=== PATIENT | female | born 1955 | race Caucasian/White ===

== ENCOUNTER 2019-11-23 12:09 | Inpatient (IN) | payer MEDICARE, OTHER, MEDICAID, SELFPAY ==
[2019-11-23] VITALS (11 sets, daily range): BP systolic 140–144; BP diastolic 78–95; PULSE 101–115; RESP 16–20; TEMP 36.3–36.8; O2SAT 94–95; BMI 19.9
--- NOTE | ~2019-11-23 | XR_ITS ---
EXAMINATION: XR fl guide central line place EXAM DATE: 12/04/2019 17:02 INDICATION: Fluoroscopic guidance. Central line placement. Dialysis catheter. TECHNIQUE: Fluoroscopy used during XR fl guide central line place performed by Dr. Gianluca wood. The DAP for this procedure was 0.2 mGym2. FINDINGS: There are 2 images demonstrating right-sided jugular catheter, and a newly placed left-torres ed double lumen dialysis catheter, both IJ approach. Tips project over right atrium. Correlate with procedure note. IMPRESSION: Fluoroscopy used during XR fl guide central line place. Reviewed, dictated and finalized at location A. ERY TEAM MEMBER
--- NOTE | ~2019-11-23 | US_ITS ---
EXAMINATION: US venous doppler [facility] DATE: 11/25/2019 15:48 INDICATION: Tachycardia and positive d-dimer on admission TECHNIQUE: Jolly scale images without and with compression and Doppler images of the bilateral lower e xtremity veins were obtained. COMPARISON: None. FINDINGS: The right common femoral vein, profunda femoral vein, femoral vein, popliteal vein, peroneal trunk, p osterior tibial veins, and greater saphenous vein are patent. The left common femoral vein, profunda femoral vein, femoral vein, popliteal vein, peroneal trunk, po sterior tibial veins, and greater saphenous vein are patent. IMPRESSION: 1. Patent bilateral lower extremity veins. No evidence of deep venous thrombosis. Reviewed, dictated and finalized at location A. ERN WEAVER IMPRESSION: 1. Patent bilateral lower extremity veins. No evidence of deep venous thrombosi s.
--- NOTE | ~2019-11-23 | XR_ITS ---
EXAMINATION: XR chest 1V portable DATE: 12/03/2019 05:42 INDICATION: Pneumonia TECHNIQUE: frontal view of the chest was obtained. COMPARISON: Chest radiograph dated 11/30/2019 and 07/19/2018 FINDINGS: Large-bore right internal jugular central venous catheter with distal tip at the high right atrium. C hronic biapical pleural-parenchymal scarring, left greater than right. Gradient of hazy airspace opac ity in the right mid to lower lung and left lower lung zones with blunting at the costophrenic angle consistent with small posterior layering pleural effusions, right greater than left. Superimposed dif fuse bilateral interstitial and mild airspace opacities relatively sparing the left upper lung zone. Linear discoid atelectasis in the right midlung zone. No pneumothorax. Heart size is normal. Cholecys tectomy clips in the right upper quadrant. IMPRESSION: 1. Unchanged diffuse interstitial and mild airspace opacities throughout both lungs relatively sparin g the left upper lung zone which could represent mild to moderate pulmonary edema and/or pneumonia. 2. Small bilateral pleural effusions, right greater than left. Reviewed, dictated and finalized at location A. PIPE INSPECTOR IMPRESSION: 1. Unchanged diffuse interstitial and mild airspace opacities throughout both l ungs relatively sparing the left upper lung zone which could represent mild to moderate pulmonary edema and/or pneumonia. 2. Small bilateral pleural effusions, right greater than left.
--- NOTE | ~2019-11-23 | XR_ITS ---
EXAMINATION: XR chest port-a-cath/central EXAM DATE: 12/04/2019 16:55 INDICATION: Dialysis catheter placement. TECHNIQUE: Portable AP frontal chest x-ray was obtained. Comparison is made to prior examination from 12/03/2019. FINDINGS: Previously seen right IJ line has been removed. There is a new left-sided dialysis catheter , slight kinking at the superior most aspect. Tip projects over right atrium. There is rather extensi ve right-sided, moderate left-sided airspace disease, either stable or with slight interval improveme nt compared to prior study. Consider edema and/or pneumonia. Small bilateral pleural effusions. Cardi omediastinal silhouette is normal. No pneumothorax. Left apical scarring and capping. Left-sided PIC C line, tip overlying the left axilla. IMPRESSION: 1. No evidence postprocedure pneumothorax. 2. Right-sided dialysis catheter, slight kinking at the cephalad most aspect. 3. Left PICC line tip overlying axilla. 4. Bilateral edema and/or pneumonia stable or with slight interval improvement. 5. Small pleural effusions. Reviewed, dictated and finalized at location A. GRADER IMPRESSION: 1. No evidence postprocedure pneumothorax. 2. Right-sided dialysis catheter, slight kinking at the cephalad most aspect. 3. Left PICC line tip overlying axilla. 4. Bilateral edema and/or pneumonia stable or with slight interval improvement . 5. Small pleural effusions.
--- NOTE | ~2019-11-23 | XR_ITS ---
EXAMINATION: XR chest 2V DATE: 11/26/2019 15:32 INDICATION: Shortness of breath. TECHNIQUE: Frontal and lateral views of the chest were obtained. COMPARISON: Chest 2 views 11/23/2019, chest CT 12/12/2017 FINDINGS: The lungs are hyperexpanded with architectural distortion and chronic interstitial opacitie s, consistent with emphysema. There is chronic scarring at the lung apices, left worse than right. Th ere are airspace opacities in the lower lung zones, right worse than left. There are small pleural ef fusions. No pneumothorax. The heart size is normal. Surgical clips in the right upper quadrant are arnol colemany from cholecystectomy. IMPRESSION: 1. Worsened airspace opacities in the lower lung zones, consistent with atelectasis versus pneumonia. 2. Small pleural effusions. 3. Emphysema with multifocal scarring. Reviewed, dictated and finalized at location A. OR TRUCK GARAGE MECHANIC IMPRESSION: 1. Worsened airspace opacities in the lower lung zones, consistent with atelect asis versus pneumonia. 2. Small pleural effusions. 3. Emphysema with multifocal scarring.
--- NOTE | ~2019-11-23 | XR_ITS ---
EXAMINATION: XR chest 1V portable DATE: 11/28/2019 08:33 INDICATION: Altered mental status. Generalized weakness. TECHNIQUE: A single frontal view of the chest was obtained. COMPARISON: Chest 2 views 11/26/2019, CT abdomen and pelvis 01/24/2019 FINDINGS: There is scarring at the lung apices, left worse than right. There is a diffuse interstitia l pattern, consistent with mild pulmonary edema. There are airspace opacities in right mid and lower lung zones. There is a small right pleural effusion. No pneumothorax. The heart size is normal. IMPRESSION: 1. Mild pulmonary edema. 2. Worsened airspace opacities in right mid and lower lung zones, consistent with atelectasis versus pneumonia. 3. Small right pleural effusion. Reviewed, dictated and finalized at location A. ENT ART CURATOR IMPRESSION: 1. Mild pulmonary edema. 2. Worsened airspace opacities in right mid and lower lung zones, consistent wi th atelectasis versus pneumonia. 3. Small right pleural effusion.
--- NOTE | ~2019-11-23 | XR_ITS ---
EXAMINATION: XR barium swallow modified EXAM DATE: 12/09/2019 14:54 INDICATION: Dysphagia. Cough. TECHNIQUE: Modified barium esophagram was performed by myself to administered fluoroscopy, in conjun ction with speech pathologist who administered barium in varying consistencies as per speech patholog ist documentation. This was recorded on tape. The DAP for this procedure was 0.7 Gycm2. FINDINGS: Oral stage: Adequate function. Pharyngeal phase: Adequate function. Laryngeal penetration: None. Aspiration: None. Laryngeal sensitivity: Present. IMPRESSION: Patient tolerated oral feedings in the upright position. Please refer to speech patholo gist findings and specific feeding recommendations. Reviewed, dictated and finalized at location A. IMPRESSION: Patient tolerated oral feedings in the upright position. Please r efer to speech pathologist findings and specific feeding recommendations.
--- NOTE | ~2019-11-23 | US_ITS ---
EXAMINATION: US biopsy renal DATE: 12/04/2019 13:31 INDICATION: Acute renal insufficiency. Borderline urine with M spike. TECHNIQUE: The procedure including the risks, benefits, and alternatives was discussed with the patie nt. Risks discussed included bleeding and infection. The patient understood the risks and agreed to p roceed. A timeout was performed to verify the patient's name, date of , and procedure to be p erformed. The skin overlying the right kidney was prepped and draped in usual sterile fashion. Anes thetic was administered with 1% lidocaine subcutaneously. An 18 gauge core biopsy needle was then us ed to obtain 3 core biopsy specimens under continuous sonographic guidance. The entry site was cleane d and dressed. Following the biopsy there was development of a small perinephric hematoma with active hemorrhage evident on color Doppler at the site of biopsy. Direct pressure was held over the lower p ole of the right kidney for 10 minutes after which no active hemorrhage was discernible by color Dopp ler. FINDINGS: Ultrasound images demonstrate the needle in the kidney. IMPRESSION: 1. Ultrasound-guided random right kidney core needle biopsy. 2. Small right perinephric hematoma with initial active hemorrhage visible on color Doppler which res olved following 10 minutes of direct pressure. Reviewed, dictated and finalized at location A. TER SMALL PRINT SHOP IMPRESSION: 1. Ultrasound-guided random right kidney core needle biopsy. 2. Small right perinephric hematoma with initial active hemorrhage visible on c olor Doppler which resolved following 10 minutes of direct pressure.
--- NOTE | ~2019-11-23 | XR_ITS ---
EXAMINATION: XR chest 1V portable EXAM DATE: 12/08/2019 16:20 INDICATION: Cough. Dialysis. Airspace disease. Follow-up. TECHNIQUE: Portable AP frontal chest x-ray was obtained. Comparison is made to prior examination from 12/03/2019. FINDINGS: Again there is extensive right-sided airspace disease, smaller amount of left sided airspac e disease, likely acute process, probably pneumonia, or less likely edema. Accounting for differences in technique, there is no significant interval change. There is a left-sided venous line with tip pr ojecting over the left axilla. There is a double-lumen dialysis catheter. There is no pneumothorax marino spected. Small right pleural effusion. Cardiomediastinal silhouette is normal. There are no osseous a bnormalities identified. IMPRESSION: 1. Extensive right-sided, small to moderate left-sided acute airspace disease unchanged. 2. Probable small right pleural effusion. Reviewed, dictated and finalized at location A. UDER
--- NOTE | ~2019-11-23 | US_ITS ---
EXAMINATION: US renal BI DATE: 12/07/2019 14:32 INDICATION: Perinephric hematoma TECHNIQUE: Multiple ultrasound grayscale images of the kidneys were obtained. COMPARISON: 12/04/2019 and 12/06/2019 FINDINGS: The right kidney measures 11.4 x 4.6 x 4.3 cm. The left kidney measures 8.2 x 3.4 x 4.0 cm. There is increased renal cortical echogenicity at the kidneys consistent with medical renal disease. Cortical thinning at the left kidney with a couple anechoic left renal cysts, the larger measuring 1.7 cm in m aximal diameter. There is no hydronephrosis in either kidney. No stones identified. Continued decrea se in size of a now 5.5 x 2.0 x 1.0 cm hypoechoic perinephric hematoma anterior to the lower pole of the right kidney. On the most recent study this measured 5.8 x 4.2 x 1.3 cm. 7 x 8 mm echogenic nodul e along the nondependent wall of the bladder on one of the images of the bladder. A couple additional images there appears to be a fold along the bladder wall and the nodular appearance on the initial i mage may be artifactual. Tiny amount of anechoic ascites in the deep pelvis. IMPRESSION: 1. Interval decrease in size of a small iatrogenic right perinephric hematoma post recent right renal biopsy. 2. Bilateral increased renal cortical echogenicity consistent with medical renal disease with moderat e left renal atrophy. 3. 7 x 8 mm echogenic nodule along the nondependent bladder wall. A couple additional images suggests this could be artifact of a fold along the bladder wall although differential would include malignan cy or clot. Would consider repeat ultrasound with the bladder fully distended. Reviewed, dictated and finalized at location A. DESK SUPPORT IMPRESSION: 1. Interval decrease in size of a small iatrogenic right perinephric hematoma p ost recent right renal biopsy. 2. Bilateral increased renal cortical echogenicity consistent with medical dragan l disease with moderate left renal atrophy. 3. 7 x 8 mm echogenic nodule along the nondependent bladder wall. A couple lucrecia tional images suggests this could be artifact of a fold along the bladder wall although differential would include malignancy or clot. Would consider repeat u ltrasound with the bladder fully distended.
--- NOTE | ~2019-11-23 | NM_ITS ---
EXAMINATION: NM lung vent and perfusion DATE: 11/26/2019 16:05 INDICATION: Shortness of breath. TECHNIQUE: The patient breathed 25.3 mCi xenon-133 for ventilation images. 5.3 mCi Tc-99m MAA was adm inistered intravenously for perfusion images. Scintigraphic images of the chest were obtained. COMPARISON: Chest 2 views 11/26/2019 FINDINGS: The single breath ventilation image demonstrates large defects in the upper lobes and lower lobes. Ve ntilation washout images show diffuse retention bilaterally. Perfusion images show matched large def ects in the upper lobes and lower lobes. ] IMPRESSION: 1. Intermediate probability for pulmonary embolism. Reviewed, dictated and finalized at location A. URFACE AUGMENTEE ELINT OPERATOR
--- NOTE | ~2019-11-23 | US_ITS ---
US renal BI 11/24/2019 07:58 Procedure: Realtime transabdominal ultrasound of the kidneys and bladder. Indication: Acute renal injury. Comparison: Ultrasound dated 11/07/2018 Findings: There is increased renal cortical echotexture bilaterally, consistent with chronic medical renal disease. There is left renal atrophy. There is a left renal cyst measuring 1.1 cm maximum dimen milly, inferior laterally. The right kidney measures 11.1 cm and left kidney measures 7.7 cm. Bladder within normal limits. Impression: 1: Left renal atrophy. Increased renal cortical echotexture consistent with chronic medical renal dis ease. 2: Left renal cyst measuring 11 mm. Reviewed, dictated and finalized at location A. LE AND OUTSOLE SPLITTER Impression: 1: Left renal atrophy. Increased renal cortical echotexture consistent with chr onic medical renal disease. 2: Left renal cyst measuring 11 mm.
--- NOTE | ~2019-11-23 | CT_ITS ---
EXAMINATION: CT brain wo con DATE: 11/28/2019 08:45 INDICATION: Altered mental status. TECHNIQUE: Computed tomography (CT) of the head was performed without intravenous contrast. The mA wa s adjusted according to patient size. Iterative reconstruction technique was employed. The dose-lengt h product was 1210.67 mGy-cm. COMPARISON: Head CT 07/19/2018 FINDINGS: Motion artifact is noted. There are scattered areas of low attenuation in the cerebral whit e matter. There is no intracranial hemorrhage, acute infarction, or abnormal intracranial mass lesion . The ventricles are normal in size. There is mild mucosal thickening in the paranasal sinuses. The m astoid air cells are normal. IMPRESSION: 1. Stable moderate nonspecific cerebral white matter disease, which likely represents chronic small v essel ischemic disease. Reviewed, dictated and finalized at location A. WASHER TENDER IMPRESSION: 1. Stable moderate nonspecific cerebral white matter disease, which likely repr esents chronic small vessel ischemic disease.
--- NOTE | ~2019-11-23 | US_ITS ---
EXAMINATION: US venous doppler [facility] DATE: 12/04/2019 13:34 INDICATION: Lower limb edema. TECHNIQUE: Grayscale ultrasound images without and with compression and Doppler ultrasound images of the bilateral lower extremity veins were obtained. COMPARISON: Ultrasound 11/25/2019 FINDINGS: The visualized portions of right common femoral vein, profunda (deep) femoral vein, popliteal vein, p eroneal veins, posterior tibial veins, and greater saphenous vein outflow are patent. There is thromb us in right femoral vein. The visualized portions of left common femoral vein, profunda femoral vein, femoral vein, popliteal v ein, peroneal veins, posterior tibial veins, and greater saphenous vein outflow are patent. IMPRESSION: 1. Acute deep vein thrombosis involving right femoral vein. Reviewed, dictated and finalized at location A. NO ATTENDANT
--- NOTE | ~2019-11-23 | XR_ITS ---
EXAMINATION: XR chest 2V DATE: 11/23/2019 13:22 INDICATION: Shortness of breath. Weakness. TECHNIQUE: Frontal and lateral views of the chest were obtained. COMPARISON: Chest 2 views 07/19/2018, CT abdomen and pelvis 01/24/2019 FINDINGS: There are lucencies in the lungs, consistent with emphysema. There is scarring at left lung apex with interval improvement. There are mild airspace opacities in the mid and lower lung zones. N o pleural effusion or pneumothorax. The heart size is normal. There is an old healed fracture of left humeral diaphysis. IMPRESSION: 1. Mild airspace opacities in the mid and lower lung zones, consistent with atelectasis/scarring vers us pneumonia. 2. Emphysema. Reviewed, dictated and finalized at location A. 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 Mild airspace opacities in the mid and lower lung zones, consistent with ate lectasis/scarring versus pneumonia. 2. Emphysema.
--- NOTE | ~2019-11-23 | XR_ITS ---
EXAMINATION: XR chest port-a-cath/central EXAM DATE: 11/29/2019 11:21 INDICATION: Portacatheter insertion. TECHNIQUE: Portable AP frontal chest x-ray was obtained. Comparison is made to prior examination from 11/28/2019. FINDINGS: There is a new right-sided Huber catheter in position. Cardiomediastinal silhouette is no rmal. There is indistinct reticulation with a bibasal predominance which may indicate pulmonary edema . There are small pleural effusions. No pneumothorax. Similar appearance on prior study. There are no osseous abnormalities identified. IMPRESSION: No evidence postprocedure pneumothorax. Probable pulmonary edema. Small pleural effusions . Pneumonia not excludable. Reviewed, dictated and finalized at location B. 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 Probable pulmonary edema. S mall pleural effusions. Pneumonia not excludable.
--- NOTE | ~2019-11-23 | US_ITS ---
EXAMINATION: US renal BI DATE: 12/06/2019 10:46 INDICATION: Iatrogenic right perinephric hematoma. TECHNIQUE: Multiple ultrasound grayscale images of the kidneys were obtained. COMPARISON: Ultrasound 11/24/2019 FINDINGS: The right kidney measures 11.0 x 4.0 x 6.9 cm. The left kidney measures 8.5 x 4.1 x 4.7 cm. The kidne ys demonstrate normal parenchymal echogenicity. There is a small volume of right perinephric hematoma . There is a 1.4 cm cyst in left kidney. There is no hydronephrosis. The bladder is normal. IMPRESSION: 1. Small right perinephric hematoma. 2. Mild atrophy of left kidney. No hydronephrosis. Reviewed, dictated and finalized at location A. 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
--- NOTE | ~2019-11-23 | XR_ITS ---
EXAMINATION: XR chest 1V portable INDICATION: Pneumonia and pulmonary edema TECHNIQUE: Portable AP chest at 1547 hours COMPARISON: 11/29/2017 FINDINGS: A right internal jugular dialysis catheter ends with its tip in the proximal right atrium. The lungs are hyperinflated. Opacities persist without significant change. There is a small, stable r ight pleural effusion. A left pleural effusion has decreased in size. The cardiomediastinal silhouett e is stable. There is no pneumothorax. IMPRESSION: 1. Diffuse lung disease without significant change, likely combination of pulmonary edema and pneumon ia. 2. Small right pleural effusion. Reviewed, dictated and finalized at location A. CAL STAFF ASSISTANT IMPRESSION: 1. Diffuse lung disease without significant change, likely combination of pulmo nary edema and pneumonia. 2. Small right pleural effusion.
--- NOTE | 2019-11-23 12:06 | ED.WEAKNESS ---
HPI - Weakness General Chief complaint: Weakness Stated complaint: weakness Time Seen by Provider: 11/23/19 12:06 Source: patient, EMS and RN notes reviewed Mode of arrival: EMS Limitations: no limitations History of Present Illness HPI Narrative: Pt is a 64 y/o female presenting to the ED c/o generalized weakness. Pt reports she started experiencing generalized weakness about 3 days ago to where she was unable to walk. Pt states she was diagnosed with Influenza at [facility] on 10/18 and notes she was prescribed Tamaflu. Pt states she is normally able to ambulate at her home. Pt also reports subjective fever, cough, midstenral CP, back pain, ABD pain, N/V, and SOB. Pt states she has not vomited today, EMS report the pt has not had anything to eat in 3 days. Per EMS, the pt has a Hx of COPD but is not on home oxygen. Onset (ago): day(s) (3) Location: generalized Associated symptoms: chest pain (Midsternal), fever/chills (Subjective fever), loss of appetite (not eaten in 3 days), nausea/vomiting, shortness of breath and other (Cough; back pain; ABD pain) Related Data Home Medications Medication Instructions Recorded Confirmed trazodone 50 mg tablet 50 mg PO .QHS tablet 08/13/19 09/10/19 Allergies Allergy/AdvReac Type Severity Reaction Status Date / Time No Known Allergies Allergy Verified 09/10/19 15:25 Review of Systems Review of Systems: Narrative: Constitutional: Positive for subjective fever, generalized weakness, and loss of appetite. Respiratory: Positive for dyspnea and cough. Cardiovascular: Positive for midsternal chest pain. Gastrointestinal: Positive for abdominal pain, nausea, or vomiting. Musculoskeletal: Positive for back pain. All systems reviewed & are unremarkable except as noted in HPI and below PMFSH Past Medical History Medical History COPD (chronic obstructive pulmonary disease) Influenza Surgical History Surgical History History of right hip replacement Family History Family History Mother Family history of lung cancer Sibling Family history of lung cancer Father Acute myocardial infarction Social History Social History Smoking status: Unknown if ever smoked Alcohol intake: current Gender identity (if verbalized by the patient): Female Exam Narrative: Exam Narrative: Constitutional: Ill appearing. No distress. Nose: Nose normal. Eyes: Conjunctiva are normal. Neck: Normal range of motion. Neck supple. Cardiovascular: Normal rate and regular rhythm. Pulmonary/Chest: Decreased breath sounds. Abdominal: Soft. There is no tenderness. Musculoskeletal: Normal range of motion. No edema. Neurological: Alert and oriented to person and place. Skin: Skin is warm. No pallor. Psychiatric: Normal mood and affect. Course Consultations Consultation #1: Discussed case with Hospitalist SONIA Solano. Accepted the pt for admission. Date: 11/23/19 Time: 14:40 Consultation #2: Discussed case with Social Insurance Analyst Dr. Abel. Will consult. Date: 11/23/19 Time: 14:42 Vital Signs Vital signs: Vital Signs Temperature 36.8 C 11/23/19 12:00 Pulse Rate 101 H 11/23/19 12:00 Respiratory Rate 16 11/23/19 12:00 Blood Pressure 142/95 H 11/23/19 12:00 Pulse Oximetry 94 11/23/19 12:00 Temperature 36.8 C 11/23/19 12:00 Pulse Rate 101 H 11/23/19 12:36 Respiratory Rate 16 11/23/19 12:00 Blood Pressure 142/95 H 11/23/19 12:00 Pulse Oximetry 94 11/23/19 12:37 MDM - Weakness Lab Data Result diagrams: 11/23/19 13:03 11/23/19 13:28 Labs: Lab Results 11/23/19 11/23/19 11/23/19 Range/Units 13:03 13:03 13:28 WBC 6.8 (4.5-10.0) K/mm3 RBC 4.49 (4.2-5.4) M/mm3 Hgb 13.1 (12.0-15.0) g/dL Hct 40.1 (37.0-47.0) % MCV 89
[2019-11-23] MEDS: SODIUM CHLORIDE 0.9% IV 1,000 ML 999 ML IV CONT ×2 (12:34→14:56)
--- NOTE | 2019-11-23 13:08 | PC.NURSE ---
Pt. ripped IV out on accident, IV placed. EDP aware.
--- NOTE | 2019-11-23 13:08 | ECG_ITS ---
Measurements Intervals [place] Rate: 101 P: 85 NC: 100 QRS: 84 QRSD: 76 T: 71 QT: 318 QTc: 413 Interpretive Statements SINUS TACHYCARDIA WITH SHORT NC INTERVAL ATRIAL PREMATURE COMPLEXES POSSIBLE LEFT ATRIAL ENLARGEMENT INCOMPLETE RIGHT BUNDLE BRANCH BLOCK BORDERLINE ST-T WAVE ABNORMALITY- INFERIOR LEADS BASELINE ARTIFACT- I, III, AVL, AVF, V4 ABNORMAL ECG Electronically Signed On 11-23-2019 13:47:24 POSTAL INSPECTOR by Reed Chapin D.O.
[2019-11-23 13:11] LABS: Basophils Absolute Auto 0.1 K/mm3 (0.0-0.1); Basophils Percent Auto 0.7 % (0.2-1.2); Hematocrit 40.1 % (37.0-47.0); Hemoglobin 13.1 g/dL (12.0-15.0); Immature Granulocyte Absolute 0.01 K/mm3 (0.00-0.031); Immature Granulocyte Percent A 0.1 % (0-0.5); Immature Platelet Fraction Pct 2.9 % (0.9-11.2); Lymphocytes Absolute Auto 0.42 K/mm3 (0.9-3.2); Lymphocytes Percent Auto 6.2 % (18.3-44.2); Mean Corpuscular HGB Conc 32.7 g/dl (32-36); Mean Corpuscular Hemoglobin 29.2 pg (26-34); Mean Corpuscular Volume 89.3 fl (80-100); Mean Platelet Volume 11.1 fl (7.4-10.4); Monocytes Absolute Auto 0.3 K/mm3 (0.1-0.6); Monocytes Percent Auto 4.6 % (2.6-8.5); Neutrophils Percent Auto 88.4 % (45.5-73.1); Platelet Count Result 117 k/mm3 (150-375); Red Blood Count 4.49 M/mm3 (4.2-5.4); Red Cell Distribution Width 14.7 % (11.5-14.5); White Blood Count 6.8 K/mm3 (4.5-10.0)
[2019-11-23 13:29] LABS: D Dimer 3.98 ug/mL (<0.48)
[2019-11-23 13:45] LABS: Alanine Aminotransferase 19 U/L (4-35); Albumin Level 3.3 g/dL (3.5-5.1); Alkaline Phosphatase 110 U/L (38-126); Aspartate Amino Transferase 34 U/L (14-36); Bilirubin,Total 0.5 mg/dL (0.2-1.3); Blood Urea Nitrogen 61 mg/dL (7-17); Calcium 8.4 mg/dL (8.4-10.2); Carbon Dioxide 18 mmol/L (22-30); Chloride 104 mmol/L (98-107); Estimated Glomerular Filt Rate 6; Glucose 89 mg/dL (65-105); Potassium 3.6 mmol/L (3.4-5.0); Sodium 138 mmol/L (137-145)
[2019-11-23 13:54] LABS: NT Pro B Type Natriuretic Pept 1950 PG/ML (5-100)
[2019-11-23 14:56] LABS: Creatine Kinase 274 U/L (30-135)
[2019-11-23] MEDS: GUAIFENESIN/DEXTROMETHORPHAN 10 ML UDC PO (15:41)
--- NOTE | 2019-11-23 16:00 | PM.IMHP ---
H&P: HPI History of Present Illness Chief complaint: Generalized weakness. Narrative: Jacquelyn Willis is a 64 year old female smoker with COPD, chronic kidney disease, and hypertension who presented to the emergency department earlier this afternoon via EMS from home for evaluation of generalized weakness. She was diagnosed with influenza at an outside facility on November 18, 2019 and was prescribed Tamiflu of which she has completed. Unfortunately, she continues to feel poorly, and in fact feels worse than what she felt at the outset. She continues to have headache, cough occasionally productive of clear to yellow phlegm, wheezing which is improved with inhalers, subjective fever, aches, and progressive weakness to the point where she really could not even get herself out of bed today. Her appetite has been extremely poor and she has had little oral intake for at least a week's time. Her urine output has declined significantly and she has been feeling lightheaded/dizzy upon standing. She also notes mild confusion and mild sinus congestion with rhinorrhea. She does not recall when she last had a fever. No exertional chest pain, but her chest wall is a bit sore from coughing. She does have shortness of breath with exertion. No orthopnea, PND, or lower extremity edema. She has not had diarrhea or dysuria. She has been taking Tylenol for aches and fever and denies NSAID use. Review of Systems Review of Systems: All systems reviewed & are unremarkable except as noted in HPI and below PMFSH Past Medical History Medical History (Updated 11/23/19 @ 18:03 by Senia Solano PA-C) Chronic kidney disease, stage 3 Baseline creatinine is between 1.00 and 1.20. Colon polyps COPD (chronic obstructive pulmonary disease) Gastroesophageal reflux disease Hyperlipidemia Hypertension Osteoarthritis Osteoporosis Tobacco dependence Surgical History Surgical History (Updated 11/23/19 @ 17:59 by Senia Solano PA-C) History of right hip replacement Status post bunionectomy Status post hysterectomy Status post nasal septoplasty Family History Family History Mother Family history of lung cancer Sibling Family history of lung cancer Father Acute myocardial infarction Social History Social History (Updated 11/23/19 @ 18:00 by Senia Solano PA-C) Social History: The patient lives in [place]. Her apparently lives next door. She is retired. She designates her daughter, Emily Hooper, as her surrogate decision maker and she wishes to be a full code. She smoked up to a pack of cigarettes per day for many years, and now smokes about 8 a day. She denies alcohol abuse. No drug use. Years smoked: 45 Smoking end date: 11/20/19 Spiritual care concerns: No Agree to blood products: Yes Meds Home Medications and Allergies Home Medications Medication Instructions Recorded Confirmed Type trazodone 50 mg tablet 50 mg PO .QHS tablet 08/13/19 11/23/19 History estradiol 0.5 mg tablet 0.5 mg PO DAILY #90 tablet 10/16/19 11/23/19 Rx linaclotide 290 mcg capsule 290 mcg PO DAILY #30 cap 10/16/19 11/23/19 Rx metoprolol succinate 25 mg 25 mg PO DAILY #90 tablet 10/16/19 11/23/19 Rx tablet,extended release 24 hr rosuvastatin 40 mg tablet 40 mg PO DAILY #90 tablet 10/16/19 11/23/19 Rx cholecalciferol (vitamin D3) 1,250 50,000 unit PO WEEKLY #8 cap 10/17/19 11/23/19 Rx mcg (50,000 unit) capsule omega-3 fatty acids 1,000 mg 1,000 mg PO DAILY #90 cap 10/17/19 11/23/19 Rx capsule docusate sodium 100 mg PO DAILY 11/23/19 11/23/19 History hydrocodone-acetaminophen 1 tablet PO Q6H PRN 11/23/19 11/23/19 History ondansetron 4 mg PO Q8H PRN 11/23/19 11/23/19 History oseltamivir 75 mg PO BID 11/23/19 11/23/19 History tramadol 50 mg PO Q8H PRN 11/23/19 11/23/19 History Allergies Allergy/AdvReac Type Severity Reaction Status Date / Time No Known Allergie
[2019-11-23 18:32] LABS: Lactic Acid Reflex 0.8 mmol/L (0.7-2.1)
[2019-11-23 18:32] LABS: Blood Urea Nitrogen 58 mg/dL (7-17); Calcium 7.7 mg/dL (8.4-10.2); Carbon Dioxide 15 mmol/L (22-30); Chloride 107 mmol/L (98-107); Creatine Kinase 354 U/L (30-135); Estimated Glomerular Filt Rate 7; Glucose 77 mg/dL (65-105); Magnesium 2.2 mg/dL (1.6-2.3); Phosphorus 6.2 mg/dL (2.5-4.5); Potassium 3.5 mmol/L (3.4-5.0); Sodium 137 mmol/L (137-145)
[2019-11-23] MEDS: TRAMADOL HCL 50 MG TABLET PO (18:39)
[2019-11-23] MEDS: TRAZODONE HCL 50 MG TABLET PO (20:18)
[2019-11-23] MEDS: ALBUTEROL SULFATE NEB 2.5 MG/0.5 ML INH INHALATION (20:26)
[2019-11-23] MEDS: IPRATROPIUM BR 0.02% INH SOLN 0.5 MG/2.5 ML VIAL INHALATION (20:27)
[2019-11-23 21:59] LABS: Add Urine Microscopic? YES; Amorphous Sediment Urine Few; Appearance Urine Cloudy (Clear); Bacteria Urine 4+ /hpf; Bilirubin Urine Negative (Negative); Blood Urine 2+ (Negative); Color Urine Yellow (Yellow); Glucose Urine UA Negative (Negative); Ketones Urine Negative (Negative); Leukocyte Esterase Ur 2+ LEU/UL (Negative); Mucus Urine Rare /lpf; Nitrate Urine Negative (Negative); Protein Urine 2+ mg/dL (Negative); RBC Urine 0-2 /hpf (0-2); Specific Grav Ur 1.009 (1.001-1.035); Squamous Epithelial Cell Urine Occasional /hpf (Few); Urobilinogen Urine Negative mg/dL (<2.0); WBC Clumps Urine Present /HPF; WBC Urine 31-50 /hpf
[2019-11-23] MEDS: SODIUM BICARBONATE 8.4% 150 MEQ in DEXTROSE 5% 1,000 ML 950 ML 50 MEQ IV CONT (22:55)
[2019-11-24] VITALS (20 sets, daily range): BP systolic 116–149; BP diastolic 65–85; PULSE 83–119; RESP 14–22; TEMP 36.1–37.1; O2SAT 95–98
[2019-11-24] MEDS: ALBUTEROL SULFATE NEB 2.5 MG/0.5 ML INH INHALATION ×4 (02:21→22:24)
[2019-11-24 05:57] LABS: Hematocrit 31.3 % (37.0-47.0); Hemoglobin 10.5 g/dL (12.0-15.0); Immature Granulocyte Absolute 0.02 K/mm3 (0.00-0.031); Immature Granulocyte Percent A 0.4 % (0-0.5); Lymphocytes Absolute Auto 0.33 K/mm3 (0.9-3.2); Lymphocytes Percent Auto 6.2 % (18.3-44.2); Mean Corpuscular HGB Conc 33.5 g/dl (32-36); Mean Corpuscular Hemoglobin 28.9 pg (26-34); Mean Corpuscular Volume 86.2 fl (80-100); Mean Platelet Volume 10.2 fl (7.4-10.4); Monocytes Absolute Auto 0.3 K/mm3 (0.1-0.6); Monocytes Percent Auto 5.8 % (2.6-8.5); Neutrophils Absolute Auto 4.7 K/mm3 (1.3-6.7); Neutrophils Percent Auto 87.6 % (45.5-73.1); Platelet Count Result 87 k/mm3 (150-375); Red Blood Count 3.63 M/mm3 (4.2-5.4); Red Cell Distribution Width 14.6 % (11.5-14.5); White Blood Count 5.3 K/mm3 (4.5-10.0)
[2019-11-24 06:13] LABS: Albumin Level 2.6 g/dL (3.5-5.1); Blood Urea Nitrogen 59 mg/dL (7-17); Calcium 7.8 mg/dL (8.4-10.2); Carbon Dioxide 15 mmol/L (22-30); Chloride 103 mmol/L (98-107); Creatine Kinase 397 U/L (30-135); Estimated Glomerular Filt Rate 6; Glucose 88 mg/dL (65-105); Phosphorus 6.1 mg/dL (2.5-4.5); Potassium 3.3 mmol/L (3.4-5.0); Sodium 136 mmol/L (137-145)
[2019-11-24 08:33] LABS: Creatinine Urine 35.6 mg/dL; Total Protein Urine Random 87 mg/dL
[2019-11-24 08:34] LABS: Sodium Urine Random 44 meq/L
[2019-11-24] MEDS: METOPROLOL SUCCINATE EXT REL 25 MG TABCR PO (08:39)
[2019-11-24] MEDS: DOCUSATE SODIUM 100 MG CAPSULE PO (08:40)
[2019-11-24] MEDS: TRAMADOL HCL 50 MG TABLET PO ×2 (08:46→20:28)
[2019-11-24] MEDS: SODIUM CHLORIDE 0.9% IV 1,000 ML 75 ML IV CONT (11:35)
--- NOTE | 2019-11-24 12:44 | PM.IMPN ---
Progress Note: A&P Assessment and Plan (1) Influenza A: Code(s): J10.1 - Influenza due to other identified influenza virus with other respiratory manifestations Status: Acute Assessment and Plan: Screen showing patient influenza A positive in the emergency room. She has already completed a course of Tamiflu. (2) Abnormal chest x-ray: Code(s): R93.89 - Abnormal findings on diagnostic imaging of other specified body structures Status: Acute Assessment and Plan: CXR showing mild bilateral mid and lower lung zone airspace disease. Possibly PNA but does not appear too symptomatic from this. Rocephin and Azithromycin ordered. Will add Doxycycline since this is post influenza. (3) Acute kidney injury: Code(s): N17.9 - Acute kidney failure, unspecified Status: Acute Assessment and Plan: Creatinine was 1.0-1.4 both last year. Patient now profound renal failure. Also the metabolic acidosis most likely related to the failure. Renal ultrasound showing left renal atrophy. UA noted. Currently on IV bicarb. Creatinine improved initially but now is worsened again. Will add normal saline. Presumably YOKASTA due to profound dehydration from poor oral intake over the past week but consider TTP or rapidly progressive GN. Avoid nephrotoxic agents. Appreciate nephrology input. Check LDH, etc. (4) Hypertension: Code(s): I10 - Essential (primary) hypertension Status: Acute Assessment and Plan: BP reviewed on 11/24/19. BP mildly elevated on admission but better now. Continue metoprolol. Monitor closely. (5) COPD (chronic obstructive pulmonary disease): Code(s): J44.9 - Chronic obstructive pulmonary disease, unspecified Status: Acute Assessment and Plan: Wheezing appreciated on exam. Patient on room air. Will contiue scheduled nebulizers for now. Contineu Symbicort. Continue to follow (6) Tobacco dependence: Code(s): F17.200 - Nicotine dependence, unspecified, uncomplicated Status: Acute Assessment and Plan: Smoking cessation has been discussed with the patient. It appears she declined nicotine patch. (7) UTI (urinary tract infection): Code(s): N39.0 - Urinary tract infection, site not specified Status: Acute Assessment and Plan: UA showing 2+ blood, 2+ leukocyte Estrace, 31-50 white cells with clumping and 4+ bacteria. Growing gram-negative bacilli. Follow up on the culture results. She is currently on Rocephin which will continue. (8) Thrombocytopenia: Code(s): D69.6 - Thrombocytopenia, unspecified Status: Acute Assessment and Plan: Platelet count low at 117K on admission. It has dropped to 87,000 today. Sepsis related? TTP? (9) Positive D dimer: Code(s): R79.89 - Other specified abnormal findings of blood chemistry Status: Acute Assessment and Plan: This was drawn on admission. Patient was tachycardic on admission but is not hypoxic. Will check lower extremity venous Dopplers. Consider V/Q scan. (10) Chronic kidney disease, stage 3: Code(s): N18.3 - Chronic kidney disease, stage 3 (moderate) Status: Acute Assessment and Plan: Patient with baseline creatinine of 1-1.4. As above. Subjective Date/time seen: 11/24/19 12:44 Interval history: 64yo female with COPD here for generalized weakness after having influenza. She was up to the chair earlier today. She is alert but mildly confused. She states she having chest pain for the past few days. She does have difficulty telling me if this is intermittent or chronic. She states her chest pain symptoms get better she does not talk. She still has a headache. She denies any dysuria or hematuria. History overall is suspect. Review of Systems Review of Systems: ROS unobtainable: unobtainable due to mental status Exam Narrative: Exam Narrative: Gen -moni,
--- NOTE | 2019-11-24 13:34 | PM.CNNEP ---
Assessment and Plan Assessment and plan (1) Acute kidney injury: Code(s): N17.9 - Acute kidney failure, unspecified Status: Acute (2) Chronic kidney disease, stage 3: Code(s): N18.3 - Chronic kidney disease, stage 3 (moderate) Status: Chronic (3) Influenza A: Code(s): J10.1 - Influenza due to other identified influenza virus with other respiratory manifestations Status: Acute (4) Hypertension: Code(s): I10 - Essential (primary) hypertension Status: Acute Assessment and Plan: . Additional Plan Jacquelyn has suffered an acute insult on her baseline renal insufficiency. The exact etiology of this insult is not entirely clear but there are several concerns/possibilities. This could just be simple dehydration/volume depletion that was so severe that it resulted in acute tubular necrosis. On the other hand, it could be ATN from her influenza and associated symptoms in of itself as well. Another concern I have is a possibility of some type of glomerulonephritis/vasculitis/autoimmune disorder as she does have blood and protein on her urinalysis/urine sediment. Also of note, she has a low platelet count in association with renal dysfunction which brings up the concern for possible TTP. For now, I would follow up on her renal ultrasound as the patient states that she is aware that one of her kidneys is smaller than the other but could not give specifics to me. Head I will also check an extensive serological workup to rule out any type of intrinsic, infiltrative, or inflammatory disorder that may be affecting her kidney function. LDH, peripheral smear, and ADAMTS 13 antibody will be checked as well. I would continue supportive care as is and follow the trend of her repeat labs and urine output to ensure that she does not run into any problems with regard to hyperkalemia, worsening acidosis, uremia, or overt volume overload. I will continue the follow the patient with you while she remains hospitalized and make further recommendations depending on her hospital course. Thank you for allowing me to participate in the care of this patient. History of Present Illness Reason for Consult Consult date: 11/24/19 Reason for consult: acute renal failure Chief Complaint Chief complaint: Generalized weakness. History of Present Illness Narrative: The patient is a 64 year old female with a past medical history as outlined below who presented to [facility] emergency room yesterday via EMS from home for evaluation of generalized weakness. She was recently diagnosed with influenza at an outside facility about a week ago and prescribed Tamiflu - she has since completed this course of medication. However, she still feels quite poor and feels worse than she did a week ago. She complains of multiple symptoms including headache, productive cough clear to yellow sputum, wheezing (improves with inhaler use), fevers, body aches, and progressive weakness. Her weakness has progressed and is unable to do simple ADLs. Furthermore, her appetite and oral intake has declined significantly and she has had episodes of dizziness/lightheadedness as well. No overt chest pain but has chest is sore from frequent coughing. Work-up and evaluation in the ER demonstrated hemodynamically stable but tachycardic. Routine blood test demonstrated a significantly elevated BUN and creatinine in comparison to her previous labs in association with a chest x-ray that was somewhat suggestive of possible pneumonia. Given the marked decline in her renal function coupled with the above symptoms and possible pneumonia, she was admitted the hospital for further evaluation and therapy. She was started on IV fluids and antibiotics on the assumption of pneumonia after appropriate cultures were collected. Renal consultation was requested due to her acute kidney injury/acute renal failure. From review of her labs in the [facility]
[2019-11-24 18:40] LABS: INR 1.1; Prothrombin Time 13.7 Seconds (11.1-14.7)
[2019-11-24 18:41] LABS: Alanine Aminotransferase 24 U/L (4-35); Albumin Level 3.1 g/dL (3.5-5.1); Alkaline Phosphatase 116 U/L (38-126); Aspartate Amino Transferase 51 U/L (14-36); Bilirubin,Total 0.6 mg/dL (0.2-1.3); Blood Urea Nitrogen 67 mg/dL (7-17); Calcium 8.2 mg/dL (8.4-10.2); Carbon Dioxide 22 mmol/L (22-30); Chloride 97 mmol/L (98-107); Estimated Glomerular Filt Rate 6; Glucose 73 mg/dL (65-105); Lactate Dehydrogenase 914 U/L (313-618); Potassium 3.4 mmol/L (3.4-5.0); Sodium 137 mmol/L (137-145)
[2019-11-24] MEDS: DOXYCYCLINE HYCLATE 100 MG TABLET PO (20:28)
[2019-11-24] MEDS: TRAZODONE HCL 50 MG TABLET PO (20:28)
[2019-11-24] MEDS: IPRATROPIUM BR 0.02% INH SOLN 0.5 MG/2.5 ML VIAL INHALATION (22:24)
[2019-11-24] MEDS: SODIUM BICARBONATE 8.4% 150 MEQ in DEXTROSE 5% 1,000 ML 950 ML 50 MEQ IV CONT (22:46)
[2019-11-25] VITALS (21 sets, daily range): BP systolic 138–159; BP diastolic 78–90; PULSE 86–115; RESP 14–20; TEMP 35.7–36.9; O2SAT 90–96
[2019-11-25] MEDS: ALBUTEROL SULFATE NEB 2.5 MG/0.5 ML INH INHALATION ×4 (03:42→20:22)
[2019-11-25] MEDS: IPRATROPIUM BR 0.02% INH SOLN 0.5 MG/2.5 ML VIAL INHALATION ×3 (03:43→14:30)
[2019-11-25 05:38] LABS: Hematocrit 31.1 % (37.0-47.0); Hemoglobin 10.5 g/dL (12.0-15.0); Immature Platelet Fraction Pct 3.5 % (0.9-11.2); Mean Corpuscular HGB Conc 33.8 g/dl (32-36); Mean Corpuscular Hemoglobin 28.3 pg (26-34); Mean Corpuscular Volume 83.8 fl (80-100); Mean Platelet Volume 10.8 fl (7.4-10.4); Platelet Count Result 93 k/mm3 (150-375); Red Blood Count 3.71 M/mm3 (4.2-5.4); Red Cell Distribution Width 14.4 % (11.5-14.5); White Blood Count 5.3 K/mm3 (4.5-10.0)
[2019-11-25 06:05] LABS: Albumin Level 2.6 g/dL (3.5-5.1); Blood Urea Nitrogen 63 mg/dL (7-17); Calcium 7.6 mg/dL (8.4-10.2); Carbon Dioxide 23 mmol/L (22-30); Chloride 98 mmol/L (98-107); Estimated Glomerular Filt Rate 6; Glucose 103 mg/dL (65-105); Potassium 2.8 mmol/L (3.4-5.0); Sodium 137 mmol/L (137-145)
[2019-11-25] MEDS: SODIUM CHLORIDE 0.9% IV 1,000 ML 75 ML IV CONT ×2 (06:21→23:01)
[2019-11-25] MEDS: TRAMADOL HCL 50 MG TABLET PO ×2 (07:34→20:41)
--- NOTE | 2019-11-25 07:43 | PC.NURSE ---
Patient refused potassium packets after already scanned and opened and stated she would prefer pills. Order changed and disposed of open potassium packets.
[2019-11-25] MEDS: POTASSIUM CHLORIDE 20 MEQ TABLET 40 MEQ PO (08:03)
[2019-11-25] MEDS: DOXYCYCLINE HYCLATE 100 MG TABLET PO ×2 (09:32→20:43)
[2019-11-25] MEDS: DOCUSATE SODIUM 100 MG CAPSULE PO (09:32)
[2019-11-25] MEDS: METOPROLOL SUCCINATE EXT REL 25 MG TABCR PO (09:32)
[2019-11-25 12:38] LABS: Potassium 3.7 mmol/L (3.4-5.0)
--- NOTE | 2019-11-25 15:02 | PM.IMPN ---
Progress Note: A&P Assessment and Plan (1) Acute kidney injury: Code(s): N17.9 - Acute kidney failure, unspecified Status: Acute Assessment and Plan: Creatinine was 1.0-1.4 both last year. Patient now with profound renal failure with creatinine 7.2 on admission and metabolic acidosis most likely related to the failure. Renal ultrasound showing left renal atrophy. UA noted. Currently on IV bicarb. AG worsened 18 but better today at 16. Creatinine improved initially but then back up to 7.2 and essentially unchanged today at 7.1. Continue Bicarb and normal saline. Presumably YOKASTA due to profound dehydration from poor oral intake over the past week but consider TTP or rapidly progressive GN since not improving as expected. LDH 914. Avoid nephrotoxic agents. Appreciate nephrology input. (2) Pneumonia: Code(s): J18.9 - Pneumonia, unspecified organism Status: Acute Assessment and Plan: CXR showing mild bilateral mid and lower lung zone airspace disease. Possibly PNA but does not appear too symptomatic from this. Continue Rocephin, Azithromycin and Doxycycline. Continue neb treatments (3) Influenza A: Code(s): J10.1 - Influenza due to other identified influenza virus with other respiratory manifestations Status: Acute Assessment and Plan: Patient diagnosed with Influenza at an outside facility on 11/18/19 and treated with Tamiflu. Screen showing patient influenza A positive in the emergency room this admission. She has already completed a course of Tamiflu so this was not repeated. (4) Hypertension: Code(s): I10 - Essential (primary) hypertension Status: Acute Assessment and Plan: BP reviewed on 11/25/19. BP mildly elevated at times. Continue metoprolol. Monitor closely. Okay to stop telemetry. (5) COPD (chronic obstructive pulmonary disease): Code(s): J44.9 - Chronic obstructive pulmonary disease, unspecified Status: Acute Assessment and Plan: Stable. Not felt patient is having acute exacerbation. Patient remains on room air. Will continue scheduled nebulizers for now. Continue Symbicort. Continue to follow. (6) Tobacco dependence: Code(s): F17.200 - Nicotine dependence, unspecified, uncomplicated Status: Acute Assessment and Plan: Smoking cessation has been discussed with the patient. It appears she declined nicotine patch. (7) UTI (urinary tract infection): Code(s): N39.0 - Urinary tract infection, site not specified Status: Acute Assessment and Plan: UA showing 2+ blood, 2+ LE, 31-50 white cells with clumping and 4+ bacteria. Growing Klebsiella 50K-100K colonies sensitive to Rocephin. Continue Rocephin. (8) Thrombocytopenia: Code(s): D69.6 - Thrombocytopenia, unspecified Status: Acute Assessment and Plan: Platelet count low at 117K on admission. It dropped to 87K but better today at 93K today. Sepsis related? TTP? Continue to follow. Discussed with Nephrology yesterday. (9) Positive D dimer: Code(s): R79.89 - Other specified abnormal findings of blood chemistry Status: Acute Assessment and Plan: DDimer of 4. This was drawn on admission. Patient was tachycardic on admission but is not hypoxic. Suspect related to underlying inflammatory response possibly related to her renal failure. Lower extremity venous Dopplers ordered. Consider V/Q scan. (10) Chronic kidney disease, stage 3: Code(s): N18.3 - Chronic kidney disease, stage 3 (moderate) Status: Chronic Assessment and Plan: Patient with baseline creatinine of 1-1.4. As above. Subjective Date/time seen: 11/25/19 15:02 Interval history: 64yo female with COPD here for generalized weakness after having influenza and found to have YOKASTA. Patient stil with CP with coughing. Cough productive of yellow sputum. Not eating much. Voi
--- NOTE | 2019-11-25 16:05 | PM.PNNEP ---
Progress Note: A&P Assessment and Plan (1) Acute kidney injury: Code(s): N17.9 - Acute kidney failure, unspecified Status: Acute Assessment and Plan: etiology not entirely clear suspect at least partly from volume depletion when first diagnosed with influenza possibly leading to ATN with blood and protein in UA, concern for GN/vasculititis/automimmune disorder - however, given #5, interpretation makes this difficult serological testing is pending oliguric follow repeat labs and UOP (2) Chronic kidney disease, stage 3: Code(s): N18.3 - Chronic kidney disease, stage 3 (moderate) Status: Chronic Assessment and Plan: baseline creatiine ~ 1.0 - 1.4mg/dl renal ultrasound with changes c/w medical renal disease (3) Pneumonia: Code(s): J18.9 - Pneumonia, unspecified organism Status: Acute Assessment and Plan: as suggested by admission CXR on antibiotic therapy follow cultures (4) Influenza A: Code(s): J10.1 - Influenza due to other identified influenza virus with other respiratory manifestations Status: Acute Assessment and Plan: completed course of Tamiflu repeat screening still positive (5) UTI (urinary tract infection): Code(s): N39.0 - Urinary tract infection, site not specified Status: Acute Assessment and Plan: urine culture with Klebsiella this may be responsible for presence of blood and protein on UA on antibiotic therapy Will continue to follow. Subjective Date/time seen: 11/25/19 16:05 Major complaint is that of pain with productive cough; poor appetite and oral intake; states she is urinating okay but seems diminished by I/Os; no acute distress voiced at this time. Exam Narrative: Exam Narrative: General: thin female in NAD Heart: normal S1 and S2; no rub Lungs: few crackles at bases, R>L Abdomen: soft, nontender, nondistended, positive bowel sounds Extremities: no cyanosis or clubbing; no edema Skin: warm and dry Objective Data Vital Signs Vital Signs: Vital Signs Temp Pulse Resp BP Pulse Ox 11/25/19 14:41 101 H 20 11/25/19 14:30 115 H 20 11/25/19 12:00 111 H 11/25/19 10:00 36.3 C L 103 H 14 138/84 92 11/25/19 09:32 100 02/23/20 09:05 102 H 20 11/25/19 08:57 108 H 20 11/25/19 08:00 99 11/25/19 05:32 36.8 C 98 16 143/82 H 94 11/25/19 04:00 97 11/25/19 03:49 87 20 11/25/19 03:43 88 20 11/25/19 02:00 36.9 C 99 16 143/78 H 96 11/25/19 00:00 86 11/24/19 22:39 88 20 11/24/19 22:24 86 20 11/24/19 22:00 37.1 C 105 H 16 149/83 H 95 11/24/19 20:00 88 11/24/19 18:00 37.0 C 87 20 123/72 97 Intake/Output Intake/Output: Intake & Output 11/22/19 11/23/19 11/24/19 11/25/19 23:59 23:59 23:59 23:59 Intake Total 1400 2350 1480 Output Total 500 300 Balance 1400 1850 1180 Meds/Results Medications: Active Medications Generic Name Dose Route Start Last Admin Trade Name Freq PRN Reason Stop Dose Admin Albuterol 2.5 mg 11/23/19 20:00 11/25/19 14:30 Albuterol Sulf Neb 2.5mg/0.5ml INHALATION 2.5 mg Q6HRT SHU Administration Budesonide/Formoterol Fumarate 2 puff 11/23/19 20:00 11/25/19 08:57 Symbicort 160-4.5 Mcg (*Sp) Inhaler INHALATION 2 puff Q12HRT SHU Administration Docusate Sodium 100 mg 11/24/19 09:00 11/25/19 09:32 Colace Capsule PO 100 mg DAILY SHU Administration Doxycycline Hyclate 100 mg 11/24/19 21:00 11/25/19 09:32 Vibramycin Tab PO 100 mg Q12HR SHU Administration Guaifenesin 600 mg 11/23/19 21:00 11/25/19 09:32 Mucinex 12 Hr Tab PO 600 mg Q12HR SHU Administration Ceftriaxone Sodium/Dextrose 1 gm in 50 mls @ 100 mls/hr 11/23/19 18:10 11/24/19 18:30 Rocephin 1 Gm/D5w 50 Ml IVPB Infused QPM SHU Infusion Azithromycin 500 mg in 250 mls @ 250 mls/hr 11/23/19 21:00 02
--- NOTE | 2019-11-25 16:30 | PC.NURSE ---
O2 sat 90% on room air. Applied oxygen at 2 liters per nasal cannula - O2 sat 93%. Notified Dr. Quintero.
[2019-11-25] MEDS: TRAZODONE HCL 50 MG TABLET PO (20:43)
[2019-11-25] MEDS: ONDANSETRON INJ 4 MG/2 ML VIAL IV PUSH (21:52)
[2019-11-26] VITALS (24 sets, daily range): BP systolic 127–148; BP diastolic 66–91; PULSE 78–108; RESP 14–20; TEMP 36.1–37.5; O2SAT 91–98; BMI 22.4
[2019-11-26] MEDS: ALBUTEROL SULFATE NEB 2.5 MG/0.5 ML INH INHALATION ×4 (02:46→22:46)
[2019-11-26] MEDS: SODIUM BICARBONATE 8.4% 150 MEQ in DEXTROSE 5% 1,000 ML 950 ML 50 MEQ IV CONT (03:39)
[2019-11-26 05:54] LABS: Hematocrit 30.1 % (37.0-47.0); Immature Platelet Fraction Pct 2.6 % (0.9-11.2); Mean Corpuscular HGB Conc 33.2 g/dl (32-36); Mean Corpuscular Hemoglobin 28.4 pg (26-34); Mean Corpuscular Volume 85.5 fl (80-100); Mean Platelet Volume 10.8 fl (7.4-10.4); Platelet Count Result 120 k/mm3 (150-375); Red Blood Count 3.52 M/mm3 (4.2-5.4); Red Cell Distribution Width 14.9 % (11.5-14.5); White Blood Count 4.4 K/mm3 (4.5-10.0)
[2019-11-26 06:04] LABS: Albumin Level 2.4 g/dL (3.5-5.1); Blood Urea Nitrogen 55 mg/dL (7-17); Calcium 7.4 mg/dL (8.4-10.2); Carbon Dioxide 25 mmol/L (22-30); Chloride 100 mmol/L (98-107); Estimated Glomerular Filt Rate 6; Glucose 80 mg/dL (65-105); Magnesium 1.8 mg/dL (1.6-2.3); Phosphorus 4.3 mg/dL (2.5-4.5); Potassium 3.7 mmol/L (3.4-5.0); Sodium 138 mmol/L (137-145)
[2019-11-26 06:10] LABS: Complement C3 70 mg/dL (88-165)
[2019-11-26 06:35] LABS: Hepatitis B Surface Antigen Negative (Negative)
[2019-11-26 06:41] LABS: HAV RESULT Negative (Negative); Hepatitis B Core IgM Result Negative (Negative)
[2019-11-26 06:53] LABS: Hepatitis B Surface Anti Res Negative; Hepatitis C Virus Antibody Negative (Negative)
[2019-11-26] MEDS: DOXYCYCLINE HYCLATE 100 MG TABLET PO ×2 (07:58→20:27)
[2019-11-26] MEDS: DOCUSATE SODIUM 100 MG CAPSULE PO (07:58)
[2019-11-26] MEDS: METOPROLOL SUCCINATE EXT REL 25 MG TABCR PO (07:59)
--- NOTE | 2019-11-26 13:08 | PM.PNNEP ---
Progress Note: A&P Assessment and Plan (1) Acute kidney injury: Code(s): N17.9 - Acute kidney failure, unspecified Status: Acute Assessment and Plan: etiology not entirely clear suspect at least partly from volume depletion when first diagnosed with influenza possibly leading to ATN with blood and protein in UA, concern for GN/vasculititis/automimmune disorder - however, given #5, interpretation makes this difficult serological testing is pending but complements noted to be low oliguric follow repeat labs and UOP (2) Chronic kidney disease, stage 3: Code(s): N18.3 - Chronic kidney disease, stage 3 (moderate) Status: Chronic Assessment and Plan: baseline creatiine ~ 1.0 - 1.4mg/dl renal ultrasound with changes c/w medical renal disease (3) Pneumonia: Code(s): J18.9 - Pneumonia, unspecified organism Status: Acute Assessment and Plan: as suggested by admission CXR on antibiotic therapy follow cultures (4) Influenza A: Code(s): J10.1 - Influenza due to other identified influenza virus with other respiratory manifestations Status: Acute Assessment and Plan: completed course of Tamiflu repeat screening still positive (5) UTI (urinary tract infection): Code(s): N39.0 - Urinary tract infection, site not specified Status: Acute Assessment and Plan: urine culture with Klebsiella this may be responsible for presence of blood and protein on UA on antibiotic therapy Long and extensive discussion (> 20 minutes) with patient regarding her kidney function and lack of significant improvement; I discussed the possible need for a renal biopsy for a definitive diagnosis and hopefully determine if any other therapy is needed to get kidney function back to baseline -- she will think about this. Will continue to follow. Subjective Date/time seen: 11/26/19 13:08 Complaining of pain in several areas including chest, legs, and lower back; tolerating oral intake without nausea or vomiting; cough seems to be better as well now clear. Exam Narrative: Exam Narrative: General: thin female in NAD Heart: normal S1 and S2; no rub Lungs: few crackles at bases, R>L Abdomen: soft, nontender, nondistended, positive bowel sounds Extremities: no cyanosis or clubbing; no edema Skin: warm and dry Objective Data Vital Signs Vital Signs: Vital Signs Temp Pulse Resp BP Pulse Ox 11/26/19 12:00 78 11/26/19 10:00 36.1 C L 90 14 128/83 97 11/26/19 08:44 99 18 11/26/19 08:40 97 11/26/19 08:38 102 H 18 11/26/19 08:26 98 11/26/19 08:00 99 11/26/19 07:59 80 11/26/19 06:00 36.1 C L 93 18 135/83 94 11/26/19 04:00 93 11/26/19 02:55 97 20 11/26/19 02:46 103 H 20 11/26/19 02:00 36.1 C L 103 H 18 127/79 91 11/26/19 00:00 88 11/25/19 22:00 36.1 C L 113 H 20 159/82 H 92 11/25/19 20:37 112 H 20 11/25/19 20:26 97 20 11/25/19 20:00 106 H 11/25/19 18:00 36.1 C L 103 H 14 149/90 H 95 11/25/19 16:00 108 H 11/25/19 14:41 101 H 20 11/25/19 14:30 115 H 20 11/25/19 14:00 35.7 C L 115 H 14 147/84 H 90 Intake/Output Intake/Output: Intake & Output 11/23/19 11/24/19 11/25/19 11/26/19 23:59 23:59 23:59 23:59 Intake Total 1400 2350 3640 920 Output Total 500 700 300 Balance 1400 1850 2940 620 Meds/Results Medications: Active Medications Generic Name Dose Route Start Last Admin Trade Name Freq PRN Reason Stop Dose Admin Albuterol 2.5 mg 11/23/19 20:00 11/26/19 08:37 Albuterol Sulf Neb 2.5mg/0.5ml INHALATION 2.5 mg Q6HRT SHU Administration Budesonide/Formoterol Fumarate 2 puff 11/23/19 20:00 11/26/19 09:19 Symbicort 160-4.5 Mcg (*Sp) Inhaler INHALATION 2 puff Q12HRT SHU Administration Docusate Sodium 100 mg 11/24/19 09:00 11/26/19 07:58 Colace Capsule PO
[2019-11-26] MEDS: SODIUM CHLORIDE 0.9% IV 1,000 ML 75 ML IV CONT (13:18)
--- NOTE | 2019-11-26 15:02 | PM.IMPN ---
Progress Note: A&P Assessment and Plan (1) Acute kidney injury: Code(s): N17.9 - Acute kidney failure, unspecified Status: Acute Assessment and Plan: Creatinine was 1.2 in October. Patient now with profound renal failure with creatinine 7.2 on admission and metabolic acidosis most likely related to the failure. Renal ultrasound showing left renal atrophy. UA noted. Currently on IV bicarb and NS. AG worsened 18 but better today at 13. Creatinine improving and at 6.9 today. Will stop the Bicarb and continue normal saline. Presumably YOKASTA due to profound dehydration from poor oral intake over the past week. TTP seems less likely. 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 Avoid nephrotoxic agents. Appreciate nephrology input. Will repeat the CK given her muscle aches. Start PT/OT. (2) Pneumonia: Code(s): J18.9 - Pneumonia, unspecified organism Status: Acute Assessment and Plan: CXR showing mild bilateral mid and lower lung zone airspace disease. Most likely post viral pneumonia. Continue Rocephin, Azithromycin and Doxycycline. Continue neb treatments. (3) Influenza A: Code(s): J10.1 - Influenza due to other identified influenza virus with other respiratory manifestations Status: Acute Assessment and Plan: Patient diagnosed with Influenza at an outside facility on 11/18/19 and treated with Tamiflu. Screen showing patient influenza A positive in the emergency room this admission. She has already completed a course of Tamiflu so this was not repeated. Continue supportive care. (4) Hypertension: Code(s): I10 - Essential (primary) hypertension Status: Acute Assessment and Plan: BP reviewed on 11/26/19. BP mildly elevated at times but overall controlled. Continue metoprolol. Monitor closely. (5) COPD (chronic obstructive pulmonary disease): Code(s): J44.9 - Chronic obstructive pulmonary disease, unspecified Status: Acute Assessment and Plan: Stable. Now has O2 requirement today. Continue scheduled nebulizers. Continue Symbicort. Continue to follow. (6) UTI (urinary tract infection): Code(s): N39.0 - Urinary tract infection, site not specified Status: Acute Assessment and Plan: UA showing 2+ blood, 2+ LE, 31-50 white cells with clumping and 4+ bacteria. Growing Klebsiella 50K-100K colonies sensitive to Rocephin. Continue Rocephin. (7) Thrombocytopenia: Code(s): D69.6 - Thrombocytopenia, unspecified Status: Acute Assessment and Plan: Platelet count low at 117K on admission but dropped to 87K. Plt count climbing now to 120K. Probably sepsis related. TTP less likely. Continue to follow. (8) Positive D dimer: Code(s): R79.89 - Other specified abnormal findings of blood chemistry Status: Acute Assessment and Plan: DDimer of 4. This was drawn on admission. Patient was tachycardic on admission but is not hypoxic. Suspect related to underlying inflammatory response possibly related to her renal failure. Lower extremity venous Dopplers negative. Given the more dyspnea today, will check V/Q scan. Now on 1L. (9) Chronic kidney disease, stage 3: Code(s): N18.3 - Chronic kidney disease, stage 3 (moderate) Status: Chronic Assessment and Plan: Patient with baseline creatinine of 1-1.4. As above. (10) Tobacco dependence: Code(s): F17.200 - Nicotine dependence, unspecified, uncomplicated Status: Acute Assessment and Plan: Smoking cessation has been discussed with the patient. It appears she declined nicotine patch. Subjective Date/time seen: 11/26/19 15:02 Interval history: 64yo female with COPD here for generalized weakness after having influenza and found to have YOKASTA. Patient complains of chest, low back and thigh pain. CP is wit
[2019-11-26 17:01] LABS: Creatine Kinase 344 U/L (30-135)
--- NOTE | 2019-11-26 17:17 | PC.NURSE ---
CHEST XRAY AND NUC MED SCAN CALLED TO DR ORTIZ
[2019-11-26] MEDS: TRAMADOL HCL 50 MG TABLET PO (20:27)
[2019-11-26] MEDS: TRAZODONE HCL 50 MG TABLET PO (20:30)
[2019-11-27] VITALS (22 sets, daily range): BP systolic 144–166; BP diastolic 73–97; PULSE 77–112; RESP 13–20; TEMP 35.7–36.9; O2SAT 93–99
[2019-11-27] MEDS: ALBUTEROL SULFATE NEB 2.5 MG/0.5 ML INH INHALATION ×4 (04:18→19:25)
[2019-11-27] MEDS: IPRATROPIUM BR 0.02% INH SOLN 0.5 MG/2.5 ML VIAL INHALATION (04:18)
[2019-11-27 06:07] LABS: Basophils Percent Auto 0.2 % (0.2-1.2); Eosinophils Percent Auto 0.7 % (0-4.4); Hematocrit 29.2 % (37.0-47.0); Hemoglobin 9.6 g/dL (12.0-15.0); Immature Granulocyte Absolute 0.02 K/mm3 (0.00-0.031); Immature Granulocyte Percent A 0.5 % (0-0.5); Lymphocytes Absolute Auto 0.65 K/mm3 (0.9-3.2); Mean Corpuscular HGB Conc 32.9 g/dl (32-36); Mean Corpuscular Hemoglobin 28.7 pg (26-34); Mean Corpuscular Volume 87.2 fl (80-100); Mean Platelet Volume 10.6 fl (7.4-10.4); Monocytes Absolute Auto 0.4 K/mm3 (0.1-0.6); Monocytes Percent Auto 9.7 % (2.6-8.5); Neutrophils Absolute Auto 3.2 K/mm3 (1.3-6.7); Neutrophils Percent Auto 73.9 % (45.5-73.1); Platelet Count Result 145 k/mm3 (150-375); Red Blood Count 3.35 M/mm3 (4.2-5.4); Red Cell Distribution Width 15.1 % (11.5-14.5); White Blood Count 4.3 K/mm3 (4.5-10.0)
[2019-11-27 06:21] LABS: Albumin Level 2.3 g/dL (3.5-5.1); Blood Urea Nitrogen 55 mg/dL (7-17); Calcium 7.4 mg/dL (8.4-10.2); Carbon Dioxide 25 mmol/L (22-30); Chloride 101 mmol/L (98-107); Estimated Glomerular Filt Rate 6; Glucose 73 mg/dL (65-105); Magnesium 1.7 mg/dL (1.6-2.3); Phosphorus 5.1 mg/dL (2.5-4.5); Potassium 3.4 mmol/L (3.4-5.0); Sodium 139 mmol/L (137-145)
[2019-11-27] MEDS: METOPROLOL SUCCINATE EXT REL 25 MG TABCR PO (08:50)
[2019-11-27] MEDS: SODIUM CHLORIDE 0.9% IV 1,000 ML 50 ML IV CONT (08:50)
[2019-11-27] MEDS: DOXYCYCLINE HYCLATE 100 MG TABLET PO (08:50)
[2019-11-27] MEDS: DOCUSATE SODIUM 100 MG CAPSULE PO (08:50)
[2019-11-27 09:20] LABS: Legionella pneumophila Ag Ur Not Detected (Not Detected)
--- NOTE | 2019-11-27 11:15 | PM.PNNEP ---
Progress Note: A&P Assessment and Plan (1) Acute kidney injury: Code(s): N17.9 - Acute kidney failure, unspecified Status: Acute Assessment and Plan: etiology not entirely clear suspect at least partly from volume depletion when first diagnosed with influenza possibly leading to ATN with blood and protein in UA, concern for GN/vasculititis/automimmune disorder - however, given #5, interpretation makes this difficult serological testing is pending but complements noted to be low oliguric follow repeat labs and UOP (2) Chronic kidney disease, stage 3: Code(s): N18.3 - Chronic kidney disease, stage 3 (moderate) Status: Chronic Assessment and Plan: baseline creatiine ~ 1.0 - 1.4mg/dl renal ultrasound with changes c/w medical renal disease (3) Pneumonia: Code(s): J18.9 - Pneumonia, unspecified organism Status: Acute Assessment and Plan: as suggested by admission CXR on antibiotic therapy follow cultures (4) Influenza A: Code(s): J10.1 - Influenza due to other identified influenza virus with other respiratory manifestations Status: Acute Assessment and Plan: completed course of Tamiflu repeat screening still positive (5) UTI (urinary tract infection): Code(s): N39.0 - Urinary tract infection, site not specified Status: Acute Assessment and Plan: urine culture with Klebsiella this may be responsible for presence of blood and protein on UA on antibiotic therapy Long and extensive discussion (> 20 minutes) with patient regarding her kidney function and lack of significant improvement since admission; given her lack of improvement, I think she needs a renal biopsy for a definitive diagnosis and hopefully determine if any other therapy is needed to get kidney function back to baseline -- she is agreeable to proceed. Will continue to follow. Subjective Date/time seen: 11/27/19 11:15 Somewhat fatigued (and at times lethargic) but in no acute distress; still making some urine but kdiney function is not really improving; no other acute complaints voiced at this time. Exam Narrative: Exam Narrative: General: thin female in NAD Heart: normal S1 and S2; no rub Lungs: few crackles at bases, R>L Abdomen: soft, nontender, nondistended, positive bowel sounds Extremities: no cyanosis or clubbing; no edema Skin: warm and intact Objective Data Vital Signs Vital Signs: Vital Signs Temp Pulse Resp BP Pulse Ox 11/27/19 10:00 36.6 C 82 16 162/89 H 96 11/27/19 09:26 78 20 11/27/19 09:20 77 20 99 11/27/19 08:50 96 11/27/19 08:00 108 H 11/27/19 06:27 36.7 C 77 16 144/81 H 98 11/27/19 04:25 81 18 11/27/19 04:19 79 18 11/27/19 04:00 87 11/27/19 02:05 36.8 C 80 16 147/73 H 97 11/27/19 00:00 81 11/26/19 22:55 90 18 11/26/19 22:49 87 18 93 11/26/19 21:44 36.2 C L 87 18 135/91 H 95 11/26/19 20:00 98 11/26/19 18:00 37.5 C 105 H 16 136/66 95 11/26/19 16:05 108 H 11/26/19 14:00 37.1 C 95 14 148/89 H 93 11/26/19 13:30 96 18 11/26/19 13:23 95 11/26/19 13:20 97 18 11/26/19 12:00 78 Intake/Output Intake/Output: Intake & Output 11/24/19 11/25/19 11/26/19 11/27/19 23:59 23:59 23:59 23:59 Intake Total 2350 3690 3190 1100 Output Total 500 700 700 300 Balance 1850 2990 2490 800 Meds/Results Medications: Active Medications Generic Name Dose Route Start Last Admin Trade Name Mariano PRN Reason Stop Dose Admin Albuterol 2.5 mg 11/23/19 20:00 11/27/19 09:16 Albuterol Sulf Neb 2.5mg/0.5ml INHALATION 2.5 mg Q6HRT SHU Administration Budesonide/Formoterol Fumarate 2 puff 11/23/19 20:00 11/27/19 09:19 Symbicort 160-4.5 Mcg (*Sp) Inhaler INHALATION 2 puff Q12HRT SHU Administration Docusate Sodium 100 mg 11/24/19 09:00 11/27/19 08:50 Colace Capsule
--- NOTE | 2019-11-27 13:17 | PC.NURSE ---
Patient noncompliant with oxygen. She has been found multiple times with oxygen out of her nose. Checked oxygen saturations on RA and she is sating 86%. Reapplied 1L NC and sats only increased to 88%. Increased oxygen to 2L NC and improved to 93%. Patient encouraged to leave oxygen in her nose.
[2019-11-27 13:32] LABS: ADAMTS-13 Activity 98 % Activity (68-163)
[2019-11-27] MEDS: hydrALAZINE HCL 25 MG TABLET PO (13:38)
--- NOTE | 2019-11-27 15:47 | PM.IMPN ---
Progress Note: A&P Assessment and Plan (1) Acute kidney injury: Code(s): N17.9 - Acute kidney failure, unspecified Status: Acute Assessment and Plan: Appreciate help from Nephrology. Acute on chronic with known CKD stage 3. Autoimmune workup in process with low complement noted. Creatinine continues to remain elevated at 7.30 today. Plan for kidney biopsy per Nephrology. Continue to avoid nephrotoxic agents. Renal ultrasound with left renal atrophy and left renal cyst measuring 11 mm. Remains on IV fluids at KVO rate. Will continue to monitor. Continue PT/OT. Plans to return home at discharge. (2) Chronic kidney disease, stage 3: Code(s): N18.3 - Chronic kidney disease, stage 3 (moderate) Status: Chronic Assessment and Plan: Baseline creatinine 1.00-1.40. Now with acute injury as noted above. Plan as noted above. (3) Pneumonia: Qualifiers: Laterality: bilateral Lung location: lower lobe of lung Pneumonia type: due to Pneumococcus Qualified Code(s): J13 - Pneumonia due to Streptococcus pneumoniae Code(s): J18.9 - Pneumonia, unspecified organism Status: Acute Assessment and Plan: Initial chest x-ray with mild airspace opacities in the mid and lower lung zones. Still present on repeat chest x-ray on 11/26/2019. Urine antigen for pneumococcus is now positive. Will continue IV ceftriaxone and azithromycin in place along with oral doxycycline. Continue nebulizer treatments. Remains on 1-2 liters of oxygen by nasal cannula. Will monitor. (4) Influenza A: Code(s): J10.1 - Influenza due to other identified influenza virus with other respiratory manifestations Status: Acute Assessment and Plan: Patient diagnosed with Influenza at an outside facility on 11/18/19 and treated with Tamiflu. Screen showing patient influenza A positive in the emergency room this admission. Tamiflu not repeated as already treated. Continue supportive care. (5) UTI (urinary tract infection): Qualifiers: Hematuria presence: without hematuria Urinary tract infection type: acute cystitis Qualified Code(s): N30.00 - Acute cystitis without hematuria Code(s): N39.0 - Urinary tract infection, site not specified Status: Acute Assessment and Plan: Urine culture growing Klebsiella pneumoniae. Will continue IV ceftriaxone as sensitive. (6) Hypertension: Qualifiers: Hypertension type: essential hypertension Qualified Code(s): I10 - Essential (primary) hypertension Code(s): I10 - Essential (primary) hypertension Status: Acute Assessment and Plan: Blood pressure reviewed on 11/27/2019. Still with mild elevation. Will continue metoprolol. Will hold off on adding any other medication given renal status. Will continue to monitor. Telemetry reviewed on 11/27/2019 with sinus rhythm. Will discontinue telemetry. (7) COPD (chronic obstructive pulmonary disease): Qualifiers: COPD type: unspecified COPD Qualified Code(s): J44.9 - Chronic obstructive pulmonary disease, unspecified Code(s): J44.9 - Chronic obstructive pulmonary disease, unspecified Status: Acute Assessment and Plan: Stable. Continue scheduled nebulizers. Continue Symbicort. Slight oxygen requirement as noted above. Continue to follow. (8) Thrombocytopenia: Code(s): D69.6 - Thrombocytopenia, unspecified Status: Acute Assessment and Plan: Platelet count now up to 145,000 today. Most likely result of infection. Will continue to follow. (9) Positive D dimer: Code(s): R79.89 - Other specified abnormal findings of blood chemistry Status: Acute Assessment and Plan: DDimer of 4. This was drawn on admission. Patient was tachycardic on admission but not hypoxic. Suspect related to underlying inflammatory response possibly related to her renal failure. Lower extremity ve
[2019-11-27 16:48] LABS: Pneumococcal Antigen Urine Detected (Not Detected)
--- NOTE | 2019-11-27 18:54 | PC.NURSE ---
Patient's daughter is at bedside. While discussing with daughter, she is voicing concerns in regards to patients nutrition and failure to thrive status. She is asking that I contact Dr. Tirado and request for some type of nutritional feedings be started. Called to Dr. Tirado and notified her of daughters concerns. She stated she would talk with family tomorrow. No new orders received at this time.
[2019-11-27 20:57] LABS: Anti Streptolysin O Screen <50 IU/mL (<200)
[2019-11-28] VITALS (14 sets, daily range): BP systolic 121–175; BP diastolic 72–98; PULSE 83–121; RESP 18–28; TEMP 35.6–37.3; O2SAT 95–99
[2019-11-28] MEDS: ALBUTEROL SULFATE NEB 2.5 MG/0.5 ML INH INHALATION ×4 (01:22→21:07)
[2019-11-28] MEDS: hydrALAZINE HCL 20 MG/ML VIAL 10 MG IV PUSH ×2 (01:28→10:42)
[2019-11-28 05:15] LABS: Hematocrit 34.5 % (37.0-47.0); Hemoglobin 11.1 g/dL (12.0-15.0); Mean Corpuscular HGB Conc 32.2 g/dl (32-36); Mean Corpuscular Hemoglobin 28.1 pg (26-34); Mean Corpuscular Volume 87.3 fl (80-100); Mean Platelet Volume 10.1 fl (7.4-10.4); Platelet Count Result 201 k/mm3 (150-375); Red Blood Count 3.95 M/mm3 (4.2-5.4); Red Cell Distribution Width 15.2 % (11.5-14.5); White Blood Count 6.4 K/mm3 (4.5-10.0)
[2019-11-28 05:20] LABS: INR 1.1; Prothrombin Time 13.7 Seconds (11.1-14.7)
[2019-11-28 05:21] LABS: Partial Thromboplastin Time 30.9 SECONDS (22.3-36.8)
[2019-11-28 05:34] LABS: Albumin Level 2.6 g/dL (3.5-5.1); Blood Urea Nitrogen 58 mg/dL (7-17); Calcium 8.4 mg/dL (8.4-10.2); Carbon Dioxide 19 mmol/L (22-30); Chloride 105 mmol/L (98-107); Estimated Glomerular Filt Rate 5; Glucose 83 mg/dL (65-105); Phosphorus 6.9 mg/dL (2.5-4.5); Potassium 3.6 mmol/L (3.4-5.0); Sodium 139 mmol/L (137-145)
--- NOTE | 2019-11-28 07:55 | PC.NURSE ---
On arrival in room, patient drowsy and with decreased responsiveness. Opens eyes to name but falls right back to sleep. O2 on at 2 liters per nasal cannula. BP 148/80, RR 32, HR 88. Patient with shallow, rapid respirations. Elevated BUN/creatinine noted. Dr. Tirado called and orders received for STAT ABGs. Call out to Dr. Abel to notify him of patient status.
--- NOTE | 2019-11-28 08:05 | PC.NURSE ---
Spoke with Dr. Abel regarding patient's level of consciousness, etc. Notified him of BUN/creatinine. Dr. Tirado at bedside assessing patient. Patient able to respond to Dr. Tirado's questions, although mental status remains altered. Patient disoriented to time. Lethargic and wants to be left alone to sleep. ABGs results shown to Dr. Tirado. Orders for stat CT of brain and CXR.
[2019-11-28 08:11] LABS: Alveolar/Arterial O2 Gradient 77.6 mmHg; Fractional Inspired Oxygen 28 %; HCO3 ABG 20.1 mEq/l (22.0-26.0); Oxygen Content ABG 15.9 %vol (16.0-22.0); Oxygen Saturation ABG 96.2 % (95.0-100.0); Oxyhemoglobin 94.3 % THb (90.0-100.0); PCO2 ABG 33.5 mmHg (35.0-45.0); PO2 ABG 82.5 mmHg (80.0-100.0); PO2 FiO2 Ratio Arterial Blood 2.95 %; Total Hemoglobin 11.9 g/dL (12.0-18.0); pH ABG 7.396 (7.350-7.450)
[2019-11-28 08:12] LABS: Device NASAL CANNULA; Site Drawn RIGHT BRACHIAL
--- NOTE | 2019-11-28 08:25 | PM.IMPN ---
Progress Note: A&P Assessment and Plan (1) Altered mental status: Qualifiers: Altered mental status type: unspecified Qualified Code(s): R41.82 - Altered mental status, unspecified Code(s): R41.82 - Altered mental status, unspecified Status: Acute Assessment and Plan: Nurse today did have patient 3 days ago reports mental status is significantly different. Nephrology aware with increasing creatinine level as may be related. Will also check STAT CT scan brain. STAT chest x-ray ordered with results as noted below. ABG drawn with pH 7.396, pCO2 33.5, and PO2 82.5 on 2 L. Will continue to monitor closely. Total time spent in critical care is [address] brain with no acute changes. Spoke with daughter, Emily Hooper, and updated on condition. Daughter states she will be here around noon today. Per daughter, prefers daughter make decisions regarding care. (2) Acute kidney injury: Code(s): N17.9 - Acute kidney failure, unspecified Status: Acute Assessment and Plan: Appreciate help from Nephrology. Acute on chronic with known CKD stage 3. Autoimmune workup in process with low complement noted. Creatinine continues to rise and up to 8.50 today. Nephrology is aware. Renal ultrasound left renal atrophy left renal cyst measuring 11 mm. Has IV fluids at KVO rate. Desmopressin IV ordered by Nephrology this morning. Nephrology has been discussing possible kidney biopsy with family. May also need hemodialysis at this point. Continue to monitor closely. (3) Chronic kidney disease, stage 3: Code(s): N18.3 - Chronic kidney disease, stage 3 (moderate) Status: Chronic Assessment and Plan: Baseline creatinine 1.00-1.40. Now with acute injury as noted above. Plan as noted above. (4) Pneumonia: Qualifiers: Laterality: bilateral Lung location: lower lobe of lung Pneumonia type: due to Pneumococcus Qualified Code(s): J13 - Pneumonia due to Streptococcus pneumoniae Code(s): J18.9 - Pneumonia, unspecified organism Status: Acute Assessment and Plan: Initial chest x-ray with mild airspace opacities in the mid and lower lung zones. Still present on repeat chest x-ray on 11/26/2019. New chest x-ray this morning with worsening infiltrates in the mid and lower lung zones. Urine antigen for pneumococcus is also now positive. Discussed with Dr. Abel. Will add IV vancomycin to IV ceftriaxone and azithromycin. Will stop oral doxycycline. Continue nebulizer treatments. Remains on 2 L oxygen by nasal cannula. Probably also contributing to mental status change. (5) Influenza A: Code(s): J10.1 - Influenza due to other identified influenza virus with other respiratory manifestations Status: Acute Assessment and Plan: Patient diagnosed with Influenza at an outside facility on 11/18/19 and treated with Tamiflu. Screen showing patient influenza A positive in the emergency room this admission. Tamiflu not repeated as already treated. Continue supportive care. (6) UTI (urinary tract infection): Qualifiers: Hematuria presence: without hematuria Urinary tract infection type: acute cystitis Qualified Code(s): N30.00 - Acute cystitis without hematuria Code(s): N39.0 - Urinary tract infection, site not specified Status: Acute Assessment and Plan: Urine culture growing Klebsiella pneumoniae. Will continue IV ceftriaxone as sensitive. (7) Hypertension: Qualifiers: Hypertension type: essential hypertension Qualified Code(s): I10 - Essential (primary) hypertension Code(s): I10 - Essential (primary) hypertension Status: Acute Assessment and Plan: Blood pressure reviewed on 11/28/2019. Still with mild elevation. Will continue metoprolol. Will hold off on adding any other medication given renal status. Will continue to monitor. Adjust treatment as needed. (8)
--- NOTE | 2019-11-28 08:39 | PC.NURSE ---
Patient to CT for stat CT of brain via bed with transporters. Spoke with patient's daughter Emily and informed her of tests being done. Will call Dr. Abel with results of CT available and will provide daughter's phone number so he can call her.
[2019-11-28] MEDS: IPRATROPIUM BR 0.02% INH SOLN 0.5 MG/2.5 ML VIAL INHALATION ×2 (09:07→14:20)
--- NOTE | 2019-11-28 10:07 | PCOTNOTE ---
Attempted to see pt for skilled OT treatment. Pt was in bed when therapist arrived. Pt did not respond to any questions, when pt was asked to roll over in bed, pt did not respond. Nursing notified. Nursing stated that this is new today.
--- NOTE | 2019-11-28 10:55 | PC.NURSE ---
Patient continues to have decreased responsiveness. B/P 173/93. Patient unable to take po meds, including Metoprolol. HR in the 110s at rest, 120s when moved in the bed. Repositioned patient and noted dry heaves and twitching. Called Dr. Tirado and gave her a patient status update. Notified her that patient is not alert enough to take po meds. Called Dr. Abel and notified him of twitching and overall status. Renal biopsy on hold for now due to patient's altered mental status. Notified Dr. Abel and he is in agreement with holding biopsy for now. Dr. Abel states he will call the daughter later this morning. Dr. Abel is in agreement with patient receiving a fluid bolus - to be ordered by Dr. Tirado. Continue to monitor.
--- NOTE | 2019-11-28 11:07 | PCPTNOTE ---
Attempted to see patient for PT 11/28/2019, however patient is unable to be seen due to medical status per nursing.
[2019-11-28 11:08] LABS: ANCA Screen Negative (Negative)
[2019-11-28] MEDS: SODIUM CHLORIDE 0.9% IV 250 ML IV CONT (12:11)
[2019-11-28] MEDS: DESMOPRESSIN ACETATE INJ 20 MCG in SODIUM CHLORIDE 0.9% IV 50 ML 100 MCG IVPB (13:17)
[2019-11-28] MEDS: SODIUM CHLORIDE 0.9% IV 1,000 ML 30 ML IV CONT (13:18)
--- NOTE | 2019-11-28 13:31 | PM.PNNEP ---
Progress Note: A&P Assessment and Plan (1) Acute kidney injury: Code(s): N17.9 - Acute kidney failure, unspecified Status: Acute Assessment and Plan: etiology not entirely clear suspect at least partly from volume depletion when first diagnosed with influenza possibly leading to ATN with blood and protein in UA, concern for GN/vasculititis/automimmune disorder - however, given #5, interpretation makes this difficult serological testing is pending but complements noted to be low oliguric now with altered mental status which is concerning...see discussion below (2) Chronic kidney disease, stage 3: Code(s): N18.3 - Chronic kidney disease, stage 3 (moderate) Status: Chronic Assessment and Plan: baseline creatiine ~ 1.0 - 1.4mg/dl renal ultrasound with changes c/w medical renal disease (3) Altered mental status: Qualifiers: Altered mental status type: unspecified Qualified Code(s): R41.82 - Altered mental status, unspecified Code(s): R41.82 - Altered mental status, unspecified Status: Acute Assessment and Plan: progressive worsening in the last few days now associated with some random jerking movement and twitching in upper extremities I am concerned that this may be secondary to uremia (4) Pneumonia: Qualifiers: Laterality: bilateral Lung location: lower lobe of lung Pneumonia type: due to Pneumococcus Qualified Code(s): J13 - Pneumonia due to Streptococcus pneumoniae Code(s): J18.9 - Pneumonia, unspecified organism Status: Acute Assessment and Plan: as suggested by admission CXR on antibiotic therapy follow cultures (5) Influenza A: Code(s): J10.1 - Influenza due to other identified influenza virus with other respiratory manifestations Status: Acute Assessment and Plan: completed course of Tamiflu repeat screening still positive (6) UTI (urinary tract infection): Qualifiers: Hematuria presence: without hematuria Urinary tract infection type: acute cystitis Qualified Code(s): N30.00 - Acute cystitis without hematuria Code(s): N39.0 - Urinary tract infection, site not specified Status: Acute Assessment and Plan: urine culture with Klebsiella this may be responsible for presence of blood and protein on UA on antibiotic therapy Discussed case Dr. Tirado and patient's nurse; extensive discussion with patient's daughter and son (> 20 minutes) at bedside regarding deteriorating renal function as well as decline in mental status; I relayed my concerns that uremia maybe the reason for her change in mental status and it is unfortunately unclear why her kidney function continues to deteriorate. Given the concern for uremia, I think the next step is to proceed with dialysis. Her daughter was in aggreement with proceeding with this therapy. I will consult Surgery for temporary HD catheter placement and prceed with dialysis afterwards. I suspect she will still need a renal biopsy when she is more stable and I am leaning toward given empiric steroids but am hesitant to do so with her active infection (pneumonia and UTI). Will continue to follow. Subjective Date/time seen: 11/28/19 13:31 Quite lethargic this AM and apparently yesterday afternoon; renal biopsy cancelled as not following commands appropriately; noted significant change in renal function by labs this AM -- ABG and CT of head results noted; patient remains almost encephalopathic at this time. Exam Narrative: Exam Narrative: General: thin female; non-communicative Heart: normal S1 and S2; no rub Lungs: few crackles at bases, R>L Abdomen: soft, nontender, nondistended, positive bowel sounds Extremities: no cyanosis or clubbing; no edema Skin: warm and intact Objective Data Vital Signs Vital Signs: Vital Signs Temp Pulse Resp BP Pulse Ox 11/28/19 12:16 104 H 28
--- NOTE | 2019-11-28 15:00 | PC.NURSE ---
Dr. Abel here and meeting with daughter. Plan is to proceed with dialysis after temporary dialysis catheter can be placed. Consult placed for Dr. Mukherjee. Spoke with Dr. Mukherjee and he states he will be here in 1-11/[address] dialysis catheter at bedside. Supplies ordered and consent obtained from patient's daughter. Patient remains lethargic and with decreased responsiveness.
--- NOTE | 2019-11-28 17:00 | PC.NURSE ---
Dr. Muhkerjee here to place temporary dialysis catheter under ultrasound at bedside. Assisted Dr. Mukherjee along with Gabbie Wright RN and Wendy Spring RN. Patient very restless and yelling out at intervals during procedure. Dr. Mukherjee made several unsuccessful attempts to place catheter. Procedure terminated and Dr. Mukherjee stated he would place the catheter in surgery tomorrow. Dr. Mukherjee spoke with daughter and informed her of plan.
--- NOTE | 2019-11-28 18:06 | PM.CNGS ---
Assessment and Plan Assessment and plan (1) Acute kidney injury: Code(s): N17.9 - Acute kidney failure, unspecified Status: Acute Assessment and Plan: Patient has worsening renal function. This is likely contributing to her altered mental status. Nephrology has recommended hemodialysis and asked me to place a temporary dialysis catheter. Will plan to place a dialysis catheter at the bedside so that dialysis may be started as soon as possible. I discussed the procedure, risks, benefits, and alternatives with the patient's daughter. Written consent was obtained and placed in chart prior to procedure. (2) Altered mental status: Qualifiers: Altered mental status type: unspecified Qualified Code(s): R41.82 - Altered mental status, unspecified Code(s): R41.82 - Altered mental status, unspecified Status: Acute (3) Influenza A: Code(s): J10.1 - Influenza due to other identified influenza virus with other respiratory manifestations Status: Acute History of Present Illness Consult details Consult date: 11/28/19 Narrative: This is a 64-year-old woman who presented to the hospital with flu and acute renal failure. She has had progressively declining renal function and is now in need of hemodialysis. She has also had altered mental status. She has chronic kidney disease but has never been on dialysis. Review of Systems Review of Systems: ROS unobtainable: unobtainable due to mental status PMFSH Past Medical History Medical History Chronic kidney disease, stage 3 Baseline creatinine is between 1.00 and 1.20. Colon polyps COPD (chronic obstructive pulmonary disease) Gastroesophageal reflux disease Hyperlipidemia Hypertension Osteoarthritis Osteoporosis Tobacco dependence Surgical History Surgical History History of right hip replacement Status post bunionectomy Status post hysterectomy Status post nasal septoplasty Family History Family History Mother Family history of lung cancer Sibling Family history of lung cancer Father Acute myocardial infarction Social History Social History Social History: The patient lives in [place]. Her apparently lives next door. She is retired. She designates her daughter, Emily Hooper, as her surrogate decision maker and she wishes to be a full code. She smoked up to a pack of cigarettes per day for many years, and now smokes about 8 a day. She denies alcohol abuse. No drug use. Years smoked: 45 Smoking end date: 11/20/19 Spiritual care concerns: No Agree to blood products: Yes Meds Home Medications and Allergies Home Medications Medication Instructions Recorded Confirmed Type trazodone 50 mg tablet 50 mg PO .QHS tablet 08/13/19 11/23/19 History estradiol 0.5 mg tablet 0.5 mg PO DAILY #90 tablet 10/16/19 11/23/19 Rx linaclotide 290 mcg capsule 290 mcg PO DAILY #30 cap 10/16/19 11/23/19 Rx metoprolol succinate 25 mg 25 mg PO DAILY #90 tablet 10/16/19 11/23/19 Rx tablet,extended release 24 hr rosuvastatin 40 mg tablet 40 mg PO DAILY #90 tablet 10/16/19 11/23/19 Rx cholecalciferol (vitamin D3) 1,250 50,000 unit PO WEEKLY #8 cap 10/17/19 11/23/19 Rx mcg (50,000 unit) capsule omega-3 fatty acids 1,000 mg 1,000 mg PO DAILY #90 cap 10/17/19 11/23/19 Rx capsule docusate sodium 100 mg PO DAILY 11/23/19 11/23/19 History hydrocodone-acetaminophen 1 tablet PO Q6H PRN 11/23/19 11/23/19 History ondansetron 4 mg PO Q8H PRN 11/23/19 11/23/19 History oseltamivir 75 mg PO BID 11/23/19 11/23/19 History tramadol 50 mg PO Q8H PRN 11/23/19 11/23/19 History Allergies Allergy/AdvReac Type Severity Reaction Status Date / Time No Known Allergies Allergy Verified 09/10/19 15:25
--- NOTE | 2019-11-28 18:13 | PM.PROC ---
Procedure Note - Detailed Date of procedure: 11/28/19 Pre-op diagnosis: Acute renal failure Post-op diagnosis: same Procedure performed: Attempted right internal jugular Edwin dialysis catheter placement with ultrasound guidance Description of procedure: Patient was placed supine in her hospital bed. Time-out was done to confirm patient and procedure. Her right neck and chest area was prepped and draped in sterile fashion using chlorhexidine prep. SonoSite ultrasound was used to identify the right internal jugular vein. This was visualized as a compressible vessel just lateral to the carotid artery. 1% lidocaine was infiltrated directly over the vessel. An 18 gauge introducer needle was then advanced under ultrasound guidance directly into the lumen of the right internal jugular vein. Dark nonpulsatile blood was aspirated. A 0.035 in guidewire was then advanced over the needle in a Seldinger technique. Due to patient movement, was unable to advance the guidewire into the vessel. Multiple attempts were made to revision a lysed with ultrasound and ensure that the needle was within the lumen of the right internal jugular vein. The patient continued to move and was combative which made procedure difficult. Then also tried to advance an Angiocath under ultrasound guidance and once the angiocath was advanced over the needle, there appeared to be pulsatile blood return. The needle and Angiocath were removed and pressure was applied for several minutes. The procedure was eventually aborted due to patient's combativeness. Anesthesia: local Surgeon: Gianluca Mukherjee DO Estimated blood loss (mL): 10 Complications: Other complications (Unsuccessful access) Condition: stable Disposition: floor Findings: This is a 64-year-old woman who presented with influenza a to the hospital. She has had worsening decline since being admitted. She is now in acute renal failure and has had worsening renal function over the past several days. She has also altered mental status and is very confused. Discussions were made with the patient's daughter about proceeding with the dialysis catheter placement so that she can start hemodialysis as soon as possible. Right internal jugular Edwin dialysis catheter placement was attempted. Unfortunately this had to be aborted due to patient's combativeness and unsuccessful access into the right internal jugular vein. The vein was accessed initially with an 18 gauge introducer needle under ultrasound guidance. Every time the guidewire was attempted to be advanced through the needle, the patient moved and access was lost. Procedure was aborted, and will attempt dialysis catheter placement under IV sedation in the OR tomorrow.
--- NOTE | 2019-11-28 19:30 | PC.NURSE ---
Dressing to right neck remains D/I. No bleeding or hematoma noted.
[2019-11-28] MEDS: TRAZODONE HCL 50 MG TABLET PO (20:41)
[2019-11-29] VITALS (22 sets, daily range): BP systolic 113–156; BP diastolic 64–87; PULSE 90–118; RESP 18–25; TEMP 35.9–37.2; O2SAT 95–100
[2019-11-29 00:18] LABS: Albumin 1.6 g/dL (3.8-4.8); Alpha 1 Globulin 0.5 g/dL (0.2-0.3); Alpha 2 Globulin 0.8 g/dL (0.5-0.9); Beta 1 Globulin 0.3 g/dL (0.4-0.6); Gamma Globulin 0.9 g/dL (0.8-1.7); Protein, Total 4.4 g/dL (6.1-8.1)
[2019-11-29 01:17] LABS: Creatinine, Random Urine 21 mg/dL (20-275); Total Protein/Creatinine Ratio 5952 mg/g creat (21-161)
[2019-11-29] MEDS: ALBUTEROL SULFATE NEB 2.5 MG/0.5 ML INH INHALATION ×3 (03:28→20:37)
[2019-11-29 04:27] LABS: Aldolase 15.4 U/L (<=8.1)
[2019-11-29 05:55] LABS: Basophils Percent Auto 0.3 % (0.2-1.2); Eosinophils Absolute Auto 0.1 K/mm3 (0-0.3); Eosinophils Percent Auto 0.7 % (0-4.4); Hematocrit 28.9 % (37.0-47.0); Hemoglobin 9.1 g/dL (12.0-15.0); Immature Granulocyte Absolute 0.02 K/mm3 (0.00-0.031); Immature Granulocyte Percent A 0.3 % (0-0.5); Lymphocytes Absolute Auto 0.59 K/mm3 (0.9-3.2); Lymphocytes Percent Auto 8.7 % (18.3-44.2); Mean Corpuscular HGB Conc 31.5 g/dl (32-36); Mean Corpuscular Hemoglobin 28.3 pg (26-34); Mean Platelet Volume 10.2 fl (7.4-10.4); Monocytes Absolute Auto 0.4 K/mm3 (0.1-0.6); Monocytes Percent Auto 6.5 % (2.6-8.5); Neutrophils Absolute Auto 5.7 K/mm3 (1.3-6.7); Neutrophils Percent Auto 83.5 % (45.5-73.1); Platelet Count Result 187 k/mm3 (150-375); Red Blood Count 3.21 M/mm3 (4.2-5.4); Red Cell Distribution Width 15.6 % (11.5-14.5); White Blood Count 6.8 K/mm3 (4.5-10.0)
[2019-11-29 06:12] LABS: Albumin Level 2.4 g/dL (3.5-5.1); Blood Urea Nitrogen 61 mg/dL (7-17); Calcium 8.2 mg/dL (8.4-10.2); Carbon Dioxide 18 mmol/L (22-30); Chloride 104 mmol/L (98-107); Estimated Glomerular Filt Rate 4; Glucose 82 mg/dL (65-105); Phosphorus 7.9 mg/dL (2.5-4.5); Potassium 3.8 mmol/L (3.4-5.0); Sodium 140 mmol/L (137-145)
--- NOTE | 2019-11-29 08:46 | WPDANESEPPF ---
Anes - Initial Pre Proc Eval Procedure: Operation Date: 11/29/19 10:30 Proposed Procedures p INSERTION TEMPORARY DIALYSIS CATHETER - Gianluca Mukherjee DO Date/Time: 11/29/19 08:46 Surgeon: Lobo Quintero MD Pre Op Diagnosis: Acute renal failure Patient Data Age: 64 Gender: F Height: 1.45 m Weight: 45.5 kg Last Vital Signs Temp 35.9 C L 11/29/19 06:02 Pulse 104 H 11/29/19 07:59 Resp 20 11/29/19 07:59 BP 134/80 11/29/19 06:02 Pulse Ox 97 11/29/19 07:52 Allergies Allergy/AdvReac Type Severity Reaction Status Date / Time No Known Allergies Allergy Verified 09/10/19 15:25 Home Medications Medication Instructions Recorded Confirmed Type trazodone 50 mg tablet 50 mg PO .QHS tablet 08/13/19 11/23/19 History estradiol 0.5 mg tablet 0.5 mg PO DAILY #90 tablet 10/16/19 11/23/19 Rx linaclotide 290 mcg capsule 290 mcg PO DAILY #30 cap 10/16/19 11/23/19 Rx metoprolol succinate 25 mg 25 mg PO DAILY #90 tablet 10/16/19 11/23/19 Rx tablet,extended release 24 hr rosuvastatin 40 mg tablet 40 mg PO DAILY #90 tablet 10/16/19 11/23/19 Rx cholecalciferol (vitamin D3) 1,250 50,000 unit PO WEEKLY #8 cap 10/17/19 11/23/19 Rx mcg (50,000 unit) capsule omega-3 fatty acids 1,000 mg 1,000 mg PO DAILY #90 cap 10/17/19 11/23/19 Rx capsule docusate sodium 100 mg PO DAILY 11/23/19 11/23/19 History hydrocodone-acetaminophen 1 tablet PO Q6H PRN 11/23/19 11/23/19 History ondansetron 4 mg PO Q8H PRN 11/23/19 11/23/19 History oseltamivir 75 mg PO BID 11/23/19 11/23/19 History tramadol 50 mg PO Q8H PRN 11/23/19 11/23/19 History Laboratory Tests 11/25/19 11/26/19 11/26/19 17:15 05:23 05:23 WBC RBC Hgb Hct MCV MCH MCHC RDW Plt Count MPV Immature Gran % (Auto) Neut % (Auto) Lymph % (Auto) [place] % (Auto) Eos % (Auto) Baso % (Auto) Lymph # (Auto) [place] # (Auto) Eos # (Auto) Baso # (Auto) Abs Immat Gran (auto) Absolute Neuts (auto) Absolute Nucleated RBC Nucleated RBC % Sodium Potassium Chloride Carbon Dioxide BUN Creatinine Estim Creat Clear Calc Estimated GFR Glucose Calcium Phosphorus Total Protein 4.4 g/dL L g/dL (6.1-8.1) Albumin 1.6 g/dL L g/dL (3.8-4.8) Xcltr-2-Cyiysjrap 0.5 g/dL H g/dL (0.2-0.3) Sboxu-6-Qjzymzgxh 0.8 g/dL g/dL (0.5-0.9) Qqlm-1-Gplouekg 0.3 g/dL L g/dL (0.4-0.6) Gark-7-Jmloqbwy 0.3 g/dL g/dL (0.2-0.5) Gamma Globulins 0.9 g/dL g/dL (0.8-1.7) Abnorm Protein Band 1 see below Abnorm Protein Band 3 Not Reportable PEP Interpretation see below A Aldolase Ur Random Creatinine 21 mg/dL mg/dL (20-275) U Random Total Protein 125 mg/dL H mg/dL (5-24) Protein/Creatinin Ratio 5952 mg/g creat H mg/g creat (21-161) Urine Albumin 35 % % U Vhvck-0-Shpgezpl 12 % % U Pxnmg-5-Mealjcbx 18 % % U Beta Globulin 15 % % U Gamma Globulin 21 % % U Abnormal Prot Band 1 see below A U Abnormal Prot Band 2 Not Reportable U Abnormal Prot Band 3 Not Reportable Urine PEP Interpret see below A ANCA Screen Negative (Negative) 11/26/19 11/29/19 11/29/19 16:27 05:10 05:10 WBC 6.8 K/mm3 K/mm3 (4.5-10.0) RBC 3.21 M/mm3 L M/mm3 (4.2-5.4) Hgb 9.1 g/dL L g/dL (12.0-15.0) Hct 28.9 % L % (37.0-47.0) MCV 90.0 fl fl (80-100) MCH 28.3 pg pg (26-34
--- NOTE | 2019-11-29 10:06 | PCOTNOTE ---
Attempted to see patient this a.m. Upon entering the room, patient was side lying and moaning in bed. Patient's family present in room and report she has been in this state since she was admitted and won't communicate back due to pain. Per RN, the patient is going to OR this a.m. for shunt placement. RN also states patient is combative and does not recommend OT session at this time.
--- NOTE | 2019-11-29 10:22 | PC.NURSE ---
To OR per bed, IV saline locked. Consent signed and on chart. Family at bedside.
[2019-11-29] MEDS: LACTATED RINGERS 1,000 ML 30 ML IV CONT (10:30)
[2019-11-29] MEDS: LIDO 1%/EPINEPHRINE 1:100,000 20 ML VIAL 5 ML INFILTRATE (10:42)
[2019-11-29] MEDS: HEPARIN SODIUM, PORCINE 10,000 UNITS/10 ML VIAL 10 UNITS IV PUSH (10:53)
[2019-11-29 10:57] LABS: RNP Antibodies <1.0; SS-A <1.0; SS-B <1.0
--- NOTE | 2019-11-29 11:11 | P.OP_ITS ---
Procedure Note - Detailed Date of procedure: 11/29/19 Pre-op diagnosis: Acute renal failure Post-op diagnosis: same Procedure performed: Right internal jugular Edwin dialysis catheter placement using ultrasound guidance Description of procedure: Patient was placed supine in hospital bed and placed in slight Trendelenburg position. Time-out was done to confirm patient and procedure. IV sedation was then administered by the Anesthesia Department. Her right neck and chest area was prepped and draped in sterile fashion. SonoSite ultrasound was used to identify the right internal jugular vein. 1% lidocaine with epinephrine was infiltrated directly over this. An 18 gauge introducer needle was then advanced under ultrasound guidance directly into the right internal jugular vein. Dark nonpulsatile blood was aspirated. A 0.035 in guidewire was then advanced over the needle using a modified Seldinger technique. A guidewire advanced smoothly. The needle was then withdrawn leaving the guidewire in place. Small kaylin incision was made at the skin using a 11 blade scalpel. The blue dilators were then advanced over the guidewire to dilate the vessel. The 16 cm 12 [place] triple-lumen dialysis catheter was advanced over the guidewire until it was in place at 16 cm. All 3 lumens of the catheter were then aspirated and flushed with heparinized saline. All 3 lumens function with ease. A stat seal was placed at the insertion site, and the catheter was sutured in place using 3 0 nylon simple interrupted sutures. A Tegaderm dressing was then placed over the catheter. The patient was sat up in bed and awakened from anesthesia. Chest x- ray was ordered to confirm placement. Implants: 16 [place] triple-lumen dialysis catheter Anesthesia: MAC and local Surgeon: Gianluca Mukherjee DO Estimated blood loss (mL): 5 Complications: No immediate complications Condition: stable Disposition: floor Findings: This is a 64-year-old woman who presented with a recent episode of influenza a, and subsequent acute renal failure. She has had worsening renal function over the past several days, and nephrology has been following patient. They are now recommending hemodialysis as patient is still fluid overloaded and not diuresing. She is also having increasing altered mental status. Attempt was made at bedside placement of dialysis catheter last night, but due to patient's confusion, she was unable to hold still long enough to perform the procedure under local. The decision was made to bring her down to the PACU for IV tristan tion for procedure. Edwin dialysis catheter was placed using ultrasound guidance. SonoSite ultrasound was used to identify the right internal jugular vein. This was visualized as a compressible vessel just lateral to the carotid artery. An 18 gauge introducer needle was advanced under ultrasound guidance until within the lumen of the vessel. Dark nonpulsatile blood was aspirated. The guidewire was then able to be advanced and the catheter was then advanced in place. Chest x- ray was then ordered to confirm proper placement.
[2019-11-29] MEDS: HEPARIN SODIUM 5,000 UNITS/ML VIAL 5000 UNITS IRRIGATION (11:19)
--- NOTE | 2019-11-29 11:30 | SUR.PHASEI ---
1108- rt neck dialysis cath in place. dressing dry and intact. pt rt wrist has a skin tear. sheet mill supervisor cleaned and dressed rt wrist skin tear. dressing dry and intact.
--- NOTE | 2019-11-29 11:34 | SUR.PHASEI ---
1115- chest x ray taken. dr. ahuja looked at x ray. stated cath ok to use.
--- NOTE | 2019-11-29 12:04 | PC.NURSE ---
Returned from OR per bed. at bedside.
--- NOTE | 2019-11-29 12:45 | PC.NURSE ---
To dialysis per bed.
--- NOTE | 2019-11-29 14:42 | P.PNNP_ITS ---
Progress Note: A&P Assessment and Plan (1) Acute kidney injury: Code(s): N17.9 - Acute kidney failure, unspecified Status: Acute Assessment and Plan: * etiology not entirely clear * suspect at least partly from volume depletion when first diagnosed with influenza possibly leading to ATN * with blood and protein in UA, concern for GN/vasculititis/automimmune disorder - however, given #5, interpretation makes this difficult * serologies with low complements negative JONATAN, ANCA, SPE; UPEP with possible M- spike; rest of testing pending * oliguric * now with altered mental status which is concerning... * HD today and likely again tomorrow (2) Chronic kidney disease, stage 3: Code(s): N18.3 - Chronic kidney disease, stage 3 (moderate) Status: Chronic Assessment and Plan: * baseline creatiine ~ 1.0 - 1.4mg/dl * renal ultrasound with changes c/w medical renal disease (3) Altered mental status: Qualifiers: Altered mental status type: unspecified Qualified Code(s): R41.82 - Altered mental status, unspecified Code(s): R41.82 - Altered mental status, unspecified Status: Acute Assessment and Plan: * progressive worsening in the last few days and today * now associated with some random jerking movement and twitching in upper extremities * I am concerned that this may be secondary to uremia * CT of head negativae (4) Pneumonia: Qualifiers: Laterality: bilateral Lung location: lower lobe of lung Pneumonia type: due to Pneumococcus Qualified Code(s): J13 - Pneumonia due to Streptococcus pneumoniae Code(s): J18.9 - Pneumonia, unspecified organism Status: Acute Assessment and Plan: * as suggested by admission CXR * on antibiotic therapy * follow cultures (5) Influenza A: Code(s): J10.1 - Influenza due to other identified influenza virus with other respiratory manifestations Status: Acute Assessment and Plan: * completed course of Tamiflu * repeat screening still positive (6) UTI (urinary tract infection): Qualifiers: Hematuria presence: without hematuria Urinary tract infection type: acute cystitis Qualified Code(s): N30.00 - Acute cystitis without hematuria Code(s): N39.0 - Urinary tract infection, site not specified Status: Acute Assessment and Plan: * urine culture with Klebsiella * this may be responsible for presence of blood and protein on UA * on antibiotic therapy Will continue to follow. Subjective Date/time seen: 11/29/19 14:42 Patient on dialysis at the time of my visit (seen on HD at 2:25PM) -- she is not tolerating dialysis very well; per HD nurses, she is constantly moaning and hollering with frequent moving around; furthemore, her temporary HD catheter does not appear to be working very well either (barely able to acheive 250cc/blood flows) although her inability to stay still may be related to that; suspect will have to end HD treatment prematurely... Exam Narrative: Exam Narrative: General: thin female who is quite confused Heart: normal S1 and S2; no rub Lungs: few crackles at bases, R>L Abdomen: soft, nontender, nondistended, positive bowel sounds Extremities: no cyanosis or clubbing; no edema Skin: no rash or nodules Objective Data Vital Signs Vital Signs: Vital Signs Temp Pulse Resp BP Pulse Ox 11/29/19 14:15 103 H 140/87 11/29/19 14:00 10
--- NOTE | 2019-11-29 14:42 | PM.PNNEP ---
Progress Note: A&P Assessment and Plan (1) Acute kidney injury: Code(s): N17.9 - Acute kidney failure, unspecified Status: Acute Assessment and Plan: etiology not entirely clear suspect at least partly from volume depletion when first diagnosed with influenza possibly leading to ATN with blood and protein in UA, concern for GN/vasculititis/automimmune disorder - however, given #5, interpretation makes this difficult serologies with low complements negative JONATAN, ANCA, SPE; UPEP with possible M-spike; rest of testing pending oliguric now with altered mental status which is concerning... HD today and likely again tomorrow (2) Chronic kidney disease, stage 3: Code(s): N18.3 - Chronic kidney disease, stage 3 (moderate) Status: Chronic Assessment and Plan: baseline creatiine ~ 1.0 - 1.4mg/dl renal ultrasound with changes c/w medical renal disease (3) Altered mental status: Qualifiers: Altered mental status type: unspecified Qualified Code(s): R41.82 - Altered mental status, unspecified Code(s): R41.82 - Altered mental status, unspecified Status: Acute Assessment and Plan: progressive worsening in the last few days and today now associated with some random jerking movement and twitching in upper extremities I am concerned that this may be secondary to uremia CT of head negativae (4) Pneumonia: Qualifiers: Laterality: bilateral Lung location: lower lobe of lung Pneumonia type: due to Pneumococcus Qualified Code(s): J13 - Pneumonia due to Streptococcus pneumoniae Code(s): J18.9 - Pneumonia, unspecified organism Status: Acute Assessment and Plan: as suggested by admission CXR on antibiotic therapy follow cultures (5) Influenza A: Code(s): J10.1 - Influenza due to other identified influenza virus with other respiratory manifestations Status: Acute Assessment and Plan: completed course of Tamiflu repeat screening still positive (6) UTI (urinary tract infection): Qualifiers: Hematuria presence: without hematuria Urinary tract infection type: acute cystitis Qualified Code(s): N30.00 - Acute cystitis without hematuria Code(s): N39.0 - Urinary tract infection, site not specified Status: Acute Assessment and Plan: urine culture with Klebsiella this may be responsible for presence of blood and protein on UA on antibiotic therapy Will continue to follow. Subjective Date/time seen: 11/29/19 14:42 Patient on dialysis at the time of my visit (seen on HD at 2:25PM) -- she is not tolerating dialysis very well; per HD nurses, she is constantly moaning and hollering with frequent moving around; furthemore, her temporary HD catheter does not appear to be working very well either (barely able to acheive 250cc/blood flows) although her inability to stay still may be related to that; suspect will have to end HD treatment prematurely... Exam Narrative: Exam Narrative: General: thin female who is quite confused Heart: normal S1 and S2; no rub Lungs: few crackles at bases, R>L Abdomen: soft, nontender, nondistended, positive bowel sounds Extremities: no cyanosis or clubbing; no edema Skin: no rash or nodules Objective Data Vital Signs Vital Signs: Vital Signs Temp Pulse Resp BP Pulse Ox 11/29/19 14:15 103 H 140/87 11/29/19 14:00 107 H 122/84 11/29/19 13:45 104 H 156/85 H 11/29/19 13:30 105 H 149/83 H 11/29/19 13:15 111 H 141/79 H 11/29/19 12:49 36.7 C 118 H 24 H 150/82 H 11/29/19 11:38 92 22 H 148/85 H 98 11/29/19 11:23 91 21 H 156/81 H 98 11/29/19 11:08 36.4 C 90 25 H 113/64 100 11/29/19 07:59 104 H 20 11/29/19 07:52 104 H 20 97 11/29/19 06:02 35.9 C L 114 H 20 134/80 99 11/29/19 03:30 103 H 18 11/28/19 22:33 36.1 C L 107 H 20 150/84 H 98 11/28/19 2
--- NOTE | 2019-11-29 15:34 | PC.NURSE ---
Patient received from dialysis per bed.
--- NOTE | 2019-11-29 15:40 | PCPTNOTE ---
The PT treatment was unable to be completed today. Will continue per Plan of Care frequency and duration.
--- NOTE | 2019-11-29 16:00 | PC.NURSE ---
Patient daughter, Emily, at bedside and requesting something to help relax patient. Spoke with Dr. Tirado and received orders to give her 2.5mg IM Zyprexa. Went into patients room with medication, and daughter requesting that I hold off at this time. Patient seems to be resting more comfortably. Notified Dr. Tirado and received orders that it is okay to leave medication on MAR in case she wants/needs to receive it later. Will continue to monitor patient status.
--- NOTE | 2019-11-29 16:20 | PM.IMPN ---
Progress Note: A&P Assessment and Plan (1) Acute encephalopathy: Code(s): G93.40 - Encephalopathy, unspecified Status: Acute Assessment and Plan: Appears to be acute encephalopathy from acute on chronic renal failure +/-infection. Hemodialysis attempted today but very limited and essentially unsuccessful. CT brain negative yesterday. Will continue to monitor closely. Will hopefully improve with continued treatment of infections and once hemodialysis successful. Anticipate will need rehab at discharge. Once able, will need PT/OT. (2) Acute kidney injury: Code(s): N17.9 - Acute kidney failure, unspecified Status: Acute Assessment and Plan: Appreciate help from Nephrology. Acute on chronic with known CKD stage 3. Autoimmune workup in process with low complement noted. BUN up to 61 today with creatinine up to 9.00. General surgery was consulted yesterday with hemodialysis catheter placed. Attempted hemodialysis today as noted above. Renal ultrasound left renal atrophy left renal cyst measuring 11 mm. Continue to monitor closely. (3) Chronic kidney disease, stage 3: Code(s): N18.3 - Chronic kidney disease, stage 3 (moderate) Status: Chronic Assessment and Plan: Baseline creatinine 1.00-1.40. Now with acute injury as noted above. Plan as noted above. (4) Pneumonia: Qualifiers: Pneumonia type: due to Pneumococcus Laterality: bilateral Lung location: lower lobe of lung Qualified Code(s): J13 - Pneumonia due to Streptococcus pneumoniae Code(s): J18.9 - Pneumonia, unspecified organism Status: Acute Assessment and Plan: Initial chest x-ray with mild airspace opacities in the mid and lower lung zones. Still present on repeat chest x-ray on 11/26/2019. New chest x-ray on 11/27/2019 with worsening infiltrates in the mid and lower lung zones. Urine antigen for pneumococcus also positive. Now on IV ceftriaxone, azithromycin and vancomycin renally dosed. Continue nebulizer treatments. Probably contributing to mental status change. Still requiring 2 L of oxygen. Will monitor. (5) Influenza A: Code(s): J10.1 - Influenza due to other identified influenza virus with other respiratory manifestations Status: Acute Assessment and Plan: Patient diagnosed with Influenza at an outside facility on 11/18/19 and treated with Tamiflu. Screen showing patient influenza A positive in the emergency room this admission. Tamiflu not repeated as already treated. Continue supportive care. (6) UTI (urinary tract infection): Qualifiers: Urinary tract infection type: acute cystitis Hematuria presence: without hematuria Qualified Code(s): N30.00 - Acute cystitis without hematuria Code(s): N39.0 - Urinary tract infection, site not specified Status: Acute Assessment and Plan: Urine culture growing Klebsiella pneumoniae. Will continue IV ceftriaxone as sensitive. (7) Hypertension: Qualifiers: Hypertension type: essential hypertension Qualified Code(s): I10 - Essential (primary) hypertension Code(s): I10 - Essential (primary) hypertension Status: Acute Assessment and Plan: Blood pressure reviewed on 11/29/2019. Remains mildly elevated. Continue metoprolol. Will continue to monitor. Will wait to add any medication as anticipate hemodialysis. (8) COPD (chronic obstructive pulmonary disease): Qualifiers: COPD type: unspecified COPD Qualified Code(s): J44.9 - Chronic obstructive pulmonary disease, unspecified Code(s): J44.9 - Chronic obstructive pulmonary disease, unspecified Status: Acute Assessment and Plan: Stable. Continue scheduled nebulizers. Continue Symbicort. Oxygen requirement as noted above. Continue to follow. (9) Thrombocytopenia: Code(s): D69.6 - Thrombocytopenia, unspecified Status: Acute Assessment and Plan: Pl
[2019-11-29] MEDS: OLANZapine 10 MG INJ VIAL 2.5 MG IM (17:48)
[2019-11-29] MEDS: WATER, STERILE FOR INJECTION 10 ML VIAL XX (17:53)
[2019-11-29 18:27] LABS: Vancomycin Random 10.5 ug/mL (10-20)
[2019-11-29] MEDS: IPRATROPIUM BR 0.02% INH SOLN 0.5 MG/2.5 ML VIAL INHALATION (20:37)
[2019-11-30] VITALS (30 sets, daily range): BP systolic 112–185; BP diastolic 64–108; PULSE 90–111; RESP 16–34; TEMP 36.2–37; O2SAT 90–99; BMI 10.0
[2019-11-30] MEDS: ALBUTEROL SULFATE NEB 2.5 MG/0.5 ML INH INHALATION ×3 (02:58→13:57)
[2019-11-30] MEDS: TRAMADOL HCL 50 MG TABLET PO ×4 (03:14→23:06)
[2019-11-30 05:52] LABS: Albumin Level 2.3 g/dL (3.5-5.1); Blood Urea Nitrogen 42 mg/dL (7-17); Carbon Dioxide 23 mmol/L (22-30); Chloride 101 mmol/L (98-107); Estimated Glomerular Filt Rate 7; Glucose 60 mg/dL (65-105); Phosphorus 5.3 mg/dL (2.5-4.5); Potassium 3.4 mmol/L (3.4-5.0); Sodium 138 mmol/L (137-145)
[2019-11-30 07:35] LABS: Glucose Point of Care 106 (65-105)
[2019-11-30 07:45] LABS: Scleroderma 70 Antibody <1.0
--- NOTE | 2019-11-30 09:37 | WPDANESPN ---
Anes - Prog Note Post-Op Date/Time: 11/30/19 09:37 Cardiovascular status: normal Respiratory status: normal Airway patency: baseline Mental status: other (pt drowsy though verbal and appropriate. uncertain if this is baseline or due to current illness. ) Vital Signs: Last Vital Signs Temp 97.9 F 11/30/19 05:19 Pulse 101 H 11/30/19 08:24 Resp 20 11/30/19 08:24 BP 145/77 H 11/30/19 05:19 Pulse Ox 93 11/30/19 08:24 I/O: Intake & Output 11/29/19 11/30/19 11/30/19 23:59 07:59 15:59 Intake Total 362 250 Output Total 400 300 Balance -38 -50 Laboratory Tests 11/29/19 05:10 11/30/19 04:49 11/26/19 11/26/19 11/26/19 05:23 05:23 05:23 Sodium Potassium Chloride Carbon Dioxide BUN Creatinine Estim Creat Clear Calc Estimated GFR Glucose POC Capillary Glucose Calcium Phosphorus Albumin Random Vancomycin JONATAN Screen Negative SS-A Antibody <1.0 SS-B Antibody <1.0 Sm (Banegas) Antibody <1.0 [employer] Antibody <1.0 Scl-70 Scleroderma Ab <1.0 Anti-DNA Antibody <1 11/29/19 11/30/19 11/30/19 17:45 04:49 06:38 Sodium 138 Potassium 3.4 Chloride 101 Carbon Dioxide 23 BUN 42 H D Creatinine 6.10 H Estim Creat Clear Calc Not Reportable Estimated GFR 7 L Glucose 60 L POC Capillary Glucose 106 Calcium 8.0 L Phosphorus 5.3 H Albumin 2.3 L Random Vancomycin 10.5 JONATAN Screen SS-A Antibody SS-B Antibody Sm (Banegas) Antibody [employer] Antibody Scl-70 Scleroderma Ab Anti-DNA Antibody Post-procedural complaints: none and other (groin pain) Patient Feedback: Patient satisfied with anesthetic care.
[2019-11-30 10:24] LABS: Anti Glomerular Basement Memb <1.0 AI (<1.0)
[2019-11-30] MEDS: METOPROLOL SUCCINATE EXT REL 25 MG TABCR PO (10:47)
[2019-11-30] MEDS: DOCUSATE SODIUM 100 MG CAPSULE PO (10:47)
--- NOTE | 2019-11-30 11:22 | PCNFU ---
Nutrition Follow-Up Complete: Inadequate oral intake R/T reduced appetite as evidence by suboptimal intake and mild wt loss PO intake of meals and supplements at 75% or greater Goal:progressing towards goal. Pt current nutrition is Renal Dialysis Diet. Nutrition recommendation:Agree Last recorded weight is 48 kg. Bowel Motility:+BM 11/29 Labs Reviewed: Cr 6.10,BUN 42,PO4 5.3 Meds Noted:Ultram Additional Notes: Patient is more alert today, hungry, wanting roast beef and mashed potatoes. I spoke with nursing today, patient took all pills with no problems. Dialysis again today. Diet orders have advanced to a Renal Dialysis diet with [employer]. Monitoring: po intake, wt every five days
--- NOTE | 2019-11-30 11:28 | PM.IMPN ---
Progress Note: A&P Assessment and Plan (1) Acute encephalopathy: Code(s): G93.40 - Encephalopathy, unspecified Status: Acute Assessment and Plan: Appears to be acute encephalopathy from acute on chronic renal failure +/-infection. Hemodialysis attempted yesterday but only very limited session. Creatinine is much better today at 6.10. Much more awake and responsive. CT brain was negative on 11/28/2019. Continue to monitor closely. Continue PT/OT. Anticipate need for rehab at discharge. Will allow renal diet with supplements as mental status improved. (2) Acute kidney injury: Code(s): N17.9 - Acute kidney failure, unspecified Status: Acute Assessment and Plan: Appreciate help from Nephrology. Acute on chronic with known CKD stage 3. Autoimmune workup in process with low complement noted. Renal ultrasound left renal atrophy left renal cyst measuring 11 mm. Had hemodialysis session yesterday due to worsening mental status as well as worsening BUN/creatinine. Clinically much improved today. Creatinine decreased to 6.10 as noted above. Plan for hemodialysis again today. Will continue to monitor. (3) Chronic kidney disease, stage 3: Code(s): N18.3 - Chronic kidney disease, stage 3 (moderate) Status: Chronic Assessment and Plan: Baseline creatinine 1.00-1.40. Now with acute injury as noted above. Plan as noted above. (4) Pneumonia: Qualifiers: Laterality: bilateral Lung location: lower lobe of lung Pneumonia type: due to Pneumococcus Qualified Code(s): J13 - Pneumonia due to Streptococcus pneumoniae Code(s): J18.9 - Pneumonia, unspecified organism Status: Acute Assessment and Plan: Initial chest x-ray with mild airspace opacities in the mid and lower lung zones. Still present on repeat chest x-ray on 11/26/2019. New chest x-ray on 11/27/2019 with worsening infiltrates in the mid and lower lung zones. Urine antigen for pneumococcus also positive. Will continue IV ceftriaxone, azithromycin and vancomycin renally dosed. Continue nebulizer treatments. Remains on oxygen currently at 2.5 L. Will continue to monitor. (5) Influenza A: Code(s): J10.1 - Influenza due to other identified influenza virus with other respiratory manifestations Status: Acute Assessment and Plan: Patient diagnosed with Influenza at an outside facility on 11/18/19 and treated with Tamiflu. Screen showing patient influenza A positive in the emergency room this admission. Tamiflu not repeated as already treated. Continue supportive care. (6) UTI (urinary tract infection): Qualifiers: Hematuria presence: without hematuria Urinary tract infection type: acute cystitis Qualified Code(s): N30.00 - Acute cystitis without hematuria Code(s): N39.0 - Urinary tract infection, site not specified Status: Acute Assessment and Plan: Urine culture growing Klebsiella pneumoniae. Will continue IV ceftriaxone as sensitive. (7) Hypertension: Qualifiers: Hypertension type: essential hypertension Qualified Code(s): I10 - Essential (primary) hypertension Code(s): I10 - Essential (primary) hypertension Status: Acute Assessment and Plan: Blood pressure reviewed on 11/30/2019 and stable. Continue metoprolol. Will continue to monitor. (8) COPD (chronic obstructive pulmonary disease): Qualifiers: COPD type: unspecified COPD Qualified Code(s): J44.9 - Chronic obstructive pulmonary disease, unspecified Code(s): J44.9 - Chronic obstructive pulmonary disease, unspecified Status: Acute Assessment and Plan: Stable. Continue scheduled nebulizers. Continue Symbicort. Still has oxygen requirement as noted above. Continue to follow. (9) Thrombocytopenia: Code(s): D69.6 - Thrombocytopenia, unspecified Status: Acute Assessment and Plan: Platelets remain
--- NOTE | 2019-11-30 14:18 | P.CDI_ITS ---
CDI Query Clarification Request Acute encephalopathy has been documented. Please further specify type of encephalopathy: * Metabolic * Toxic * Hepatic * Hypertensive * Other * Unable to determine
--- NOTE | 2019-11-30 14:18 | WPDCDIQUERY2 ---
CDI Query Clarification Request Acute encephalopathy has been documented. Please further specify type of encephalopathy: Metabolic Toxic Hepatic Hypertensive Other Unable to determine
--- NOTE | 2019-11-30 15:20 | P.PNNP_ITS ---
Progress Note: A&P Assessment and Plan (1) Acute kidney injury: Code(s): N17.9 - Acute kidney failure, unspecified Status: Acute Assessment and Plan: * etiology not entirely clear * suspect at least partly from volume depletion when first diagnosed with influenza possibly leading to ATN * with blood and protein in UA, concern for GN/vasculititis/automimmune disorder - however, given #5, interpretation makes this difficult * all serologies to date negative (JONATAN/ANCA/antiGBM/dsDNA/SPE/Banegas/BREAD STACKER); low complements noted and UPEP with possible M-spike; rest of testing pending * oliguric * HD today and likely again tomorrow to facilitate maximum clearance of uremic toxins (2) Chronic kidney disease, stage 3: Code(s): N18.3 - Chronic kidney disease, stage 3 (moderate) Status: Chronic Assessment and Plan: * baseline creatiine ~ 1.0 - 1.4mg/dl * renal ultrasound with changes c/w medical renal disease (3) Altered mental status: Qualifiers: Altered mental status type: unspecified Qualified Code(s): R41.82 - Altered mental status, unspecified Code(s): R41.82 - Altered mental status, unspecified Status: Acute Assessment and Plan: * doing significantly better today (but not back to baseline) * presumably secondary to uremia (given improvement with just a partial HD treatment) * CT of head negative * follow mentation (4) Pneumonia: Qualifiers: Laterality: bilateral Lung location: lower lobe of lung Pneumonia type: due to Pneumococcus Qualified Code(s): J13 - Pneumonia due to Streptococcus pneumoniae Code(s): J18.9 - Pneumonia, unspecified organism Status: Acute Assessment and Plan: * as suggested by admission CXR * on antibiotic therapy * follow cultures (5) Influenza A: Code(s): J10.1 - Influenza due to other identified influenza virus with other respiratory manifestations Status: Acute Assessment and Plan: * completed course of Tamiflu * repeat screening still positive (6) UTI (urinary tract infection): Qualifiers: Hematuria presence: without hematuria Urinary tract infection type: acute cystitis Qualified Code(s): N30.00 - Acute cystitis without hematuria Code(s): N39.0 - Urinary tract infection, site not specified Status: Acute Assessment and Plan: * urine culture with Klebsiella * this may be responsible for presence of blood and protein on UA * on antibiotic therapy Discussed case with Dr. Tirado Will continue to follow. Subjective Date/time seen: 11/30/19 15:20 Dialysis yesterday but did not tolerate the treatment very well and only got about 1 hour of dialysis -- despite this, her mentation has significantly improved; she is awake and communicative although still not fully oriented. Exam Narrative: Exam Narrative: General: thin female in NAD Heart: normal S1 and S2; no rub Lungs: few crackles at bases, R>L Abdomen: soft, nontender, nondistended, positive bowel sounds Extremities: no cyanosis or clubbing; no edema Skin: warm and dry Objective Data Vital Signs Vital Signs: Vital Signs Temp Pulse Resp BP Pulse Ox 11/30/19 14:07 100 21 H 11/30/19 14:00 36.7 C 91 17 112/79 99 11/30/19 13:57 96 22 H 11/30/19 10:47 92 11/30/19 10:00 36.5 C 103 H 34 H 147/81 H 97 11/30/19 08:34
--- NOTE | 2019-11-30 15:20 | PM.PNNEP ---
Progress Note: A&P Assessment and Plan (1) Acute kidney injury: Code(s): N17.9 - Acute kidney failure, unspecified Status: Acute Assessment and Plan: etiology not entirely clear suspect at least partly from volume depletion when first diagnosed with influenza possibly leading to ATN with blood and protein in UA, concern for GN/vasculititis/automimmune disorder - however, given #5, interpretation makes this difficult all serologies to date negative (JONATAN/ANCA/antiGBM/dsDNA/SPE/Banegas/LOCK OPERATOR); low complements noted and UPEP with possible M-spike; rest of testing pending oliguric HD today and likely again tomorrow to facilitate maximum clearance of uremic toxins (2) Chronic kidney disease, stage 3: Code(s): N18.3 - Chronic kidney disease, stage 3 (moderate) Status: Chronic Assessment and Plan: baseline creatiine ~ 1.0 - 1.4mg/dl renal ultrasound with changes c/w medical renal disease (3) Altered mental status: Qualifiers: Altered mental status type: unspecified Qualified Code(s): R41.82 - Altered mental status, unspecified Code(s): R41.82 - Altered mental status, unspecified Status: Acute Assessment and Plan: doing significantly better today (but not back to baseline) presumably secondary to uremia (given improvement with just a partial HD treatment) CT of head negative follow mentation (4) Pneumonia: Qualifiers: Laterality: bilateral Lung location: lower lobe of lung Pneumonia type: due to Pneumococcus Qualified Code(s): J13 - Pneumonia due to Streptococcus pneumoniae Code(s): J18.9 - Pneumonia, unspecified organism Status: Acute Assessment and Plan: as suggested by admission CXR on antibiotic therapy follow cultures (5) Influenza A: Code(s): J10.1 - Influenza due to other identified influenza virus with other respiratory manifestations Status: Acute Assessment and Plan: completed course of Tamiflu repeat screening still positive (6) UTI (urinary tract infection): Qualifiers: Hematuria presence: without hematuria Urinary tract infection type: acute cystitis Qualified Code(s): N30.00 - Acute cystitis without hematuria Code(s): N39.0 - Urinary tract infection, site not specified Status: Acute Assessment and Plan: urine culture with Klebsiella this may be responsible for presence of blood and protein on UA on antibiotic therapy Discussed case with Dr. Tirado Will continue to follow. Subjective Date/time seen: 11/30/19 15:20 Dialysis yesterday but did not tolerate the treatment very well and only got about 1 hour of dialysis -- despite this, her mentation has significantly improved; she is awake and communicative although still not fully oriented. Exam Narrative: Exam Narrative: General: thin female in NAD Heart: normal S1 and S2; no rub Lungs: few crackles at bases, R>L Abdomen: soft, nontender, nondistended, positive bowel sounds Extremities: no cyanosis or clubbing; no edema Skin: warm and dry Objective Data Vital Signs Vital Signs: Vital Signs Temp Pulse Resp BP Pulse Ox 11/30/19 14:07 100 21 H 11/30/19 14:00 36.7 C 91 17 112/79 99 11/30/19 13:57 96 22 H 11/30/19 10:47 92 11/30/19 10:00 36.5 C 103 H 34 H 147/81 H 97 11/30/19 08:34 103 H 22 H 11/30/19 08:24 101 H 20 93 11/30/19 05:19 36.6 C 109 H 22 H 145/77 H 90 11/30/19 03:06 93 20 11/30/19 02:58 96 20 11/30/19 02:00 36.2 C L 94 22 H 131/68 97 11/29/19 22:00 36.3 C L 91 22 H 145/72 H 99 11/29/19 20:44 97 20 11/29/19 20:42 95 11/29/19 20:38 99 20 11/29/19 20:00 97 20 95 11/29/19 18:00 37.1 C 111 H 24 H 150/82 H 95 Intake/Output Intake/Output: Intake & Output 11/27/19 11/28/19 11/29/19 11/30/19 23:59 23:59 23:59 23:59 Intake Total 1707 6515 36
[2019-11-30] MEDS: LIDOCAINE 5% PATCH 1 PATCH TRANSDERM ×2 (16:50→18:41)
--- NOTE | 2019-11-30 19:40 | PCRCNOTE ---
pt off floor
--- NOTE | 2019-11-30 20:29 | PC.NURSE ---
pt off the floor at this time for dialysis
[2019-11-30] MEDS: EPOETIN ALFA 10,000 UNITS/ML VIAL 10000 UNITS IV PUSH (21:30)
[2019-11-30] MEDS: HEPARIN SODIUM 1,000 UNITS/ML VIAL 4000 UNITS (23:05)
[2019-11-30] MEDS: TRAZODONE HCL 50 MG TABLET PO (23:07)
[2019-12-01] VITALS (27 sets, daily range): BP systolic 119–174; BP diastolic 73–104; PULSE 96–110; RESP 16–28; TEMP 36–37.6; O2SAT 90–97
[2019-12-01] MEDS: ALBUTEROL SULFATE NEB 2.5 MG/0.5 ML INH INHALATION ×3 (02:40→19:35)
[2019-12-01 05:28] LABS: Albumin Level 2.2 g/dL (3.5-5.1); Blood Urea Nitrogen 18 mg/dL (7-17); Calcium 7.6 mg/dL (8.4-10.2); Carbon Dioxide 27 mmol/L (22-30); Chloride 97 mmol/L (98-107); Estimated Glomerular Filt Rate 16; Glucose 63 mg/dL (65-105); Phosphorus 3.5 mg/dL (2.5-4.5); Potassium 3.6 mmol/L (3.4-5.0); Sodium 134 mmol/L (137-145)
[2019-12-01] MEDS: TRAMADOL HCL 50 MG TABLET PO ×2 (08:21→15:34)
[2019-12-01] MEDS: METOPROLOL SUCCINATE EXT REL 25 MG TABCR PO (08:23)
[2019-12-01] MEDS: LIDOCAINE 5% PATCH 1 PATCH TRANSDERM ×2 (08:24→08:25)
[2019-12-01] MEDS: BUMETANIDE INJ 1 MG/4 ML VIAL IV PUSH (08:25)
[2019-12-01] MEDS: DOCUSATE SODIUM 100 MG CAPSULE PO (08:26)
[2019-12-01 10:57] LABS: SM Antibody <1.0; SM/RNP Antibody <1.0
[2019-12-01] MEDS: hydrALAZINE HCL 25 MG TABLET PO (13:44)
--- NOTE | 2019-12-01 15:16 | PM.IMPN ---
Progress Note: A&P Assessment and Plan (1) Acute encephalopathy: Code(s): G93.40 - Encephalopathy, unspecified Status: Acute Assessment and Plan: Appears to be acute encephalopathy from acute on chronic renal failure +/-infection. Hemodialysis attempted on 11/29 but only very limited session. Creatinine is much better today at 3.0 Much more awake and responsive. CT brain was negative on 11/28/2019. Continue to monitor closely. Continue PT/OT. Anticipate need for rehab at discharge. Will allow renal diet with supplements as mental status improved. (2) Acute kidney injury: Code(s): N17.9 - Acute kidney failure, unspecified Status: Acute Assessment and Plan: Appreciate help from Nephrology. Acute on chronic with known CKD stage 3. Autoimmune workup in process with low complement noted. Renal ultrasound left renal atrophy left renal cyst measuring 11 mm. Had hemodialysis session yesterday due to worsening mental status as well as worsening BUN/creatinine. Clinically much improved today. Creatinine decreased to 6.10 as noted above. Plan for hemodialysis again today. Will continue to monitor. (3) Chronic kidney disease, stage 3: Code(s): N18.3 - Chronic kidney disease, stage 3 (moderate) Status: Chronic Assessment and Plan: Baseline creatinine 1.00-1.40. Now with acute injury as noted above. Plan as noted above. (4) Pneumonia: Qualifiers: Pneumonia type: due to Pneumococcus Laterality: bilateral Lung location: lower lobe of lung Qualified Code(s): J13 - Pneumonia due to Streptococcus pneumoniae Code(s): J18.9 - Pneumonia, unspecified organism Status: Acute Assessment and Plan: Initial chest x-ray with mild airspace opacities in the mid and lower lung zones. Still present on repeat chest x-ray on 11/26/2019. New chest x-ray on 11/27/2019 with worsening infiltrates in the mid and lower lung zones. Urine antigen for pneumococcus also positive. Will continue IV ceftriaxone, azithromycin and vancomycin renally dosed. Continue nebulizer treatments. Remains on oxygen currently at 2.5 L. Will continue to monitor. (5) Influenza A: Code(s): J10.1 - Influenza due to other identified influenza virus with other respiratory manifestations Status: Acute Assessment and Plan: Patient diagnosed with Influenza at an outside facility on 11/18/19 and treated with Tamiflu. Screen showing patient influenza A positive in the emergency room this admission. Tamiflu not repeated as already treated. Continue supportive care. (6) UTI (urinary tract infection): Qualifiers: Urinary tract infection type: acute cystitis Hematuria presence: without hematuria Qualified Code(s): N30.00 - Acute cystitis without hematuria Code(s): N39.0 - Urinary tract infection, site not specified Status: Acute Assessment and Plan: Urine culture growing Klebsiella pneumoniae. Will continue IV ceftriaxone as sensitive. (7) Hypertension: Qualifiers: Hypertension type: essential hypertension Qualified Code(s): I10 - Essential (primary) hypertension Code(s): I10 - Essential (primary) hypertension Status: Acute Assessment and Plan: Blood pressure reviewed on 12/01/2019 and stable. Continue metoprolol. Will continue to monitor. (8) COPD (chronic obstructive pulmonary disease): Qualifiers: COPD type: unspecified COPD Qualified Code(s): J44.9 - Chronic obstructive pulmonary disease, unspecified Code(s): J44.9 - Chronic obstructive pulmonary disease, unspecified Status: Acute Assessment and Plan: Stable. Continue scheduled nebulizers. Continue Symbicort. Still has oxygen requirement as noted above. Continue to follow. (9) Thrombocytopenia: Code(s): D69.6 - Thrombocytopenia, unspecified Status: Acute Assessment and Plan: Platelets remain
--- NOTE | 2019-12-01 16:01 | PC.NURSE ---
Patient to dialysis lab at 1650.
--- NOTE | 2019-12-01 16:44 | P.PNNP_ITS ---
Progress Note: A&P Assessment and Plan (1) Acute kidney injury: Code(s): N17.9 - Acute kidney failure, unspecified Status: Acute Assessment and Plan: * etiology not entirely clear * suspect at least partly from volume depletion when first diagnosed with influenza possibly leading to ATN * with blood and protein in UA, concern for GN/vasculititis/automimmune disorder - however, given #5, interpretation makes this difficult * all serologies to date negative (JONATAN/ANCA/antiGBM/dsDNA/SPE/Banegas/GERIATRIC PHYSICAL THERAPIST); low complements noted and UPEP with possible M-spike; rest of testing pending * oliguric * HD today to facilitate maximum clearance of uremic toxins (2) Chronic kidney disease, stage 3: Code(s): N18.3 - Chronic kidney disease, stage 3 (moderate) Status: Chronic Assessment and Plan: * baseline creatiine ~ 1.0 - 1.4mg/dl * renal ultrasound with changes c/w medical renal disease (3) Altered mental status: Qualifiers: Altered mental status type: unspecified Qualified Code(s): R41.82 - Altered mental status, unspecified Code(s): R41.82 - Altered mental status, unspecified Status: Acute Assessment and Plan: * continues to improve * presumably secondary to uremia (given improvement with HD treatments) * CT of head negative * follow mentation (4) Pneumonia: Qualifiers: Laterality: bilateral Lung location: lower lobe of lung Pneumonia type: due to Pneumococcus Qualified Code(s): J13 - Pneumonia due to Streptococcus pneumoniae Code(s): J18.9 - Pneumonia, unspecified organism Status: Acute Assessment and Plan: * as suggested by admission CXR * on antibiotic therapy * follow cultures (5) Influenza A: Code(s): J10.1 - Influenza due to other identified influenza virus with other respiratory manifestations Status: Acute Assessment and Plan: * completed course of Tamiflu * repeat screening still positive (6) UTI (urinary tract infection): Qualifiers: Hematuria presence: without hematuria Urinary tract infection type: acute cystitis Qualified Code(s): N30.00 - Acute cystitis without hematuria Code(s): N39.0 - Urinary tract infection, site not specified Status: Acute Assessment and Plan: * urine culture with Klebsiella * this may be responsible for presence of blood and protein on UA * on antibiotic therapy Will continue to follow. Subjective Date/time seen: 12/01/19 16:44 Tolerating dialysis reasonably well at the time of my visit (seen on HD at ~ 4:30PM); dialysis catheter with extremely poor blood flows; mentaion seems to be improving; main complaint is that of pain with mcguire catheter in place. Exam Narrative: Exam Narrative: General: thin female in NAD Heart: normal S1 and S2; no rub Lungs: few crackles at bases, R>L Abdomen: soft, nontender, nondistended, positive bowel sounds Extremities: no cyanosis or clubbing; no edema Skin: warm and dry Objective Data Vital Signs Vital Signs: Vital Signs Temp Pulse Resp BP Pulse Ox 12/01/19 14:00 36.3 C L 103 H 16 154/87 H 96 12/01/19 10:00 36.4 C L 97 16 149/84 H 95 12/01/19 09:18 96 20 12/01/19 09:12 103 H 22 H 90 12/01/19 08:23 110 H 12/01/19 06:00 36.9 C 103 H 24 H 119/80 92 12/01/19 02:48 98 20 12/01/19 02:40 98 20
--- NOTE | 2019-12-01 16:44 | PM.PNNEP ---
Progress Note: A&P Assessment and Plan (1) Acute kidney injury: Code(s): N17.9 - Acute kidney failure, unspecified Status: Acute Assessment and Plan: etiology not entirely clear suspect at least partly from volume depletion when first diagnosed with influenza possibly leading to ATN with blood and protein in UA, concern for GN/vasculititis/automimmune disorder - however, given #5, interpretation makes this difficult all serologies to date negative (JONATAN/ANCA/antiGBM/dsDNA/SPE/Banegas/PROCESS SAFETY MANAGER); low complements noted and UPEP with possible M-spike; rest of testing pending oliguric HD today to facilitate maximum clearance of uremic toxins (2) Chronic kidney disease, stage 3: Code(s): N18.3 - Chronic kidney disease, stage 3 (moderate) Status: Chronic Assessment and Plan: baseline creatiine ~ 1.0 - 1.4mg/dl renal ultrasound with changes c/w medical renal disease (3) Altered mental status: Qualifiers: Altered mental status type: unspecified Qualified Code(s): R41.82 - Altered mental status, unspecified Code(s): R41.82 - Altered mental status, unspecified Status: Acute Assessment and Plan: continues to improve presumably secondary to uremia (given improvement with HD treatments) CT of head negative follow mentation (4) Pneumonia: Qualifiers: Laterality: bilateral Lung location: lower lobe of lung Pneumonia type: due to Pneumococcus Qualified Code(s): J13 - Pneumonia due to Streptococcus pneumoniae Code(s): J18.9 - Pneumonia, unspecified organism Status: Acute Assessment and Plan: as suggested by admission CXR on antibiotic therapy follow cultures (5) Influenza A: Code(s): J10.1 - Influenza due to other identified influenza virus with other respiratory manifestations Status: Acute Assessment and Plan: completed course of Tamiflu repeat screening still positive (6) UTI (urinary tract infection): Qualifiers: Hematuria presence: without hematuria Urinary tract infection type: acute cystitis Qualified Code(s): N30.00 - Acute cystitis without hematuria Code(s): N39.0 - Urinary tract infection, site not specified Status: Acute Assessment and Plan: urine culture with Klebsiella this may be responsible for presence of blood and protein on UA on antibiotic therapy Will continue to follow. Subjective Date/time seen: 12/01/19 16:44 Tolerating dialysis reasonably well at the time of my visit (seen on HD at ~ 4:30PM); dialysis catheter with extremely poor blood flows; mentaion seems to be improving; main complaint is that of pain with mcguire catheter in place. Exam Narrative: Exam Narrative: General: thin female in NAD Heart: normal S1 and S2; no rub Lungs: few crackles at bases, R>L Abdomen: soft, nontender, nondistended, positive bowel sounds Extremities: no cyanosis or clubbing; no edema Skin: warm and dry Objective Data Vital Signs Vital Signs: Vital Signs Temp Pulse Resp BP Pulse Ox 12/01/19 14:00 36.3 C L 103 H 16 154/87 H 96 12/01/19 10:00 36.4 C L 97 16 149/84 H 95 12/01/19 09:18 96 20 12/01/19 09:12 103 H 22 H 90 12/01/19 08:23 110 H 12/01/19 06:00 36.9 C 103 H 24 H 119/80 92 12/01/19 02:48 98 20 12/01/19 02:40 98 20 12/01/19 02:00 37.1 C 102 H 28 H 144/73 H 97 11/30/19 23:00 98 20 94 11/30/19 22:40 36.6 C 106 H 16 156/103 H 11/30/19 22:30 111 H 178/99 H 11/30/19 22:15 105 H 157/92 H 11/30/19 22:00 36.9 C 90 28 H 151/88 H 95 11/30/19 21:45 100 167/99 H 11/30/19 21:30 101 H 165/95 H 11/30/19 21:15 111 H 162/64 H 11/30/19 21:00 104 H 171/106 H 11/30/19 20:45 102 H 174/105 H 11/30/19 20:30 107 H 175/108 H 11/30/19 20:15 97 177/101 H 11/30/19 20:00 102 H 167/100 H 11/30/19 19:45 104 H
[2019-12-01] MEDS: EPOETIN ALFA 10,000 UNITS/ML VIAL 10000 UNITS IV PUSH (17:26)
--- NOTE | 2019-12-01 19:07 | PC.NURSE ---
Patient returned from dialysis lab at 1900.
[2019-12-01] MEDS: TRAZODONE HCL 50 MG TABLET PO (21:21)
[2019-12-01] MEDS: ONDANSETRON INJ 4 MG/2 ML VIAL IV PUSH (21:27)
[2019-12-01 23:31] LABS: Vancomycin Random 11.7 ug/mL (10-20)
[2019-12-02] VITALS (14 sets, daily range): BP systolic 118–154; BP diastolic 65–95; PULSE 90–107; RESP 16–20; TEMP 36.7–37.5; O2SAT 93–98
--- NOTE | 2019-12-02 02:37 | PCRCNOTE ---
pt refused tx
[2019-12-02 04:48] LABS: Cryoglobulin, QL Negative (Negative)
[2019-12-02 06:33] LABS: Albumin Level 2.1 g/dL (3.5-5.1); Blood Urea Nitrogen 11 mg/dL (7-17); Calcium 7.9 mg/dL (8.4-10.2); Carbon Dioxide 29 mmol/L (22-30); Chloride 99 mmol/L (98-107); Estimated Glomerular Filt Rate 20; Glucose 75 mg/dL (65-105); Phosphorus 3.1 mg/dL (2.5-4.5); Potassium 3.6 mmol/L (3.4-5.0); Sodium 131 mmol/L (137-145)
[2019-12-02] MEDS: DOCUSATE SODIUM 100 MG CAPSULE PO (08:36)
[2019-12-02] MEDS: LIDOCAINE 5% PATCH 1 PATCH TRANSDERM ×2 (08:37→08:38)
[2019-12-02] MEDS: METOPROLOL SUCCINATE EXT REL 25 MG TABCR PO (08:38)
--- NOTE | 2019-12-02 08:45 | PC.NURSE ---
Called pharmacy and requested 0900 dose of mucinex be sent to floor for administration.
[2019-12-02] MEDS: TRAMADOL HCL 50 MG TABLET PO (08:50)
[2019-12-02] MEDS: ALBUTEROL SULFATE NEB 2.5 MG/0.5 ML INH INHALATION ×3 (09:14→20:37)
--- NOTE | 2019-12-02 14:13 | PM.IMPN ---
Progress Note: A&P Assessment and Plan (1) Acute metabolic encephalopathy: Code(s): G93.41 - Metabolic encephalopathy Status: Acute Assessment and Plan: Appears to be acute metabolic encephalopathy from acute on chronic renal failure +/-infection. Much more awake now after hemodialysis sessions. Creatinine improved to 2.40. CT brain was negative on 11/28/2019. Continue renal diet. Continue PT/OT. [place] catheter removed today. Will continue to monitor. (2) Acute kidney injury: Code(s): N17.9 - Acute kidney failure, unspecified Status: Acute Assessment and Plan: Appreciate help from Nephrology. Acute on chronic with known CKD stage 3. Autoimmune workup in process with low complement noted. Renal ultrasound left renal atrophy left renal cyst measuring 11 mm. With worsening mental status, hemodialysis started. Mental status much improved. Creatinine also much improved to 2.40 today. Will continue to follow. (3) Chronic kidney disease, stage 3: Code(s): N18.3 - Chronic kidney disease, stage 3 (moderate) Status: Chronic Assessment and Plan: Baseline creatinine 1.00-1.40. Now with acute injury as noted above. Plan as noted above. (4) Pneumonia: Qualifiers: Laterality: bilateral Lung location: lower lobe of lung Pneumonia type: due to Pneumococcus Qualified Code(s): J13 - Pneumonia due to Streptococcus pneumoniae Code(s): J18.9 - Pneumonia, unspecified organism Status: Acute Assessment and Plan: Initial chest x-ray with mild airspace opacities in the mid and lower lung zones. Still present on repeat chest x-ray on 11/26/2019. New chest x-ray on 11/27/2019 with worsening infiltrates in the mid and lower lung zones. Urine antigen for pneumococcus also positive. Clinically has now improved. Will continue IV ceftriaxone, azithromycin and vancomycin renally dosed but hopefully can deescalate soon. Continue nebulizer treatments. Remains on oxygen at 2 L. Advised patient may need to remain on oxygen for a while or potentially permanently with known COPD. Will wean oxygen if able. Will repeat chest x-ray in a.m. for follow-up. Continue to monitor. (5) Influenza A: Code(s): J10.1 - Influenza due to other identified influenza virus with other respiratory manifestations Status: Acute Assessment and Plan: Patient diagnosed with Influenza at an outside facility on 11/18/19 and treated with Tamiflu. Screen showing patient influenza A positive in the emergency room this admission. Tamiflu not repeated as already treated. Continue supportive care. (6) UTI (urinary tract infection): Qualifiers: Hematuria presence: without hematuria Urinary tract infection type: acute cystitis Qualified Code(s): N30.00 - Acute cystitis without hematuria Code(s): N39.0 - Urinary tract infection, site not specified Status: Acute Assessment and Plan: Urine culture growing Klebsiella pneumoniae. Has completed 10 days treatment with IV ceftriaxone. Antibiotic still in place due to respiratory issues but hopefully deescalate/discontinue soon. (7) Hypertension: Qualifiers: Hypertension type: essential hypertension Qualified Code(s): I10 - Essential (primary) hypertension Code(s): I10 - Essential (primary) hypertension Status: Acute Assessment and Plan: Blood pressure reviewed on 12/02/2019 with some variation but acceptable. Will continue to monitor on metoprolol. (8) COPD (chronic obstructive pulmonary disease): Qualifiers: COPD type: unspecified COPD Qualified Code(s): J44.9 - Chronic obstructive pulmonary disease, unspecified Code(s): J44.9 - Chronic obstructive pulmonary disease, unspecified Status: Acute Assessment and Plan: Stable. Continue scheduled nebulizers. Continue Symbicort. Still has oxygen requirement as noted above. Continue to
--- NOTE | 2019-12-02 14:17 | P.PNNP_ITS ---
Progress Note: A&P Assessment and Plan (1) Acute kidney injury: Code(s): N17.9 - Acute kidney failure, unspecified Status: Acute Assessment and Plan: * etiology not entirely clear * suspect at least partly from volume depletion when first diagnosed with influenza possibly leading to ATN * with blood and protein in UA, concern for GN/vasculititis/automimmune disorder - however, given #5, interpretation makes this difficult * all serologies to date negative (JONATAN/ANCA/antiGBM/dsDNA/SPE/Banegas/PROGRAM HOST/Cryoglobulins); low complements noted and UPEP with possible M-spike; immunofixation pending * reasonable urine output * hold dialysis and follow trend of labs and UOP * if renal function deteriorates without dialysis, consider re-ordering renal biopsy (2) Chronic kidney disease, stage 3: Code(s): N18.3 - Chronic kidney disease, stage 3 (moderate) Status: Chronic Assessment and Plan: * baseline creatiine ~ 1.0 - 1.4mg/dl * renal ultrasound with changes c/w medical renal disease (3) Altered mental status: Qualifiers: Altered mental status type: unspecified Qualified Code(s): R41.82 - Altered mental status, unspecified Code(s): R41.82 - Altered mental status, unspecified Status: Acute Assessment and Plan: * continues to improve * presumably secondary to uremia (given significant improvement with HD treatments) * CT of head negative * follow mentation (4) Pneumonia: Qualifiers: Laterality: bilateral Lung location: lower lobe of lung Pneumonia type: due to Pneumococcus Qualified Code(s): J13 - Pneumonia due to Streptococcus pneumoniae Code(s): J18.9 - Pneumonia, unspecified organism Status: Acute Assessment and Plan: * as suggested by admission CXR * on antibiotic therapy * follow cultures (5) Influenza A: Code(s): J10.1 - Influenza due to other identified influenza virus with other respiratory manifestations Status: Acute Assessment and Plan: * completed course of Tamiflu * repeat screening still positive (6) UTI (urinary tract infection): Qualifiers: Hematuria presence: without hematuria Urinary tract infection type: acute cystitis Qualified Code(s): N30.00 - Acute cystitis without hematuria Code(s): N39.0 - Urinary tract infection, site not specified Status: Resolved Assessment and Plan: * urine culture with Klebsiella * this may be responsible for presence of blood and protein on UA * on antibiotic therapy Will continue to follow. Subjective Date/time seen: 12/02/19 14:17 Short dialysis treatment yesterday (due to the fact that HD catheter was malfunctioning/having poor flows despite trouble shooting); mentation continue to improve; stable urine output noted. Exam Narrative: Exam Narrative: General: thin female in NAD Heart: normal S1 and S2; no rub Lungs: clear anteriorly; decreased at bases Abdomen: soft, nontender, nondistended, positive bowel sounds Extremities: no cyanosis or clubbing; no edema Skin: warm and dry Objective Data Vital Signs Vital Signs: Vital Signs Temp Pulse Resp BP Pulse Ox 12/02/19 10:00 36.9 C 105 H 16 118/70 95 12/02/19 09:25 98 20 12/02/19 09:16 93 20 93 12/02/19 08:38 90 12/02/19 06:00 37.2 C 92 16 125/65 98 12/01/19 22:00 37.6 C 107 H 16 151/79
--- NOTE | 2019-12-02 14:17 | PM.PNNEP ---
Progress Note: A&P Assessment and Plan (1) Acute kidney injury: Code(s): N17.9 - Acute kidney failure, unspecified Status: Acute Assessment and Plan: etiology not entirely clear suspect at least partly from volume depletion when first diagnosed with influenza possibly leading to ATN with blood and protein in UA, concern for GN/vasculititis/automimmune disorder - however, given #5, interpretation makes this difficult all serologies to date negative (JONATAN/ANCA/antiGBM/dsDNA/SPE/Banegas/MILKING MACHINE OPERATOR/Cryoglobulins); low complements noted and UPEP with possible M-spike; immunofixation pending reasonable urine output hold dialysis and follow trend of labs and UOP if renal function deteriorates without dialysis, consider re-ordering renal biopsy (2) Chronic kidney disease, stage 3: Code(s): N18.3 - Chronic kidney disease, stage 3 (moderate) Status: Chronic Assessment and Plan: baseline creatiine ~ 1.0 - 1.4mg/dl renal ultrasound with changes c/w medical renal disease (3) Altered mental status: Qualifiers: Altered mental status type: unspecified Qualified Code(s): R41.82 - Altered mental status, unspecified Code(s): R41.82 - Altered mental status, unspecified Status: Acute Assessment and Plan: continues to improve presumably secondary to uremia (given significant improvement with HD treatments) CT of head negative follow mentation (4) Pneumonia: Qualifiers: Laterality: bilateral Lung location: lower lobe of lung Pneumonia type: due to Pneumococcus Qualified Code(s): J13 - Pneumonia due to Streptococcus pneumoniae Code(s): J18.9 - Pneumonia, unspecified organism Status: Acute Assessment and Plan: as suggested by admission CXR on antibiotic therapy follow cultures (5) Influenza A: Code(s): J10.1 - Influenza due to other identified influenza virus with other respiratory manifestations Status: Acute Assessment and Plan: completed course of Tamiflu repeat screening still positive (6) UTI (urinary tract infection): Qualifiers: Hematuria presence: without hematuria Urinary tract infection type: acute cystitis Qualified Code(s): N30.00 - Acute cystitis without hematuria Code(s): N39.0 - Urinary tract infection, site not specified Status: Resolved Assessment and Plan: urine culture with Klebsiella this may be responsible for presence of blood and protein on UA on antibiotic therapy Will continue to follow. Subjective Date/time seen: 12/02/19 14:17 Short dialysis treatment yesterday (due to the fact that HD catheter was malfunctioning/having poor flows despite trouble shooting); mentation continue to improve; stable urine output noted. Exam Narrative: Exam Narrative: General: thin female in NAD Heart: normal S1 and S2; no rub Lungs: clear anteriorly; decreased at bases Abdomen: soft, nontender, nondistended, positive bowel sounds Extremities: no cyanosis or clubbing; no edema Skin: warm and dry Objective Data Vital Signs Vital Signs: Vital Signs Temp Pulse Resp BP Pulse Ox 12/02/19 10:00 36.9 C 105 H 16 118/70 95 12/02/19 09:25 98 20 12/02/19 09:16 93 20 93 12/02/19 08:38 90 12/02/19 06:00 37.2 C 92 16 125/65 98 12/01/19 22:00 37.6 C 107 H 16 151/79 H 93 12/01/19 19:48 100 92 12/01/19 19:45 100 20 12/01/19 19:35 100 20 12/01/19 18:40 36.3 C L 100 16 164/93 H 12/01/19 18:34 100 156/94 H 12/01/19 18:30 99 164/97 H 12/01/19 18:15 97 161/97 H 12/01/19 18:00 104 H 174/104 H 12/01/19 17:45 105 H 156/99 H 12/01/19 17:30 96 170/88 H 12/01/19 17:15 100 161/100 H 12/01/19 17:00 101 H 166/101 H 12/01/19 16:45 98 156/88 H 12/01/19 16:30 107 H 134/81 12/01/19 16:15 100 150/98 H 12/01/19 16:00 100 162/93 H
[2019-12-02] MEDS: hydrALAZINE HCL 25 MG TABLET PO (19:15)
[2019-12-02] MEDS: TRAZODONE HCL 50 MG TABLET PO (19:47)
[2019-12-02] MEDS: IPRATROPIUM BR 0.02% INH SOLN 0.5 MG/2.5 ML VIAL INHALATION (20:37)
[2019-12-03] VITALS (11 sets, daily range): BP systolic 122–161; BP diastolic 71–103; PULSE 92–110; RESP 16–20; TEMP 36.1–37.8; O2SAT 91–97
[2019-12-03 07:51] LABS: Albumin Level 2.2 g/dL (3.5-5.1); Blood Urea Nitrogen 20 mg/dL (7-17); Calcium 7.9 mg/dL (8.4-10.2); Carbon Dioxide 28 mmol/L (22-30); Chloride 95 mmol/L (98-107); Estimated Glomerular Filt Rate 12; Glucose 68 mg/dL (65-105); Phosphorus 3.9 mg/dL (2.5-4.5); Potassium 3.8 mmol/L (3.4-5.0); Sodium 131 mmol/L (137-145)
[2019-12-03 08:08] LABS: Hematocrit 27.7 % (37.0-47.0); Hemoglobin 8.7 g/dL (12.0-15.0); Mean Corpuscular HGB Conc 31.4 g/dl (32-36); Mean Corpuscular Hemoglobin 28.4 pg (26-34); Mean Corpuscular Volume 90.5 fl (80-100); Mean Platelet Volume 11.1 fl (7.4-10.4); Platelet Count Result 148 k/mm3 (150-375); Red Blood Count 3.06 M/mm3 (4.2-5.4); Red Cell Distribution Width 15.3 % (11.5-14.5); White Blood Count 10.8 K/mm3 (4.5-10.0)
[2019-12-03 08:26] LABS: Complement C3 65 mg/dL (88-165)
[2019-12-03] MEDS: LIDOCAINE 5% PATCH 1 PATCH TRANSDERM ×2 (09:55)
[2019-12-03] MEDS: DOCUSATE SODIUM 100 MG CAPSULE PO (09:55)
[2019-12-03] MEDS: METOPROLOL SUCCINATE EXT REL 25 MG TABCR PO (09:55)
--- NOTE | 2019-12-03 15:03 | PM.IMPN ---
Progress Note: A&P Assessment and Plan (1) Acute metabolic encephalopathy: Code(s): G93.41 - Metabolic encephalopathy Status: Acute Assessment and Plan: Appears to have been acute metabolic encephalopathy from acute on chronic renal failure +/-infection. Mental status began improving after 1st initial shortened hemodialysis session. Mental status is now much improved with patient oriented x3. CT brain negative on 11/28/2019. Will continue PT/OT. Continue to monitor. Looking at SNF for placement when ready for discharge. (2) Acute kidney injury: Code(s): N17.9 - Acute kidney failure, unspecified Status: Acute Assessment and Plan: Appreciate help from Nephrology. Acute on chronic with known CKD stage 3. Autoimmune workup in process with low complement noted. Renal ultrasound left renal atrophy left renal cyst measuring 11 mm. With worsening mental status, hemodialysis started with last session on 12/01/2019. Mental status is now much improved as noted above. Creatinine is increased again today to 3.90. Discussed with Dr. Menjivar. Plan for renal biopsy tomorrow. Anticipate probable next hemodialysis session on 12/05/2019 if needed. Will continue to monitor closely. (3) Chronic kidney disease, stage 3: Code(s): N18.3 - Chronic kidney disease, stage 3 (moderate) Status: Chronic Assessment and Plan: Baseline creatinine 1.00-1.40. Now with acute injury as noted above. Plan as noted above. (4) Pneumonia: Qualifiers: Laterality: bilateral Lung location: lower lobe of lung Pneumonia type: due to Pneumococcus Qualified Code(s): J13 - Pneumonia due to Streptococcus pneumoniae Code(s): J18.9 - Pneumonia, unspecified organism Status: Acute Assessment and Plan: Initial chest x-ray with mild airspace opacities in the mid and lower lung zones. Follow-up chest x-ray today with persistent diffuse interstitial and mild airspace opacities throughout both lungs. Clinically, has improved. No fever. Has already completed 10 days IV ceftriaxone and 5 days IV azithromycin. IV vancomycin was added when patient had worsening mental status. IV is ceftriaxone already discontinued and will discontinue IV azithromycin and vancomycin today. Continue nebulizer treatments. Now on room air. Will continue to monitor. (5) Influenza A: Code(s): J10.1 - Influenza due to other identified influenza virus with other respiratory manifestations Status: Acute Assessment and Plan: Patient diagnosed with Influenza at an outside facility on 11/18/19 and treated with Tamiflu. Screen showing patient influenza A positive in the emergency room this admission. Tamiflu not repeated as already treated. (6) UTI (urinary tract infection): Qualifiers: Hematuria presence: without hematuria Urinary tract infection type: acute cystitis Qualified Code(s): N30.00 - Acute cystitis without hematuria Code(s): N39.0 - Urinary tract infection, site not specified Status: Resolved Assessment and Plan: Urine culture growing Klebsiella pneumoniae. Completed 10 days treatment with IV ceftriaxone. (7) Hypertension: Qualifiers: Hypertension type: essential hypertension Qualified Code(s): I10 - Essential (primary) hypertension Code(s): I10 - Essential (primary) hypertension Status: Acute Assessment and Plan: Blood pressure reviewed on 12/03/2019. Blood pressure readings generally acceptable although occasionally high. Continue metoprolol. Other medication has not been added with renal issues. Will continue to monitor. (8) COPD (chronic obstructive pulmonary disease): Qualifiers: COPD type: unspecified COPD Qualified Code(s): J44.9 - Chronic obstructive pulmonary disease, unspecified Code(s): J44.9 - Chronic obstructive pulmonary disease, unspecified Status: Acute Assessmen
[2019-12-03] MEDS: ALBUTEROL SULFATE NEB 2.5 MG/0.5 ML INH INHALATION (15:53)
[2019-12-03] MEDS: TRAMADOL HCL 50 MG TABLET PO (16:06)
--- NOTE | 2019-12-03 16:49 | PM.PNNEP ---
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 Other serology is pending UPEP has a possible M spike Urine output showed 150. I am not sure she is collecting all the urine. Creatinine is worse. And so I do not think her kidneys are have recovered yet. I talked with the patient and also with the daughter, Emily about doing a kidney biopsy. Because of the abnormal complements and possible M spike in her urine think it is reasonable to find out what is going on with her kidneys. Her ultrasound showed that her left kidney is normal and her baseline kidney function is normal as well.. There may be something we can treat to get the kidneys better again. We discussed the risk benefits alternatives and the process of the biopsy. The patient and her daughter agree to proceed (2) Chronic kidney disease, stage 3: Code(s): N18.3 - Chronic kidney disease, stage 3 (moderate) Status: Chronic Assessment and Plan: baseline creatiine ~ 1.0 - 1.4mg/dl renal ultrasound with changes c/w medical renal disease (3) Altered mental status: Qualifiers: Altered mental status type: unspecified Qualified Code(s): R41.82 - Altered mental status, unspecified Code(s): R41.82 - Altered mental status, unspecified Status: Acute Assessment and Plan: continues to improve presumably secondary to uremia (given significant improvement with HD treatments) CT of head negative follow mentation (4) Pneumonia: Qualifiers: Laterality: bilateral Lung location: lower lobe of lung Pneumonia type: due to Pneumococcus Qualified Code(s): J13 - Pneumonia due to Streptococcus pneumoniae Code(s): J18.9 - Pneumonia, unspecified organism Status: Acute Assessment and Plan: as suggested by admission CXR Getting antibiotics and supportive care. (5) Influenza A: Code(s): J10.1 - Influenza due to other identified influenza virus with other respiratory manifestations Status: Acute Assessment and Plan: completed course of Tamiflu repeat screening still positive (6) UTI (urinary tract infection): Qualifiers: Hematuria presence: without hematuria Urinary tract infection type: acute cystitis Qualified Code(s): N30.00 - Acute cystitis without hematuria Code(s): N39.0 - Urinary tract infection, site not specified Status: Acute Assessment and Plan: urine culture with Klebsiella this may be responsible for presence of blood and protein on UA on antibiotic therapy Additional Plan Subjective Date/time seen: 12/03/19 16:49 Interval history: Patient is alert. I saw this morning AND again this afternoon because her labs were not back this morning. She feels okay. No chest pain or shortness of breath. Hungry. Her daughter, Emily, is bring food in. Review of Systems Cardiovascular: Cardiovascular: Reports no additional cardiovascular complaints Respiratory: Respiratory: Reports no additional respiratory complaints Gastrointestinal: Gastrointestinal: Reports no additional gastrointestinal complaints Genitourinary: Genitourinary: Reports no additional female genitourinary complaints Exam Narrative: Exam Narrative: General: thin female in NAD Heart: normal S1 and S2; no rub or Lungs: clear anteriorly; decreased at bases Abdomen: soft, nontender, nondistended, positive bowel sounds Extremities: no cyanosis or clubbing; no edema Skin: warm and dry without rash Objective Data Vital Signs Vital Signs: Vital Signs - 24 hr
[2019-12-03] MEDS: TRAZODONE HCL 50 MG TABLET PO (20:14)
[2019-12-04] VITALS (18 sets, daily range): BP systolic 111–157; BP diastolic 70–98; PULSE 86–104; RESP 16–20; TEMP 36–37.7; O2SAT 90–100
[2019-12-04 05:43] LABS: Blood Urea Nitrogen 27 mg/dL (7-17); Calcium 8.1 mg/dL (8.4-10.2); Carbon Dioxide 27 mmol/L (22-30); Chloride 100 mmol/L (98-107); Estimated Glomerular Filt Rate 9; Glucose 75 mg/dL (65-105); Potassium 3.2 mmol/L (3.4-5.0); Sodium 134 mmol/L (137-145)
[2019-12-04 06:01] LABS: Vancomycin Random 19.4 ug/mL (10-20)
[2019-12-04] MEDS: ALBUTEROL SULFATE NEB 2.5 MG/0.5 ML INH INHALATION (08:19)
[2019-12-04] MEDS: LIDOCAINE 5% PATCH 1 PATCH TRANSDERM ×2 (08:43)
[2019-12-04] MEDS: DOCUSATE SODIUM 100 MG CAPSULE PO (08:43)
[2019-12-04] MEDS: METOPROLOL SUCCINATE EXT REL 25 MG TABCR PO (08:43)
[2019-12-04] MEDS: TRAMADOL HCL 50 MG TABLET PO ×2 (08:58→20:15)
--- NOTE | 2019-12-04 10:40 | PM.IMPN ---
Progress Note: A&P Assessment and Plan (1) Acute metabolic encephalopathy: Code(s): G93.41 - Metabolic encephalopathy Status: Acute Assessment and Plan: Appears to have been acute metabolic encephalopathy from acute on chronic renal failure +/-infection (UTI). Mental status began improving after 1st initial shortened hemodialysis session. CT brain negative on 11/28/2019. Mental status continues to improve. Will continue PT/OT. Continue to monitor. Looking at SNF for placement when ready for discharge. (2) Acute kidney injury: Code(s): N17.9 - Acute kidney failure, unspecified Status: Acute Assessment and Plan: Appreciate help from Nephrology. Acute on chronic with known CKD stage 3. Autoimmune workup in process with low complement noted but negative JONATAN, ASO, ANCA, and Cryo. Renal ultrasound left renal atrophy left renal cyst measuring 11 mm. With worsening mental status, hemodialysis started. Mental status is now much improved as noted above. Discussed with Dr. Menjivar. Plan for renal biopsy today and possibly a tunneled catheter placement. The current catheter is poorly functioning. Will continue to monitor closely. Edema noted and related to needng HD. Asymmetric edema so will check dopplers. (3) Chronic kidney disease, stage 3: Code(s): N18.3 - Chronic kidney disease, stage 3 (moderate) Status: Chronic Assessment and Plan: Baseline creatinine 1.0-1.4. Now with acute injury as noted above. Plan as noted above. (4) Pneumonia: Qualifiers: Laterality: bilateral Lung location: lower lobe of lung Pneumonia type: due to Pneumococcus Qualified Code(s): J13 - Pneumonia due to Streptococcus pneumoniae Code(s): J18.9 - Pneumonia, unspecified organism Status: Acute Assessment and Plan: Initial chest x-ray with mild airspace opacities in the mid and lower lung zones. Follow-up chest x-ray 12/03/19 with persistent diffuse interstitial and mild airspace opacities throughout both lungs possibly edema. Clinically, has improved. No fever. Has already completed 10 days IV ceftriaxone and 5 days IV azithromycin. IV vancomycin was added when patient had worsening mental status. Off all abx currently. Continue nebulizer treatments. Continue to monitor. (5) Influenza A: Code(s): J10.1 - Influenza due to other identified influenza virus with other respiratory manifestations Status: Acute Assessment and Plan: Patient diagnosed with Influenza at an outside facility on 11/18/19 and treated with Tamiflu. Screen showing patient influenza A positive in the emergency room this admission. Tamiflu not repeated as already treated. (6) UTI (urinary tract infection): Qualifiers: Hematuria presence: without hematuria Urinary tract infection type: acute cystitis Qualified Code(s): N30.00 - Acute cystitis without hematuria Code(s): N39.0 - Urinary tract infection, site not specified Status: Resolved Assessment and Plan: Urine culture growing Klebsiella pneumoniae. Completed 10 days treatment with IV ceftriaxone. (7) Hypertension: Qualifiers: Hypertension type: essential hypertension Qualified Code(s): I10 - Essential (primary) hypertension Code(s): I10 - Essential (primary) hypertension Status: Acute Assessment and Plan: Blood pressure reviewed on 12/04/2019. Blood pressure mostly well controlled. Continue metoprolol. Continue to monitor. (8) COPD (chronic obstructive pulmonary disease): Qualifiers: COPD type: unspecified COPD Qualified Code(s): J44.9 - Chronic obstructive pulmonary disease, unspecified Code(s): J44.9 - Chronic obstructive pulmonary disease, unspecified Status: Acute Assessment and Plan: Stable. Continue scheduled nebulizers. Continue Symbicort. Still has mild oxygen requirement at 2L. C
--- NOTE | 2019-12-04 12:16 | PC.NURSE ---
1216-Patient to US per stretcher.
--- NOTE | 2019-12-04 13:19 | PCOTNOTE ---
Patient unavailable at this time to be seen for OT, patient in ultrasound. Will re-attempt if time permits today, 12/03 or continue plan of care tomorrow 12/04.
--- NOTE | 2019-12-04 13:23 | PCDIET ---
Nutrition Follow-Up Complete: Inadequate oral intake R/T reduced appetite as evidence by suboptimal intake and mild wt loss PO intake of meals and supplements at 75% or greater Goal:Goal not met. Continue with current goal. Pt current nutrition is NPO. Nutrition recommendation: Agree Last recorded weight is 46.5 kg (holding steady from assessment wt of 46.9kg) Bowel Motility:11/30 last BM- Colace provided today Labs Reviewed:Hgb 8.7, Hct 27.7, Albumin 2.0, K 3.2, Na 134, GFR 9 (trending up from 6) Meds Noted: colace Additional Notes: Pt with 41% intake over last four meals. Appetite lower and NPO today. Pt was on appropriate diet, renal dialysis with Thrive BID. Thrive provides 9 grams of protein, 24 vitamins and minerals, 6grams of fiber, and 270 kcal per serving. Protein and thrive intake encouraged once diet advances due to low albumin and increased need from dialysis. Weight has been steady. We will continue to monitor every five days.
--- NOTE | 2019-12-04 14:25 | PCPTNOTE ---
Attempted Therapy session, Pt declined treatment due to not feeling well and waiting to go for a procedure.
--- NOTE | 2019-12-04 15:13 | PCRCNOTE ---
PT. REFUSED BREATHING TX; DR. ORTIZ NOTIFIED.
--- NOTE | 2019-12-04 15:23 | WPDANESEPPF ---
Anes - Initial Pre Proc Eval Procedure: Operation Date: 11/29/19 10:30 Proposed Procedures p INSERTION TEMPORARY DIALYSIS CATHETER - Gianluca Mukherjee DO Operation Date: 12/04/19 16:30 Proposed Procedures p Insertion Tunneled Dialysis Catheter - Gianluca Mukherjee DO Date/Time: 12/04/19 15:23 Surgeon: Lobo Quintero MD Pre Op Diagnosis: Acute renal failure Patient Data Age: 64 Gender: F Height: 1.45 m Weight: 46.5 kg Last Vital Signs Temp 36.0 C L 12/04/19 14:00 Pulse 94 12/04/19 14:00 Resp 20 12/04/19 14:00 BP 149/90 H 12/04/19 14:00 Pulse Ox 98 12/04/19 14:00 Allergies Allergy/AdvReac Type Severity Reaction Status Date / Time No Known Allergies Allergy Verified 09/10/19 15:25 Home Medications Medication Instructions Recorded Confirmed Type trazodone 50 mg tablet 50 mg PO .QHS tablet 08/13/19 11/23/19 History estradiol 0.5 mg tablet 0.5 mg PO DAILY #90 tablet 10/16/19 11/23/19 Rx linaclotide 290 mcg capsule 290 mcg PO DAILY #30 cap 10/16/19 11/23/19 Rx metoprolol succinate 25 mg 25 mg PO DAILY #90 tablet 10/16/19 11/23/19 Rx tablet,extended release 24 hr rosuvastatin 40 mg tablet 40 mg PO DAILY #90 tablet 10/16/19 11/23/19 Rx cholecalciferol (vitamin D3) 1,250 50,000 unit PO WEEKLY #8 cap 10/17/19 11/23/19 Rx mcg (50,000 unit) capsule omega-3 fatty acids 1,000 mg 1,000 mg PO DAILY #90 cap 10/17/19 11/23/19 Rx capsule docusate sodium 100 mg PO DAILY 11/23/19 11/23/19 History hydrocodone-acetaminophen 1 tablet PO Q6H PRN 11/23/19 11/23/19 History ondansetron 4 mg PO Q8H PRN 11/23/19 11/23/19 History oseltamivir 75 mg PO BID 11/23/19 11/23/19 History tramadol 50 mg PO Q8H PRN 11/23/19 11/23/19 History Laboratory Tests 12/04/19 12/04/19 04:57 04:57 Sodium 134 mmol/L L mmol/L (137-145) Potassium 3.2 mmol/L L mmol/L (3.4-5.0) Chloride 100 mmol/L mmol/L (98-107) Carbon Dioxide 27 mmol/L mmol/L (22-30) BUN 27 mg/dL H mg/dL (7-17) Creatinine 4.80 mg/dL H mg/dL (0.7-1.0) Estim Creat Clear Calc Not Reportable Estimated GFR 9 L (59 - ) Glucose 75 mg/dL mg/dL (65-105) Calcium 8.1 mg/dL L mg/dL (8.4-10.2) Phosphorus 4.0 mg/dL mg/dL (2.5-4.5) Albumin 2.0 g/dL L g/dL (3.5-5.1) Random Vancomycin 19.4 ug/mL ug/mL (10-20) Patient hx anesthesia problems: none Family hx anesthesia problems: none [facility] Family History Family History Mother Family history of lung cancer Sibling Family history of lung cancer Father Acute myocardial infarction Social History Social History Social History: The patient lives in [place]. Her apparently lives next door. She is retired. She designates her daughter, Emily Hooper, as her surrogate decision maker and she wishes to be a full code. She smoked up to a pack of cigarettes per day for many years, and now smokes about 8 a day. She denies alcohol abuse. No drug use. Years smoked: 45 Smoking end date: 11/20/19 Spiritual care concerns: No Agree to blood products: Yes Anes - Evjose daniel Final PreProcedure Day of Procedure 12/04/19 15:23 Patient weight: normal Heart: regular rate and rhythm Lungs: wheezes Airway: Mallampati scale class II Neurological: alert and oriented Last oral intake: >/= 8 hours ASA classification: IV Emergent: no Anesthetic plan: proceed Anesthesia type and monitoring: general GIVS Informed Consent: The patient's anesthetic plan and its attendant risks and benefits were discussed with the patient/family/POA. Questions were solicited and answers provided to the satisfaction of the patient/family/POA.
--- NOTE | 2019-12-04 15:45 | PC.NURSE ---
Patient to OR per bed at 1545.
[2019-12-04] MEDS: SODIUM CHLORIDE 0.9% IV 500 ML 30 ML IV CONT (15:46)
[2019-12-04] MEDS: ceFAZolin 2 GM/D5W 50 ML 2 GM/50 ML BAG IVPB (15:52)
[2019-12-04] MEDS: LIDO 1%/EPINEPHRINE 1:100,000 20 ML VIAL 15 ML INFILTRATE (16:19)
[2019-12-04] MEDS: HEPARIN SODIUM 5,000 UNITS/ML VIAL 5000 UNITS IRRIGATION (16:20)
[2019-12-04] MEDS: HEPARIN SODIUM, PORCINE 10,000 UNITS/10 ML VIAL 3000 UNITS IV PUSH (16:21)
[2019-12-04] MEDS: LACTATED RINGERS 1,000 ML 30 ML IV CONT (16:42)
--- NOTE | 2019-12-04 16:50 | PM.PROC ---
Procedure Note - Detailed Date of procedure: 12/04/19 Pre-op diagnosis: Acute renal failure Post-op diagnosis: same Procedure performed: 1. Left internal jugular Tunneled Dialysis Catheter placement using ultrasound and fluoroscopic guidance 2. Removal of right internal jugular temporary Edwin dialysis catheter Description of procedure: Procedure as well as risks, benefits, and alternatives were discussed with patient. Written consent was obtained and placed in chart prior to procedure. Patient was brought back to surgical suite. Placed supine on operating table. Time-out was done confirm patient procedure. IV sedation was then administered by the Anesthesia Department. Her left chest and neck area was prepped and draped in sterile fashion using chlorhexidine prep. Patient was placed in Trendelenburg position. SonoSite ultrasound was used to identify the left internal jugular vein. It was visualized as a compressible vessel just lateral to the carotid artery. 1% lidocaine with epinephrine was infiltrated directly over the vessel under ultrasound guidance. An 18 gauge introducer needle was then advanced under ultrasound guidance directly into the left internal jugular vein. Dark nonpulsatile blood was aspirated. A 0.035 in guidewire was then advanced through the needle under fluoroscopic guidance. The guidewire was visualized advancing all the way down into the superior vena cava. 1% lidocaine with epinephrine was then infiltrated on the left anterior chest and along the tract up to the guidewire insertion site. A 5 mm incision was made with a 15 blade scalpel. A small kaylin incision was then also made at the insertion site at the neck. The tunneler was then advanced from the chest incision up to the neck incision and the catheter tubing was brought up through this tract. The dilator and sheath were then advanced over the guidewire under fluoroscopic visualization. The dilator and guidewire were then removed leaving the sheath in place. The catheter tubing was then advanced through the sheath under fluoroscopic guidance. The sheath was unsnapped and carefully peeled away. The catheter tubing was released underneath the neck incision. Fluoroscopy was used to confirm proper placement of the catheter tubing and no kinks along its path. The catheter was then hep-locked with Hep-Lock solution. The skin of the incisions was then approximated using 4-0 Monocryl subcuticular suture. Exofin glue was then applied at the neck incision and 2x2 gauze and Tegaderm drassing applied at the chest. The sutures at the right internal jugular temporary dialysis catheter were then cut away. The catheter was then carefully withdrawn and removed completely. Pressure was applied at the insertion site. 2 x 2 gauze and Tegaderm dressing was then applied. The patient was then awakened from anesthesia and transferred to recovery. Implants: 28 cm Duraflow2 Dialysis Catheter Anesthesia: MAC and local (1% lidocaine with epinephrine) Surgeon: Gianluca Mukherjee DO Estimated blood loss (mL): 5 Complications: No immediate complications Condition: stable Disposition: floor Findings: This 64-year-old woman presented to the hospital with worsening renal failure. She presented initially with influenza a, and was noted to be an acute renal failure at that time. Her kidney function has not returned, and she was started on hemodialysis last week with a temporary Edwin dialysis catheter. She is still requiring ongoing dialysis and is in need of a longer term access. Decision was made to proceed with insertion of tunneled dialysis catheter. Left internal jugular tunnel dialysis catheter was placed using ultrasound and fluoroscopic guidance. The left internal jugular vein was visualized with SonoSite ultrasound as a compressible vessel just lateral to the carotid artery. The vein was accessed under ultrasound guidance with an 18 gauge introducer needle. Dark nonpulsatile blood wa
--- NOTE | 2019-12-04 17:41 | PC.NURSE ---
Patient returned from OR per bed. Patient is comfortable and rates her pain at a 0.
[2019-12-04] MEDS: TOLNAFTATE 1% POWDER 45 GM BTL 1 APPLIC TOPICAL (20:16)
[2019-12-04] MEDS: TRAZODONE HCL 50 MG TABLET PO (20:16)
[2019-12-04 22:29] LABS: Basophils Absolute Auto 0.1 K/mm3 (0.0-0.1); Basophils Percent Auto 0.7 % (0.2-1.2); Eosinophils Absolute Auto 0.1 K/mm3 (0-0.3); Eosinophils Percent Auto 0.9 % (0-4.4); Hematocrit 27.4 % (37.0-47.0); Hemoglobin 8.4 g/dL (12.0-15.0); Immature Granulocyte Absolute 0.07 K/mm3 (0.00-0.031); Immature Granulocyte Percent A 0.8 % (0-0.5); Immature Platelet Fraction Pct 4.7 % (0.9-11.2); Lymphocytes Absolute Auto 0.66 K/mm3 (0.9-3.2); Lymphocytes Percent Auto 7.4 % (18.3-44.2); Mean Corpuscular HGB Conc 30.7 g/dl (32-36); Mean Corpuscular Hemoglobin 28.1 pg (26-34); Mean Corpuscular Volume 91.6 fl (80-100); Mean Platelet Volume 10.9 fl (7.4-10.4); Monocytes Absolute Auto 0.8 K/mm3 (0.1-0.6); Monocytes Percent Auto 8.8 % (2.6-8.5); Neutrophils Absolute Auto 7.3 K/mm3 (1.3-6.7); Neutrophils Percent Auto 81.4 % (45.5-73.1); Platelet Count Result 109 k/mm3 (150-375); Red Blood Count 2.99 M/mm3 (4.2-5.4); Red Cell Distribution Width 15.7 % (11.5-14.5); White Blood Count 8.9 K/mm3 (4.5-10.0)
[2019-12-04 22:37] LABS: INR 1.1; Prothrombin Time 13.7 Seconds (11.1-14.7)
[2019-12-04] MEDS: HEPARIN SODIUM 5,000 UNITS/ML VIAL 3500 UNITS IV PUSH (22:48)
[2019-12-04] MEDS: HEPARIN SOD/D5W 100 UNITS/ML 25,000 UNITS/250 ML BAG 8 UNITS IV CONT (22:49)
[2019-12-05] VITALS (21 sets, daily range): BP systolic 113–158; BP diastolic 70–95; PULSE 75–116; RESP 18–27; TEMP 36.1–37.1; O2SAT 92–98
[2019-12-05 06:03] LABS: Basophils Percent Auto 0.4 % (0.2-1.2); Eosinophils Absolute Auto 0.1 K/mm3 (0-0.3); Eosinophils Percent Auto 0.6 % (0-4.4); Hematocrit 25.9 % (37.0-47.0); Hemoglobin 8.2 g/dL (12.0-15.0); Immature Granulocyte Absolute 0.07 K/mm3 (0.00-0.031); Immature Granulocyte Percent A 0.6 % (0-0.5); Lymphocytes Percent Auto 4.5 % (18.3-44.2); Mean Corpuscular HGB Conc 31.7 g/dl (32-36); Mean Corpuscular Hemoglobin 28.4 pg (26-34); Mean Corpuscular Volume 89.6 fl (80-100); Mean Platelet Volume 11.8 fl (7.4-10.4); Monocytes Absolute Auto 1.1 K/mm3 (0.1-0.6); Neutrophils Absolute Auto 9.3 K/mm3 (1.3-6.7); Neutrophils Percent Auto 83.9 % (45.5-73.1); Platelet Count Result 123 k/mm3 (150-375); Red Blood Count 2.89 M/mm3 (4.2-5.4); Red Cell Distribution Width 15.5 % (11.5-14.5); White Blood Count 11.1 K/mm3 (4.5-10.0)
[2019-12-05 06:08] LABS: Partial Thromboplastin Time 152.5 SECONDS (22.3-36.8)
[2019-12-05 06:16] LABS: Albumin Level 2.1 g/dL (3.5-5.1); Blood Urea Nitrogen 29 mg/dL (7-17); Calcium 8.1 mg/dL (8.4-10.2); Carbon Dioxide 26 mmol/L (22-30); Chloride 98 mmol/L (98-107); Estimated Glomerular Filt Rate 7; Glucose 83 mg/dL (65-105); Magnesium 1.6 mg/dL (1.6-2.3); Phosphorus 4.6 mg/dL (2.5-4.5); Potassium 3.3 mmol/L (3.4-5.0); Sodium 133 mmol/L (137-145)
--- NOTE | 2019-12-05 06:22 | P.PNNP_ITS ---
Progress Note: A&P Assessment and Plan (1) Acute kidney injury: Code(s): N17.9 - Acute kidney failure, unspecified Status: Acute Assessment and Plan: * etiology not entirely clear * Biopsy was done yesterday. * She had a little bit of bleeding according to Dr. Valderrama's note. Will see what her CBC is this morning. She is not having back pain. * A PermCath was placed. * She will get dialysis today. * Discussed with Dr. Quintero yesterday. (2) Chronic kidney disease, stage 3: Code(s): N18.3 - Chronic kidney disease, stage 3 (moderate) Status: Chronic Assessment and Plan: * baseline creatiine ~ 1.0 - 1.4mg/dl * renal ultrasound with changes c/w medical renal disease * Biopsy pending (3) Altered mental status: Qualifiers: Altered mental status type: unspecified Qualified Code(s): R41.82 - Altered mental status, unspecified Code(s): R41.82 - Altered mental status, unspecified Status: Acute Assessment and Plan: * She seems to be at her baseline according to other doctors. (4) Pneumonia: Qualifiers: Pneumonia type: due to Pneumococcus Laterality: bilateral Lung location: lower lobe of lung Qualified Code(s): J13 - Pneumonia due to Streptococcus pneumoniae Code(s): J18.9 - Pneumonia, unspecified organism Status: Acute Assessment and Plan: * as suggested by admission CXR * Getting antibiotics and supportive care. * Not much of a cough anymore. (5) Influenza A: Code(s): J10.1 - Influenza due to other identified influenza virus with other respiratory manifestations Status: Acute Assessment and Plan: * completed course of Tamiflu * repeat screening still positive (6) UTI (urinary tract infection): Qualifiers: Urinary tract infection type: acute cystitis Hematuria presence: without hematuria Qualified Code(s): N30.00 - Acute cystitis without hematuria Code(s): N39.0 - Urinary tract infection, site not specified Status: Resolved Assessment and Plan: * urine culture with Klebsiella * this may be responsible for presence of blood and protein on UA * Finished antibiotic therapy Additional Plan Subjective Date/time seen: 12/05/19 06:22 Interval history: Patient is alert. Patient feels okay. She slept okay. She had her kidney biopsy and the PermCath done all yesterday. Review of Systems Cardiovascular: Cardiovascular: Reports no additional cardiovascular complaints Respiratory: Respiratory: Reports no additional respiratory complaints Gastrointestinal: Gastrointestinal: Reports no additional gastrointestinal complaints Genitourinary: Genitourinary: Reports no additional female genitourinary complaints Exam Narrative: Exam Narrative: General: thin female in NAD Heart: normal S1 and S2; no rub or gallop Lungs: clear anteriorly; decreased at bases Abdomen: soft, nontender, nondistended, positive bowel sounds Extremities: no edema Skin: No rash Objective Data Vital Signs Vital Signs: Vital Signs - 24 hr 12/04/19 08:21 12/04/19 08:26 12/04/19 08:27 Temperature Pulse Rate 97 Respiratory Rate 18 Blood Pressure Pulse Oximetry 96 91 12/04/19 08:42 12/04/19 08:43 12/04/19 10:00 Temperature 36.2
--- NOTE | 2019-12-05 06:22 | PM.PNNEP ---
Progress Note: A&P Assessment and Plan (1) Acute kidney injury: Code(s): N17.9 - Acute kidney failure, unspecified Status: Acute Assessment and Plan: etiology not entirely clear Biopsy was done yesterday. She had a little bit of bleeding according to Dr. Valderrama's note. Will see what her CBC is this morning. She is not having back pain. A PermCath was placed. She will get dialysis today. Discussed with Dr. Quintero yesterday. (2) Chronic kidney disease, stage 3: Code(s): N18.3 - Chronic kidney disease, stage 3 (moderate) Status: Chronic Assessment and Plan: baseline creatiine ~ 1.0 - 1.4mg/dl renal ultrasound with changes c/w medical renal disease Biopsy pending (3) Altered mental status: Qualifiers: Altered mental status type: unspecified Qualified Code(s): R41.82 - Altered mental status, unspecified Code(s): R41.82 - Altered mental status, unspecified Status: Acute Assessment and Plan: She seems to be at her baseline according to other doctors. (4) Pneumonia: Qualifiers: Pneumonia type: due to Pneumococcus Laterality: bilateral Lung location: lower lobe of lung Qualified Code(s): J13 - Pneumonia due to Streptococcus pneumoniae Code(s): J18.9 - Pneumonia, unspecified organism Status: Acute Assessment and Plan: as suggested by admission CXR Getting antibiotics and supportive care. Not much of a cough anymore. (5) Influenza A: Code(s): J10.1 - Influenza due to other identified influenza virus with other respiratory manifestations Status: Acute Assessment and Plan: completed course of Tamiflu repeat screening still positive (6) UTI (urinary tract infection): Qualifiers: Urinary tract infection type: acute cystitis Hematuria presence: without hematuria Qualified Code(s): N30.00 - Acute cystitis without hematuria Code(s): N39.0 - Urinary tract infection, site not specified Status: Resolved Assessment and Plan: urine culture with Klebsiella this may be responsible for presence of blood and protein on UA Finished antibiotic therapy Additional Plan Subjective Date/time seen: 12/05/19 06:22 Interval history: Patient is alert. Patient feels okay. She slept okay. She had her kidney biopsy and the PermCath done all yesterday. Review of Systems Cardiovascular: Cardiovascular: Reports no additional cardiovascular complaints Respiratory: Respiratory: Reports no additional respiratory complaints Gastrointestinal: Gastrointestinal: Reports no additional gastrointestinal complaints Genitourinary: Genitourinary: Reports no additional female genitourinary complaints Exam Narrative: Exam Narrative: General: thin female in NAD Heart: normal S1 and S2; no rub or gallop Lungs: clear anteriorly; decreased at bases Abdomen: soft, nontender, nondistended, positive bowel sounds Extremities: no edema Skin: No rash Objective Data Vital Signs Vital Signs: Vital Signs - 24 hr 12/04/19 08:21 12/04/19 08:26 12/04/19 08:27 Temperature Pulse Rate 97 Respiratory Rate 18 Blood Pressure Pulse Oximetry 96 91 12/04/19 08:42 12/04/19 08:43 12/04/19 10:00 Temperature 36.2 C L Pulse Rate 100 97 95 Respiratory Rate 20 16 Blood Pressure 143/85 H Pulse Oximetry 92 12/04/19 13:26 12/04/19 13:28 12/04/19 14:00 Temperature 36.0 C L Pulse Rate 89 92 94 Respiratory Rate 20 16 20 Blood Pressure 149/98 H 155/92 H 149/90 H Pulse Oximetry 94 92 98 12/04/19 15:33 12/04/19 16:45 12/04/19 17:00 Temperature 37.3 C 36.4 C L Pulse Rate 93 92 86 Respiratory Rate 20 18 18 Blood Pressure 149/93 H 111/70 139/80 Pulse Oximetry 93 100 100 12/04/19 17:15 12/04/19 18:00 12/04/19 22:00 Temperature 36.2 C L 36.4 C Pulse Rate 86 99 93 Respiratory Rate 16 18 18 Blood Pressure 152/92 H 157/95 H 135/7
--- NOTE | 2019-12-05 06:42 | PC.NURSE ---
ptt 152 Heparin gtt on hold for 1 hour will resume at 0730
--- NOTE | 2019-12-05 08:11 | PCOTNOTE ---
Attempted to see pt, Pt was out of room for dialysis.
--- NOTE | 2019-12-05 10:20 | PCPTNOTE ---
Attempted Therapy Session, Pt was out of room. Will attempt again.
--- NOTE | 2019-12-05 10:28 | PM.EVENT ---
Event Note Event Note Event Note: on HD dane it well. bp is good. catheter is working well. seen at 10:20am
--- NOTE | 2019-12-05 11:39 | PCPTNOTE ---
Attempted therapy again, Pt was out of room for dialysis.
[2019-12-05] MEDS: METOPROLOL SUCCINATE EXT REL 25 MG TABCR PO (12:08)
[2019-12-05] MEDS: DOCUSATE SODIUM 100 MG CAPSULE PO (12:08)
[2019-12-05] MEDS: TOLNAFTATE 1% POWDER 45 GM BTL 1 APPLIC TOPICAL ×2 (12:11→20:49)
[2019-12-05] MEDS: ONDANSETRON INJ 4 MG/2 ML VIAL IV PUSH (13:06)
--- NOTE | 2019-12-05 13:14 | PM.IMPN ---
Progress Note: A&P Assessment and Plan (1) DVT (deep venous thrombosis): Code(s): I82.409 - Acute embolism and thrombosis of unspecified deep veins of unspecified lower extremity Status: Acute Assessment and Plan: Venous doppler 12/04/19 positive for acute right femoral DVT. Patient underwent renal bx 12/04/19 with resulting small perinephric hematoma with initial active hemorrhage that resolved with pressure. Also on 12/04/19, patient underwent tunneled HD catheter placemen. Give the recent biopsy and hematoma, heparin drip started last night. HH stable today. Plan to repeat renal US tomorrow. Change to Eliquis if remains stable. (2) Acute metabolic encephalopathy: Code(s): G93.41 - Metabolic encephalopathy Status: Acute Assessment and Plan: Appears to have been acute metabolic encephalopathy from acute on chronic renal failure +/-infection (UTI/PNA). Mental status began improving after 1st initial shortened hemodialysis session. CT brain negative on 11/28/2019. Mental status continues to improve. Will continue PT/OT. Continue to monitor. Looking at SNF for placement when ready for discharge. (3) Acute kidney injury: Code(s): N17.9 - Acute kidney failure, unspecified Status: Acute Assessment and Plan: Appreciate help from Nephrology. Acute on chronic with known CKD stage 3. Autoimmune workup in process with low complement noted but negative JONATAN, ASO, ANCA, GBM, and Cryo. Renal ultrasound left renal atrophy and left renal cyst measuring 11 mm. With worsening mental status, hemodialysis started. Mental status is now much improved. Renal biopsy performed 12/04/19 with results pending. She did have a small perinephric hematoma post procedure but HH stable. Tunneled catheter placed yesterday and tolerated HD well today. Check Renal US tomorrow to assess for worsening perinephric hematoma. (4) Chronic kidney disease, stage 3: Code(s): N18.3 - Chronic kidney disease, stage 3 (moderate) Status: Chronic Assessment and Plan: Baseline creatinine 1.0-1.4. Now with acute injury as noted above. Plan as noted above. (5) Pneumonia: Qualifiers: Laterality: bilateral Lung location: lower lobe of lung Pneumonia type: due to Pneumococcus Qualified Code(s): J13 - Pneumonia due to Streptococcus pneumoniae Code(s): J18.9 - Pneumonia, unspecified organism Status: Acute Assessment and Plan: Initial chest x-ray with mild airspace opacities in the mid and lower lung zones. Urine pneumococcal Ag positive (11/23/19). Patient has already completed 10 days IV ceftriaxone and 5 days IV azithromycin. IV vancomycin was added when patient had worsening mental status. Off all abx currently. Follow-up chest x-ray 12/04/19 with bilateral edema and/or PNA stable of slightly improved. Doubt recurrent PNA; suspect edema and resolving PNA. No fever. Continue nebulizer treatments. Continue to monitor. Continue HD to improve fluid status. (6) Influenza A: Code(s): J10.1 - Influenza due to other identified influenza virus with other respiratory manifestations Status: Acute Assessment and Plan: Patient diagnosed with Influenza at an outside facility on 11/18/19 and treated with Tamiflu. Screen showing patient influenza A positive in the emergency room this admission. Tamiflu not repeated as already treated. (7) UTI (urinary tract infection): Qualifiers: Hematuria presence: without hematuria Urinary tract infection type: acute cystitis Qualified Code(s): N30.00 - Acute cystitis without hematuria Code(s): N39.0 - Urinary tract infection, site not specified Status: Resolved Assessment and Plan: Urine culture growing Klebsiella pneumoniae. Completed 10 days treatment with IV ceftriaxone. (8) Hypertension: Qualifiers: Hypertension type: essential hypertension [place]
[2019-12-05 13:29] LABS: Partial Thromboplastin Time 130.1 SECONDS (22.3-36.8)
--- NOTE | 2019-12-05 13:39 | WPDANESPN ---
Anes - Prog Note Post-Op Date/Time: 12/05/19 13:39 Cardiovascular status: normal Respiratory status: normal Airway patency: baseline Mental status: other (pt drowsy though verbal and appropriate. uncertain if this is baseline or due to current illness. ) Vital Signs: Last Vital Signs Temp 36.3 C L 12/05/19 11:40 Pulse 108 H 12/05/19 12:08 Resp 18 12/05/19 11:40 BP 121/77 12/05/19 11:40 Pulse Ox 98 12/05/19 06:00 I/O: Intake & Output 12/04/19 12/05/19 12/05/19 23:59 07:59 15:59 Intake Total 690 480 100 Output Total 900 Balance 690 480 -800 Laboratory Tests 12/05/19 04:52 12/05/19 04:52 12/04/19 12/04/19 12/05/19 22:22 22:22 04:52 WBC 8.9 RBC 2.99 L Hgb 8.4 L Hct 27.4 L MCV 91.6 MCH 28.1 MCHC 30.7 L RDW 15.7 H Plt Count 109 L MPV 10.9 H Immature Gran % (Auto) 0.8 H Neut % (Auto) 81.4 H Lymph % (Auto) 7.4 L [place] % (Auto) 8.8 H Eos % (Auto) 0.9 Baso % (Auto) 0.7 Lymph # (Auto) 0.66 L [place] # (Auto) 0.8 H Eos # (Auto) 0.1 Baso # (Auto) 0.1 Abs Immat Gran (auto) 0.07 H Absolute Neuts (auto) 7.3 H Absolute Nucleated RBC 0.0 Nucleated RBC % 0.0 % Immature Plt Fraction 4.7 PT 13.7 INR 1.1 APTT 34.0 152.5 H Sodium Potassium Chloride Carbon Dioxide BUN Creatinine Estim Creat Clear Calc Estimated GFR Glucose Calcium Phosphorus Magnesium Albumin 12/05/19 12/05/19 12/05/19 04:52 04:52 12:57 WBC 11.1 H RBC 2.89 L Hgb 8.2 L Hct 25.9 L MCV 89.6 MCH 28.4 MCHC 31.7 L RDW 15.5 H Plt Count 123 L MPV 11.8 H Immature Gran % (Auto) 0.6 H Neut % (Auto) 83.9 H Lymph % (Auto) 4.5 L [place] % (Auto) 10.0 H Eos % (Auto) 0.6 Baso % (Auto) 0.4 Lymph # (Auto) 0.50 L [place] # (Auto) 1.1 H Eos # (Auto) 0.1 Baso # (Auto) 0.0 Abs Immat Gran (auto) 0.07 H Absolute Neuts (auto) 9.3 H Absolute Nucleated RBC 0.0 Nucleated RBC % 0.0 % Immature Plt Fraction PT INR APTT 130.1 H Sodium 133 L Potassium 3.3 L Chloride 98 Carbon Dioxide 26 BUN 29 H Creatinine 5.90 H Estim Creat Clear Calc Not Reportable Estimated GFR 7 L Glucose 83 Calcium 8.1 L Phosphorus 4.6 H Magnesium 1.6 Albumin 2.1 L Post-procedural complaints: none and other (groin pain) Patient Feedback: Patient satisfied with anesthetic care.
--- NOTE | 2019-12-05 15:48 | PC.NURSE ---
1155-Returned from dialysis per bed.
[2019-12-05] MEDS: TRAZODONE HCL 50 MG TABLET PO (20:48)
[2019-12-05] MEDS: TRAMADOL HCL 50 MG TABLET PO (20:51)
[2019-12-05 21:12] LABS: Partial Thromboplastin Time 55.3 SECONDS (22.3-36.8)
--- NOTE | 2019-12-05 21:54 | PCRCNOTE ---
pt continuing to refuse treatments
[2019-12-05] MEDS: HEPARIN SODIUM 5,000 UNITS/ML VIAL 1500 UNITS IV PUSH (22:18)
[2019-12-05] MEDS: HEPARIN SOD/D5W 100 UNITS/ML 25,000 UNITS/250 ML BAG 8 UNITS IV CONT (22:19)
[2019-12-06] VITALS (10 sets, daily range): BP systolic 102–144; BP diastolic 56–85; PULSE 87–109; RESP 20–25; TEMP 35.8–36.8; O2SAT 90–98
[2019-12-06 04:56] LABS: Hematocrit 25.5 % (37.0-47.0); Hemoglobin 7.7 g/dL (12.0-15.0); Mean Corpuscular HGB Conc 30.2 g/dl (32-36); Mean Corpuscular Hemoglobin 28.7 pg (26-34); Mean Corpuscular Volume 95.1 fl (80-100); Mean Platelet Volume 11.1 fl (7.4-10.4); Platelet Count Result 107 k/mm3 (150-375); Red Blood Count 2.68 M/mm3 (4.2-5.4); Red Cell Distribution Width 15.9 % (11.5-14.5); White Blood Count 8.6 K/mm3 (4.5-10.0)
[2019-12-06 05:09] LABS: Albumin Level 2.1 g/dL (3.5-5.1); Blood Urea Nitrogen 15 mg/dL (7-17); Calcium 7.9 mg/dL (8.4-10.2); Carbon Dioxide 26 mmol/L (22-30); Chloride 100 mmol/L (98-107); Estimated Glomerular Filt Rate 17; Glucose 69 mg/dL (65-105); Phosphorus 2.8 mg/dL (2.5-4.5); Potassium 3.3 mmol/L (3.4-5.0); Sodium 134 mmol/L (137-145)
[2019-12-06 05:09] LABS: Partial Thromboplastin Time 123.5 SECONDS (22.3-36.8)
[2019-12-06] MEDS: METOPROLOL SUCCINATE EXT REL 25 MG TABCR PO (09:11)
[2019-12-06] MEDS: TOLNAFTATE 1% POWDER 45 GM BTL 1 APPLIC TOPICAL ×2 (09:12→20:09)
--- NOTE | 2019-12-06 11:18 | PM.PNNEP ---
Progress Note: A&P Assessment and Plan (1) Acute kidney injury: Code(s): N17.9 - Acute kidney failure, unspecified Status: Acute Assessment and Plan: etiology due to biopsy proven acute tubular necrosis (ATN) creatinine continues to rise without dialytic support - s/p tunneled HD catheter placement continue renal replacement therapy/dialysis until definitive evidence of recovery HD tomorrow and continue M/W/F schedule for now outpatient dialysis being arranged (2) Chronic kidney disease, stage 3: Code(s): N18.3 - Chronic kidney disease, stage 3 (moderate) Status: Chronic Assessment and Plan: baseline creatinine ~ 1.0 - 1.4mg/dl renal ultrasound with changes c/w medical renal disease (3) Altered mental status: Qualifiers: Altered mental status type: unspecified Qualified Code(s): R41.82 - Altered mental status, unspecified Code(s): R41.82 - Altered mental status, unspecified Status: Acute Assessment and Plan: continues to improve presumably secondary to uremia (given significant improvement with HD treatments) CT of head negative follow mentation (4) Pneumonia: Qualifiers: Pneumonia type: due to Pneumococcus Laterality: bilateral Lung location: lower lobe of lung Qualified Code(s): J13 - Pneumonia due to Streptococcus pneumoniae Code(s): J18.9 - Pneumonia, unspecified organism Status: Acute Assessment and Plan: as suggested by admission CXR completed antibiotic therapy (5) UTI (urinary tract infection): Qualifiers: Urinary tract infection type: acute cystitis Hematuria presence: without hematuria Qualified Code(s): N30.00 - Acute cystitis without hematuria Code(s): N39.0 - Urinary tract infection, site not specified Status: Resolved Assessment and Plan: urine culture with Klebsiella this may be responsible for presence of blood and protein on UA completed antibiotic therapy Will continue to follow. Subjective Date/time seen: 12/06/19 11:18 Chart/Interim reviewed since last seen -- creatinine continued to rise leading to renal biopsy and placement for tunneled HD catheter placement for resuming renal replacement therapy/dialysis; repeat renal ultrasound this AM noted; tolerated dialysis yesterday; no acute distress voiced. Exam Narrative: Exam Narrative: General: thin female in NAD Heart: normal S1 and S2; no rub Lungs: clear anteriorly; decreased at bases Abdomen: soft, nontender, nondistended, positive bowel sounds Extremities: no cyanosis or clubbing; no edema Skin: No rash or nodules Objective Data Vital Signs Vital Signs: Vital Signs Temp Pulse Resp BP Pulse Ox 12/06/19 10:50 92 12/06/19 10:00 36.8 C 103 H 25 H 132/67 92 12/06/19 09:11 101 H 12/06/19 08:00 101 H 20 93 12/06/19 06:10 36.5 C 101 H 20 132/81 93 12/06/19 02:00 35.8 C L 87 120/70 98 12/05/19 22:32 37.1 C 110 H 20 122/74 94 12/05/19 21:55 92 12/05/19 18:00 36.7 C 75 22 H 145/70 H 98 12/05/19 14:00 37.1 C 96 27 H 140/72 97 12/05/19 12:08 108 H 12/05/19 11:40 36.3 C L 109 H 18 121/77 12/05/19 11:30 106 H 117/74 Intake/Output Intake/Output: Intake & Output 12/03/19 12/04/19 12/05/19 12/06/19 23:59 23:59 23:59 23:59 Intake Total 6216 396 4537 360 Output Total 900 Balance 1120 690 290 360 Meds/Results Medications: Active Medications Generic Name Dose Route Start Last Admin Trade Name Freq PRN Reason Stop Dose Admin Albuterol 2.5 mg 11/23/19 20:00 12/06/19 08:46 Albuterol Sulf Neb 2.5mg/0.5ml INHALATION Not Given Q6HRT [facility] Budesonide/Formoterol Fumarate 2 puff 11/23/19 20:00 12/06/19 08:46 Symbicort 160-4.5 Mcg (*Sp) Inhaler INHALATION Not Given Q12HRT [facility] Docusate Sodium 100 mg 11/24/19 09:00 12/06/19 09:22 Colace Capsule PO Not Gi
[2019-12-06 11:24] LABS: Partial Thromboplastin Time 72.8 SECONDS (22.3-36.8)
[2019-12-06] MEDS: TRAMADOL HCL 50 MG TABLET PO ×2 (15:14→22:00)
[2019-12-06] MEDS: hydrALAZINE HCL 25 MG TABLET PO (15:14)
--- NOTE | 2019-12-06 16:02 | PM.IMPN ---
Progress Note: A&P Assessment and Plan (1) DVT (deep venous thrombosis): Code(s): I82.409 - Acute embolism and thrombosis of unspecified deep veins of unspecified lower extremity Status: Acute Assessment and Plan: Venous doppler 12/04/19 positive for acute right femoral DVT. Patient underwent renal bx 12/04/19 with resulting small perinephric hematoma with initial active hemorrhage that resolved with pressure. Also on 12/04/19, patient underwent tunneled HD catheter placement. Give the recent biopsy and hematoma, heparin drip started. HH dropped today. Renal US showing small right perinephric hematoma. Change to Eliquis if remains stable and repeat US okay tomorrow. (2) Acute metabolic encephalopathy: Code(s): G93.41 - Metabolic encephalopathy Status: Acute Assessment and Plan: Appears to have been acute metabolic encephalopathy from acute on chronic renal failure +/-infection (UTI/PNA). Mental status began improving after 1st initial shortened hemodialysis session. CT brain negative on 11/28/2019. Mental status continues to improve. Will continue PT/OT. Continue to monitor. Looking at SNF for placement since ready for discharge. (3) Acute kidney injury: Code(s): N17.9 - Acute kidney failure, unspecified Status: Acute Assessment and Plan: Appreciate help from Nephrology. Acute on chronic with known CKD stage 3. Autoimmune workup in process with low complement noted but negative JONATAN, ASO, ANCA, GBM, and Cryo. Renal ultrasound left renal atrophy and left renal cyst measuring 11 mm. With worsening mental status, hemodialysis started. Mental status is now much improved. Renal biopsy performed 12/04/19 with results showing ATN. She did have a small perinephric hematoma post procedure with Hgb dropping to 7.7 (down from 8.2). Renal US showing small right perinephric hematoma. Tunneled catheter placed 12/04/19 and tolerating HD. Check Renal US again tomorrow to assess for worsening perinephric hematoma. Continue Heparin drip. (4) Chronic kidney disease, stage 3: Code(s): N18.3 - Chronic kidney disease, stage 3 (moderate) Status: Chronic Assessment and Plan: Baseline creatinine 1.0-1.4. Now with acute injury as noted above. Plan as noted above. (5) Pneumonia: Qualifiers: Laterality: bilateral Lung location: lower lobe of lung Pneumonia type: due to Pneumococcus Qualified Code(s): J13 - Pneumonia due to Streptococcus pneumoniae Code(s): J18.9 - Pneumonia, unspecified organism Status: Acute Assessment and Plan: Initial chest x-ray with mild airspace opacities in the mid and lower lung zones. Urine pneumococcal Ag positive (11/23/19). Patient has already completed 10 days IV ceftriaxone and 5 days IV azithromycin. IV vancomycin was added when patient had worsening mental status. Off all abx currently. Follow-up chest x-ray 12/04/19 with bilateral edema and/or PNA stable of slightly improved. Doubt recurrent PNA; suspect edema and resolving PNA. No fever. Continue nebulizer treatments. Continue to monitor. Continue HD to improve fluid status. (6) Influenza A: Code(s): J10.1 - Influenza due to other identified influenza virus with other respiratory manifestations Status: Acute Assessment and Plan: Patient diagnosed with Influenza at an outside facility on 11/18/19 and treated with Tamiflu. Screen showing patient influenza A positive in the emergency room this admission. Still with cough. Tamiflu not repeated as already treat (7) UTI (urinary tract infection): Qualifiers: Hematuria presence: without hematuria Urinary tract infection type: acute cystitis Qualified Code(s): N30.00 - Acute cystitis without hematuria Code(s): N39.0 - Urinary tract infection, site not specified Status: Resolved Assessment and Plan: Urine culture growing Klebsiella pneumoniae. C
[2019-12-06 17:38] LABS: Partial Thromboplastin Time 81.3 SECONDS (22.3-36.8)
[2019-12-06] MEDS: ONDANSETRON INJ 4 MG/2 ML VIAL IV PUSH (18:32)
[2019-12-06] MEDS: TRAZODONE HCL 50 MG TABLET PO (20:07)
[2019-12-07] VITALS (26 sets, daily range): BP systolic 106–160; BP diastolic 47–91; PULSE 76–119; RESP 16–22; TEMP 36.1–37.3; O2SAT 90–94
[2019-12-07] MEDS: HEPARIN SOD/D5W 100 UNITS/ML 25,000 UNITS/250 ML BAG 7 UNITS IV CONT (04:43)
[2019-12-07 05:25] LABS: Hematocrit 25.1 % (37.0-47.0); Hemoglobin 7.8 g/dL (12.0-15.0); Mean Corpuscular HGB Conc 31.1 g/dl (32-36); Mean Corpuscular Hemoglobin 28.2 pg (26-34); Mean Corpuscular Volume 90.6 fl (80-100); Mean Platelet Volume 11.2 fl (7.4-10.4); Platelet Count Result 111 k/mm3 (150-375); Red Blood Count 2.77 M/mm3 (4.2-5.4); Red Cell Distribution Width 15.6 % (11.5-14.5); White Blood Count 7.5 K/mm3 (4.5-10.0)
[2019-12-07 05:43] LABS: Partial Thromboplastin Time 62.5 SECONDS (22.3-36.8)
[2019-12-07 05:54] LABS: Albumin Level 2.2 g/dL (3.5-5.1); Blood Urea Nitrogen 21 mg/dL (7-17); Calcium 8.4 mg/dL (8.4-10.2); Carbon Dioxide 28 mmol/L (22-30); Chloride 101 mmol/L (98-107); Estimated Glomerular Filt Rate 10; Glucose 69 mg/dL (65-105); Magnesium 1.8 mg/dL (1.6-2.3); Phosphorus 3.5 mg/dL (2.5-4.5); Potassium 3.1 mmol/L (3.4-5.0); Sodium 134 mmol/L (137-145)
[2019-12-07] MEDS: HEPARIN SODIUM 5,000 UNITS/ML VIAL 1500 UNITS IV PUSH (06:03)
[2019-12-07] MEDS: METOPROLOL SUCCINATE EXT REL 25 MG TABCR PO (09:45)
[2019-12-07] MEDS: TOLNAFTATE 1% POWDER 45 GM BTL 1 APPLIC TOPICAL ×2 (09:48→20:08)
--- NOTE | 2019-12-07 10:17 | PM.IMPN ---
Progress Note: A&P Assessment and Plan (1) DVT (deep venous thrombosis): Code(s): I82.409 - Acute embolism and thrombosis of unspecified deep veins of unspecified lower extremity Status: Acute Assessment and Plan: Venous doppler 12/04/19 positive for acute right femoral DVT. Patient underwent renal bx 12/04/19 with resulting small perinephric hematoma with initial active hemorrhage that resolved with pressure. Also on 12/04/19, patient underwent tunneled HD catheter placement. Give the recent biopsy and hematoma, heparin drip started. HH dropped today. Renal US showing small right perinephric hematoma. Change to Eliquis if remains stable and repeat US okay today. (2) Acute metabolic encephalopathy: Code(s): G93.41 - Metabolic encephalopathy Status: Acute Assessment and Plan: Appears to have been acute metabolic encephalopathy from acute on chronic renal failure +/-infection (UTI/PNA). Mental status began improving after 1st initial shortened hemodialysis session. CT brain negative on 11/28/2019. Mental status continues to improve. Will continue PT/OT. Continue to monitor. Looking at SNF for placement since ready for discharge. (3) Acute kidney injury: Code(s): N17.9 - Acute kidney failure, unspecified Status: Acute Assessment and Plan: Appreciate help from Nephrology. Acute on chronic with known CKD stage 3. Autoimmune workup in process with low complement noted but negative JONATAN, ASO, ANCA, GBM, and Cryo. Renal ultrasound left renal atrophy and left renal cyst measuring 11 mm. With worsening mental status, hemodialysis started. Mental status is now much improved. Renal biopsy performed 12/04/19 with results showing ATN. She did have a small perinephric hematoma post procedure with Hgb dropping to 7.7 (down from 8.2) but now stable at 7.8. Renal US 12/06/19 showing small right perinephric hematoma. Tunneled catheter placed 12/04/19 and tolerating HD. Repeat Renal US pending. Continue Heparin drip. (4) Anemia: Code(s): D64.9 - Anemia, unspecified Status: Acute Assessment and Plan: Hgb normal in October and was 13.1 on admission. Hgb dropped to the 8 range past few days but now 7.7 after the renal biopsy. Repeat Hgb today is stable. 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 Continue to monitor. (5) Chronic kidney disease, stage 3: Code(s): N18.3 - Chronic kidney disease, stage 3 (moderate) Status: Chronic Assessment and Plan: Baseline creatinine 1.0-1.4. Now with acute injury as noted above. Plan as noted above. (6) Pneumonia: Qualifiers: Laterality: bilateral Lung location: lower lobe of lung Pneumonia type: due to Pneumococcus Qualified Code(s): J13 - Pneumonia due to Streptococcus pneumoniae Code(s): J18.9 - Pneumonia, unspecified organism Status: Acute Assessment and Plan: Initial chest x-ray with mild airspace opacities in the mid and lower lung zones. Urine pneumococcal Ag positive (11/23/19). Patient has already completed 10 days IV ceftriaxone and 5 days IV azithromycin. IV vancomycin was added when patient had worsening mental status. Off all abx currently. Follow-up chest x-ray 12/04/19 with bilateral edema and/or PNA stable of slightly improved. Doubt recurrent PNA; suspect edema and resolving PNA. No fever. Continue nebulizer treatments. Continue to monitor. Continue HD to improve fluid status. (7) Influenza A: Code(s): J10.1 - Influenza due to other identified influenza virus with other respiratory manifestations Status: Acute Assessment and Plan: Patient diagnosed with Influenza at an outside facility on 11/18/19 and treated with Tamiflu. Screen showing patient influenza A positive in the emergency room this admission. Tamiflu not repeated as already treat. Still with cough but likely related to above (8) UTI (urinary tract infection):
--- NOTE | 2019-12-07 10:51 | PCPTNOTE ---
The PT treatment was unable to be completed this AM due to patient refusal. Will continue per Plan of Care frequency and duration.
--- NOTE | 2019-12-07 11:42 | PCDIET ---
Nutrition Follow-Up Complete: Inadequate oral intake R/T reduced appetite as evidence by suboptimal intake and mild wt loss PO intake of meals and supplements at 75% or greater Goal not met. Pt consuming 0-50% of meals since 12/04. Nutrition recommendation: Current diet order appropriate along with Thrive BID. Last recorded weight is 46.8 kg. Bowel Motility: +BM 12/04 Labs Reviewed: Hgb (7.8), Na(134), K(3.1), GFR(10), BUN(21), Cr(4.3) Meds Noted:Ultram, epogen, Heparin, lidoderm, zofran Additional Notes: Spoke with pt . Says she had nausea yesterday but administration of medication alleviated nausea. Pt says appetite is so-so. Her breakfast remained uneaten, stated she felt hungry but made no move to eat food. Encouraged PO intake in order to meet nutritional needs. po intake, wt every five days
--- NOTE | 2019-12-07 14:20 | PCNSR ---
On 12/07/19, the student, Sona Landeros, provided care and completed [facility] documentation on this patient. I have reviewed the student's documentation and agree with the findings.
--- NOTE | 2019-12-07 14:45 | PCOTNOTE ---
Attempted to see patient this pm, however patient was off floor for testing. Physical therapy waiting for patient to return to room at this time.
--- NOTE | 2019-12-07 15:05 | PC.NURSE ---
Patient to dialysis via bed.
--- NOTE | 2019-12-07 15:39 | P.PNNP_ITS ---
Progress Note: A&P Assessment and Plan (1) Acute kidney injury: Code(s): N17.9 - Acute kidney failure, unspecified Status: Acute Assessment and Plan: * etiology due to biopsy proven acute tubular necrosis (ATN) * creatinine continues to rise without dialytic support - s/p tunneled HD catheter placement * continue renal replacement therapy/dialysis until definitive evidence of recovery * HD today and tomorrow since today would only be her second treatment this week * outpatient dialysis being arranged (2) Chronic kidney disease, stage 3: Code(s): N18.3 - Chronic kidney disease, stage 3 (moderate) Status: Chronic Assessment and Plan: * baseline creatinine ~ 1.0 - 1.4mg/dl * renal ultrasound with changes c/w medical renal disease (3) Altered mental status: Qualifiers: Altered mental status type: unspecified Qualified Code(s): R41.82 - Altered mental status, unspecified Code(s): R41.82 - Altered mental status, unspecified Status: Acute Assessment and Plan: * continues to improve * presumably secondary to uremia (given significant improvement with HD treatments) * CT of head negative * follow mentation (4) Pneumonia: Qualifiers: Laterality: bilateral Lung location: lower lobe of lung Pneumonia type: due to Pneumococcus Qualified Code(s): J13 - Pneumonia due to Streptococcus pneumoniae Code(s): J18.9 - Pneumonia, unspecified organism Status: Acute Assessment and Plan: * as suggested by admission CXR * completed antibiotic therapy (5) UTI (urinary tract infection): Qualifiers: Hematuria presence: without hematuria Urinary tract infection type: acute cystitis Qualified Code(s): N30.00 - Acute cystitis without hematuria Code(s): N39.0 - Urinary tract infection, site not specified Status: Resolved Assessment and Plan: * urine culture with Klebsiella * this may be responsible for presence of blood and protein on UA * completed antibiotic therapy Will continue to follow Subjective Date/time seen: 12/07/19 15:39 Tolerating dialysis at the time of my visit (seein on HD at ~ 3:30PM); she seems to be doing reasonably well; still feels weak and and appetite remains suboptimal. Exam Narrative: Exam Narrative: General: thin female in NAD Heart: normal S1 and S2; no rub Lungs: clear anteriorly; decreased at bases Abdomen: soft, nontender, nondistended, positive bowel sounds Extremities: no cyanosis or clubbing; no edema Skin: No rash or nodules Objective Data Vital Signs Vital Signs: Laboratory Tests 12/07/19 05:16 12/07/19 05:15 Intake/Output Intake/Output: Intake & Output 12/04/19 12/05/19 12/06/19 12/07/19 23:59 23:59 23:59 23:59 Intake Total 690 1190 685 320 Output Total 900 Balance 690 290 685 320 Meds/Results Medications: Active Medications Generic Name Dose Route Start Last Admin Trade Name Freq PRN Reason Stop Dose Admin Albuterol 2.5 mg 12/06/19 12:21 Albuterol Sulf Neb 2.5mg/0.5ml INHALATION Q6HRT PRN Shortness Of Breath Or Wheezing Budesonide/Formoterol Fumarate 2 puff 11/23/19 20:00 12/07/19 08:3
--- NOTE | 2019-12-07 15:39 | PM.PNNEP ---
Progress Note: A&P Assessment and Plan (1) Acute kidney injury: Code(s): N17.9 - Acute kidney failure, unspecified Status: Acute Assessment and Plan: etiology due to biopsy proven acute tubular necrosis (ATN) creatinine continues to rise without dialytic support - s/p tunneled HD catheter placement continue renal replacement therapy/dialysis until definitive evidence of recovery HD today and tomorrow since today would only be her second treatment this week outpatient dialysis being arranged (2) Chronic kidney disease, stage 3: Code(s): N18.3 - Chronic kidney disease, stage 3 (moderate) Status: Chronic Assessment and Plan: baseline creatinine ~ 1.0 - 1.4mg/dl renal ultrasound with changes c/w medical renal disease (3) Altered mental status: Qualifiers: Altered mental status type: unspecified Qualified Code(s): R41.82 - Altered mental status, unspecified Code(s): R41.82 - Altered mental status, unspecified Status: Acute Assessment and Plan: continues to improve presumably secondary to uremia (given significant improvement with HD treatments) CT of head negative follow mentation (4) Pneumonia: Qualifiers: Laterality: bilateral Lung location: lower lobe of lung Pneumonia type: due to Pneumococcus Qualified Code(s): J13 - Pneumonia due to Streptococcus pneumoniae Code(s): J18.9 - Pneumonia, unspecified organism Status: Acute Assessment and Plan: as suggested by admission CXR completed antibiotic therapy (5) UTI (urinary tract infection): Qualifiers: Hematuria presence: without hematuria Urinary tract infection type: acute cystitis Qualified Code(s): N30.00 - Acute cystitis without hematuria Code(s): N39.0 - Urinary tract infection, site not specified Status: Resolved Assessment and Plan: urine culture with Klebsiella this may be responsible for presence of blood and protein on UA completed antibiotic therapy Will continue to follow Subjective Date/time seen: 12/07/19 15:39 Tolerating dialysis at the time of my visit (seein on HD at ~ 3:30PM); she seems to be doing reasonably well; still feels weak and and appetite remains suboptimal. Exam Narrative: Exam Narrative: General: thin female in NAD Heart: normal S1 and S2; no rub Lungs: clear anteriorly; decreased at bases Abdomen: soft, nontender, nondistended, positive bowel sounds Extremities: no cyanosis or clubbing; no edema Skin: No rash or nodules Objective Data Vital Signs Vital Signs: Laboratory Tests 12/07/19 05:16 12/07/19 05:15 Intake/Output Intake/Output: Intake & Output 12/04/19 12/05/19 12/06/19 12/07/19 23:59 23:59 23:59 23:59 Intake Total 690 1190 685 320 Output Total 900 Balance 690 290 685 320 Meds/Results Medications: Active Medications Generic Name Dose Route Start Last Admin Trade Name Freq PRN Reason Stop Dose Admin Albuterol 2.5 mg 12/06/19 12:21 Albuterol Sulf Neb 2.5mg/0.5ml INHALATION Q6HRT PRN Shortness Of Breath Or Wheezing Budesonide/Formoterol Fumarate 2 puff 11/23/19 20:00 12/07/19 08:38 Symbicort 160-4.5 Mcg (*Sp) Inhaler INHALATION 2 puff Q12HRT SHU Administration Docusate Sodium 100 mg 11/24/19 09:00 12/07/19 11:33 Colace Capsule PO Not Given DAILY SHU Epoetin Escobar 10,000 units 12/07/19 19:16 Epogen IV PUSH 12/07/19 19:17 ONCE ONE Guaifenesin 1,200 mg 12/05/19 21:00 12/07/19 09:46 Mucinex 12 Hr Tab PO 1,200 mg Q12HR SHU Administration Heparin Sodium (Porcine) 3,500 units 12/04/19 22:03 Heparin Sodium IV PUSH PRN PRN aPTT less than 55 seconds Heparin Sodium (Porcine) 1,500 units 12/04/19 22:03 12/07/19 06:03 Heparin Sodium IV PUSH 1,500 units PRN PRN Administration aPTT 55 - 70 seconds Hydralazine HCl 25 mg 11/27/19 11:1
[2019-12-07] MEDS: EPOETIN ALFA 10,000 UNITS/ML VIAL 10000 UNITS IV PUSH (17:41)
[2019-12-07] MEDS: IPRATROPIUM BR 0.02% INH SOLN 0.5 MG/2.5 ML VIAL INHALATION (17:52)
[2019-12-07] MEDS: ALBUTEROL SULFATE NEB 2.5 MG/0.5 ML INH INHALATION (17:53)
--- NOTE | 2019-12-07 18:55 | PC.NURSE ---
Patient returned from dialysis via bed.
[2019-12-07] MEDS: TRAMADOL HCL 50 MG TABLET PO (19:03)
[2019-12-07 19:54] LABS: Partial Thromboplastin Time > 200.0 SECONDS (22.3-36.8)
[2019-12-07] MEDS: TRAZODONE HCL 50 MG TABLET PO (20:06)
[2019-12-08] VITALS (23 sets, daily range): BP systolic 102–158; BP diastolic 54–82; PULSE 65–111; RESP 18–22; TEMP 36.6–37.2; O2SAT 84–97
[2019-12-08 03:31] LABS: Partial Thromboplastin Time 84.4 SECONDS (22.3-36.8)
[2019-12-08] MEDS: TRAMADOL HCL 50 MG TABLET PO ×2 (06:23→18:02)
--- NOTE | 2019-12-08 08:15 | PM.PNNEP ---
Progress Note: A&P Assessment and Plan (1) Acute kidney injury: Code(s): N17.9 - Acute kidney failure, unspecified Status: Acute Assessment and Plan: etiology due to biopsy proven acute tubular necrosis (ATN) Hemodialysis due today. outpatient dialysis being arranged (2) Chronic kidney disease, stage 3: Code(s): N18.3 - Chronic kidney disease, stage 3 (moderate) Status: Chronic Assessment and Plan: baseline creatinine ~ 1.0 - 1.4mg/dl Only 10% tubular interstitial fibrosis on the biopsy. renal ultrasound with changes c/w medical renal disease (3) Altered mental status: Qualifiers: Altered mental status type: unspecified Qualified Code(s): R41.82 - Altered mental status, unspecified Code(s): R41.82 - Altered mental status, unspecified Status: Acute Assessment and Plan: presumably secondary to uremia (given significant improvement with HD treatments) CT of head negative Seems at baseline (4) Pneumonia: Qualifiers: Pneumonia type: due to Pneumococcus Laterality: bilateral Lung location: lower lobe of lung Qualified Code(s): J13 - Pneumonia due to Streptococcus pneumoniae Code(s): J18.9 - Pneumonia, unspecified organism Status: Acute Assessment and Plan: as suggested by admission CXR completed antibiotic therapy (5) UTI (urinary tract infection): Qualifiers: Urinary tract infection type: acute cystitis Hematuria presence: without hematuria Qualified Code(s): N30.00 - Acute cystitis without hematuria Code(s): N39.0 - Urinary tract infection, site not specified Status: Resolved Assessment and Plan: completed antibiotic therapy Will continue to follow Additional Plan Subjective Date/time seen: 12/08/19 08:15 Interval history: Patient is alert. Coughing some. Can't sleep. Review of Systems Cardiovascular: Cardiovascular: Reports no additional cardiovascular complaints Respiratory: Respiratory: Reports no additional respiratory complaints Gastrointestinal: Gastrointestinal: Reports no additional gastrointestinal complaints Genitourinary: Genitourinary: Reports no additional female genitourinary complaints Exam Narrative: Exam Narrative: General: thin female in NAD Heart: normal S1 and S2; no rub Lungs: Decreased breath sounds at the bases. Abdomen: soft, nontender, nondistended, positive bowel sounds Extremities: no edema Skin: No acute rash Objective Data Vital Signs Vital Signs: Vital Signs - 24 hr 12/07/19 09:45 12/07/19 10:00 12/07/19 14:00 Temperature 36.7 C 37.3 C Pulse Rate 86 93 103 H Respiratory Rate 16 16 Blood Pressure 124/63 139/75 Pulse Oximetry 94 91 12/07/19 15:13 12/07/19 15:30 12/07/19 15:45 Temperature 36.6 C Pulse Rate 100 105 H 97 Respiratory Rate 18 Blood Pressure 158/75 H 158/91 H 160/89 H Pulse Oximetry 12/07/19 16:00 12/07/19 16:15 12/07/19 16:30 Temperature Pulse Rate 99 102 H 76 Respiratory Rate Blood Pressure 134/78 139/83 126/62 Pulse Oximetry 12/07/19 16:45 12/07/19 17:00 12/07/19 17:15 Temperature Pulse Rate 103 H 114 H 115 H Respiratory Rate Blood Pressure 127/81 120/78 125/72 Pulse Oximetry 12/07/19 17:30 12/07/19 17:45 12/07/19 17:53 Temperature Pulse Rate 113 H 119 H 110 H Respiratory Rate 22 H Blood Pressure 119/70 106/63 Pulse Oximetry 12/07/19 17:56 12/07/19 18:00 12/07/19 18:02 Temperature Pulse Rate 109 H 116 H Respiratory Rate 22 H Blood Pressure 109/47 L Pulse Oximetry 94 12/07/19 18:15 12/07/19 18:28 12/07/19 18:39 Temperature 36.8 C Pulse Rate 115 H 109 H 110 H Respiratory Rate 18 Blood Pressure 108/65 131/65 119/65 Pulse Oximetry 12/07/19 19:55 12/07/19 22:00 12/08/19 02:00 Temperature 37.2 C 36.6 C Pulse Rate 109 H 90 Respiratory Rate 22 H 20 Blood Pressure
[2019-12-08] MEDS: METOPROLOL SUCCINATE EXT REL 25 MG TABCR PO (09:20)
[2019-12-08] MEDS: TOLNAFTATE 1% POWDER 45 GM BTL 1 APPLIC TOPICAL ×2 (09:25→20:37)
[2019-12-08] MEDS: HEPARIN SOD/D5W 100 UNITS/ML 25,000 UNITS/250 ML BAG 6 UNITS IV CONT (09:26)
[2019-12-08 10:50] LABS: Partial Thromboplastin Time 61.3 SECONDS (22.3-36.8)
[2019-12-08] MEDS: HEPARIN SODIUM 5,000 UNITS/ML VIAL 1500 UNITS IV PUSH (11:17)
--- NOTE | 2019-12-08 13:12 | PC.NURSE ---
Patient to dialysis via bed.
--- NOTE | 2019-12-08 13:12 | PCPTNOTE ---
pt not seen for PT this date due to out for dialysis
[2019-12-08] MEDS: EPOETIN ALFA 10,000 UNITS/ML VIAL 10000 UNITS IV PUSH (14:35)
--- NOTE | 2019-12-08 16:10 | PC.NURSE ---
Patient returned from dialysis via bed.
--- NOTE | 2019-12-08 16:32 | PM.IMPN ---
Progress Note: A&P Assessment and Plan (1) DVT (deep venous thrombosis): Code(s): I82.409 - Acute embolism and thrombosis of unspecified deep veins of unspecified lower extremity Status: Acute Assessment and Plan: Venous doppler 12/04/19 positive for acute right femoral DVT. Patient underwent renal bx 12/04/19 with resulting small perinephric hematoma with initial active hemorrhage that resolved with pressure. Also on 12/04/19, patient underwent tunneled HD catheter placement. Give the recent biopsy and hematoma, heparin drip started. Renal US yesterday showing a decrease in the size of the small right perinephric hematoma. Change to Eliquis arnaldo. (2) Pneumonia: Qualifiers: Laterality: bilateral Lung location: lower lobe of lung Pneumonia type: due to Pneumococcus Qualified Code(s): J13 - Pneumonia due to Streptococcus pneumoniae Code(s): J18.9 - Pneumonia, unspecified organism Status: Acute Assessment and Plan: Initial chest x-ray with mild airspace opacities in the mid and lower lung zones. Urine pneumococcal Ag positive (11/23/19). Patient has already completed 10 days IV ceftriaxone and 5 days IV azithromycin. IV vancomycin was added when patient had worsening mental status. Off all abx currently. Follow-up chest x-ray 12/04/19 with bilateral edema and/or PNA stable of slightly improved. She is still coughing. Repeat CXR today showing extensive right sided airspace disease but felt no significant change. Still doubt recurrent PNA but does not seem to be edema. All just resolving PNA? No fevers and WBC normal yesterday. Continue nebulizer treatments. Hold on abx. Anuj check swallow study. If that is okay, then suspect just resolving PNA. Continue to monitor. Continue HD to control fluid status. (3) Acute metabolic encephalopathy: Code(s): G93.41 - Metabolic encephalopathy Status: Acute Assessment and Plan: Appears to have been acute metabolic encephalopathy from acute on chronic renal failure +/-infection (UTI/PNA). Mental status began improving after 1st initial shortened hemodialysis session. CT brain negative on 11/28/2019. Mental status continues to improve. Will continue PT/OT. Continue to monitor. (4) Acute kidney injury: Code(s): N17.9 - Acute kidney failure, unspecified Status: Acute Assessment and Plan: Appreciate help from Nephrology. Acute on chronic with known CKD stage 3. Autoimmune workup in process with low complement noted but negative JONATAN, ASO, ANCA, GBM, and Cryo. Renal ultrasound left renal atrophy and left renal cyst measuring 11 mm. With worsening mental status, hemodialysis started. Mental status is now much improved. Renal biopsy performed 12/04/19 with results showing ATN. She did have a small perinephric hematoma post procedure with Hgb dropping to 7.7 (down from 8.2) but now stable at 7.8 yesterday. Renal US 12/07/19 showing decrease in size of the small right perinephric hematoma. Tunneled catheter placed 12/04/19 and tolerating HD. (5) Anemia: Code(s): D64.9 - Anemia, unspecified Status: Acute Assessment and Plan: Hgb normal in October and was 13.1 on admission. Hgb dropped to the 8 range past few days but now 7.8 yesterday. Repeat Hgb tomorrow. 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 Continue to monitor. (6) Chronic kidney disease, stage 3: Code(s): N18.3 - Chronic kidney disease, stage 3 (moderate) Status: Chronic Assessment and Plan: Baseline creatinine 1.0-1.4. Now with acute injury as noted above. Plan as noted above. (7) Influenza A: Code(s): J10.1 - Influenza due to other identified influenza virus with other respiratory manifestations Status: Acute Assessment and Plan: Patient diagnosed with Influenza at an outside facility on 11/18/19 and treated with Tamiflu. Screen showing patient influenza A pos
[2019-12-08 17:52] LABS: Partial Thromboplastin Time 63.1 SECONDS (22.3-36.8)
--- NOTE | 2019-12-08 18:05 | PC.NURSE ---
Heparin drip stopped per orders.
[2019-12-08] MEDS: TRAZODONE HCL 50 MG TABLET PO (20:24)
[2019-12-08] MEDS: APIXABAN 5 MG TABLET 10 MG PO (20:26)
[2019-12-09] VITALS (8 sets, daily range): BP systolic 120–139; BP diastolic 70–76; PULSE 64–105; RESP 16–22; TEMP 36.1–37; O2SAT 91–97
--- NOTE | 2019-12-09 03:00 | PC.NURSE ---
Daylight Savings Time For Daylight Savings Time Ending in the Fall - Clocks are moved back. For Daylight Savings Time Beginning in the Spring - Clocks are moved ahead. For [facility], the time of change occurs at 0200 hrs. Time is taken from the food server. This entry on the patient's chart recognizes the change in time reflected during documentation. Example: 2 entries for vital signs may be charted for 0200 hrs.
[2019-12-09 05:42] LABS: Hematocrit 24.6 % (37.0-47.0); Hemoglobin 7.4 g/dL (12.0-15.0); Mean Corpuscular HGB Conc 30.1 g/dl (32-36); Mean Corpuscular Hemoglobin 27.6 pg (26-34); Mean Corpuscular Volume 91.8 fl (80-100); Mean Platelet Volume 11.1 fl (7.4-10.4); Platelet Count Result 146 k/mm3 (150-375); Red Blood Count 2.68 M/mm3 (4.2-5.4); Red Cell Distribution Width 15.5 % (11.5-14.5); White Blood Count 6.8 K/mm3 (4.5-10.0)
[2019-12-09 06:07] LABS: Albumin Level 2.2 g/dL (3.5-5.1); Blood Urea Nitrogen 4 mg/dL (7-17); Carbon Dioxide 35 mmol/L (22-30); Chloride 99 mmol/L (98-107); Estimated Glomerular Filt Rate 28; Glucose 85 mg/dL (65-105); Phosphorus 2.3 mg/dL (2.5-4.5); Potassium 3.1 mmol/L (3.4-5.0); Sodium 134 mmol/L (137-145)
--- NOTE | 2019-12-09 08:09 | PM.PNNEP ---
Progress Note: A&P Assessment and Plan (1) Acute kidney injury: Code(s): N17.9 - Acute kidney failure, unspecified Status: Acute Assessment and Plan: etiology due to biopsy proven acute tubular necrosis (ATN) Will do hemodialysis again tomorrow if still here. It looks like she might be going to snf in [place]. Dr. Baldwin will take care of her until she returns home. (2) Chronic kidney disease, stage 3: Code(s): N18.3 - Chronic kidney disease, stage 3 (moderate) Status: Chronic Assessment and Plan: baseline creatinine ~ 1.0 - 1.4mg/dl Only 10% tubular interstitial fibrosis on the biopsy. renal ultrasound with changes c/w medical renal disease (3) Altered mental status: Qualifiers: Altered mental status type: unspecified Qualified Code(s): R41.82 - Altered mental status, unspecified Code(s): R41.82 - Altered mental status, unspecified Status: Acute Assessment and Plan: presumably secondary to uremia (given significant improvement with HD treatments) CT of head negative Seems at baseline (4) Pneumonia: Qualifiers: Pneumonia type: due to Pneumococcus Laterality: bilateral Lung location: lower lobe of lung Qualified Code(s): J13 - Pneumonia due to Streptococcus pneumoniae Code(s): J18.9 - Pneumonia, unspecified organism Status: Acute Assessment and Plan: as suggested by admission CXR completed antibiotic therapy Chest x-ray she yesterday shows infiltrates. (5) UTI (urinary tract infection): Qualifiers: Urinary tract infection type: acute cystitis Hematuria presence: without hematuria Qualified Code(s): N30.00 - Acute cystitis without hematuria Code(s): N39.0 - Urinary tract infection, site not specified Status: Resolved Assessment and Plan: completed antibiotic therapy (6) DVT (deep venous thrombosis): Code(s): I82.409 - Acute embolism and thrombosis of unspecified deep veins of unspecified lower extremity Status: Acute Assessment and Plan: Patient has the DVT. on Eliquis. repeat renal u/s shows smaller hematoma. Additional Plan Subjective Date/time seen: 12/09/19 08:09 Interval history: Patient is alert. Comfortable today. Review of Systems Cardiovascular: Cardiovascular: Reports no additional cardiovascular complaints Respiratory: Respiratory: Reports no additional respiratory complaints Gastrointestinal: Gastrointestinal: Reports no additional gastrointestinal complaints Genitourinary: Genitourinary: Reports no additional female genitourinary complaints Exam Narrative: Exam Narrative: General: thin female in NAD Heart: normal S1 and S2; no rub Lungs: Decreased breath sounds at the bases. Abdomen: BS+ nontender Extremities: no edema Skin: No acute rash or subcu nodules Objective Data Vital Signs Vital Signs: Vital Signs - 24 hr 12/08/19 08:54 12/08/19 09:17 12/08/19 09:20 Temperature Pulse Rate 108 H Pulse Rate [Radial] Respiratory Rate Blood Pressure Blood Pressure [Orthostatic Lying] Pulse Oximetry 95 84 L 12/08/19 09:21 12/08/19 10:00 12/08/19 13:20 Temperature 37.0 C 36.9 C Pulse Rate 78 Pulse Rate [Radial] 100 Respiratory Rate 18 20 Blood Pressure 123/78 Blood Pressure [Orthostatic Lying] 155/72 H Pulse Oximetry 90 97 12/08/19 13:23 12/08/19 13:30 12/08/19 13:45 Temperature Pulse Rate 101 H 87 94 Pulse Rate [Radial] Respiratory Rate Blood Pressure 158/67 H 126/68 129/71 Blood Pressure [Orthostatic Lying] Pulse Oximetry 12/08/19 14:00 12/08/19 14:15 12/08/19 14:30 Temperature Pulse Rate 93 101 H 104 H Pulse Rate [Radial] Respiratory Rate Blood Pressure 131/71 123/73 115/63 Blood Pressure [Orthostatic Lying] Pulse Oximetry 12/08/19 14:45 12/08/19 15:00 12/08/19 15:15 Temperature
[2019-12-09] MEDS: APIXABAN 5 MG TABLET 10 MG PO ×2 (09:53→20:49)
[2019-12-09] MEDS: METOPROLOL SUCCINATE EXT REL 25 MG TABCR PO (09:54)
[2019-12-09] MEDS: DOCUSATE SODIUM 100 MG CAPSULE PO (10:04)
[2019-12-09] MEDS: TOLNAFTATE 1% POWDER 45 GM BTL 1 APPLIC TOPICAL ×2 (10:04→20:49)
--- NOTE | 2019-12-09 14:21 | PCOTNOTE ---
Attempted to see patient this p.m. Upon entering the room, INTERACTIVE MEDIA DESIGNER reports patient is being taken to have swallow study done. Per this report, patient was not seen at this time for skilled OT session.
--- NOTE | 2019-12-09 15:28 | PCSTNOTE ---
12-09-2019: Please refer to the Modified Barium Swallow Evaluation in the EMR.
[2019-12-09] MEDS: TRAMADOL HCL 50 MG TABLET PO (15:30)
--- NOTE | 2019-12-09 15:54 | PM.IMPN ---
Progress Note: A&P Assessment and Plan (1) DVT (deep venous thrombosis): Code(s): I82.409 - Acute embolism and thrombosis of unspecified deep veins of unspecified lower extremity Status: Acute Assessment and Plan: Venous doppler 12/04/19 positive for acute right femoral DVT. Patient underwent renal bx 12/04/19 with resulting small perinephric hematoma with initial active hemorrhage that resolved with pressure. Also on 12/04/19, patient underwent tunneled HD catheter placement. Give the recent biopsy and hematoma, heparin drip started that evening. Renal US yesterday showing a decrease in the size of the small right perinephric hematoma. Changed to Eliquis on 12/08/19. Use high dose Eliquis through 12/10 since therapeutic on Heparin and she is a bleeding risk. Plan to repeat renal US in a few days. (2) Pneumonia: Qualifiers: Laterality: bilateral Lung location: lower lobe of lung Pneumonia type: due to Pneumococcus Qualified Code(s): J13 - Pneumonia due to Streptococcus pneumoniae Code(s): J18.9 - Pneumonia, unspecified organism Status: Acute Assessment and Plan: Initial chest x-ray with mild airspace opacities in the mid and lower lung zones. Urine pneumococcal Ag positive (11/23/19). Patient has already completed 10 days IV ceftriaxone and 5 days IV azithromycin. IV vancomycin was added when patient had worsening mental status. Off all abx currently. Follow-up chest x-ray 12/08/19 showing extensive right-sided, small to moderate left-sided acute airspace disease unchanged. Doubt recurrent PNA but does not seem to be improving with HD as expected if edema. Could be resolving PNA No fevers and WBC normal today. Swallow study (MBS) showing the patinet can swallow safely so diet resumed. Continue nebulizer treatments. Hold on abx. Continue to monitor. Continue HD to control fluid status. (3) Acute metabolic encephalopathy: Code(s): G93.41 - Metabolic encephalopathy Status: Acute Assessment and Plan: Appears to have been acute metabolic encephalopathy from acute on chronic renal failure +/-infection (UTI/PNA). Mental status began improving after 1st initial shortened hemodialysis session. CT brain negative on 11/28/2019. Mental status continues to improve. Will continue PT/OT. Continue to monitor. (4) Acute kidney injury: Code(s): N17.9 - Acute kidney failure, unspecified Status: Acute Assessment and Plan: Appreciate help from Nephrology. Acute on chronic with known CKD stage 3. Autoimmune workup showing low complement but negative JONATAN, ASO, ANCA, GBM, and Cryo. Renal ultrasound showing left renal atrophy and left renal cyst measuring 11 mm. With worsening mental status, hemodialysis started. Mental status is now much improved. Renal biopsy performed 12/04/19 with results showing ATN. She did have a small perinephric hematoma post procedure with Hgb dropping to 7 range. Renal US 12/07/19 showing decrease in size of the small right perinephric hematoma. Tunneled catheter placed 12/04/19 and tolerating HD. (5) Anemia: Code(s): D64.9 - Anemia, unspecified Status: Acute Assessment and Plan: Hgb normal in October and was 13.1 on admission. Hgb dropped to the 8 range past few days but now 7.4 today. 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 Continue to monitor. Will monitor with HD. (6) Chronic kidney disease, stage 3: Code(s): N18.3 - Chronic kidney disease, stage 3 (moderate) Status: Chronic Assessment and Plan: Baseline creatinine 1.0-1.4. Now with acute injury as noted above. Plan as noted above. (7) Influenza A: Code(s): J10.1 - Influenza due to other identified influenza virus with other respiratory manifestations Status: Acute Assessment and Plan: Patient diagnosed with Influenza at an outside facility on 11/18/19 and treated with Tamiflu. Scre
[2019-12-09] MEDS: TRAZODONE HCL 50 MG TABLET PO (20:49)
[2019-12-10] VITALS (21 sets, daily range): BP systolic 70–151; BP diastolic 33–78; PULSE 89–110; RESP 16–20; TEMP 35.5–37.1; O2SAT 90–97
[2019-12-10] MEDS: TRAMADOL HCL 50 MG TABLET PO ×2 (02:28→12:14)
[2019-12-10 06:03] LABS: Hematocrit 26.5 % (37.0-47.0); Hemoglobin 7.9 g/dL (12.0-15.0); Mean Corpuscular HGB Conc 29.8 g/dl (32-36); Mean Corpuscular Hemoglobin 27.4 pg (26-34); Mean Platelet Volume 11.5 fl (7.4-10.4); Platelet Count Result 173 k/mm3 (150-375); Red Blood Count 2.88 M/mm3 (4.2-5.4); Red Cell Distribution Width 15.5 % (11.5-14.5); White Blood Count 9.3 K/mm3 (4.5-10.0)
[2019-12-10 06:30] LABS: Albumin Level 2.3 g/dL (3.5-5.1); Blood Urea Nitrogen 13 mg/dL (7-17); Calcium 8.7 mg/dL (8.4-10.2); Carbon Dioxide 31 mmol/L (22-30); Chloride 97 mmol/L (98-107); Estimated Glomerular Filt Rate 14; Glucose 93 mg/dL (65-105); Phosphorus 3.6 mg/dL (2.5-4.5); Potassium 2.9 mmol/L (3.4-5.0); Sodium 132 mmol/L (137-145)
--- NOTE | 2019-12-10 10:26 | PCOTNOTE ---
Attempted to see patient this a.m. Patient not present in room and is unable to be seen at this time for OT session due to dialysis treatment.
--- NOTE | 2019-12-10 11:52 | PM.DS ---
DS: Diagnosis Admitting Diagnosis Admitting Diagnosis: Influenza due to other identified influenza virus with other respiratory manifestations Discharge Diagnosis (1) DVT (deep venous thrombosis): Code(s): I82.409 - Acute embolism and thrombosis of unspecified deep veins of unspecified lower extremity Status: Acute Assessment and Plan: Venous doppler 12/04/19 positive for acute right femoral DVT. Patient underwent renal bx 12/04/19 with resulting small perinephric hematoma with initial active hemorrhage that resolved with pressure. Also on 12/04/19, patient underwent tunneled HD catheter placement. Give the recent biopsy and hematoma, heparin drip started that evening. Renal US 12/07/19 showing a decrease in the size of the small right perinephric hematoma. Changed to Eliquis on 12/08/19. Use high dose Eliquis through 12/10 since therapeutic on Heparin and she is a bleeding risk. (2) Pneumonia: Qualifiers: Pneumonia type: due to Pneumococcus Laterality: bilateral Lung location: lower lobe of lung Qualified Code(s): J13 - Pneumonia due to Streptococcus pneumoniae Code(s): J18.9 - Pneumonia, unspecified organism Status: Acute Assessment and Plan: Initial chest x-ray with mild airspace opacities in the mid and lower lung zones. Urine pneumococcal Ag positive (11/23/19). Patient has already completed 10 days IV ceftriaxone and 5 days IV azithromycin. IV vancomycin was added when patient had worsening mental status. Off all abx currently. Follow-up chest x-ray 12/08/19 showing extensive right-sided, small to moderate left-sided acute airspace disease but unchanged from 12/04/19. Doubt recurrent PNA but does not seem to be improving with HD as expected if edema. [place] merly resolving PNA No fevers and WBC remians normal. Swallow study (MBS) on 12/09/19 showing the patient can swallow safely so diet resumed. Continued on nebulizer treatments. HD to control fluid status. (3) Acute metabolic encephalopathy: Code(s): G93.41 - Metabolic encephalopathy Status: Acute Assessment and Plan: Appears to have been acute metabolic encephalopathy from acute on chronic renal failure +/-infection (UTI/PNA). Mental status began improving after 1st initial shortened hemodialysis session. CT brain negative on 11/28/2019. Mental status continues to improve. (4) Acute kidney injury: Code(s): N17.9 - Acute kidney failure, unspecified Status: Acute Assessment and Plan: Appreciate help from Nephrology. Acute on chronic with known CKD stage 3. Autoimmune workup showing low complement but negative JONATAN, ASO, ANCA, GBM, and Cryo. Renal ultrasound showing left renal atrophy and left renal cyst measuring 11 mm. With worsening mental status, hemodialysis started. Mental status is now much improved. Renal biopsy performed 12/04/19 with results showing ATN. She did have a small perinephric hematoma post procedure with Hgb dropping to 7 range but now stable. Renal US 12/07/19 showing decrease in size of the small right perinephric hematoma. Tunneled catheter placed 12/04/19 and tolerating HD. (5) Anemia: Code(s): D64.9 - Anemia, unspecified Status: Acute Assessment and Plan: Hgb normal in October and was 13.1 on admission. Hgb dropped to the 8 range past few days but has dropped into the 7 range now but stable. Could be a component of mild blood loss from the renal hematoma. 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 (6) Chronic kidney disease, stage 3: Code(s): N18.3 - Chronic kidney disease, stage 3 (moderate) Status: Chronic Assessment and Plan: Baseline creatinine 1.0-1.4. Now with acute injury as noted above. Plan as noted above. (7) Influenza A: Code(s): J10.1 - Influenza due to other identified influenza virus with other respiratory manifestations Status: Acute Assessment and
[2019-12-10] MEDS: APIXABAN 5 MG TABLET 10 MG PO (12:08)
[2019-12-10] MEDS: DOCUSATE SODIUM 100 MG CAPSULE PO (12:09)
[2019-12-10] MEDS: METOPROLOL SUCCINATE EXT REL 25 MG TABCR PO (12:09)
[2019-12-10] MEDS: TOLNAFTATE 1% POWDER 45 GM BTL 1 APPLIC TOPICAL (12:12)
--- NOTE | 2019-12-10 13:10 | PM.PNNEP ---
Progress Note: A&P Assessment and Plan (1) Acute kidney injury: Code(s): N17.9 - Acute kidney failure, unspecified Status: Acute Assessment and Plan: etiology due to biopsy proven acute tubular necrosis (ATN) HD today Dr. Baldwin will take care of her outpatient dialysis needs after discharge (2) Chronic kidney disease, stage 3: Code(s): N18.3 - Chronic kidney disease, stage 3 (moderate) Status: Chronic Assessment and Plan: baseline creatinine ~ 1.0 - 1.4mg/dl Only 10% tubular interstitial fibrosis on the biopsy. renal ultrasound with changes c/w medical renal disease (3) Altered mental status: Qualifiers: Altered mental status type: unspecified Qualified Code(s): R41.82 - Altered mental status, unspecified Code(s): R41.82 - Altered mental status, unspecified Status: Acute Assessment and Plan: presumably secondary to uremia (given significant improvement with HD treatments) CT of head negative Seems at baseline (4) Pneumonia: Qualifiers: Pneumonia type: due to Pneumococcus Laterality: bilateral Lung location: lower lobe of lung Qualified Code(s): J13 - Pneumonia due to Streptococcus pneumoniae Code(s): J18.9 - Pneumonia, unspecified organism Status: Acute Assessment and Plan: as suggested by admission CXR completed antibiotic therapy Chest x-ray yesterday still with infiltrates (suspect slow recovery process) (5) UTI (urinary tract infection): Qualifiers: Urinary tract infection type: acute cystitis Hematuria presence: without hematuria Qualified Code(s): N30.00 - Acute cystitis without hematuria Code(s): N39.0 - Urinary tract infection, site not specified Status: Resolved Assessment and Plan: completed antibiotic therapy (6) DVT (deep venous thrombosis): Code(s): I82.409 - Acute embolism and thrombosis of unspecified deep veins of unspecified lower extremity Status: Acute Assessment and Plan: on Eliquis Not opposed to discharge from renal perspective. Subjective Date/time seen: 12/10/19 13:10 Tolerating dialysis at the time of my visit (seen on HD at ~ 11:40AM); BP low so fluid removal quite limited with treatment; no other acute issues or problems to report; noted plans for discharge this afternoon. Exam Narrative: Exam Narrative: General: thin female in NAD Heart: normal S1 and S2; no rub Lungs: decreased breath sounds at the bases. Abdomen: soft, nontender, +BS Extremities: no edema Skin: warm and dry Objective Data Vital Signs Vital Signs: Vital Signs Temp Pulse Resp BP Pulse Ox 12/10/19 12:09 108 H 12/10/19 12:00 35.5 C L 110 H 20 112/66 12/10/19 11:40 105 H 110/60 12/10/19 11:15 106 H 109/62 12/10/19 11:00 101 H 100/62 12/10/19 10:45 102 H 97/62 L 12/10/19 10:30 105 H 101/50 L 12/10/19 10:15 101 H 93/54 L 12/10/19 10:00 102 H 99/57 L 12/10/19 09:45 99 90/57 L 12/10/19 09:30 99 101/58 L 12/10/19 09:15 89 76/40 L 12/10/19 09:00 90 70/33 L 12/10/19 08:45 110 H 106/65 12/10/19 08:30 107 H 118/75 12/10/19 08:15 99 133/54 L 12/10/19 07:50 37.1 C 104 H 18 151/78 H 12/10/19 07:00 104 H 151/77 H 12/10/19 06:20 36.3 C L 97 18 129/67 90 12/10/19 03:07 36.6 C 99 18 114/67 97 12/09/19 22:28 36.1 C L 103 H 20 97 12/09/19 18:00 36.8 C 64 20 128/76 95 12/09/19 14:00 36.4 C 87 18 120/71 95 Intake/Output Intake/Output: Intake & Output 12/07/19 12/08/19 12/09/19 12/10/19 22:59 22:59 23:59 23:59 Intake Total 400 Output Total 500 Balance -100 Meds/Results Medications: Active Medications Generic Name Dose Route Start Last Admin Trade Name Freq PRN Reason Stop Dose Admin Albuterol 2.5 mg 12/06/19 12:21 12/07/19 17:53 Albuterol Sulf Neb 2.5mg/0.5ml INHAL
--- NOTE | 2019-12-10 13:41 | PCOTNOTE ---
Attempted to see patient for a second time this p.m. due to patient being absent from room for dialysis in a.m. Patient offered to participate in OT session, but reports of fatigue and wishes to rest. Patient refuses OT session at this time.
--- NOTE | 2019-12-10 15:19 | PCPTNOTE ---
Patient refused treatment this session due to pain. Patient reported she is in to much pain to work with therapy at this time.
== END 2019-12-10 16:37 | DRG 673 ==
LOC: ANHED 14:55 → ANH2MED 15:12
PROVIDERS: Hospitalist; Internal Medicine; Internal Medicine Nephrology; Physician Assistant; Surgery; Admitting Provider Internal Medicine; Emergency Provider Emergency Medicine; PCP Internal Medicine; Visit Provider Internal Medicine
PROC: 02HV33Z Insertion of Infusion Device into Superior Vena Cava, Percutaneous Approach (ICD-10-PCS; principal; 2019-11-29 10:30)
PROC: 0JH60XZ Insertion of Tunneled Vascular Access Device into Chest Subcutaneous Tissue and Fascia, Open Approach (ICD-10-PCS; CPT 36908; principal; 2019-12-04 16:30)
DX: N17.0 Acute kidney failure with tubular necrosis (principal); J10.08 Influenza due to other identified influenza virus with other specified pneumonia; G93.41 Metabolic encephalopathy; N39.0 Urinary tract infection, site not specified; E87.2 Acidosis; N99.840 Postprocedural hematoma of a genitourinary system organ or structure following a genitourinary system procedure; I82.411 Acute embolism and thrombosis of right femoral vein; N18.3 Chronic kidney disease, stage 3 (moderate); B96.1 Klebsiella pneumoniae [K. pneumoniae] as the cause of diseases classified elsewhere; D63.1 Anemia in chronic kidney disease; D69.6 Thrombocytopenia, unspecified; J44.9 Chronic obstructive pulmonary disease, unspecified; K21.9 Gastro-esophageal reflux disease without esophagitis; M19.90 Unspecified osteoarthritis, unspecified site; E86.0 Dehydration; E78.5 Hyperlipidemia, unspecified; I12.9 Hypertensive chronic kidney disease with stage 1 through stage 4 chronic kidney disease, or unspecified chronic kidney disease; N18.9 Chronic kidney disease, unspecified; M81.0 Age-related osteoporosis without current pathological fracture; N28.1 Cyst of kidney, acquired; R79.89 Other specified abnormal findings of blood chemistry; Z96.641 Presence of right artificial hip joint; F17.210 Nicotine dependence, cigarettes, uncomplicated; Z90.710 Acquired absence of both cervix and uterus; Z99.2 Dependence on renal dialysis
CPT/HCPCS: 36415; 36569; 36600; 50200; 70450; 71045; 71046; 76775; 76942; 77001; 78582; 80048; 80053; 80069; 80074; 80202; 81001; 81050; 82085; 82550; 82570; 82595; 82805; 83520; 83605; 83615; 83735; 83880; 84100; 84132; 84155; 84156; 84165; 84166; 84300; 85025; 85027; 85055; 85380; 85397; 85610; 85730; 85999; 86021; 86038; 86060; 86160; 86225; 86235; 86706; 87077; 87086; 87088; 87186; 87449; 87804; 87899; 88300; 88329; 92610; 92611; 93005; 93970; 94640; 94667; 94668; 96360; 96361; 97110; 97116; 97161; 97165; 97530; 97535; 99285; A9270; A9540; A9558; C1750; C1751; C1752; G0257; J0360; J0456; J0690; J0696; J1644; J2405; J2597; J2704; J3370; J7030; J7040; J7070; J7120; Q4081

== ENCOUNTER 2019-12-19 15:15 | Inpatient (IN) | payer MEDICARE, MEDICAID, SELFPAY ==
[2019-12-19] VITALS (27 sets, daily range): BP systolic 128–171; BP diastolic 74–98; PULSE 86–102; RESP 16–33; TEMP 36.2–36.3; O2SAT 93–100; BMI 20.9
--- NOTE | ~2019-12-19 | XR_ITS ---
XR chest 2V 12/26/2019 09:22 Indication: Pneumonia. Procedure: AP and lateral views of the chest Comparison: Comparison to multiple prior studies sequentially, with oldest reviewed study dated 11/30. Findings: Patchy bilateral airspace disease, unchanged from 12/19/2019. There is, left greater than ri ght. Heart size normal. Large bore central venous catheter tip in right atrium. Apical pleural thicke adelina/scarring. There is a healed left humeral fracture. Impression: 1: No significant change to patchy bilateral airspace consolidation compared with 12/19/2019, consiste nt with pneumonia with probable superimposed scarring. Reviewed, dictated and finalized at location A. Impression: 1: No significant change to patchy bilateral airspace consolidation compared wi 12/19/2019, consistent with pneumonia with probable superimposed scarring.
--- NOTE | ~2019-12-19 | XR_ITS ---
XR lumbar spine 2-3V DATE: 12/20/2019 13:23 INDICATION: Low back pain, right hip pain. No injury. TECHNIQUE: AP, lateral, coned lateral lumbosacral views COMPARISON: 07/03/2018 MRI lumbar spine 02/26/2018 lumbar spine FINDINGS: There is minimal anterolisthesis at L4-5 likely secondary to degenerative change at the apo physeal joints. No fracture or dislocation is evident. No bone destruction is detected. The included lower thoracic a nd lumbar pedicles are intact. There is mild degenerative disc disease at L1-2 and L2-3 and L3-4. L4-5 and L5-S1 disc spaces are wel l preserved. Status post right hip arthroplasty. The sacroiliac joints appear unremarkable. There is extensive calcification of the abdominal aorta and common iliac arteries, without evidence o f abdominal aortic aneurysm. Status post cholecystectomy. IMPRESSION: Mild degenerative changes of the lumbar spine Reviewed, dictated and finalized at location B.
--- NOTE | ~2019-12-19 | XR_ITS ---
XR hip BI 2V w AP pelvis DATE: 12/20/2019 13:23 INDICATION: Bilateral hip pain TECHNIQUE: AP pelvis. AP and lateral views of each hip. COMPARISON: 02/26/2018 pelvis and sacrum and coccyx FINDINGS: There is extensive calcification of the abdominal aorta and common iliac arteries. The pubic symphysis and sacroiliac joints are intact. No recent pelvic fracture or bone destruction is evident. There is suggestion of an old fracture defo rmity of the right inferior pubic ramus. Status post right total hip arthroplasty. Severe osteoarthritis of left hip including joint space narrowing and prominent degenerative spurring . IMPRESSION: Severe left hip osteoarthritis Status post right total hip arthroplasty Probable old healed right inferior pubic ramus fracture Reviewed, dictated and finalized at location B.
--- NOTE | ~2019-12-19 | CT_ITS ---
EXAMINATION: CT chest wo con DATE: 12/20/2019 13:15 INDICATION: Recurrent cough, hypoxia TECHNIQUE: Computed tomography (CT) of the chest was performed without intravenous contrast. Addition al 3D reconstructions utilizing coronal maximum intensity projection (MIP) were performed. Automated exposure control and iterative reconstruction technique were employed. The dose-length product was 11 2.90 mGy-cm. COMPARISON: 12/12/2017 FINDINGS: Large-bore dual-lumen tunneled left internal jugular central venous catheter with distal tip extendin g through the right atrium with distal tip in the cephalad-most inferior vena cava. Severe emphysema with upper lung predominance. Interval increase in size of a chronic cavitary lesion at the lateral l eft apex. There are associated bronchiectatic changes and scarring extending cephalad from the left h ilum towards the cavitary lesion. New scattered regions of consolidation in the bilateral upper and b ilateral lower lobes the largest remains in the right upper and right lower lobes. There are air bron chograms extending to the regions of consolidation which do not demonstrate significant crowding to s uggest volume loss in the setting of atelectasis or architectural distortion to suggest underlying ma lignancy and findings would be most consistent with multifocal pneumonia. There are a few air-fluid l evels within some of the pre-existing emphysematous changes in the superior segment of the right uppe r lobe. Multiple additional scattered centrilobular nodules at the margins of the regions of consolid ation as well as in the right middle lobe and lingula. Small bilateral pleural effusions, right great er than left. Heart size is normal. No pericardial effusion. Atherosclerotic coronary artery calcific ations. Normal caliber thoracic aorta. Mild likely reactive mediastinal and right hilar lymphadenopat hy. Cholecystectomy clips at the gallbladder fossa. Moderate thoracic spondylosis. IMPRESSION: 1. Multifocal pneumonia with likely reactive mild mediastinal and right hilar lymphadenopathy. 2. Severe underlying emphysema with chronic cavitary lesion at the left upper lobe. Consider follow-u p low-dose noncontrast chest CT in a few months following resolution of acute lung disease. 3. Small bilateral pleural effusions. Reviewed, dictated and finalized at location A. IMPRESSION: 1. Multifocal pneumonia with likely reactive mild mediastinal and right hilar l ymphadenopathy. 2. Severe underlying emphysema with chronic cavitary lesion at the left upper l obe. Consider follow-up low-dose noncontrast chest CT in a few months following resolution of acute lung disease. 3. Small bilateral pleural effusions.
--- NOTE | ~2019-12-19 | XR_ITS ---
EXAMINATION: XR chest 2V DATE: 12/19/2019 15:35 INDICATION: Congestion, recent pneumonia TECHNIQUE: AP and lateral views of the chest are obtained. COMPARISON: 12/08/2019 FINDINGS: Airspace opacities of the right lung persist with slight improvement. A large bore left int ernal jugular catheter ends with its tip in the right atrium. A catheter of the left upper extremity has been removed. The heart size is normal. There is scarring in the lung apices, left greater than r ight. There are small pleural effusions. No pneumothorax is identified. There is a healed fracture of the distal left humerus. Surgical clips in the right upper quadrant are likely from prior cholecyste ctomy. IMPRESSION: 1. Improved airspace opacities of the right lung, consistent with pneumonia and/or atelectasis and/or pulmonary edema. 2. Interval removal of a left upper extremity catheter. 3. Small pleural effusions. Reviewed, dictated and finalized at location A. IMPRESSION: 1. Improved airspace opacities of the right lung, consistent with pneumonia and /or atelectasis and/or pulmonary edema. 2. Interval removal of a left upper extremity catheter. 3. Small pleural effusions.
--- NOTE | 2019-12-19 15:53 | ED.URI ---
HPI - URI/Sore Throat General Chief Complaint: Shortness of Breath/Dyspnea Stated Complaint: PNEUMONIA NOT IMPROVING Time Seen by Provider: 12/19/19 15:29 Source: patient and RN notes reviewed Mode of arrival: EMS Limitations: no limitations History of Present Illness HPI Narrative: Pt is a 64 y/o female with a Hx of COPD, who presents to the ED via EMS with c/o worsening pneumonia. According to old records, the pt was admitted to [facility] on 11/23/19. Pt was diagnosed with YOKASTA, Influenza A, DVT, and pneumonia. She received a full 10-day course of Rocephin while in the hospital. Pt was discharged back to [facility] on 12/10/19 with a PICC line in place. She notes that she has continued to have a cough with accompanying substernal chest pain. Pt states that she received a Chest X-Ray while at her [facility] earlier today, and notes that the imaging showed evidence of worsening pneumonia, which prompted her to be sent to the ED. She currently denies any nausea, vomiting, fever, or other symptoms. MD elicited complaint: other (Pneumonia) Onset (ago): week(s) (3.5) Context: recent hospitalization Associated symptoms: cough and other (substernal chest pain accompanying cough) Related Data Home Medications Medication Instructions Recorded Confirmed trazodone 50 mg tablet 50 mg PO .QHS tablet 08/13/19 12/19/19 docusate sodium 100 mg PO DAILY 11/23/19 12/19/19 ondansetron 4 mg PO Q8H PRN 11/23/19 11/23/19 Allergies Allergy/AdvReac Type Severity Reaction Status Date / Time No Known Allergies Allergy Verified 09/10/19 15:25 Review of Systems Review of Systems: All systems reviewed & are unremarkable except as noted in HPI and below Constitutional: Constitutional: Denies fever(s) Respiratory: Respiratory: Reports cough and Reports pain with cough (substernal chest pain accompanying cough) Gastrointestinal: Gastrointestinal: Denies nausea and Denies vomiting PMFSH Past Medical History Medical History YOKASTA (acute kidney injury) Chronic kidney disease, stage 3 Baseline creatinine is between 1.00 and 1.20. Colon polyps COPD (chronic obstructive pulmonary disease) DVT (deep venous thrombosis) Gastroesophageal reflux disease Hyperlipidemia Hypertension Malnutrition due to starvation Nicotine abuse Osteoarthritis Osteoporosis Tobacco dependence Surgical History Surgical History History of right hip replacement Status post bunionectomy Status post hysterectomy Status post nasal septoplasty Family History Family History Mother Family history of lung cancer Sibling Family history of lung cancer Father Acute myocardial infarction Social History Social History Social History: The patient lives in [place]. Her apparently lives next door. She is retired. She designates her daughter, Emily Hooper, as her surrogate decision maker and she wishes to be a full code. She smoked up to a pack of cigarettes per day for many years, and now smokes about 8 a day. She denies alcohol abuse. No drug use. Years smoked: 45 Smoking status: Former smoker Tobacco type: cigarettes Second hand tobacco smoke exposure: Yes Smoking end date: 11/20/19 Alcohol intake: never Substance use: never Substance use type: does not use Gender identity (if verbalized by the patient): Female Spiritual care concerns: No Agree to blood products: Yes Exam Const: General: no acute distress, alert and ill appearing chronically Orientation/consciousness: patient oriented x3 Eyes: Pupils: Equal, round and reactive pupils present Chest: Chest palpation & inspection: normal inspection of the chest Resp: Effort & Inspection: normal respiratory effort, not labored and not tachypneic Au
--- NOTE | 2019-12-19 15:56 | ECG_ITS ---
Measurements Intervals Mason Rate: 87 P: 84 IN: 110 QRS: 61 QRSD: 77 T: 50 QT: 337 QTc: 406 Interpretive Statements SINUS RHYTHM WITH SHORT IN INTERVAL EARLY PRECORDIAL R/S TRANSITION BASELINE ARTIFACT- I, AVL, V1 BORDERLINE ECG Electronically Signed On 12-19-2019 16:40:00 CDT by Reed Chapin D.O.
[2019-12-19 16:24] LABS: Base Excess ABG 2.3 mEq/l (+/-2.0); Carboxyhemoglobin 0.4 % THb (0-2.0); Fractional Inspired Oxygen 32 %; HCO3 ABG 26.8 mEq/l (22.0-26.0); Methemoglobin ABG 0.2 %THb (0-1.5); Oxygen Content ABG 13.2 %vol (16.0-22.0); Oxygen Saturation ABG 99.3 % (95.0-100.0); Oxyhemoglobin 98.3 % THb (90.0-100.0); PCO2 ABG 41.5 mmHg (35.0-45.0); PO2 ABG 189.9 mmHg (80.0-100.0); PO2 FiO2 Ratio Arterial Blood 5.93 %; Reduced Hemoglobin 1.1 %THb (0-5.0); Total Hemoglobin 9.2 g/dL (12.0-18.0); pH ABG 7.428 (7.350-7.450)
[2019-12-19 16:40] LABS: Site Drawn RIGHT BRACHIAL
[2019-12-19 16:41] LABS: Device NASAL CANNULA
[2019-12-19 16:42] LABS: Basophils Absolute Auto 0.1 K/mm3 (0.0-0.1); Basophils Percent Auto 0.7 % (0.2-1.2); Eosinophils Absolute Auto 0.1 K/mm3 (0-0.3); Hematocrit 28.9 % (37.0-47.0); Hemoglobin 8.7 g/dL (12.0-15.0); Immature Granulocyte Absolute 0.04 K/mm3 (0.00-0.031); Immature Granulocyte Percent A 0.4 % (0-0.5); Lymphocytes Absolute Auto 1.71 K/mm3 (0.9-3.2); Lymphocytes Percent Auto 16.3 % (18.3-44.2); Mean Corpuscular HGB Conc 30.1 g/dl (32-36); Mean Corpuscular Hemoglobin 27.3 pg (26-34); Mean Corpuscular Volume 90.6 fl (80-100); Mean Platelet Volume 10.7 fl (7.4-10.4); Monocytes Absolute Auto 1.3 K/mm3 (0.1-0.6); Monocytes Percent Auto 11.9 % (2.6-8.5); Neutrophils Absolute Auto 7.3 K/mm3 (1.3-6.7); Neutrophils Percent Auto 69.7 % (45.5-73.1); Platelet Count Result 337 k/mm3 (150-375); Red Blood Count 3.19 M/mm3 (4.2-5.4); Red Cell Distribution Width 16.1 % (11.5-14.5); White Blood Count 10.5 K/mm3 (4.5-10.0)
[2019-12-19 16:52] LABS: INR 1.3; Prothrombin Time 16.2 Seconds (11.1-14.7)
[2019-12-19 16:53] LABS: Partial Thromboplastin Time 43.2 SECONDS (22.3-36.8)
[2019-12-19 16:55] LABS: Lactic Acid Reflex 1.1 mmol/L (0.7-2.1)
[2019-12-19 16:57] LABS: Alanine Aminotransferase 10 U/L (4-35); Albumin Level 2.5 g/dL (3.5-5.1); Alkaline Phosphatase 143 U/L (38-126); Aspartate Amino Transferase 18 U/L (14-36); Bilirubin,Total 0.7 mg/dL (0.2-1.3); Blood Urea Nitrogen 12 mg/dL (7-17); CRP 8.3 mg/dL (<1.0); Calcium 9.3 mg/dL (8.4-10.2); Carbon Dioxide 28 mmol/L (22-30); Chloride 99 mmol/L (98-107); Estimated Glomerular Filt Rate 22; Glucose 76 mg/dL (65-105); Potassium 3.4 mmol/L (3.4-5.0); Sodium 133 mmol/L (137-145)
[2019-12-19 17:05] LABS: Add Urine Microscopic? YES; Appearance Urine Clear (Clear); Bacteria Urine Trace /hpf; Bilirubin Urine Negative (Negative); Blood Urine 1+ (Negative); Color Urine Straw (Yellow); Glucose Urine UA Negative (Negative); Ketones Urine Negative (Negative); Leukocyte Esterase Ur Negative LEU/UL (Negative); Mucus Urine Rare /lpf; Nitrate Urine Negative (Negative); Protein Urine 1+ mg/dL (Negative); RBC Urine 0-2 /hpf (0-2); Specific Grav Ur 1.009 (1.001-1.035); Squamous Epithelial Cell Urine Rare /hpf (Few); Urobilinogen Urine Negative mg/dL (<2.0); WBC Urine 0-3 /hpf
[2019-12-19 17:06] LABS: Troponin I < 0.012 ng/mL (0.000-0.034)
--- NOTE | 2019-12-19 19:25 | PM.IMHP ---
H&P: HPI History of Present Illness Chief complaint: Ongoing respiratory infection Narrative: This is a pleasant 64-year-old female w who is known to currently be on dialysis with COPD and chronic respiratory failure, chronically on 2-3 L of oxygen at home, and recently discharged from our hospitalist service approximately 9 days ago after she was treated for an acute DVT, pneumonia, and influenza A. The patient was found to have a positive pneumococcal antigen on November 23 during her last hospitalization and she did received 10 days of IV ceftriaxone, 5 days of azithromycin as well as IV vancomycin. The patient was brought back to the hospital tonight as prison staff was worried that the patient was a risk to the other residence as she continues to have an ongoing productive cough. The patient herself believes that she has had worsening shortness of breath since she was discharged although her oxygen requirement has not gone up. The patient also complains of ongoing intermittent fevers, chest tightness, and pleuritic chest discomfort with her hacking cough. Associated symptoms also include generalized weakness. She reports vomiting a few days ago but has not had any nausea or vomiting since then. She denies any lower extremity swelling. She also denies any sore throat, ear pain, abdominal pain, diarrhea, dysuria, hematuria, or rectal bleeding. the patient was evaluated emergency room this evening and found to have improved airspace opacities of the right lung. Routine labs were obtained which were virtually unremarkable and ABG was also within normal limits. We been asked to admit the patient to the hospital for observation. Review of Systems Review of Systems: All systems reviewed & are unremarkable except as noted in HPI and below PMFSH Past Medical History Medical History YOKASTA (acute kidney injury) Chronic kidney disease, stage 3 Baseline creatinine is between 1.00 and 1.20. Colon polyps COPD (chronic obstructive pulmonary disease) DVT (deep venous thrombosis) Gastroesophageal reflux disease Hyperlipidemia Hypertension Malnutrition due to starvation Nicotine abuse Osteoarthritis Osteoporosis Tobacco dependence Surgical History Surgical History History of right hip replacement Status post bunionectomy Status post hysterectomy Status post nasal septoplasty Family History Family History Mother Family history of lung cancer Sibling Family history of lung cancer Father Acute myocardial infarction Social History Social History Social History: The patient lives in [place]. Her apparently lives next door. She is retired. She designates her daughter, Emily Hooper, as her surrogate decision maker and she wishes to be a full code. She smoked up to a pack of cigarettes per day for many years, and now smokes about 8 a day. She denies alcohol abuse. No drug use. Years smoked: 45 Smoking status: Former smoker Tobacco type: cigarettes Second hand tobacco smoke exposure: Yes Smoking end date: 11/20/19 Alcohol intake: never Substance use: never Substance use type: does not use Gender identity (if verbalized by the patient): Female Spiritual care concerns: No Agree to blood products: Yes Meds Home Medications and Allergies Home Medications Medication Instructions Recorded Confirmed Type trazodone 50 mg tablet 50 mg PO .QHS tablet 08/13/19 12/19/19 History cholecalciferol (vitamin D3) 1,250 50,000 unit PO WEEKLY #8 cap 10/17/19 12/19/19 Rx mcg (50,000 unit) capsule docusate sodium 100 mg PO DAILY 11/23/19 12/19/19 History ondansetron 4 mg PO Q8H PRN 11/23/19 11/23/19 History apixaban [Eliquis] 5 mg PO Q12HR #60 tablet 12/10/19 12/19/19 Rx budesonide-formoter
--- NOTE | 2019-12-19 20:17 | ADMGEN ---
This patient, Jacquelyn Willis, was admitted to 2 Medical Room 241-. Patient/family oriented to hospital policies and general routines including ID bracelet, bed and alarms, visiting hours, pain management, procedures, bathroom and other care routines, personal items, smoking policy, room service/diet, and visiting hours. Valuables list has been completed. Information on how to activate the Rapid Response Team has been discussed. Patient/Family are encouraged to report perceived risks to care and to ask questions if they do not understand what they are told or what they should do.
[2019-12-19 21:41] LABS: Influenza Control Positive
[2019-12-20] VITALS (26 sets, daily range): BP systolic 86–142; BP diastolic 56–88; PULSE 74–105; RESP 16–18; TEMP 36–36.8; O2SAT 93–95
--- NOTE | 2019-12-20 | ECHO_ITS ---
Patient Info Name: Jacquelyn Willis Age: 64 years : 1955 Gender: Female Ht: 54 in Wt: 86 lbs BSA: 1.22 m2 HR: 95 bpm BP: 130 / 82 mmHg Technical Quality: Good Exam Date: 12/20/2019 10:41 AM Exam Location: [facility] Patient Status: Inpatient Admit Date: 12/19/2019 Staff Ordering Physician: Marisela Phoenix PA-C Inspector Toys: George Newell RDCS, RT Attending Provider: Marisela Phoenix PA-C Referring Physician: Alban RENAE; Exam Type: CA echo doppler color flow Study Info Indications R06.00 - Dyspnea, unspecified Complete two-dimensional, color flow and Doppler transthoracic echocardiogram is performed. Summary 1. Left ventricular chamber dimension is normal. 2. Basal to mid anteroseptum and basal to mid septum are hypokinetic. 3. Left ventricular systolic function is normal, estimated at 55-60%. 4. The left ventricular diastolic function is grade I diastolic dysfunction. 5. E/e' 8 is minimally elevated. 6. There is mild aortic valve sclerosis. 7. The mitral valve has mildly calcified annulus. 8. There is moderate tricuspid valve regurgitation. 9. Moderate pulmonary hypertension, estimated pulmonary arterial systolic pressure is 50 mmHg. Left Ventricle Basal to mid anteroseptum and basal to mid septum are hypokinetic. E/e' 8 is minimally elevated. Left ventricular chamber dimension is normal. Left ventricular systolic function is normal, estimated at 55-60%. The left ventricular diastolic function is grade I diastolic dysfunction. Right Ventricle Right ventricular chamber dimension is normal. Right ventricular systolic function is normal. Left Atria Left atrial chamber dimension is normal. Right Atria Right atrial chamber dimension is normal. Aortic Valve The aortic valve is trileaflet. There is mild aortic valve sclerosis. There is no aortic valve stenosis. There is no aortic valve regurgitation. Pulmonic Valve There is no pulmonic regurgitation. Mitral Valve The mitral valve has mildly calcified annulus. There is no mitral valve stenosis. There is no mitral valve regurgitation. Tricuspid Valve There is moderate tricuspid valve regurgitation. Moderate pulmonary hypertension, estimated pulmonary arterial systolic pressure is 50 mmHg. Pericardium/Pleural There is no pericardial effusion. Inferior Vena Cava Normal inferior vena cava with >50% collapse upon inspiration consistent with normal right atrial pressure, 5 mmHg. Aorta The aortic root size at the sinus of Valsalva is normal. Left Ventricular Outflow Tract Name Value Normal LVOT 2D LVOT Diameter 1.9 cm LVOT Doppler LVOT Peak Gradient 3 mmHg LVOT Mean Gradient 1 mmHg LVOT VTI 13 cm LVOT VTI/AV VTI Ratio 0.5 LVOT Stroke Volume 34 ml LVOT CO 3.5 l/min LVOT CI 2.8 l/min/m2 Pulmonic Valve Name
[2019-12-20] MEDS: TRAZODONE HCL 50 MG TABLET PO ×2 (00:05→20:06)
--- NOTE | 2019-12-20 02:25 | PCRCNOTE ---
Window of time for administration has passed. See next scheduled administration.
[2019-12-20 06:18] LABS: Basophils Absolute Auto 0.1 K/mm3 (0.0-0.1); Basophils Percent Auto 0.8 % (0.2-1.2); Eosinophils Absolute Auto 0.1 K/mm3 (0-0.3); Eosinophils Percent Auto 1.7 % (0-4.4); Hematocrit 25.3 % (37.0-47.0); Hemoglobin 7.6 g/dL (12.0-15.0); Immature Granulocyte Absolute 0.03 K/mm3 (0.00-0.031); Immature Granulocyte Percent A 0.4 % (0-0.5); Lymphocytes Absolute Auto 1.37 K/mm3 (0.9-3.2); Lymphocytes Percent Auto 16.5 % (18.3-44.2); Mean Corpuscular Hemoglobin 26.9 pg (26-34); Mean Corpuscular Volume 89.4 fl (80-100); Mean Platelet Volume 9.7 fl (7.4-10.4); Monocytes Percent Auto 12.2 % (2.6-8.5); Neutrophils Absolute Auto 5.7 K/mm3 (1.3-6.7); Neutrophils Percent Auto 68.4 % (45.5-73.1); Platelet Count Result 308 k/mm3 (150-375); Red Blood Count 2.83 M/mm3 (4.2-5.4); Red Cell Distribution Width 15.9 % (11.5-14.5); White Blood Count 8.3 K/mm3 (4.5-10.0)
[2019-12-20 06:28] LABS: Alanine Aminotransferase 7 U/L (4-35); Albumin Level 2.3 g/dL (3.5-5.1); Alkaline Phosphatase 126 U/L (38-126); Aspartate Amino Transferase 13 U/L (14-36); Bilirubin,Total 0.4 mg/dL (0.2-1.3); Blood Urea Nitrogen 14 mg/dL (7-17); Calcium 9.7 mg/dL (8.4-10.2); Carbon Dioxide 28 mmol/L (22-30); Chloride 103 mmol/L (98-107); Estimated Glomerular Filt Rate 15; Glucose 74 mg/dL (65-105); Potassium 3.1 mmol/L (3.4-5.0); Sodium 133 mmol/L (137-145)
[2019-12-20] MEDS: TRAMADOL HCL 50 MG TABLET PO ×2 (06:31→15:05)
[2019-12-20] MEDS: APIXABAN 5 MG TABLET PO ×2 (08:15→20:06)
[2019-12-20] MEDS: DOCUSATE SODIUM 100 MG CAPSULE PO (08:15)
[2019-12-20] MEDS: METOPROLOL SUCCINATE EXT REL 25 MG TABCR PO (08:16)
[2019-12-20] MEDS: TOLNAFTATE 1% POWDER 45 GM BTL 1 APPLIC TOPICAL ×2 (08:17→20:08)
[2019-12-20] MEDS: IPRATROPIUM BR 0.02% INH SOLN 0.5 MG/2.5 ML VIAL INHALATION ×2 (09:31→19:10)
[2019-12-20] MEDS: ALBUTEROL SULFATE NEB 2.5 MG/0.5 ML INH 5 MG INHALATION ×2 (09:31→19:10)
--- NOTE | 2019-12-20 09:53 | PM.IMPN ---
Progress Note: A&P Assessment and Plan (1) Pneumonia: Qualifiers: Pneumonia type: due to Pneumococcus Laterality: bilateral Lung location: lower lobe of lung Qualified Code(s): J13 - Pneumonia due to Streptococcus pneumoniae Code(s): J18.9 - Pneumonia, unspecified organism Status: Chronic Assessment and Plan: -----the patient was sent back from the group home due to continuous cough. Her ABGs look okay as does her chest x-ray. She was re-swabed for flu which was negative. According to the admitter, she completed 10 days of IV ceftriaxone in 5 days of azithromycin as well as IV vancomycin last time she was here. On exam, the patient is not taking big breaths and refuses to do so during my exam and has shallow breathing without distress. She says that she mainly coughs when she takes big breaths. We went over atelectasis and the complications of it. I do not believe she has any active infection at this time and this cough may be due to atelectasis and her not being active. With that being said, I will get a CT of her chest to ensure no pathology at this time. She does have some crackles so I will draw a BNP and do an echo since this is an ongoing issue. Vancomycin was continued from the ER but the Zosyn was not. At this time I am going to wait until the chest CT comes back and then I will just antibiotics from there. She has been afebrile. (2) Anemia: Qualifiers: Anemia type: unspecified type Qualified Code(s): D64.9 - Anemia, unspecified Code(s): D64.9 - Anemia, unspecified Status: Chronic Assessment and Plan: ------The patient has chronic anemia is likely multifactorial. She has denied any blood loss tonight and hgb appears stable. Monitor H&H. Transfuse p.r.n. (3) COPD (chronic obstructive pulmonary disease): Qualifiers: COPD type: unspecified COPD Qualified Code(s): J44.9 - Chronic obstructive pulmonary disease, unspecified Code(s): J44.9 - Chronic obstructive pulmonary disease, unspecified Status: Chronic Assessment and Plan: -----Continue bronchodilators and respiratory therapy as delineated above. 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 (5) Chronic kidney disease: Qualifiers: Chronic kidney disease stage: on chronic dialysis Qualified Code(s): N18.6 - End stage renal disease; Z99.2 - Dependence on renal dialysis Code(s): N18.9 - Chronic kidney disease, unspecified Status: Chronic Assessment and Plan: -----Nephrology, Dr. Menjivar has been consulted by ER provider. Continue nephrology recommendations for dialysis. Her schedule is Tuesday, , and tuesday. Awaiting orders Dr. Menjivar. Potassium cancelled for today and was not given. (6) Hypertension: Qualifiers: Hypertension type: essential hypertension Qualified Code(s): I10 - Essential (primary) hypertension Code(s): I10 - Essential (primary) hypertension Status: Chronic Assessment and Plan: ----Last bp 130/82. Stable. Continue metoprolol. Monitor blood pressure. (7) Weakness: Code(s): R53.1 - Weakness Status: Chronic Assessment and Plan: -----Likely secondary to debility as well as recent pneumonia and hospitalization. She also does not appear to be motiviated. Will await to see how she progresses over time. (8) Malnutrition due to starvation: Code(s): E46 - Unspecified protein-calorie malnutrition Status: Chronic Assessment and Plan: ----Underweight. Has some epigastric pain so I will start pantoprazole. Encourage oral nutrition.May want to try
--- NOTE | 2019-12-20 10:31 | PCOTNOTE ---
patient refusing OT evaluation this AM stating she is in too much pain and doesn't feel like it. Pt refusing despite encouragement from therapist. Will attempt OT evaluation at later time.
--- NOTE | 2019-12-20 11:05 | PCPTNOTE ---
Attempted PT eval this AM. Pt stating she's in too much pain to participate. Will try again this afternoon.
[2019-12-20] MEDS: PANTOPRAZOLE 40 MG TABLET PO (11:15)
[2019-12-20 11:44] LABS: Lipase 94 U/L (23-300)
[2019-12-20 11:54] LABS: NT Pro B Type Natriuretic Pept 10200 PG/ML (5-100)
--- NOTE | 2019-12-20 12:48 | PM.CNNEP ---
Assessment and Plan Assessment and plan (1) Acute kidney injury: Code(s): N17.9 - Acute kidney failure, unspecified Status: Acute Assessment and Plan: The patient has acute kidney injury. This is on top of the below mentioned chronic kidney disease. She has acute tubular necrosis by biopsy but has not opened up yet. (2) Chronic kidney disease: Qualifiers: Chronic kidney disease stage: on chronic dialysis Qualified Code(s): N18.6 - End stage renal disease; Z99.2 - Dependence on renal dialysis Code(s): N18.9 - Chronic kidney disease, unspecified Status: Chronic Assessment and Plan: The patient has chronic kidney disease. This is probably due to hypertension. (3) HAP (hospital-acquired pneumonia): Code(s): J18.9 - Pneumonia, unspecified organism; Y95 - Nosocomial condition Status: Acute Assessment and Plan: The patient has been diagnosed with pneumonia. She is on antibiotics. She is getting supportive care. (4) COPD (chronic obstructive pulmonary disease): Qualifiers: COPD type: unspecified COPD Qualified Code(s): J44.9 - Chronic obstructive pulmonary disease, unspecified Code(s): J44.9 - Chronic obstructive pulmonary disease, unspecified Status: Chronic Assessment and Plan: The patient used to smoke. She is getting inhalers. (5) Anemia: Qualifiers: Anemia type: unspecified type Qualified Code(s): D64.9 - Anemia, unspecified Code(s): D64.9 - Anemia, unspecified Status: Chronic Assessment and Plan: She will get EPO with dialysis. We cannot give her iron because of her infection History of Present Illness Reason for Consult Consult date: 12/20/19 Chief Complaint Chief complaint: Ongoing respiratory infection History of Present Illness Narrative: Julianne Crowe is a very pleasant 64-year-old lady who has multiple medical problems including chronic kidney disease on dialysis, hypertension, COPD, vitamin-D deficiency, hypertension, depression, chronic pain DVT and hyperlipidemia. His chronic kidney disease stage 3. She had acute kidney injury on top of that and is now on dialysis. It is unclear whether she will recover. 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 She came in with a cough. She has had the cough for couple of weeks. She does not cough anything up. She does have some nasal stuffiness and runny nose. She does not have itching eyes or nose. She has no fevers. She has no skin rash. She does not cough up blood. She does not blow blood out of her nose. No chest pain. She also has back pain which has been playing her for a long time. She takes tramadol for this. Review of Systems Constitutional: Constitutional: Reports no additional constitutional complaints Eyes: Eyes: Reports no additional eye complaints ENT: Reports system reviewed and no additional complaints, except as documented Cardiovascular: Cardiovascular: Reports no additional cardiovascular complaints Respiratory: Respiratory: Reports no additional respiratory complaints Gastrointestinal: Gastrointestinal: Reports no additional gastrointestinal complaints Genitourinary: Genitourinary: Reports no additional female genitourinary complaints Musculoskeletal: Musculoskeletal: Reports no additional musculoskeletal complaints Integumentary/Breasts: Skin/Breast: Reports system reviewed and no additional complaints, except as docu Neurologic: Reports system reviewed and no additional complaints, except as documented Psychiatric: Psychiatric: Reports no additional psychiatric complaints PMFSH Past Medical History Medical History YOKASTA (acute kidney injury) Chronic kidney disease, stage 3 Baseline creatinine is between 1.00 and 1.20. Colon polyps COPD (chronic obstructive pulmonary disease) DVT (deep venous thrombosis
[2019-12-20] MEDS: ONDANSETRON INJ 4 MG/2 ML VIAL IV PUSH (14:13)
--- NOTE | 2019-12-20 14:20 | PC.NURSE ---
Patient to dialysis per bed.
[2019-12-20] MEDS: EPOETIN ALFA 10,000 UNITS/ML VIAL 10000 UNITS IV PUSH (15:59)
--- NOTE | 2019-12-20 17:35 | PM.EVENT ---
Event Note Event Note Event Note: On HD dane it well. bp in the low 100s and removing only a liter of flud. pt feels okay seen at 5:15pm
--- NOTE | 2019-12-20 18:04 | PC.NURSE ---
Patient return from dialysis per bed.
--- NOTE | 2019-12-20 18:21 | PC.NURSE ---
Patients 1400 Zosyn administered late at 1800 due to patient being in dialysis. SONIA Campuzano aware.
[2019-12-20 19:30] LABS: Vancomycin Trough 11.3 ug/mL (10.0-20.0)
--- NOTE | 2019-12-21 01:44 | PCRCNOTE ---
Pt refused tx. Did not want to be woke up.
[2019-12-21 06:00] VITALS: BP 138/81; PULSE 102; RESP 18; TEMP 36.6; O2SAT 90
[2019-12-21 08:13] VITALS: PULSE 98
[2019-12-21] MEDS: PANTOPRAZOLE 40 MG TABLET PO (08:13)
[2019-12-21] MEDS: METOPROLOL SUCCINATE EXT REL 25 MG TABCR PO (08:13)
[2019-12-21] MEDS: DOCUSATE SODIUM 100 MG CAPSULE PO (08:14)
[2019-12-21] MEDS: TOLNAFTATE 1% POWDER 45 GM BTL 1 APPLIC TOPICAL ×2 (08:14→20:05)
[2019-12-21] MEDS: APIXABAN 5 MG TABLET PO ×2 (08:14→20:04)
[2019-12-21 08:45] LABS: Albumin Level 2.5 g/dL (3.5-5.1); Blood Urea Nitrogen 4 mg/dL (7-17); Carbon Dioxide 32 mmol/L (22-30); Chloride 99 mmol/L (98-107); Estimated Glomerular Filt Rate 27; Glucose 84 mg/dL (65-105); Magnesium 1.7 mg/dL (1.6-2.3); Phosphorus 2.8 mg/dL (2.5-4.5); Sodium 133 mmol/L (137-145)
[2019-12-21 08:50] LABS: Hematocrit 27.1 % (37.0-47.0); Hemoglobin 8.1 g/dL (12.0-15.0); Mean Corpuscular HGB Conc 29.9 g/dl (32-36); Mean Corpuscular Volume 90.3 fl (80-100); Mean Platelet Volume 9.8 fl (7.4-10.4); Platelet Count Result 343 k/mm3 (150-375); Red Cell Distribution Width 16.2 % (11.5-14.5); White Blood Count 13.3 K/mm3 (4.5-10.0)
--- NOTE | 2019-12-21 10:05 | PCOTNOTE ---
Attempted to see patient this am, however patient declined stating, I don't feel well. I don't feel like doing nothing. Pt reported feeling nauseated at this time.
--- NOTE | 2019-12-21 10:28 | PM.IMPN ---
Progress Note: A&P Assessment and Plan (1) Pneumonia: Qualifiers: Pneumonia type: due to Pneumococcus Laterality: bilateral Lung location: lower lobe of lung Qualified Code(s): J13 - Pneumonia due to Streptococcus pneumoniae Code(s): J18.9 - Pneumonia, unspecified organism Status: Chronic Assessment and Plan: -----patient CT shows pneumonia with lymphadenopathy and severe emphysema. Will continue with Zosyn and vancomycin at this time since she was just given ceftriaxone and azithromycin in her prior hospitalization. I talked to her about the importance of an incentive spirometer and physical therapy and agrees to do both of them today. Continue breathing treatments and Mucinex. (2) Anemia: Qualifiers: Anemia type: unspecified type Qualified Code(s): D64.9 - Anemia, unspecified Code(s): D64.9 - Anemia, unspecified Status: Chronic Assessment and Plan: ------The patient has chronic anemia is likely multifactorial. She has denied any blood loss tonight and hgb appears stable. Monitor H&H. Transfuse p.r.n. (3) COPD (chronic obstructive pulmonary disease): Qualifiers: COPD type: unspecified COPD Qualified Code(s): J44.9 - Chronic obstructive pulmonary disease, unspecified Code(s): J44.9 - Chronic obstructive pulmonary disease, unspecified Status: Chronic Assessment and Plan: -----Continue bronchodilators and respiratory therapy as delineated above. 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 (5) Chronic kidney disease: Qualifiers: Chronic kidney disease stage: on chronic dialysis Qualified Code(s): N18.6 - End stage renal disease; Z99.2 - Dependence on renal dialysis Code(s): N18.9 - Chronic kidney disease, unspecified Status: Chronic Assessment and Plan: -----Nephrology, Dr. Menjivar has been consulted by ER provider. Continue nephrology recommendations for dialysis. Her schedule is Tuesday, , and tuesday. (6) Hypertension: Qualifiers: Hypertension type: essential hypertension Qualified Code(s): I10 - Essential (primary) hypertension Code(s): I10 - Essential (primary) hypertension Status: Chronic Assessment and Plan: ----Last bp 138/81. Stable. Continue metoprolol. Monitor blood pressure. (7) Weakness: Code(s): R53.1 - Weakness Status: Chronic Assessment and Plan: -----Likely secondary to debility as well as recent pneumonia and hospitalization. She also does not appear to be motiviated. Will await to see how she progresses over time. (8) Malnutrition due to starvation: Code(s): E46 - Unspecified protein-calorie malnutrition Status: Chronic Assessment and Plan: ----Underweight. Has some epigastric pain and pantoprazole started. (9) ATN (acute tubular necrosis): Code(s): N17.0 - Acute kidney failure with tubular necrosis Status: Acute Assessment and Plan: -----diagnosed 12/04/19 and is improving. spoke with Dr. Menjivar about this. Plan to do a 24 hour urine. Additional Plan Date of service was December 19, 2019 at approximately 7:00 p.m. Subjective Date/time seen: 12/21/19 10:28 Interval history: Pt is a 64-year-old female here for ongoing cough. Patient was seen today with bedside. Patient states that she is feeling better today but still has a cough and shortness of breath. She denies fevers, chills, chest pain, abdominal pain, nausea or vomiting. She is eating her breakfast without issue. She says that she has been underweight for a long time and she has not lost w
--- NOTE | 2019-12-21 10:34 | PM.PNNEP ---
Progress Note: A&P Assessment and Plan (1) Acute kidney injury: Code(s): N17.9 - Acute kidney failure, unspecified Status: Acute Assessment and Plan: The patient has acute kidney injury. This is on top of the below mentioned chronic kidney disease. She has acute tubular necrosis by biopsy but has not opened up yet. Her urine output is Not recorded. She says she does make some urine. Her creatinine is very good today at only 1.9. This is after dialysis but even her predialysis creatinine yesterday was only 3 which is much better than it had been around 5 or 6. So I think her kidneys might be opening up a little. The only question is whether they are opening up enough to get off dialysis. I will check another creatinine tomorrow and also check a 24hour urine today and see where we are. We can possibly hold dialysis tomorrow and recheck labs again Tuesday and Tuesday to determine whether she still needs dialysis. Long discussion with the patient [employer] [place]. More than 23 minutes were spent with discussions apart from clinical activity. (2) Chronic kidney disease: Qualifiers: Chronic kidney disease stage: on chronic dialysis Qualified Code(s): N18.6 - End stage renal disease; Z99.2 - Dependence on renal dialysis Code(s): N18.9 - Chronic kidney disease, unspecified Status: Chronic Assessment and Plan: The patient has chronic kidney disease. This is probably due to hypertension. (3) HAP (hospital-acquired pneumonia): Code(s): J18.9 - Pneumonia, unspecified organism; Y95 - Nosocomial condition Status: Acute Assessment and Plan: The patient has been diagnosed with pneumonia. She is on antibiotics. She is getting supportive care. (4) COPD (chronic obstructive pulmonary disease): Qualifiers: COPD type: unspecified COPD Qualified Code(s): J44.9 - Chronic obstructive pulmonary disease, unspecified Code(s): J44.9 - Chronic obstructive pulmonary disease, unspecified Status: Chronic Assessment and Plan: The patient used to smoke. She is getting inhalers. (5) Anemia: Qualifiers: Anemia type: unspecified type Qualified Code(s): D64.9 - Anemia, unspecified Code(s): D64.9 - Anemia, unspecified Status: Chronic Assessment and Plan: She will get EPO with dialysis. We cannot give her iron because of her infection Hemoglobin is 8.1. Subjective Date/time seen: 12/21/19 10:34 Interval history: Patient is alert. Still has low back pain which radiates down both buttocks and upper thighs. She does not have much of an appetite but the food is terrible here. Her brought her some [employer] and she is eating better. She denies any shortness of breath or swelling Exam Narrative: Exam Narrative: Well developed well-nourished in no acute distress Lungs clear Heart regular without rub Abdomen bowel sounds positive soft nontender Extremities no edema Skin no rash Objective Data Vital Signs Vital Signs: Vital Signs - 24 hr 12/20/19 14:00 12/20/19 14:22 12/20/19 14:30 Temperature 36.8 C 36.3 C L Pulse Rate 74 89 89 Respiratory Rate 18 16 Blood Pressure 121/56 L 142/77 H 138/88 Pulse Oximetry 94 12/20/19 14:45 12/20/19 15:00 12/20/19 15:15 Temperature Pulse Rate 94 95 96 Respiratory Rate Blood Pressure 137/85 131/80 109/75 Pulse Oximetry 12/20/19 15:30 12/20/19 15:45 12/20/19 16:01 Temperature Pulse Rate 91 85 93 Respiratory Rate Blood Pressure 95/62 L 93/61 L 96/64 L Pulse Oximetry 12/20/19 16:15 12/20/19 16:31 12/20/19 16:45 Temperature Pulse Rate 95 88 90 Respiratory Rate Blood Pressure 109/65 114/72 115/66 Pulse Oximetry 12/20/19 17:02 12/20/19 17:15 12/20/19 17:30 Temperature Pulse Rate 90 87 90 Respiratory Rate Blood Pressure 103/63 98/66 L 86/56 L Pulse Oximetry 12/20/19 17:46 12/20/19 18:09 12/20/19
[2019-12-21 13:30] VITALS: BP 136/75; PULSE 84; RESP 18; TEMP 36.7; O2SAT 97
[2019-12-21 19:23] VITALS: PULSE 82; RESP 16
[2019-12-21] MEDS: ALBUTEROL SULFATE NEB 2.5 MG/0.5 ML INH 5 MG INHALATION (19:23)
[2019-12-21] MEDS: IPRATROPIUM BR 0.02% INH SOLN 0.5 MG/2.5 ML VIAL INHALATION (19:23)
[2019-12-21 19:35] VITALS: PULSE 88; RESP 16
[2019-12-21] MEDS: TRAZODONE HCL 50 MG TABLET PO (20:04)
[2019-12-21 21:32] VITALS: BP 119/68; PULSE 60; RESP 16; TEMP 36.6; O2SAT 95
[2019-12-22] VITALS (14 sets, daily range): BP systolic 115–135; BP diastolic 65–74; PULSE 77–100; RESP 16–18; TEMP 36.4–37.2; O2SAT 92–96
[2019-12-22] MEDS: IPRATROPIUM BR 0.02% INH SOLN 0.5 MG/2.5 ML VIAL INHALATION ×4 (01:19→18:59)
[2019-12-22] MEDS: ALBUTEROL SULFATE NEB 2.5 MG/0.5 ML INH 5 MG INHALATION ×4 (01:19→18:58)
[2019-12-22 06:25] LABS: Basophils Absolute Auto 0.1 K/mm3 (0.0-0.1); Basophils Percent Auto 0.9 % (0.2-1.2); Eosinophils Absolute Auto 0.1 K/mm3 (0-0.3); Eosinophils Percent Auto 1.1 % (0-4.4); Hematocrit 25.8 % (37.0-47.0); Hemoglobin 7.6 g/dL (12.0-15.0); Immature Granulocyte Absolute 0.05 K/mm3 (0.00-0.031); Immature Granulocyte Percent A 0.5 % (0-0.5); Lymphocytes Absolute Auto 1.66 K/mm3 (0.9-3.2); Lymphocytes Percent Auto 16.9 % (18.3-44.2); Mean Corpuscular HGB Conc 29.5 g/dl (32-36); Mean Corpuscular Hemoglobin 26.6 pg (26-34); Mean Corpuscular Volume 90.2 fl (80-100); Mean Platelet Volume 9.8 fl (7.4-10.4); Monocytes Absolute Auto 1.2 K/mm3 (0.1-0.6); Monocytes Percent Auto 12.3 % (2.6-8.5); Neutrophils Absolute Auto 6.7 K/mm3 (1.3-6.7); Neutrophils Percent Auto 68.3 % (45.5-73.1); Platelet Count Result 305 k/mm3 (150-375); Red Blood Count 2.86 M/mm3 (4.2-5.4); White Blood Count 9.8 K/mm3 (4.5-10.0)
[2019-12-22 06:58] LABS: Albumin Level 2.3 g/dL (3.5-5.1); Blood Urea Nitrogen 11 mg/dL (7-17); Calcium 9.4 mg/dL (8.4-10.2); Carbon Dioxide 32 mmol/L (22-30); Chloride 100 mmol/L (98-107); Estimated Glomerular Filt Rate 16; Glucose 73 mg/dL (65-105); Phosphorus 4.5 mg/dL (2.5-4.5); Potassium 3.4 mmol/L (3.4-5.0); Sodium 135 mmol/L (137-145)
[2019-12-22] MEDS: APIXABAN 5 MG TABLET PO ×2 (08:05→20:19)
[2019-12-22] MEDS: PANTOPRAZOLE 40 MG TABLET PO (08:07)
[2019-12-22] MEDS: DOCUSATE SODIUM 100 MG CAPSULE PO (08:08)
[2019-12-22] MEDS: METOPROLOL SUCCINATE EXT REL 25 MG TABCR PO (08:09)
[2019-12-22] MEDS: TOLNAFTATE 1% POWDER 45 GM BTL 1 APPLIC TOPICAL ×2 (08:10→20:20)
[2019-12-22 10:01] LABS: Hepatitis B Surface Antigen Negative (Negative)
[2019-12-22] MEDS: TRAMADOL HCL 50 MG TABLET PO (10:11)
[2019-12-22 10:13] LABS: Procalcitonin 74.33 ng/mL (<0.10)
--- NOTE | 2019-12-22 10:13 | PM.IMPN ---
Progress Note: A&P Assessment and Plan (1) Pneumonia: Qualifiers: Pneumonia type: due to Pneumococcus Laterality: bilateral Lung location: lower lobe of lung Qualified Code(s): J13 - Pneumonia due to Streptococcus pneumoniae Code(s): J18.9 - Pneumonia, unspecified organism Status: Chronic Assessment and Plan: -----patient CT shows pneumonia with lymphadenopathy and severe emphysema. Will continue with Zosyn and vancomycin at this time since she was just given ceftriaxone and azithromycin in her prior hospitalization. I talked to her about the importance of an incentive spirometer again today and physical therapy and agrees to do both of them today. Continue breathing treatments and Mucinex. Since she is now coughing up sputum I will add a sputum culture. Pulmonology has been consulted since the patient has repeated pneumonia. Will add Pulmozyme to help break up secretions. (2) Anemia: Qualifiers: Anemia type: unspecified type Qualified Code(s): D64.9 - Anemia, unspecified Code(s): D64.9 - Anemia, unspecified Status: Chronic Assessment and Plan: ------The patient has chronic anemia is likely multifactorial. She has denied any blood loss tonight and hgb appears stable. Monitor H&H. Transfuse p.r.n. (3) COPD (chronic obstructive pulmonary disease): Qualifiers: COPD type: unspecified COPD Qualified Code(s): J44.9 - Chronic obstructive pulmonary disease, unspecified Code(s): J44.9 - Chronic obstructive pulmonary disease, unspecified Status: Chronic Assessment and Plan: -----Continue bronchodilators and respiratory therapy as delineated above. 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 (5) Chronic kidney disease: Qualifiers: Chronic kidney disease stage: on chronic dialysis Qualified Code(s): N18.6 - End stage renal disease; Z99.2 - Dependence on renal dialysis Code(s): N18.9 - Chronic kidney disease, unspecified Status: Chronic Assessment and Plan: -----Nephrology, Dr. Menjivar has been consulted by ER provider. Continue nephrology recommendations for dialysis. Her schedule is Tuesday, , and tuesday. (6) Hypertension: Qualifiers: Hypertension type: essential hypertension Qualified Code(s): I10 - Essential (primary) hypertension Code(s): I10 - Essential (primary) hypertension Status: Chronic Assessment and Plan: ----Last bp 127/74 Stable. Continue metoprolol. Monitor blood pressure. (7) Weakness: Code(s): R53.1 - Weakness Status: Chronic Assessment and Plan: -----Likely secondary to debility as well as recent pneumonia and hospitalization. She also does not appear to be motiviated. Will await to see how she progresses over time. (8) Malnutrition due to starvation: Code(s): E46 - Unspecified protein-calorie malnutrition Status: Chronic Assessment and Plan: ----Underweight. She had some epigastric pain and pantoprazole started. Pre-albumin ordered (9) ATN (acute tubular necrosis): Code(s): N17.0 - Acute kidney failure with tubular necrosis Status: Acute Assessment and Plan: -----diagnosed 12/04/19 and is improving. spoke with Dr. Menjivar about this. 24 hour urine underway Subjective Date/time seen: 12/22/19 10:13 Interval history: Pt is a 64-year-old female here for pneumonia. Patient was seen today and states she is feeling better again today when compared to yesterday. She says she is still very weak. She is not using her incentive spirometer that much and we talked abo
--- NOTE | 2019-12-22 10:14 | PM.PNNEP ---
Progress Note: A&P Assessment and Plan (1) Acute kidney injury: Code(s): N17.9 - Acute kidney failure, unspecified Status: Acute Assessment and Plan: The patient has acute kidney injury. This is on top of the below mentioned chronic kidney disease. She has acute tubular necrosis by biopsy but has not opened up yet. Her urine output is Not recorded. She says she does make some urine. Creatinine kimmie from 1.9-2.9. Volume status looks okay. Will wait on dialysis today and check labs tomorrow on Tuesday. (2) Chronic kidney disease: Qualifiers: Chronic kidney disease stage: on chronic dialysis Qualified Code(s): N18.6 - End stage renal disease; Z99.2 - Dependence on renal dialysis Code(s): N18.9 - Chronic kidney disease, unspecified Status: Chronic Assessment and Plan: The patient has chronic kidney disease. This is probably due to hypertension. (3) HAP (hospital-acquired pneumonia): Code(s): J18.9 - Pneumonia, unspecified organism; Y95 - Nosocomial condition Status: Acute Assessment and Plan: The patient has been diagnosed with pneumonia. On Zosyn. (4) COPD (chronic obstructive pulmonary disease): Qualifiers: COPD type: unspecified COPD Qualified Code(s): J44.9 - Chronic obstructive pulmonary disease, unspecified Code(s): J44.9 - Chronic obstructive pulmonary disease, unspecified Status: Chronic Assessment and Plan: The patient used to smoke. She is getting inhalers and supportive care. (5) Anemia: Qualifiers: Anemia type: unspecified type Qualified Code(s): D64.9 - Anemia, unspecified Code(s): D64.9 - Anemia, unspecified Status: Chronic Assessment and Plan: She will get EPO with dialysis. We cannot give her iron because of her infection Hemoglobin is up and down in the 7s and 8s. Subjective Date/time seen: 12/22/19 10:14 Interval history: Patient is alert. She has a little bit of a cough with this is better. Still has low back pain. Eating just okay. She does better when her brings the food in. She is drinking about to L of water per day. Exam Narrative: Exam Narrative: Well developed well-nourished in no acute distress Lungs clear bilaterally Heart regular without rub Abdomen bowel sounds positive soft nontender Extremities no edema Skin no rash or subcu nodules Objective Data Vital Signs Vital Signs: Vital Signs - 24 hr 12/21/19 13:30 12/21/19 19:23 12/21/19 19:35 Temperature 36.7 C Pulse Rate 84 82 88 Respiratory Rate 18 16 16 Blood Pressure 136/75 Pulse Oximetry 97 12/21/19 21:32 12/22/19 01:19 12/22/19 01:30 Temperature 36.6 C Pulse Rate 60 77 87 Respiratory Rate 16 16 18 Blood Pressure 119/68 Pulse Oximetry 95 12/22/19 02:13 12/22/19 06:00 12/22/19 08:09 Temperature 37.2 C Pulse Rate 88 83 100 Respiratory Rate 18 17 Blood Pressure 127/74 Pulse Oximetry 94 96 12/22/19 08:15 12/22/19 08:26 Temperature Pulse Rate 90 90 Respiratory Rate 18 18 Blood Pressure Pulse Oximetry 92 Intake/Output Intake/Output: Intake & Output 12/19/19 12/20/19 12/21/19 12/22/19 23:59 23:59 23:59 23:59 Intake Total 225 900 990 300 Output Total 150 700 300 300 Balance 75 200 690 0 Meds/Results Medications: Active Medications Generic Name Dose Route Start Last Admin Trade Name Freq PRN Reason Stop Dose Admin Hydrocodone Bitart/Acetaminophen 1 tab 12/20/19 13:39 12/22/19 06:23 [place] 5-325 Mg PO 1 tab Q6H PRN Administration Pain Rated 7-10 Albuterol 5 mg 12/19/19 20:00 12/22/19 08:13 Albuterol Sulf Neb 2.5mg/0.5ml INHALATION 5 mg Q6HRT SHU Administration Apixaban 5 mg 12/20/19 09:00 12/22/19 08:05 Eliquis PO 5 mg Q12HR SHU Administration Artificial Tears 1 drop 12/21/19 16:15 12/21/19 17:01 Artificial Tears EACH EYE 1 drop QID PRN Adminis
[2019-12-22 10:18] LABS: Hepatitis B Surface Anti Res Negative
[2019-12-22 11:13] LABS: Creatinine Urine 18.7 mg/dL
[2019-12-22 11:24] LABS: Creatinine 24 Hour Urine 0.1 gm/24 (0.8-1.8); Total Volume 24 Hour Urine 900 ml
--- NOTE | 2019-12-22 15:48 | PM.CNPUL ---
Assessment and Plan Assessment and plan (1) Pneumonia: Qualifiers: Laterality: bilateral Lung location: lower lobe of lung Pneumonia type: due to Pneumococcus Qualified Code(s): J13 - Pneumonia due to Streptococcus pneumoniae Code(s): J18.9 - Pneumonia, unspecified organism Status: Chronic Assessment and Plan: Bilateral infiltrates noted since Nov 24, improving through December 08; CTA shows extensive chronic changes including a cavitary lesion in the JUNIOR, RUL infiltrate, however the CTA is not the same as a plain CXR, so apples to oranges. Clinically, does appear better since this admission. She did not recall that she was in a facility immediately before readmission. For now I concur with the antibiotics. She has a(+) Strep pneumococcus antibody, can take a while to convert to negative. (2) COPD (chronic obstructive pulmonary disease): Qualifiers: COPD type: unspecified COPD Qualified Code(s): J44.9 - Chronic obstructive pulmonary disease, unspecified Code(s): J44.9 - Chronic obstructive pulmonary disease, unspecified Status: Chronic Assessment and Plan: End stage emphysema on CTA; she is not on meds at home, denies using medications except while she is on the hospital. Procalcitonin is high 74. She has (+) pneumococcal antigen last admission, can take weeks for the CXR to improve. Gives a history of having abnormal areas in the apex of her lungs for 30 years, yet no documentation that we can review. She has no recall of where she had her prior chest imaging. This is something that can be followed as she recovers to determine how much of her condition is acute vs chronic. (3) Tobacco dependence: Code(s): F17.200 - Nicotine dependence, unspecified, uncomplicated Status: Acute Assessment and Plan: Still smoking 8 cigaerettes per day at admission, mostly 1 ppd x years. History of Present Illness History of Present Illness Consult date: 12/25/19 Requesting physician: Marisela Phoenix PA-C Reason for consult: other (recurrent pneumonia) Chief complaint: HAP, Weakness Narrative: Thank you for the consult. See below. This patient is a poor historian due to memory impairment; EMR was reviewed and patient was interviewed. Images were reviewed from Nov 29 through 12/17 CTA. This 64 yo female has severe COPD, a chronic JUNIOR cavitary lesion, ongoing smoking; CKD on dialysis for several months, HTN, chronic back pain with injections from pain management Nov 18 - Influenza A at outside facility, Tamiflu x 5 days. Nov 23 - [facility] ER; admitted with chest pain, feeling worse after completing [place]; poor intake; had Klebsiella UTI, (+) Strep urine antigen and bilateral infiltrates on CXR consistent with pneumococcal pneumonia; Rx azithromycin and ceftriaxone; (+) R fem DVT. Acute on chronic kidney disease with BUN / creat 61 / 7.2. * Nov 24- - kidneys worse, encephalopathy; Nov 29 RIJ Edwin placed, poor flow, could not get HD treatment for BUN 61/creat 9; * Nov 30 - HD treatment * Dec 03 -Left tunneled HD catheter placed * Dec 04 - renal biopsy for hematuria, proteinuria, ARF after antibiotics and Tamiflu; medical kidney disease, all serologies negative * Discharged Dec 09 with improved CXR. She was discharged to a alf on oxygen and had a nebulizer. The patient told me that she was discharged home, was not on oxygen. She then said that she was not able to remember correctly. ER Dec 18 - poor intake, weakness; CXR is better compared to last admission. ABG Dec 18 7.42/41.5/pO2 189.9 on 3 L/min. She returned to the ER for headache, incessant cough occasionally productive of clear to yellow sputum, wheezing which is improve
[2019-12-22] MEDS: DORNASE ALFA INH SOLN 1 MG/ML 2.5 ML AMP 2.5 MG INHALATION (18:59)
[2019-12-22] MEDS: TRAZODONE HCL 50 MG TABLET PO (20:19)
[2019-12-23] VITALS (8 sets, daily range): BP systolic 124–132; BP diastolic 76–84; PULSE 76–91; RESP 14–20; TEMP 36.4–37; O2SAT 91–95
[2019-12-23] MEDS: IPRATROPIUM BR 0.02% INH SOLN 0.5 MG/2.5 ML VIAL INHALATION ×3 (00:44→19:59)
[2019-12-23] MEDS: ALBUTEROL SULFATE NEB 2.5 MG/0.5 ML INH 5 MG INHALATION ×3 (00:45→19:58)
[2019-12-23] MEDS: PANTOPRAZOLE 40 MG TABLET PO (08:59)
[2019-12-23] MEDS: METOPROLOL SUCCINATE EXT REL 25 MG TABCR PO (08:59)
[2019-12-23] MEDS: TOLNAFTATE 1% POWDER 45 GM BTL 1 APPLIC TOPICAL ×2 (09:00→20:50)
[2019-12-23] MEDS: APIXABAN 5 MG TABLET PO ×2 (09:00→20:50)
--- NOTE | 2019-12-23 10:15 | PM.PNNEP ---
Progress Note: A&P Assessment and Plan (1) Acute kidney injury: Code(s): N17.9 - Acute kidney failure, unspecified Status: Acute Assessment and Plan: The patient has acute kidney injury. This is on top of the below mentioned chronic kidney disease. She has acute tubular necrosis by biopsy no urine recorded because catheter was removed. I asked staff to weigh her diapers. (2) Chronic kidney disease: Qualifiers: Chronic kidney disease stage: on chronic dialysis Qualified Code(s): N18.6 - End stage renal disease; Z99.2 - Dependence on renal dialysis Code(s): N18.9 - Chronic kidney disease, unspecified Status: Chronic Assessment and Plan: The patient has chronic kidney disease. This is probably due to hypertension. (3) HAP (hospital-acquired pneumonia): Code(s): J18.9 - Pneumonia, unspecified organism; Y95 - Nosocomial condition Status: Acute Assessment and Plan: The patient has been diagnosed with pneumonia. On Zosyn. no fever and wbc okay last check. (4) COPD (chronic obstructive pulmonary disease): Qualifiers: COPD type: unspecified COPD Qualified Code(s): J44.9 - Chronic obstructive pulmonary disease, unspecified Code(s): J44.9 - Chronic obstructive pulmonary disease, unspecified Status: Chronic Assessment and Plan: The patient used to smoke. She is getting inhalers and supportive care. (5) Anemia: Qualifiers: Anemia type: unspecified type Qualified Code(s): D64.9 - Anemia, unspecified Code(s): D64.9 - Anemia, unspecified Status: Chronic Assessment and Plan: She will get EPO with dialysis. We cannot give her iron because of her infection Hemoglobin is up and down in the 7s and 8s. give epo SQ. Subjective Date/time seen: 12/23/19 10:15 Interval history: Patient is alert. she has a cough. some belly pain with the cough. drinking some. eating some. passive. Exam Narrative: Exam Narrative: Well developed well-nourished in no acute distress Lungs clear to ausc Heart regular without rub Abdomen bowel sounds positive soft nontender Extremities no edema Skin no rash Objective Data Vital Signs Vital Signs: Vital Signs - 24 hr 12/22/19 14:00 12/22/19 14:03 12/22/19 14:14 Temperature 37.2 C Pulse Rate 91 92 90 Respiratory Rate 18 18 18 Blood Pressure 115/65 Pulse Oximetry 95 12/22/19 18:59 12/22/19 19:10 12/22/19 19:14 Temperature Pulse Rate 88 93 93 Respiratory Rate 18 18 18 Blood Pressure Pulse Oximetry 93 12/22/19 21:23 12/23/19 05:35 12/23/19 08:59 Temperature 36.4 C 36.5 C Pulse Rate 86 76 76 Respiratory Rate 16 14 Blood Pressure 135/74 129/79 Pulse Oximetry 94 95 Intake/Output Intake/Output: Intake & Output 12/20/19 12/21/19 12/22/19 12/23/19 23:59 23:59 23:59 23:59 Intake Total 900 990 950 400 Output Total 700 300 375 Balance 200 690 575 400 Meds/Results Medications: Active Medications Generic Name Dose Route Start Last Admin Trade Name Freq PRN Reason Stop Dose Admin Hydrocodone Bitart/Acetaminophen 1 tab 12/20/19 13:39 12/22/19 20:18 [place] 5-325 Mg PO 1 tab Q6H PRN Administration Pain Rated 7-10 Albuterol 5 mg 12/19/19 20:00 12/23/19 09:40 Albuterol Sulf Neb 2.5mg/0.5ml INHALATION Not Given Q6HRT SHU Apixaban 5 mg 12/20/19 09:00 12/23/19 09:00 Eliquis PO 5 mg Q12HR SHU Administration Artificial Tears 1 drop 12/21/19 16:15 12/21/19 17:01 Artificial Tears EACH EYE 1 drop QID PRN Administration Dry Eye(s) Benzocaine 1 lozenge 12/22/19 16:58 Chloraseptic Lozenge PO PRN PRN Cough Budesonide/Formoterol Fumarate 2 puff 12/20/19 08:00 12/23/19 09:40 Symbicort 160-4.5 Mcg (*Sp) Inhaler INHALATION Not Given Q12HRT SHU Docusate Sodium 100 mg 12/20/19 09:00 12/22/19 08:08 Colace Capsule PO 10
[2019-12-23] MEDS: TRAMADOL HCL 50 MG TABLET PO (12:17)
--- NOTE | 2019-12-23 15:18 | PM.IMPN ---
Progress Note: A&P Assessment and Plan (1) Pneumonia: Qualifiers: Pneumonia type: due to Pneumococcus Laterality: bilateral Lung location: lower lobe of lung Qualified Code(s): J13 - Pneumonia due to Streptococcus pneumoniae Code(s): J18.9 - Pneumonia, unspecified organism Status: Chronic Assessment and Plan: -----patient CT shows pneumonia with lymphadenopathy and severe emphysema. Will continue with Zosyn and vancomycin at this time since she was just given ceftriaxone and azithromycin in her prior hospitalization. I talked to her about the importance of an incentive spirometer but she is resistent. I spoke with Dr. Arias bout the current plan. Continue breathing treatments, Pulmozyme and Mucinex. Sputum cx ordered. (2) Anemia: Qualifiers: Anemia type: unspecified type Qualified Code(s): D64.9 - Anemia, unspecified Code(s): D64.9 - Anemia, unspecified Status: Chronic Assessment and Plan: ------The patient has chronic anemia is likely multifactorial. She has denied any blood loss tonight and hgb appears stable. Monitor H&H. Transfuse p.r.n. (3) COPD (chronic obstructive pulmonary disease): Qualifiers: COPD type: unspecified COPD Qualified Code(s): J44.9 - Chronic obstructive pulmonary disease, unspecified Code(s): J44.9 - Chronic obstructive pulmonary disease, unspecified Status: Chronic Assessment and Plan: -----Continue bronchodilators and respiratory therapy as delineated above. 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 (5) Chronic kidney disease: Qualifiers: Chronic kidney disease stage: on chronic dialysis Qualified Code(s): N18.6 - End stage renal disease; Z99.2 - Dependence on renal dialysis Code(s): N18.9 - Chronic kidney disease, unspecified Status: Chronic Assessment and Plan: -----Nephrology, Dr. Menjivar has been consulted by ER provider. Continue nephrology recommendations for dialysis. Her schedule is Tuesday, , and tuesday. (6) Hypertension: Qualifiers: Hypertension type: essential hypertension Qualified Code(s): I10 - Essential (primary) hypertension Code(s): I10 - Essential (primary) hypertension Status: Chronic Assessment and Plan: ----Last bp 124/84 Stable. Continue metoprolol. Monitor blood pressure. (7) Weakness: Code(s): R53.1 - Weakness Status: Chronic Assessment and Plan: -----Likely secondary to debility as well as recent pneumonia and hospitalization. She also does not appear to be motiviated. Will await to see how she progresses over time. (8) Malnutrition due to starvation: Code(s): E46 - Unspecified protein-calorie malnutrition Status: Chronic Assessment and Plan: ----Underweight. She had some epigastric pain and pantoprazole started. Pre-albumin ordered. I wanted to start her on supplements but fear the protein will be too high. Will speak to nephrology about that. (9) ATN (acute tubular necrosis): Code(s): N17.0 - Acute kidney failure with tubular necrosis Status: Acute Assessment and Plan: -----diagnosed 12/04/19 and is improving. Additional Plan . Subjective Date/time seen: 12/23/19 15:18 Interval history: Pt is a 64-year-old female here for pneumonia. Patient was seen today and says her cough is better but her SOB is unchanged. She still cannot take a deep breath. She has done the IS 2 times today and says she just doesn't think she can do anymore than that . Nurse states she is not eating our food because she does not like our re
[2019-12-23] MEDS: DORNASE ALFA INH SOLN 1 MG/ML 2.5 ML AMP 2.5 MG INHALATION (20:01)
[2019-12-23] MEDS: TRAZODONE HCL 50 MG TABLET PO (20:50)
[2019-12-24] VITALS (9 sets, daily range): BP systolic 121–143; BP diastolic 74–82; PULSE 67–94; RESP 16–18; TEMP 36.3–36.9; O2SAT 91–95
[2019-12-24] MEDS: IPRATROPIUM BR 0.02% INH SOLN 0.5 MG/2.5 ML VIAL INHALATION ×2 (02:15→19:11)
[2019-12-24] MEDS: ALBUTEROL SULFATE NEB 2.5 MG/0.5 ML INH 5 MG INHALATION ×2 (02:15→19:11)
[2019-12-24 05:11] LABS: Hematocrit 25.4 % (37.0-47.0); Hemoglobin 7.5 g/dL (12.0-15.0); Mean Corpuscular HGB Conc 29.5 g/dl (32-36); Mean Corpuscular Hemoglobin 26.5 pg (26-34); Mean Corpuscular Volume 89.8 fl (80-100); Platelet Count Result 301 k/mm3 (150-375); Red Blood Count 2.83 M/mm3 (4.2-5.4); Red Cell Distribution Width 16.4 % (11.5-14.5); White Blood Count 8.9 K/mm3 (4.5-10.0)
[2019-12-24 05:22] LABS: Albumin Level 2.3 g/dL (3.5-5.1); Blood Urea Nitrogen 21 mg/dL (7-17); Calcium 9.8 mg/dL (8.4-10.2); Carbon Dioxide 30 mmol/L (22-30); Chloride 100 mmol/L (98-107); Estimated Glomerular Filt Rate 11; Glucose 79 mg/dL (65-105); Phosphorus 6.1 mg/dL (2.5-4.5); Potassium 3.5 mmol/L (3.4-5.0); Sodium 134 mmol/L (137-145)
[2019-12-24] MEDS: APIXABAN 5 MG TABLET PO ×2 (09:03→20:41)
[2019-12-24] MEDS: PANTOPRAZOLE 40 MG TABLET PO (09:04)
[2019-12-24] MEDS: METOPROLOL SUCCINATE EXT REL 25 MG TABCR PO (09:04)
[2019-12-24] MEDS: CALCIUM ACETATE 667 MG TABLET PO ×3 (09:04→17:14)
[2019-12-24] MEDS: TOLNAFTATE 1% POWDER 45 GM BTL 1 APPLIC TOPICAL ×2 (09:05→21:49)
--- NOTE | 2019-12-24 09:13 | PM.IMPN ---
Progress Note: A&P Assessment and Plan (1) Pneumonia: Qualifiers: Pneumonia type: due to Pneumococcus Laterality: bilateral Lung location: lower lobe of lung Qualified Code(s): J13 - Pneumonia due to Streptococcus pneumoniae Code(s): J18.9 - Pneumonia, unspecified organism Status: Chronic Assessment and Plan: -----patient CT shows pneumonia with lymphadenopathy and severe emphysema. Will continue with Zosyn and vancomycin at this time since she was just given ceftriaxone and azithromycin in her prior hospitalization. I talked to her about the importance of an incentive spirometer but she is resistent. Continue breathing treatments, Pulmozyme and Mucinex. Sputum cx ordered but her cough is mostly dry now. Covid- 19 seems less likely as she has no fevers or body aches. CT not consistent with Covid pattern. Will await further recommendations from pulmonology. May consider repeat CXR to assess for improvement or worsening. (2) Anemia: Qualifiers: Anemia type: unspecified type Qualified Code(s): D64.9 - Anemia, unspecified Code(s): D64.9 - Anemia, unspecified Status: Chronic Assessment and Plan: ------The patient has chronic anemia is likely multifactorial. She has denied any blood loss tonight and hgb appears stable. Monitor H&H. Transfuse p.r.n. (3) COPD (chronic obstructive pulmonary disease): Qualifiers: COPD type: unspecified COPD Qualified Code(s): J44.9 - Chronic obstructive pulmonary disease, unspecified Code(s): J44.9 - Chronic obstructive pulmonary disease, unspecified Status: Chronic Assessment and Plan: -----Continue bronchodilators and respiratory therapy as delineated above. 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 (5) Chronic kidney disease: Qualifiers: Chronic kidney disease stage: on chronic dialysis Qualified Code(s): N18.6 - End stage renal disease; Z99.2 - Dependence on renal dialysis Code(s): N18.9 - Chronic kidney disease, unspecified Status: Chronic Assessment and Plan: -----Nephrology, Dr. Menjivar has been consulted and seeing the patient. Her creatinine increased today. She is incontinent so her input and output is not reliable. They are starting to weigh her diapers but she has bowel movements in most of them so this may not be accurate either. Her phosphorus is high today so I will start PhosLo. The patient is not eating hospital food and her family is bringing her in food which is not consistent with her renal diet. Continue nephrology recommendations for dialysis. (6) Hypertension: Qualifiers: Hypertension type: essential hypertension Qualified Code(s): I10 - Essential (primary) hypertension Code(s): I10 - Essential (primary) hypertension Status: Chronic Assessment and Plan: ----Last bp 123/77 Stable. Continue metoprolol. Monitor blood pressure. (7) Weakness: Code(s): R53.1 - Weakness Status: Chronic Assessment and Plan: -----Likely secondary to debility as well as recent pneumonia and hospitalization. She also does not appear to be motiviated. She did not want to get out of bed for breakfast but I explained her that she needs to be out of bed at least 3 times a day. She now has erythema to her coccyx and if she develops a pressure ulcer, this will not heal very well since she is so immobile and malnourished. Wound has been consulted and we will will await their recommendations. (8) Malnutrition due to starvation: Code(s): E46 - Unspecified protein-calorie malnutrition Status: Chronic Ass
--- NOTE | 2019-12-24 11:00 | PC.NURSE ---
Patient now having frequent loose stools. Called Marisela SCOTT and notified her of same. Orders received and Imodium x 1 dose administered as ordered.
[2019-12-24] MEDS: LOPERAMIDE HCL 2 MG CAPSULE PO (11:34)
--- NOTE | 2019-12-24 17:03 | P.PNNP_ITS ---
Progress Note: A&P Assessment and Plan (1) Acute kidney injury: Code(s): N17.9 - Acute kidney failure, unspecified Status: Acute Assessment and Plan: * due to biopsy proven acute tubular necrosis * difficult to assess urine output at this time * however, creatinine rising since last dialysis treatment (HD held on Tuesday) * likely plan HD tomorrow and resume T/T/S schedule given lack of evidence of recovery (2) Chronic kidney disease: Qualifiers: Chronic kidney disease stage: on chronic dialysis Qualified Code(s): N18.6 - End stage renal disease; Z99.2 - Dependence on renal dialysis Code(s): N18.9 - Chronic kidney disease, unspecified Status: Chronic Assessment and Plan: * baseline creatinine ~ 1.0 - 1.4mg/dl * previous renal ultrasound with changes c/w medical renal disease (3) HAP (hospital-acquired pneumonia): Code(s): J18.9 - Pneumonia, unspecified organism; Y95 - Nosocomial condition Status: Acute Assessment and Plan: * as evidence by imaging studies * on antibiotic therapy * resistant to incentive spirometry and therapy (4) COPD (chronic obstructive pulmonary disease): Qualifiers: COPD type: unspecified COPD Qualified Code(s): J44.9 - Chronic obstr uctive pulmonary disease, unspecified Code(s): J44.9 - Chronic obstructive pulmonary disease, unspecified Status: Chronic Assessment and Plan: * continue current therapy * clinical better with nebulizer treatments (5) Anemia: Qualifiers: Anemia type: unspecified type Qualified Code(s): D64.9 - Anemia, unspecified Code(s): D64.9 - Anemia, unspecified Status: Chronic Assessment and Plan: * due to YOKASTA, CKD, and acute infection * continue Epogen * holding IV iron in the setting of infection Will continue to follow. Subjective Date/time seen: 12/24/19 17:03 Chart/Interim reviewed -- she indicates that she is feeling better; cough is not as bad; noted to make several bowel movements today; no other acute distress voiced at this time. Exam Narrative: Exam Narrative: General: frail Caucasain female in NAD Heart: normal S1 and S2; no rub Lungs: decreased breath sounds with some bibasilar crackles Abdomen: soft, nontender, nondistended, positive bowel sounds Extremities: no cyanosis or clubbing; no edema Skin: warm and dry Objective Data Vital Signs Vital Signs: Vital Signs Temp Pulse Resp BP Pulse Ox 12/24/19 13:27 36.3 C L 85 16 121/74 95 12/24/19 09:04 88 12/24/19 06:00 36.3 C L 87 16 123/77 93 12/24/19 02:24 86 18 12/24/19 02:16 80 18 12/23/19 21:32 36.4 C 89 16 132/76 92 12/23/19 20:20 91 18 12/23/19 20:02 85 18 91 Intake/Output Intake/Output: Intake & Output 12/21/19 12/22/19 12/23/19 12/24/19 23:59 23:59 23:59 23:59 Intake Total 100 484 3273 610 Output Total 300 375 Balance 320 233 3865 610 Meds/Results Medications: Active Medications Generic Name Dose Route Start Last Admin Trade Name Freq PRN Reason Stop Dose Admin Hydrocodone Bitart/Acetaminophen 1 tab 12/20/19 13:39 12/24/19 09:10 [place] 5-325 Mg PO 1 tab Q6H PRN Administration Pain Rated 7-10 A
--- NOTE | 2019-12-24 17:03 | PM.PNNEP ---
Progress Note: A&P Assessment and Plan (1) Acute kidney injury: Code(s): N17.9 - Acute kidney failure, unspecified Status: Acute Assessment and Plan: due to biopsy proven acute tubular necrosis difficult to assess urine output at this time however, creatinine rising since last dialysis treatment (HD held on Tuesday) likely plan HD tomorrow and resume T/T/S schedule given lack of evidence of recovery (2) Chronic kidney disease: Qualifiers: Chronic kidney disease stage: on chronic dialysis Qualified Code(s): N18.6 - End stage renal disease; Z99.2 - Dependence on renal dialysis Code(s): N18.9 - Chronic kidney disease, unspecified Status: Chronic Assessment and Plan: baseline creatinine ~ 1.0 - 1.4mg/dl previous renal ultrasound with changes c/w medical renal disease (3) HAP (hospital-acquired pneumonia): Code(s): J18.9 - Pneumonia, unspecified organism; Y95 - Nosocomial condition Status: Acute Assessment and Plan: as evidence by imaging studies on antibiotic therapy resistant to incentive spirometry and therapy (4) COPD (chronic obstructive pulmonary disease): Qualifiers: COPD type: unspecified COPD Qualified Code(s): J44.9 - Chronic obstructive pulmonary disease, unspecified Code(s): J44.9 - Chronic obstructive pulmonary disease, unspecified Status: Chronic Assessment and Plan: continue current therapy clinical better with nebulizer treatments (5) Anemia: Qualifiers: Anemia type: unspecified type Qualified Code(s): D64.9 - Anemia, unspecified Code(s): D64.9 - Anemia, unspecified Status: Chronic Assessment and Plan: due to YOKASTA, CKD, and acute infection continue Epogen holding IV iron in the setting of infection Will continue to follow. Subjective Date/time seen: 12/24/19 17:03 Chart/Interim reviewed -- she indicates that she is feeling better; cough is not as bad; noted to make several bowel movements today; no other acute distress voiced at this time. Exam Narrative: Exam Narrative: General: frail Caucasain female in NAD Heart: normal S1 and S2; no rub Lungs: decreased breath sounds with some bibasilar crackles Abdomen: soft, nontender, nondistended, positive bowel sounds Extremities: no cyanosis or clubbing; no edema Skin: warm and dry Objective Data Vital Signs Vital Signs: Vital Signs Temp Pulse Resp BP Pulse Ox 12/24/19 13:27 36.3 C L 85 16 121/74 95 12/24/19 09:04 88 12/24/19 06:00 36.3 C L 87 16 123/77 93 12/24/19 02:24 86 18 12/24/19 02:16 80 18 12/23/19 21:32 36.4 C 89 16 132/76 92 12/23/19 20:20 91 18 12/23/19 20:02 85 18 91 Intake/Output Intake/Output: Intake & Output 12/21/19 12/22/19 12/23/19 12/24/19 23:59 23:59 23:59 23:59 Intake Total 200 374 0301 610 Output Total 300 375 Balance 728 338 4836 610 Meds/Results Medications: Active Medications Generic Name Dose Route Start Last Admin Trade Name Freq PRN Reason Stop Dose Admin Hydrocodone Bitart/Acetaminophen 1 tab 12/20/19 13:39 12/24/19 09:10 [place] 5-325 Mg PO 1 tab Q6H PRN Administration Pain Rated 7-10 Albuterol 5 mg 12/19/19 20:00 12/24/19 13:22 Albuterol Sulf Neb 2.5mg/0.5ml INHALATION Not Given Q6HRT SHU Apixaban 5 mg 12/20/19 09:00 12/24/19 09:03 Eliquis PO 5 mg Q12HR SHU Administration Artificial Tears 1 drop 12/21/19 16:15 12/21/19 17:01 Artificial Tears EACH EYE 1 drop QID PRN Administration Dry Eye(s) Benzocaine 1 lozenge 12/22/19 16:58 Chloraseptic Lozenge PO PRN PRN Cough Budesonide/Formoterol Fumarate 2 puff 12/20/19 08:00 12/24/19 09:37 Symbicort 160-4.5 Mcg (*Sp) Inhaler INHALATION Not Given Q12HRT SHU Calcium Acetate 667 mg 12/24/19 09:00 12/24/19 13:05 Phoslo PO 667 mg TID SHU Administration
--- NOTE | 2019-12-24 17:16 | PC.NURSE ---
Unable to measure diapers today as patient has had loose stools with urine when incontinent.
[2019-12-24] MEDS: ONDANSETRON INJ 4 MG/2 ML VIAL IV PUSH (17:34)
[2019-12-24] MEDS: DORNASE ALFA INH SOLN 1 MG/ML 2.5 ML AMP 2.5 MG INHALATION (19:12)
[2019-12-24] MEDS: MIRTAZAPINE 7.5 MG TABLET PO (20:41)
[2019-12-24] MEDS: TRAZODONE HCL 50 MG TABLET PO (20:41)
[2019-12-25] VITALS (25 sets, daily range): BP systolic 68–155; BP diastolic 37–90; PULSE 71–111; RESP 16–22; TEMP 36–36.9; O2SAT 91–93
[2019-12-25] MEDS: IPRATROPIUM BR 0.02% INH SOLN 0.5 MG/2.5 ML VIAL INHALATION ×3 (02:30→20:35)
[2019-12-25] MEDS: ALBUTEROL SULFATE NEB 2.5 MG/0.5 ML INH 5 MG INHALATION ×3 (02:30→20:35)
[2019-12-25 05:10] LABS: Hematocrit 25.6 % (37.0-47.0); Hemoglobin 7.8 g/dL (12.0-15.0)
[2019-12-25 05:24] LABS: Albumin Level 2.4 g/dL (3.5-5.1); Blood Urea Nitrogen 22 mg/dL (7-17); Calcium 11.1 mg/dL (8.4-10.2); Carbon Dioxide 30 mmol/L (22-30); Chloride 100 mmol/L (98-107); Estimated Glomerular Filt Rate 11; Glucose 74 mg/dL (65-105); Phosphorus 6.1 mg/dL (2.5-4.5); Potassium 3.2 mmol/L (3.4-5.0); Sodium 133 mmol/L (137-145)
[2019-12-25 06:14] LABS: Prealbumin 10.2 mg/dL (17.6-36.0)
--- NOTE | 2019-12-25 09:00 | PC.NURSE ---
SUPERVISOR WOUND informed me that patient is refusing to be changed or turned, saying I don't want to move. is aware.
--- NOTE | 2019-12-25 09:20 | PCPTNOTE ---
Patient refused treatment this session due to not feeling well and too exhausted. Pt stated I just want to be left alone. Therapist reminded Pt of the importance of therapy and her physician wants her to work with therapy. Pt continued to refuse treatment, closed her eyes, and stated I want to be left alone.
--- NOTE | 2019-12-25 10:38 | PM.PNNEP ---
Progress Note: A&P Assessment and Plan (1) Acute kidney injury: Code(s): N17.9 - Acute kidney failure, unspecified Status: Acute Assessment and Plan: due to biopsy proven acute tubular necrosis difficult to assess urine output at this time creatinine stable today -- possible recovery?? however, given her propensity for uremic encephalopathy on last hospitalization and acute infection, will proceed with HD today and continue T/T/S schedule for now (2) Chronic kidney disease: Qualifiers: Chronic kidney disease stage: on chronic dialysis Qualified Code(s): N18.6 - End stage renal disease; Z99.2 - Dependence on renal dialysis Code(s): N18.9 - Chronic kidney disease, unspecified Status: Chronic Assessment and Plan: baseline creatinine ~ 1.0 - 1.4mg/dl previous renal ultrasound with changes c/w medical renal disease (3) HAP (hospital-acquired pneumonia): Code(s): J18.9 - Pneumonia, unspecified organism; Y95 - Nosocomial condition Status: Acute Assessment and Plan: as evidence by imaging studies on antibiotic therapy resistant to incentive spirometry and therapy (4) COPD (chronic obstructive pulmonary disease): Qualifiers: COPD type: unspecified COPD Qualified Code(s): J44.9 - Chronic obstructive pulmonary disease, unspecified Code(s): J44.9 - Chronic obstructive pulmonary disease, unspecified Status: Chronic Assessment and Plan: continue current therapy clinical better with nebulizer treatments (5) Anemia: Qualifiers: Anemia type: unspecified type Qualified Code(s): D64.9 - Anemia, unspecified Code(s): D64.9 - Anemia, unspecified Status: Chronic Assessment and Plan: due to YOKASTA, CKD, and acute infection continue Epogen holding IV iron in the setting of infection Will continue to follow. Subjective Date/time seen: 12/25/19 10:38 Overall, seems to be slowly improving -- less cough and less oxygen requirements in general; no apparent distress noted; due for dialysis today (scheduled for this afternoon) Exam Narrative: Exam Narrative: General: frail Caucasain female in NAD Heart: normal S1 and S2; no rub Lungs: decreased breath sounds with some bibasilar crackles Abdomen: soft, nontender, nondistended, positive bowel sounds Extremities: no cyanosis or clubbing; no edema Skin: warm and intact Objective Data Vital Signs Vital Signs: Vital Signs Temp Pulse Resp BP Pulse Ox 12/25/19 08:00 89 18 92 12/25/19 06:04 36.9 C 89 18 142/82 H 92 12/24/19 21:07 36.9 C 94 18 143/82 H 91 12/24/19 19:21 70 18 12/24/19 19:16 93 12/24/19 19:12 67 18 12/24/19 13:27 36.3 C L 85 16 121/74 95 Intake/Output Intake/Output: Intake & Output 12/22/19 12/23/19 12/24/19 12/25/19 23:59 23:59 23:59 23:59 Intake Total 950 1025 660 350 Output Total 375 Balance 575 1025 660 350 Meds/Results Medications: Active Medications Generic Name Dose Route Start Last Admin Trade Name Freq PRN Reason Stop Dose Admin Hydrocodone Bitart/Acetaminophen 1 tab 12/20/19 13:39 12/24/19 17:41 [place] 5-325 Mg PO 1 tab Q6H PRN Administration Pain Rated 7-10 Albuterol 5 mg 12/19/19 20:00 12/25/19 02:30 Albuterol Sulf Neb 2.5mg/0.5ml INHALATION 5 mg Q6HRT SHU Administration Apixaban 5 mg 12/20/19 09:00 12/24/19 20:41 Eliquis PO 5 mg Q12HR SHU Administration Artificial Tears 1 drop 12/21/19 16:15 12/21/19 17:01 Artificial Tears EACH EYE 1 drop QID PRN Administration Dry Eye(s) Benzocaine 1 lozenge 12/22/19 16:58 Chloraseptic Lozenge PO PRN PRN Cough Budesonide/Formoterol Fumarate 2 puff 12/20/19 08:00 12/24/19 19:12 Symbicort 160-4.5 Mcg (*Sp) Inhaler INHALATION 2 puff Q12HRT SHU Administration Calcium Acetate 667 mg 12/24/19 09:00 12/24/19 17:14 Phoslo PO
--- NOTE | 2019-12-25 11:30 | PC.NURSE ---
Patient refused oral potassium, aware.
--- NOTE | 2019-12-25 12:12 | P.PNIM_ITS ---
Progress Note: A&P Assessment and Plan (1) Pneumonia: Qualifiers: Laterality: bilateral Lung location: lower lobe of lung Pneumonia type: due to Pneumococcus Qualified Code(s): J13 - Pneumonia due to Streptococcus pneumoniae Code(s): J18.9 - Pneumonia, unspecified organism Status: Chronic Assessment and Plan: * CT shows multifocal pneumonia with lymphadenopathy and severe emphysema. Afebrile, cough improved. * She remains on Zosyn and Vancomycin today, as she was recently treated with ceftriaxone and azithromycin during her last hospitalization. * Continue nebulized bronchodilators, pulmozyme, and mucinex. Discussed again the importance of incentive spirometry. * Appreciate pulmonolgy recommendations. Consider repeat CXR in AM. (2) Anemia: Qualifiers: Anemia type: unspecified type Qualified Code(s): D64.9 - Anemia, unspecified Code(s): D64.9 - Anemia, unspecified Status: Chronic Assessment and Plan: * H&H low but stable. Suspect secondary to YOKASTA, CKD, and infection. No evidence of acute blood loss. Monitor CBC and transfuse PRN. (3) COPD (chronic obstructive pulmonary disease): Qualifiers: COPD type: unspecified COPD Qualified Code(s): J44.9 - Chronic obstru ctive pulmonary disease, unspecified Code(s): J44.9 - Chronic obstructive pulmonary disease, unspecified Status: Chronic Assessment and Plan: * Continue bronchodilators and respiratory regimen outlined above. 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 * Continue Eliquis. (5) ATN (acute tubular necrosis): Code(s): N17.0 - Acute kidney failure with tubular necrosis Status: Acute Assessment and Plan: * YOKASTA secondary to acute tubular necrosis by biopsy and previous renal US consistent with medical renal disease. * Nephrology following. (6) Chronic kidney disease: Qualifiers: Chronic kidney disease stage: on chronic dialysis Qualified Code(s): N18.6 - End stage renal disease; Z99.2 - Dependence on renal dialysis Code(s): N18.9 - Chronic kidney disease, unspecified Status: Chronic Assessment and Plan: * YOKASTA on CKD. * Difficulty assessing urine output due to incontinence. * Appreciate nephrology recommendations. She continues with HD on T/T/S schedule. (7) Hypertension: Qualifiers: Hypertension type: essential hypertension Qualified Code(s): I10 - Essential (primary) hypertension Code(s): I10 - Essential (primary) hypertension Status: Chronic Assessment and Plan: * Stable, slightly elevated this AM. Continue home metoprolol and monitor BP. (8) Weakness: Code(s): R53.1 - Weakness Status: Chronic Assessment and Plan: * Debility, malnutrition, pneumonia likely contributing. Decreased motivation +++. Encourage out of bed at least for meals. (9) Malnutrition due to starvation: Code(s): E46 - Unspecified protein-calorie malnutrition Status: Chronic Assessment and Pl
--- NOTE | 2019-12-25 12:12 | PM.IMPN ---
Progress Note: A&P Assessment and Plan (1) Pneumonia: Qualifiers: Laterality: bilateral Lung location: lower lobe of lung Pneumonia type: due to Pneumococcus Qualified Code(s): J13 - Pneumonia due to Streptococcus pneumoniae Code(s): J18.9 - Pneumonia, unspecified organism Status: Chronic Assessment and Plan: CT shows multifocal pneumonia with lymphadenopathy and severe emphysema. Afebrile, cough improved. She remains on Zosyn and Vancomycin today, as she was recently treated with ceftriaxone and azithromycin during her last hospitalization. Continue nebulized bronchodilators, pulmozyme, and mucinex. Discussed again the importance of incentive spirometry. Appreciate pulmonolgy recommendations. Consider repeat CXR in AM. (2) Anemia: Qualifiers: Anemia type: unspecified type Qualified Code(s): D64.9 - Anemia, unspecified Code(s): D64.9 - Anemia, unspecified Status: Chronic Assessment and Plan: H&H low but stable. Suspect secondary to YOKASTA, CKD, and infection. No evidence of acute blood loss. Monitor CBC and transfuse PRN. (3) COPD (chronic obstructive pulmonary disease): Qualifiers: COPD type: unspecified COPD Qualified Code(s): J44.9 - Chronic obstructive pulmonary disease, unspecified Code(s): J44.9 - Chronic obstructive pulmonary disease, unspecified Status: Chronic Assessment and Plan: Continue bronchodilators and respiratory regimen outlined above. 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 Continue Eliquis. (5) ATN (acute tubular necrosis): Code(s): N17.0 - Acute kidney failure with tubular necrosis Status: Acute Assessment and Plan: YOKASTA secondary to acute tubular necrosis by biopsy and previous renal US consistent with medical renal disease. Nephrology following. (6) Chronic kidney disease: Qualifiers: Chronic kidney disease stage: on chronic dialysis Qualified Code(s): N18.6 - End stage renal disease; Z99.2 - Dependence on renal dialysis Code(s): N18.9 - Chronic kidney disease, unspecified Status: Chronic Assessment and Plan: YOKASTA on CKD. Difficulty assessing urine output due to incontinence. Appreciate nephrology recommendations. She continues with HD on T/T/S schedule. (7) Hypertension: Qualifiers: Hypertension type: essential hypertension Qualified Code(s): I10 - Essential (primary) hypertension Code(s): I10 - Essential (primary) hypertension Status: Chronic Assessment and Plan: Stable, slightly elevated this AM. Continue home metoprolol and monitor BP. (8) Weakness: Code(s): R53.1 - Weakness Status: Chronic Assessment and Plan: Debility, malnutrition, pneumonia likely contributing. Decreased motivation +++. Encourage out of bed at least for meals. (9) Malnutrition due to starvation: Code(s): E46 - Unspecified protein-calorie malnutrition Status: Chronic Assessment and Plan: Patient is underweight, frail. She mostly only eats a few bites at each meal. Nepro ordered, started on a low dose of Remeron. Subjective Date/time seen: 12/25/19 1130 Interval history: Ms. Willis is a 64yo F admitted for pneumonia. She is minimally cooperative during exam and keeps her face covered with her arm during my encounter, tells me I do not want to mo
[2019-12-25] MEDS: POTASSIUM CHLORIDE 20 MEQ TABLET PO (12:14)
[2019-12-25] MEDS: TOLNAFTATE 1% POWDER 45 GM BTL 1 APPLIC TOPICAL ×2 (12:20→21:23)
--- NOTE | 2019-12-25 13:41 | PC.NURSE ---
Held morning medications because pt was scheduled for 0800 dialysis. Paged instructional systems design consultant dialysis nurse at 1000 to see when the patient was going to dialysis and the nurse said in a few hours. Continued to hold medications. It has been 4 hours since I spoke with the dialysis nurse, I will give select medications.
[2019-12-25] MEDS: APIXABAN 5 MG TABLET PO (13:57)
--- NOTE | 2019-12-25 15:52 | PC.NURSE ---
Recieved phone call from skid adzer that she has arrived and will call back within the hour for the patient to come for treatment.
--- NOTE | 2019-12-25 16:45 | PC.NURSE ---
Pt to dialysis via hospital bed.
[2019-12-25] MEDS: EPOETIN ALFA 10,000 UNITS/ML VIAL 10000 UNITS IV PUSH (18:21)
[2019-12-25 19:21] LABS: Vancomycin Random 8.8 ug/mL (10-20)
[2019-12-25] MEDS: DORNASE ALFA INH SOLN 1 MG/ML 2.5 ML AMP 2.5 MG INHALATION (20:36)
[2019-12-25] MEDS: ERGOCALCIFEROL 50,000 UNIT CAPSULE 50000 UNITS PO (21:02)
[2019-12-25] MEDS: TRAZODONE HCL 50 MG TABLET PO (21:02)
[2019-12-25] MEDS: MIRTAZAPINE 7.5 MG TABLET PO (21:02)
--- NOTE | 2019-12-25 23:16 | PM.PNPUL ---
Progress Note: A&P Assessment and Plan (1) Pneumonia: Qualifiers: Laterality: bilateral Lung location: lower lobe of lung Pneumonia type: due to Pneumococcus Qualified Code(s): J13 - Pneumonia due to Streptococcus pneumoniae Code(s): J18.9 - Pneumonia, unspecified organism Status: Chronic Assessment and Plan: Bilateral infiltrates noted since Nov 24, improving through December 08; CTA shows extensive chronic changes including a cavitary lesion in the JUNIOR, RUL infiltrate, however the CTA is not the same as a plain CXR, so apples to oranges. Clinically, does appear better since this admission. She did not recall that she was in a facility immediately before readmission. For now I concur with the antibiotics. She has a(+) Strep pneumococcus antibody, can take a while to convert to negative. (2) COPD (chronic obstructive pulmonary disease): Qualifiers: COPD type: unspecified COPD Qualified Code(s): J44.9 - Chronic obstructive pulmonary disease, unspecified Code(s): J44.9 - Chronic obstructive pulmonary disease, unspecified Status: Chronic Assessment and Plan: End stage emphysema on CTA; she is not on meds at home, denies using medications except while she is on the hospital. Procalcitonin is high 74. She has (+) pneumococcal antigen last admission, can take weeks for the CXR to improve. Gives a history of having abnormal areas in the apex of her lungs for 30 years, yet no documentation that we can review. She has no recall of where she had her prior chest imaging. This is something that can be followed as she recovers to determine how much of her condition is acute vs chronic. (3) Tobacco dependence: Code(s): F17.200 - Nicotine dependence, unspecified, uncomplicated Status: Acute Assessment and Plan: Smoking 8 cigarettes per day at admission, mostly 1 ppd x years. 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 Review of Systems Review of Systems: Narrative: Overall not well, not able to walk for 5-6 months due to severe arthritis in her back, chronic pain; lives in [facility] next door, comes over to help her get to [id number]. Poor appetite. No fever. No chills. Feels cold most of the time. Cardiovascular: Cardiovascular: Denies chest pain and Denies irregular heart rhythm Comments: denies leg swelling Gastrointestinal: Gastrointestinal: Denies abdominal pain Exam Narrative: Exam Narrative: General: frail Caucasain female, not in distress Lungs: decreased breath sounds, with some bibasilar crackles Heart: normal S1 and S2; no rub Abdomen: soft, nontender, nondistended, positive bowel sounds Extremities: no cyanosis or clubbing; no edema Skin: warm and idry, no rashes Objective Data Vital Signs Vital Signs: Vital Signs - 24 hr 12/25/19 06:04 12/25/19 08:00 12/25/19 13:55 Temperature 36.9 C Pulse Rate 89 89 91 Respiratory Rate 18 18 16 Blood Pressure 142/82 H Pulse Oximetry 92 92 93 12/25/19 14:00 12/25/19 14:09 12/25/19 16:46 Temperature 36.7 C 36.5 C Pulse Rate 97 95 98 Respiratory Rate 22 H 16 18 Blood Pressure 155/90 H 122/75 Pulse Oximetry 91 12/25/19 16:59 12/25/19 17:15 12/25/19 17:31 Temperature Pulse Rate 87 96 96 Respiratory Rate Blood Pressure 140/78 132/84 127/86 Pulse Oximetry 12/25/19 17:45 12/25/19 18:00 12/25/19 18:15 Temperature Pulse Rate 102 H 100 107 H Respiratory Rate Blood Pressure 129/86 114/82 101/75 Pulse Oximetry 12/25/19 18:31 12/25/19 18:45 12/25/19 19:00 Temperatu
[2019-12-26] VITALS (9 sets, daily range): BP systolic 107–134; BP diastolic 64–70; PULSE 80–105; RESP 16–18; TEMP 36–36.2; O2SAT 91–96
[2019-12-26] MEDS: ALBUTEROL SULFATE NEB 2.5 MG/0.5 ML INH 5 MG INHALATION ×3 (01:50→13:33)
[2019-12-26] MEDS: IPRATROPIUM BR 0.02% INH SOLN 0.5 MG/2.5 ML VIAL INHALATION ×3 (01:50→13:33)
[2019-12-26 08:25] LABS: Basophils Absolute Auto 0.1 K/mm3 (0.0-0.1); Basophils Percent Auto 0.7 % (0.2-1.2); Eosinophils Absolute Auto 0.1 K/mm3 (0-0.3); Eosinophils Percent Auto 1.3 % (0-4.4); Hematocrit 25.9 % (37.0-47.0); Hemoglobin 7.9 g/dL (12.0-15.0); Immature Granulocyte Absolute 0.05 K/mm3 (0.00-0.031); Immature Granulocyte Percent A 0.5 % (0-0.5); Lymphocytes Absolute Auto 1.73 K/mm3 (0.9-3.2); Lymphocytes Percent Auto 18.3 % (18.3-44.2); Mean Corpuscular HGB Conc 30.5 g/dl (32-36); Mean Corpuscular Hemoglobin 27.2 pg (26-34); Mean Corpuscular Volume 89.3 fl (80-100); Mean Platelet Volume 10.4 fl (7.4-10.4); Monocytes Absolute Auto 1.2 K/mm3 (0.1-0.6); Monocytes Percent Auto 12.3 % (2.6-8.5); Neutrophils Absolute Auto 6.3 K/mm3 (1.3-6.7); Neutrophils Percent Auto 66.9 % (45.5-73.1); Platelet Count Result 301 k/mm3 (150-375); Red Cell Distribution Width 17.2 % (11.5-14.5); White Blood Count 9.4 K/mm3 (4.5-10.0)
[2019-12-26] MEDS: CALCIUM ACETATE 667 MG TABLET PO ×3 (08:37→16:47)
[2019-12-26] MEDS: APIXABAN 5 MG TABLET PO ×2 (08:37→20:14)
[2019-12-26] MEDS: METOPROLOL SUCCINATE EXT REL 25 MG TABCR PO (08:37)
[2019-12-26] MEDS: PANTOPRAZOLE 40 MG TABLET PO (08:38)
[2019-12-26 08:58] LABS: Blood Urea Nitrogen 5 mg/dL (7-17); Calcium 9.5 mg/dL (8.4-10.2); Carbon Dioxide 26 mmol/L (22-30); Chloride 103 mmol/L (98-107); Estimated Glomerular Filt Rate 28; Glucose 71 mg/dL (65-105); Magnesium 1.9 mg/dL (1.6-2.3); Potassium 4.1 mmol/L (3.4-5.0); Sodium 133 mmol/L (137-145)
--- NOTE | 2019-12-26 10:22 | PM.PNNEP ---
Progress Note: A&P Assessment and Plan (1) Acute kidney injury: Code(s): N17.9 - Acute kidney failure, unspecified Status: Acute Assessment and Plan: due to biopsy proven acute tubular necrosis difficult to assess urine output at this time creatinine stable today -- possible recovery?? however, given her propensity for uremic encephalopathy on last hospitalization and acute infection, will continue with dialysis with her next treatment due tomorrow (T/T/S schedule for now) (2) Chronic kidney disease: Qualifiers: Chronic kidney disease stage: on chronic dialysis Qualified Code(s): N18.6 - End stage renal disease; Z99.2 - Dependence on renal dialysis Code(s): N18.9 - Chronic kidney disease, unspecified Status: Chronic Assessment and Plan: baseline creatinine ~ 1.0 - 1.4mg/dl previous renal ultrasound with changes c/w medical renal disease (3) HAP (hospital-acquired pneumonia): Code(s): J18.9 - Pneumonia, unspecified organism; Y95 - Nosocomial condition Status: Acute Assessment and Plan: as evidence by imaging studies on antibiotic therapy resistant to incentive spirometry and therapy (4) COPD (chronic obstructive pulmonary disease): Qualifiers: COPD type: unspecified COPD Qualified Code(s): J44.9 - Chronic obstructive pulmonary disease, unspecified Code(s): J44.9 - Chronic obstructive pulmonary disease, unspecified Status: Chronic Assessment and Plan: continue current therapy clinical better with nebulizer treatments (5) Anemia: Qualifiers: Anemia type: unspecified type Qualified Code(s): D64.9 - Anemia, unspecified Code(s): D64.9 - Anemia, unspecified Status: Chronic Assessment and Plan: due to YOKASTA, CKD, and acute infection continue Epogen holding IV iron in the setting of infection Will continue to follow. Subjective Date/time seen: 12/26/19 10:22 States he cough is better and denies any acute complaints at the time of my visit; falls asleep several times during my conversation with her; tolerated dialysis yesterday without any acute issues. Exam Narrative: Exam Narrative: General: frail Caucasain female in NAD Heart: normal S1 and S2; no rub Lungs: decreased breath sounds with some bibasilar crackles Abdomen: soft, nontender, nondistended, positive bowel sounds Extremities: no cyanosis or clubbing; no edema Skin: warm and intact Objective Data Vital Signs Vital Signs: Vital Signs Temp Pulse Resp BP Pulse Ox 12/26/19 08:37 100 12/26/19 08:28 100 16 12/26/19 08:12 102 H 16 12/26/19 05:51 36.2 C L 105 H 18 134/69 91 12/25/19 22:39 79 12/25/19 22:00 36.1 C L 111 H 18 102/59 L 92 12/25/19 20:37 92 12/25/19 20:07 36.5 C 98 18 111/63 12/25/19 20:03 71 101/62 12/25/19 20:00 94 95/48 L 12/25/19 19:45 87 86/59 L 12/25/19 19:30 102 H 87/62 L 12/25/19 19:15 95 91/47 L 12/25/19 19:08 96 88/64 L 12/25/19 19:00 98 68/37 L 12/25/19 18:45 107 H 109/48 L 12/25/19 18:31 109 H 102/66 12/25/19 18:15 107 H 101/75 12/25/19 18:00 100 114/82 12/25/19 17:45 102 H 129/86 12/25/19 17:31 96 127/86 12/25/19 17:15 96 132/84 12/25/19 16:59 87 140/78 12/25/19 16:46 36.5 C 98 18 122/75 12/25/19 14:09 95 16 12/25/19 14:00 36.7 C 97 22 H 155/90 H 91 12/25/19 13:55 91 16 93 Intake/Output Intake/Output: Intake & Output 12/23/19 12/24/19 12/25/19 12/26/19 23:59 23:59 23:59 23:59 Intake Total 1025 660 625 290 Output Total 375 Balance 1025 660 250 290 Meds/Results Medications: Active Medications Generic Name Dose Route Start Last Admin Trade Name Freq PRN Reason Stop Dose Admin Hydrocodone Bitart/Acetaminophen 1 tab 12/20/19 13:39 12/26/19 08:45 [place] 5-325 Mg PO 1 tab Q6H PRN Admini
--- NOTE | 2019-12-26 11:37 | PM.IMPN ---
Progress Note: A&P Assessment and Plan (1) Malnutrition due to starvation: Code(s): E46 - Unspecified protein-calorie malnutrition Status: Chronic Assessment and Plan: Patient is very underweight, frail. 1 month ago was 105 lb, today down to 77lb. She mostly only eats a few bites at each meal. Decreased appetite, decreased motivation. Nepro ordered, started on a low dose of Remeron. She makes it very clear that she is not interested in a feeding tube of any type. Discussed hospice - patient expresses that she would like to meet with hospice. Detailed discussion held with daughter (JOEL), Emily, over the phone regarding her mother's condition and her wishes to meet with hospice. (2) Pneumonia: Qualifiers: Laterality: bilateral Lung location: lower lobe of lung Pneumonia type: due to Pneumococcus Qualified Code(s): J13 - Pneumonia due to Streptococcus pneumoniae Code(s): J18.9 - Pneumonia, unspecified organism Status: Chronic Assessment and Plan: CT shows multifocal pneumonia with lymphadenopathy and severe emphysema. Afebrile, cough improved. She remains on Zosyn and Vancomycin today (day 5), as she was recently treated with ceftriaxone and azithromycin during her last hospitalization. Continue nebulized bronchodilators, pulmozyme, and mucinex. Discussed again the importance of incentive spirometry. Appreciate pulmonolgy recommendations. CXR unchanged. (3) Anemia: Qualifiers: Anemia type: unspecified type Qualified Code(s): D64.9 - Anemia, unspecified Code(s): D64.9 - Anemia, unspecified Status: Chronic Assessment and Plan: H&H low but stable. Suspect secondary to YOKASTA, CKD, and infection. No evidence of acute blood loss. Monitor CBC and transfuse PRN. (4) COPD (chronic obstructive pulmonary disease): Qualifiers: COPD type: unspecified COPD Qualified Code(s): J44.9 - Chronic obstructive pulmonary disease, unspecified Code(s): J44.9 - Chronic obstructive pulmonary disease, unspecified Status: Chronic Assessment and Plan: Severe emphysema. Continue bronchodilators and respiratory regimen outlined above. 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 Continue Eliquis. (6) ATN (acute tubular necrosis): Code(s): N17.0 - Acute kidney failure with tubular necrosis Status: Acute Assessment and Plan: YOKASTA secondary to acute tubular necrosis by biopsy and previous renal US consistent with medical renal disease. Nephrology following. (7) Chronic kidney disease: Qualifiers: Chronic kidney disease stage: on chronic dialysis Qualified Code(s): N18.6 - End stage renal disease; Z99.2 - Dependence on renal dialysis Code(s): N18.9 - Chronic kidney disease, unspecified Status: Chronic Assessment and Plan: YOKASTA on CKD. Difficulty assessing urine output due to incontinence. Appreciate nephrology recommendations. She continues with HD on T/T/S schedule at this time. (8) Hypertension: Qualifiers: Hypertension type: essential hypertension Qualified Code(s): I10 - Essential (primary) hypertension Code(s): I10 - Essential (primary) hypertension Status: Chronic Assessment and Plan: Stable. Continue home metoprolol and monitor BP. (9) Weakness: Code(s): R53.1 - Weakness Status: Chronic Assessment and Plan: Priscilla
[2019-12-26] MEDS: BENZOCAINE/MENTHOL (*BKC) 18 EA LOZENGE 1 LOZENGE PO (16:49)
--- NOTE | 2019-12-26 18:42 | PM.PNPUL ---
Progress Note: A&P Assessment and Plan (1) Pneumonia: Qualifiers: Laterality: bilateral Lung location: lower lobe of lung Pneumonia type: due to Pneumococcus Qualified Code(s): J13 - Pneumonia due to Streptococcus pneumoniae Code(s): J18.9 - Pneumonia, unspecified organism Status: Chronic Assessment and Plan: Bilateral infiltrates noted since Nov 24, improving through December 08; CTA shows extensive chronic changes including a cavitary lesion in the JUNIOR, RUL infiltrate, however the CTA is not the same as a plain CXR, so apples to oranges. Clinically, does appear better since this admission. She did not recall that she was in a facility immediately before readmission. For now I concur with the antibiotics. She has a(+) Strep pneumococcus antibody, can take a while to convert to negative. (2) COPD (chronic obstructive pulmonary disease): Qualifiers: COPD type: unspecified COPD Qualified Code(s): J44.9 - Chronic obstructive pulmonary disease, unspecified Code(s): J44.9 - Chronic obstructive pulmonary disease, unspecified Status: Chronic Assessment and Plan: End stage emphysema on CTA; she is not on meds at home, denies using medications except while she is on the hospital. Procalcitonin is high 74. She has (+) pneumococcal antigen last admission, can take weeks for the CXR to improve. Gives a history of having abnormal areas in the apex of her lungs for 30 years, yet no documentation that we can review. She has no recall of where she had her prior chest imaging. This is something that can be followed as she recovers to determine how much of her condition is acute vs chronic. (3) Tobacco dependence: Code(s): F17.200 - Nicotine dependence, unspecified, uncomplicated Status: Acute Assessment and Plan: Smoking 8 cigarettes per day at admission, mostly 1 ppd x years. 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 Review of Systems Cardiovascular: Cardiovascular: Denies chest pain and Denies irregular heart rhythm Gastrointestinal: Gastrointestinal: Denies abdominal pain Exam Const: Other: Appears chronically ill, no acute distress. HENMT: Mouth: Yes moist mucous membranes Other: Edentulous upper jaw, dentures at home; several teeth on the lower jaw, not in good repiar. Eyes: General: appearance normal, both eyes and all related structures Neck: Neck: no JVD Resp: Auscultation: diminished lung sounds (Exam is limited; weak, cannot sit up due to severe back pain. ) bilateral Cardio: Rate: regular rate Rhythm: regular rhythm Skin: General skin exam: normal color Neuro: General: No gait normal Extrem: General: normal to inspection (thin, no calf tenderness, decreased muscle mass) and no edema Objective Data Vital Signs Vital Signs: Vital Signs - 24 hr 12/25/19 18:45 12/25/19 19:00 12/25/19 19:08 Temperature Pulse Rate 107 H 98 96 Respiratory Rate Blood Pressure 109/48 L 68/37 L 88/64 L Pulse Oximetry 12/25/19 19:15 12/25/19 19:30 12/25/19 19:45 Temperature Pulse Rate 95 102 H 87 Respiratory Rate Blood Pressure 91/47 L 87/62 L 86/59 L Pulse Oximetry 12/25/19 20:00 12/25/19 20:03 12/25/19 20:07 Temperature 36.5 C Pulse Rate 94 71 98 Respiratory Rate 18 Blood Pressure 95/48 L 101/62 111/63 Pulse Oximetry 12/25/19 20:37 12/25/19 22:00 12/25/19 22:39 Temperature 36.1 C L Pulse Rate 111 H 79 Respiratory Rate 18 Blood Pressure 102/59 L Pulse Oximetry 92 92 12/26/19 05:51 12/26/19 08:12 12/26/19 08:28 Megan
[2019-12-26] MEDS: TRAZODONE HCL 50 MG TABLET PO (20:14)
[2019-12-26] MEDS: MIRTAZAPINE 7.5 MG TABLET PO (20:15)
--- NOTE | 2019-12-26 21:12 | PCRCNOTE ---
PT REFUSING ALL RESPIRATORY MEDICATION TONIGHT. REMINDED PT THAT IF SHE CHANGES HER MIND OR BECOME SOB TO CALL FOR TREATMENT. UPON LEAVING ROOM, i TOLD PT I WOULD RETURN TO CHECK ON HER AROUND 0200 FOR NEXT TREATMENT AT WHICH TIME SHE STATED THAT SHE DID NOT WANT ME TO WAKE HER UP. I AGAIN REMINDED HER TO CALL IF SHE CHANGES HER MIND.
[2019-12-27] VITALS (18 sets, daily range): BP systolic 97–134; BP diastolic 50–85; PULSE 87–109; RESP 14–20; TEMP 36–37; O2SAT 90–95; BMI 17.9
[2019-12-27 06:01] LABS: Alanine Aminotransferase 7 U/L (4-35); Albumin Level 2.5 g/dL (3.5-5.1); Alkaline Phosphatase 171 U/L (38-126); Aspartate Amino Transferase 12 U/L (14-36); Bilirubin,Total 0.3 mg/dL (0.2-1.3); Blood Urea Nitrogen 9 mg/dL (7-17); Calcium 11.4 mg/dL (8.4-10.2); Carbon Dioxide 29 mmol/L (22-30); Chloride 102 mmol/L (98-107); Estimated Glomerular Filt Rate 16; Glucose 73 mg/dL (65-105); Phosphorus 4.5 mg/dL (2.5-4.5); Potassium 3.7 mmol/L (3.4-5.0); Sodium 134 mmol/L (137-145)
[2019-12-27 06:02] LABS: Basophils Absolute Auto 0.1 K/mm3 (0.0-0.1); Basophils Percent Auto 1.1 % (0.2-1.2); Eosinophils Absolute Auto 0.2 K/mm3 (0-0.3); Hematocrit 28.2 % (37.0-47.0); Hemoglobin 8.4 g/dL (12.0-15.0); Immature Granulocyte Absolute 0.05 K/mm3 (0.00-0.031); Immature Granulocyte Percent A 0.5 % (0-0.5); Lymphocytes Absolute Auto 1.72 K/mm3 (0.9-3.2); Lymphocytes Percent Auto 18.8 % (18.3-44.2); Mean Corpuscular HGB Conc 29.8 g/dl (32-36); Mean Corpuscular Hemoglobin 27.3 pg (26-34); Mean Corpuscular Volume 91.6 fl (80-100); Mean Platelet Volume 10.4 fl (7.4-10.4); Monocytes Absolute Auto 1.1 K/mm3 (0.1-0.6); Monocytes Percent Auto 11.8 % (2.6-8.5); Neutrophils Percent Auto 65.8 % (45.5-73.1); Platelet Count Result 306 k/mm3 (150-375); Red Blood Count 3.08 M/mm3 (4.2-5.4); Red Cell Distribution Width 17.3 % (11.5-14.5); White Blood Count 9.1 K/mm3 (4.5-10.0)
--- NOTE | 2019-12-27 08:00 | PC.NURSE ---
Patient taken to dialysis via bed with staff.
[2019-12-27] MEDS: EPOETIN ALFA 10,000 UNITS/ML VIAL 10000 UNITS IV PUSH (08:55)
--- NOTE | 2019-12-27 10:58 | PC.NURSE ---
Patient returned from dialysis via bed with staff. Settled into room. No distress noted. No c/o pain.
--- NOTE | 2019-12-27 11:38 | PC.NURSE ---
Patient in dialysis during morning mealtime and did not receive Phoslo.
[2019-12-27] MEDS: METOPROLOL SUCCINATE EXT REL 25 MG TABCR PO (11:39)
[2019-12-27] MEDS: PANTOPRAZOLE 40 MG TABLET PO (11:39)
[2019-12-27] MEDS: APIXABAN 5 MG TABLET PO ×2 (11:39→20:36)
[2019-12-27] MEDS: CALCIUM ACETATE 667 MG TABLET PO ×2 (11:40→17:20)
--- NOTE | 2019-12-27 13:06 | PM.IMPN ---
Progress Note: A&P Assessment and Plan (1) Malnutrition due to starvation: Code(s): E46 - Unspecified protein-calorie malnutrition Status: Chronic Assessment and Plan: Patient is very underweight, frail. Down to 77lb. She mostly only eats a few bites at each meal. Decreased appetite, decreased motivation. Nepro ordered, started on a low dose of Remeron. She makes it very clear that she is not interested in a feeding tube of any type. Discussed hospice. Detailed discussion held with daughter (JOEL), Emily, over the phone yesterday regarding her mother's condition and her wishes to meet with hospice. JUAN nurse met with patient and phone conferenced in Emily. Patient reports the meeting went well but that she would like to discharge without hospice for now . (2) Pneumonia: Qualifiers: Pneumonia type: due to Pneumococcus Laterality: bilateral Lung location: lower lobe of lung Qualified Code(s): J13 - Pneumonia due to Streptococcus pneumoniae Code(s): J18.9 - Pneumonia, unspecified organism Status: Chronic Assessment and Plan: CT shows multifocal pneumonia with lymphadenopathy and severe emphysema. Afebrile, cough improved. She remains on Zosyn and Vancomycin today (day 6), as she was recently treated with ceftriaxone and azithromycin during her last hospitalization. Continue nebulized bronchodilators, pulmozyme, and mucinex. Incentive spirometry which patient often refuses. Appreciate pulmonolgy recommendations. CXR unchanged. (3) Anemia: Qualifiers: Anemia type: unspecified type Qualified Code(s): D64.9 - Anemia, unspecified Code(s): D64.9 - Anemia, unspecified Status: Chronic Assessment and Plan: H&H low but stable. Suspect secondary to YOKASTA, CKD, and infection. No evidence of acute blood loss. Monitor CBC and transfuse PRN. (4) COPD (chronic obstructive pulmonary disease): Qualifiers: COPD type: unspecified COPD Qualified Code(s): J44.9 - Chronic obstructive pulmonary disease, unspecified Code(s): J44.9 - Chronic obstructive pulmonary disease, unspecified Status: Chronic Assessment and Plan: Severe emphysema. Continue bronchodilators and respiratory regimen outlined above. 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 Continue Eliquis. (6) ATN (acute tubular necrosis): Code(s): N17.0 - Acute kidney failure with tubular necrosis Status: Acute Assessment and Plan: YOKASTA secondary to acute tubular necrosis by biopsy and previous renal US consistent with medical renal disease. Appreciate nephrology recommendations. She continues with HD on T/T/S schedule at this time. (7) Chronic kidney disease: Qualifiers: Chronic kidney disease stage: on chronic dialysis Qualified Code(s): N18.6 - End stage renal disease; Z99.2 - Dependence on renal dialysis Code(s): N18.9 - Chronic kidney disease, unspecified Status: Chronic Assessment and Plan: YOKASTA on CKD. Difficulty assessing urine output due to incontinence. Nephrology following. (8) Hypertension: Qualifiers: Hypertension type: essential hypertension Qualified Code(s): I10 - Essential (primary) hypertension Code(s): I10 - Essential (primary) hypertension Status: Chronic Assessment and Plan: Stable. Continue home metoprolol and monitor BP. (9) Weakness: Code(s):
[2019-12-27 14:54] LABS: Vancomycin Random 19.4 ug/mL (10-20)
--- NOTE | 2019-12-27 15:11 | PM.PNNEP ---
Progress Note: A&P Assessment and Plan (1) Acute kidney injury: Code(s): N17.9 - Acute kidney failure, unspecified Status: Acute Assessment and Plan: due to biopsy proven acute tubular necrosis difficult to assess urine output at this time creatinine better in general - however, suspect her poor oral intake and reduced muscle mass more likely reason for lower creatinine however, given her propensity for uremic encephalopathy on last hospitalization and acute infection, will continue with dialysis (assuming she wants to continue this therapy) (2) Chronic kidney disease: Qualifiers: Chronic kidney disease stage: on chronic dialysis Qualified Code(s): N18.6 - End stage renal disease; Z99.2 - Dependence on renal dialysis Code(s): N18.9 - Chronic kidney disease, unspecified Status: Chronic Assessment and Plan: baseline creatinine ~ 1.0 - 1.4mg/dl previous renal ultrasound with changes c/w medical renal disease (3) HAP (hospital-acquired pneumonia): Code(s): J18.9 - Pneumonia, unspecified organism; Y95 - Nosocomial condition Status: Acute Assessment and Plan: as evidence by imaging studies on antibiotic therapy some resistance to incentive spirometry and therapy (4) COPD (chronic obstructive pulmonary disease): Qualifiers: COPD type: unspecified COPD Qualified Code(s): J44.9 - Chronic obstructive pulmonary disease, unspecified Code(s): J44.9 - Chronic obstructive pulmonary disease, unspecified Status: Chronic Assessment and Plan: continue current therapy clinical better with nebulizer treatments (5) Anemia: Qualifiers: Anemia type: unspecified type Qualified Code(s): D64.9 - Anemia, unspecified Code(s): D64.9 - Anemia, unspecified Status: Chronic Assessment and Plan: due to YOKASTA, CKD, and acute infection continue Epogen holding IV iron in the setting of infection With poor oral intake, refusal with nursing interventions, pain issues, reluctance to do dialysis, comfort care seems appropriate but apparently patient not ready for this yet -- will probably need to rediscuss with patient and family later.... Will continue to follow. Subjective Date/time seen: 12/27/19 15:11 Tolerated dialysis earlier today without issues -- initially refused to do treatment; however, during the treatment, it seemed clear that she did not want to continue; she eventually fell asleep and completed her dialysis session. Exam Narrative: Exam Narrative: General: frail Caucasain female in NAD Heart: normal S1 and S2; no rub Lungs: decreased breath sounds at bases Abdomen: soft, nontender, nondistended, positive bowel sounds Extremities: no cyanosis or clubbing; no edema Skin: no rash Objective Data Vital Signs Vital Signs: Vital Signs Temp Pulse Resp BP Pulse Ox 12/27/19 14:00 36.6 C 97 20 122/75 94 12/27/19 11:39 100 12/27/19 10:50 36.6 C 99 14 115/67 12/27/19 10:40 102 H 115/60 12/27/19 10:15 107 H 97/72 L 12/27/19 10:00 102 H 104/69 12/27/19 09:45 105 H 100/67 12/27/19 09:30 96 101/50 L 12/27/19 09:15 102 H 103/66 12/27/19 09:01 105 H 107/69 12/27/19 08:45 109 H 99/60 L 12/27/19 08:30 101 H 116/73 12/27/19 08:15 96 118/83 12/27/19 07:55 89 133/83 12/27/19 07:50 36.4 C 91 14 134/85 12/27/19 06:07 36.3 C L 89 18 125/76 95 12/26/19 21:09 87 16 92 12/26/19 21:05 36.0 C L 92 18 113/70 93 Intake/Output Intake/Output: Intake & Output 12/24/19 12/25/19 12/26/19 12/27/19 23:59 23:59 23:59 23:59 Intake Total 660 625 680 750 Output Total 375 0 Balance 660 250 680 750 Meds/Results Medications: Active Medications Generic Name Dose Route Start Last Admin Trade Name Freq PRN Reason Stop Dose Admin Hydrocodone Bitart/Acetaminophen 1 tab 12/20/19 13:39
--- NOTE | 2019-12-27 15:51 | PCDIET ---
Herb d/c per pt request. Pt declined all other supplement options. Pt agreed to snacks between meals and kitchen informed. Pt assessed and will be followed by
--- NOTE | 2019-12-27 20:01 | PCRCNOTE ---
Pt continues to refuse ALL RESPIRATORY tx. Suggest changing to PRN.
[2019-12-27] MEDS: TRAZODONE HCL 50 MG TABLET PO (20:36)
[2019-12-27] MEDS: MIRTAZAPINE 7.5 MG TABLET PO (20:36)
--- NOTE | 2019-12-27 21:13 | PM.PNPUL ---
Progress Note: A&P Assessment and Plan (1) Pneumonia: Qualifiers: Laterality: bilateral Lung location: lower lobe of lung Pneumonia type: due to Pneumococcus Qualified Code(s): J13 - Pneumonia due to Streptococcus pneumoniae Code(s): J18.9 - Pneumonia, unspecified organism Status: Chronic Assessment and Plan: Bilateral infiltrates noted since Nov 24, improving through December 08; CTA shows extensive chronic changes including a cavitary lesion in the JUNIOR, RUL infiltrate, however the CTA is not the same as a plain CXR, so apples to oranges. Clinically, does appear better since this admission. She did not recall that she was in a facility immediately before readmission. For now I concur with the antibiotics. She has a(+) Strep pneumococcus antibody, can take a while to convert to negative. (2) COPD (chronic obstructive pulmonary disease): Qualifiers: COPD type: unspecified COPD Qualified Code(s): J44.9 - Chronic obstructive pulmonary disease, unspecified Code(s): J44.9 - Chronic obstructive pulmonary disease, unspecified Status: Chronic Assessment and Plan: End stage emphysema on CTA; she is not on meds at home, denies using medications except while she is on the hospital. Procalcitonin is high 74. She has (+) pneumococcal antigen last admission, can take weeks for the CXR to improve. Gives a history of having abnormal areas in the apex of her lungs for 30 years, yet no documentation that we can review. She has no recall of where she had her prior chest imaging. This is something that can be followed as she recovers to determine how much of her condition is acute vs chronic. (3) Tobacco dependence: Code(s): F17.200 - Nicotine dependence, unspecified, uncomplicated Status: Acute Assessment and Plan: Smoking 8 cigarettes per day at admission, mostly 1 ppd x years. 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 Review of Systems Cardiovascular: Cardiovascular: Denies chest pain and Denies irregular heart rhythm Gastrointestinal: Gastrointestinal: Denies abdominal pain Exam Const: General: no acute distress Other: Resp: Auscultation: diminished lung sounds Cardio: Rate: regular rate Rhythm: regular rhythm Skin: General skin exam: normal color Extrem: General: normal to inspection (thin, no calf tenderness, decreased muscle mass) and no edema Objective Data Vital Signs Vital Signs: Vital Signs - 24 hr 12/27/19 06:07 12/27/19 07:50 12/27/19 07:55 Temperature 36.3 C L 36.4 C Pulse Rate 89 91 89 Respiratory Rate 18 14 Blood Pressure 125/76 134/85 133/83 Pulse Oximetry 95 12/27/19 08:15 12/27/19 08:30 12/27/19 08:45 Temperature Pulse Rate 96 101 H 109 H Respiratory Rate Blood Pressure 118/83 116/73 99/60 L Pulse Oximetry 12/27/19 09:01 12/27/19 09:15 12/27/19 09:30 Temperature Pulse Rate 105 H 102 H 96 Respiratory Rate Blood Pressure 107/69 103/66 101/50 L Pulse Oximetry 12/27/19 09:45 12/27/19 10:00 12/27/19 10:15 Temperature Pulse Rate 105 H 102 H 107 H Respiratory Rate Blood Pressure 100/67 104/69 97/72 L Pulse Oximetry 12/27/19 10:40 12/27/19 10:50 12/27/19 11:39 Temperature 36.6 C Pulse Rate 102 H 99 100 Respiratory Rate 14 Blood Pressure 115/60 115/67 Pulse Oximetry 12/27/19 14:00 12/27/19 19:45 Temperature 36.6 C Pulse Rate 97 87 Respiratory Rate 20 16 Blood Pressure 122/75 Pulse Oximetry 94 93 Intake/Output Intake/Output: Intake & Output 12/24/19 12/25/19 12/26/19 12/27/19 23:59 23:59 23:59 23:59 Intake Total 660
[2019-12-28 05:58] VITALS: BP 127/71; PULSE 87; RESP 18; TEMP 36.3; O2SAT 94
[2019-12-28 08:00] VITALS: PULSE 87; RESP 18; O2SAT 94
[2019-12-28 09:04] VITALS: PULSE 87
[2019-12-28] MEDS: METOPROLOL SUCCINATE EXT REL 25 MG TABCR PO (09:04)
[2019-12-28] MEDS: PANTOPRAZOLE 40 MG TABLET PO (09:04)
[2019-12-28] MEDS: APIXABAN 5 MG TABLET PO ×2 (09:04→20:48)
[2019-12-28] MEDS: CALCIUM ACETATE 667 MG TABLET PO ×3 (09:04→17:53)
--- NOTE | 2019-12-28 10:09 | PC.NURSE ---
pt refusing incentive spirometer. Encouraged use and educated on benefits. Will continue to encourage.
[2019-12-28 10:17] LABS: Albumin Level 2.4 g/dL (3.5-5.1); Blood Urea Nitrogen 6 mg/dL (7-17); Calcium 11.2 mg/dL (8.4-10.2); Carbon Dioxide 32 mmol/L (22-30); Chloride 101 mmol/L (98-107); Estimated Glomerular Filt Rate 19; Glucose 90 mg/dL (65-105); Phosphorus 3.4 mg/dL (2.5-4.5); Potassium 3.4 mmol/L (3.4-5.0); Sodium 133 mmol/L (137-145)
--- NOTE | 2019-12-28 11:06 | PCOTNOTE ---
Patient refused treatment this session stating she was tired and didn't feel like doing anything today, but said come back tomorrow.
[2019-12-28 14:00] VITALS: BP 148/85; PULSE 95; RESP 19; TEMP 36.7; O2SAT 96
--- NOTE | 2019-12-28 14:05 | PM.IMPN ---
Progress Note: A&P Assessment and Plan (1) Pneumonia: Qualifiers: Pneumonia type: due to Pneumococcus Laterality: bilateral Lung location: lower lobe of lung Qualified Code(s): J13 - Pneumonia due to Streptococcus pneumoniae Code(s): J18.9 - Pneumonia, unspecified organism Status: Chronic Assessment and Plan: CT shows multifocal pneumonia with lymphadenopathy and severe emphysema. Afebrile, cough improved. She remains on Zosyn and Vancomycin today (day 7), as she was recently treated with ceftriaxone and azithromycin during her last hospitalization. Continue nebulized bronchodilators, pulmozyme, and mucinex. Encourage incentive spirometry which patient refuses. Appreciate pulmonolgy recommendations. CXR unchanged. Anticipate discharge soon, likely back to SNF. Discussed case with Dr Beltran - patient has reached maximum hospital benefit and declines many therapies offered here for her. (2) Malnutrition due to starvation: Code(s): E46 - Unspecified protein-calorie malnutrition Status: Chronic Assessment and Plan: Patient is very underweight, frail. Down to 77lb. She mostly only eats a few bites at each meal. Decreased appetite, decreased motivation. Nepro ordered, started on a low dose of Remeron. She makes it very clear that she is not interested in a feeding tube of any type. Discussed hospice. Detailed discussion held with daughter (JOEL), Emily, over the phone regarding her mother's condition and her wishes to meet with hospice. JUAN nurse met with patient and phone conferenced in Emily. Patient reports the meeting went well but that she would like to discharge without hospice for now . (3) Anemia: Qualifiers: Anemia type: unspecified type Qualified Code(s): D64.9 - Anemia, unspecified Code(s): D64.9 - Anemia, unspecified Status: Chronic Assessment and Plan: H&H low but stable. Suspect secondary to YOKASTA, CKD, and infection. No evidence of acute blood loss. Monitor CBC and transfuse PRN. (4) COPD (chronic obstructive pulmonary disease): Qualifiers: COPD type: unspecified COPD Qualified Code(s): J44.9 - Chronic obstructive pulmonary disease, unspecified Code(s): J44.9 - Chronic obstructive pulmonary disease, unspecified Status: Chronic Assessment and Plan: Severe emphysema. Continue bronchodilators and respiratory regimen outlined above. 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 Continue Eliquis. (6) ATN (acute tubular necrosis): Code(s): N17.0 - Acute kidney failure with tubular necrosis Status: Acute Assessment and Plan: YOKASTA secondary to acute tubular necrosis by biopsy and previous renal US consistent with medical renal disease. Appreciate nephrology recommendations. She continues with HD on T/T/S schedule at this time. (7) Chronic kidney disease: Qualifiers: Chronic kidney disease stage: on chronic dialysis Qualified Code(s): N18.6 - End stage renal disease; Z99.2 - Dependence on renal dialysis Code(s): N18.9 - Chronic kidney disease, unspecified Status: Chronic Assessment and Plan: YOKASTA on CKD. Difficulty assessing urine output due to incontinence. Nephrology following. (8) Hypertension: Qualifiers: Hypertension type: essential hypertension Qualified Code(s): I10 - Essential (primary) hypertension Code(s): I10 - Essential (primary) hypertensi
--- NOTE | 2019-12-28 16:27 | PM.PNNEP ---
Progress Note: A&P Assessment and Plan (1) Acute kidney injury: Code(s): N17.9 - Acute kidney failure, unspecified Status: Acute Assessment and Plan: due to biopsy proven acute tubular necrosis difficult to assess urine output at this time creatinine better in general - however, suspect her poor oral intake and reduced muscle mass more likely reason for lower creatinine however, given her propensity for uremic encephalopathy on last hospitalization and acute infection, will continue with dialysis support -- next HD tomorrow (2) Chronic kidney disease: Qualifiers: Chronic kidney disease stage: on chronic dialysis Qualified Code(s): N18.6 - End stage renal disease; Z99.2 - Dependence on renal dialysis Code(s): N18.9 - Chronic kidney disease, unspecified Status: Chronic Assessment and Plan: baseline creatinine ~ 1.0 - 1.4mg/dl previous renal ultrasound with changes c/w medical renal disease (3) HAP (hospital-acquired pneumonia): Code(s): J18.9 - Pneumonia, unspecified organism; Y95 - Nosocomial condition Status: Acute Assessment and Plan: as evidence by imaging studies on antibiotic therapy some resistance to incentive spirometry and therapy (4) COPD (chronic obstructive pulmonary disease): Qualifiers: COPD type: unspecified COPD Qualified Code(s): J44.9 - Chronic obstructive pulmonary disease, unspecified Code(s): J44.9 - Chronic obstructive pulmonary disease, unspecified Status: Chronic Assessment and Plan: continue current therapy clinical better with nebulizer treatments (5) Anemia: Qualifiers: Anemia type: unspecified type Qualified Code(s): D64.9 - Anemia, unspecified Code(s): D64.9 - Anemia, unspecified Status: Chronic Assessment and Plan: due to YOKASTA, CKD, and acute infection continue Epogen holding IV iron in the setting of infection Will continue to follow. Subjective Date/time seen: 12/28/19 16:27 Tolerated dialysis yesterday without any issue or problems; no apparent distress when I visited her but she really did not want to talk to me and would rather be left alone. Exam Narrative: Exam Narrative: General: frail Caucasain female in NAD Heart: normal S1 and S2; no rub Lungs: decreased breath sounds at bases Abdomen: soft, nontender, nondistended, positive bowel sounds Extremities: no cyanosis or clubbing; no edema Skin: no nodules Objective Data Vital Signs Vital Signs: Vital Signs Temp Pulse Resp BP Pulse Ox 12/28/19 14:00 36.7 C 95 19 148/85 H 96 12/28/19 09:04 87 12/28/19 08:00 87 18 94 12/28/19 05:58 36.3 C L 87 18 127/71 94 12/27/19 21:25 36.2 C L 90 18 131/79 90 12/27/19 19:45 87 16 93 Intake/Output Intake/Output: Intake & Output 12/25/19 12/26/19 12/27/19 12/28/19 23:59 23:59 23:59 23:59 Intake Total 237 806 4103 350 Output Total 375 0 Balance 818 050 0652 350 Meds/Results Medications: Active Medications Generic Name Dose Route Start Last Admin Trade Name Freq PRN Reason Stop Dose Admin Hydrocodone Bitart/Acetaminophen 1 tab 12/20/19 13:39 12/27/19 20:53 Vici 5-325 Mg PO 1 tab Q6H PRN Administration Pain Rated 7-10 Albuterol 5 mg 12/27/19 21:13 Albuterol Sulf Neb 2.5mg/0.5ml INHALATION Q6HRT PRN dyspnea Apixaban 5 mg 12/20/19 09:00 12/28/19 09:04 Eliquis PO 5 mg Q12HR SHU Administration Artificial Tears 1 drop 12/21/19 16:15 12/21/19 17:01 Artificial Tears EACH EYE 1 drop QID PRN Administration Dry Eye(s) Benzocaine 1 lozenge 12/22/19 16:58 12/26/19 16:49 Chloraseptic Lozenge PO 1 lozenge PRN PRN Administration Cough Budesonide/Formoterol Fumarate 2 puff 12/20/19 08:00 12/28/19 08:33 Symbicort 160-4.5 Mcg (*Sp) Inhaler INHALATION 2 puff Q12HRT SHU Administration Calcium
[2019-12-28 19:22] VITALS: PULSE 100; O2SAT 92
[2019-12-28] MEDS: MIRTAZAPINE 7.5 MG TABLET PO (20:49)
[2019-12-28] MEDS: TRAZODONE HCL 50 MG TABLET PO (20:49)
[2019-12-28 22:00] VITALS: BP 139/80; PULSE 92; RESP 16; TEMP 36.3; O2SAT 91
[2019-12-29] VITALS (18 sets, daily range): BP systolic 90–139; BP diastolic 43–84; PULSE 92–111; RESP 16; TEMP 36–37; O2SAT 91–94
[2019-12-29 05:56] LABS: Albumin Level 2.4 g/dL (3.5-5.1); Blood Urea Nitrogen 11 mg/dL (7-17); Calcium 12.2 mg/dL (8.4-10.2); Carbon Dioxide 31 mmol/L (22-30); Chloride 100 mmol/L (98-107); Estimated Glomerular Filt Rate 15; Glucose 72 mg/dL (65-105); Phosphorus 4.3 mg/dL (2.5-4.5); Potassium 3.4 mmol/L (3.4-5.0); Sodium 132 mmol/L (137-145)
--- NOTE | 2019-12-29 08:14 | PHAR ---
EPOGEN PATIENT SHEET SENT WITH 12/29/2019 DOSE
--- NOTE | 2019-12-29 09:30 | PCPTNOTE ---
Unable to see patient at this time; patient out of room.
[2019-12-29] MEDS: EPOETIN ALFA 10,000 UNITS/ML VIAL 10000 UNITS IV PUSH (10:35)
--- NOTE | 2019-12-29 12:28 | PM.PNNEP ---
Progress Note: A&P Assessment and Plan (1) Acute kidney injury: Code(s): N17.9 - Acute kidney failure, unspecified Status: Acute Assessment and Plan: due to biopsy proven acute tubular necrosis difficult to assess urine output at this time creatinine better in general - however, suspect her poor oral intake and reduced muscle mass more likely reason for lower creatinine however, given her propensity for uremic encephalopathy on last hospitalization and acute infection, will continue with dialysis support -- HD today consider checking 24 hour urine collection on Tuesday (depending if she is still hospitalized) although this would require placement of a mcguire catheter for 24hr as well... (2) Chronic kidney disease: Qualifiers: Chronic kidney disease stage: on chronic dialysis Qualified Code(s): N18.6 - End stage renal disease; Z99.2 - Dependence on renal dialysis Code(s): N18.9 - Chronic kidney disease, unspecified Status: Chronic Assessment and Plan: baseline creatinine ~ 1.0 - 1.4mg/dl previous renal ultrasound with changes c/w medical renal disease (3) HAP (hospital-acquired pneumonia): Code(s): J18.9 - Pneumonia, unspecified organism; Y95 - Nosocomial condition Status: Acute Assessment and Plan: as evidence by imaging studies on antibiotic therapy (4) COPD (chronic obstructive pulmonary disease): Qualifiers: COPD type: unspecified COPD Qualified Code(s): J44.9 - Chronic obstructive pulmonary disease, unspecified Code(s): J44.9 - Chronic obstructive pulmonary disease, unspecified Status: Chronic Assessment and Plan: continue current therapy clinical better with nebulizer treatments (5) Anemia: Qualifiers: Anemia type: unspecified type Qualified Code(s): D64.9 - Anemia, unspecified Code(s): D64.9 - Anemia, unspecified Status: Chronic Assessment and Plan: due to YOKASTA, CKD, and acute infection continue Epogen holding IV iron in the setting of infection Will continue to follow. Subjective Date/time seen: 12/29/19 12:28 Tolerating dialysis at the time of my visit (seen on HD at ~ 12:00PM); no new issues or complaints voiced; no events overnight or earlier this AM; feels reasonably well. Exam Narrative: Exam Narrative: General: frail Caucasain female in NAD Heart: normal S1 and S2; no rub Lungs: decreased breath sounds at bases Abdomen: soft, nontender, nondistended, positive bowel sounds Extremities: no cyanosis or clubbing; no edema Skin: warm and intact Objective Data Vital Signs Vital Signs: Vital Signs Temp Pulse Resp BP Pulse Ox 12/29/19 12:18 36.2 C L 106 H 16 94/59 L 12/29/19 12:08 110 H 90/43 L 12/29/19 11:50 104 H 90/59 L 12/29/19 11:35 106 H 94/62 L 12/29/19 11:20 98 97/65 L 12/29/19 11:05 104 H 94/64 L 12/29/19 10:50 95 97/50 L 12/29/19 10:38 104 H 101/72 12/29/19 10:20 108 H 103/73 12/29/19 10:05 111 H 118/77 12/29/19 09:51 100 122/84 12/29/19 09:35 96 119/83 12/29/19 09:34 36.3 C L 99 16 114/72 12/29/19 09:21 93 123/64 12/29/19 06:00 36.3 C L 92 16 139/80 91 12/28/19 22:00 36.3 C L 92 16 139/80 91 12/28/19 19:22 100 92 12/28/19 14:00 36.7 C 95 19 148/85 H 96 Intake/Output Intake/Output: Intake & Output 12/26/19 12/27/19 12/28/19 12/29/19 23:59 23:59 23:59 23:59 Intake Total 680 1175 825 50 Output Total 0 0 Balance 680 1175 825 50 Meds/Results Medications: Active Medications Generic Name Dose Route Start Last Admin Trade Name Freq PRN Reason Stop Dose Admin Hydrocodone Bitart/Acetaminophen 1 tab 12/20/19 13:39 12/29/19 11:34 [place] 5-325 Mg PO 1 tab Q6H PRN Administration Pain Rated 7-10 Albuterol 5 mg 12/27/19 21:13 Albuterol Sulf Neb 2.5mg/0.5ml INHALATION Q6HRT PRN dysp
--- NOTE | 2019-12-29 14:37 | PM.DS ---
DS: Diagnosis Admitting Diagnosis Admitting Diagnosis: Pneumonia due to Streptococcus pneumoniae Discharge Diagnosis (1) Pneumonia: Qualifiers: Pneumonia type: due to Pneumococcus Laterality: bilateral Lung location: lower lobe of lung Qualified Code(s): J13 - Pneumonia due to Streptococcus pneumoniae Code(s): J18.9 - Pneumonia, unspecified organism Status: Chronic Assessment and Plan: Date of Service 12/29/19 Ms. Willis is a 64yo F with history of anemia, COPD, CKD and hypertension who [facility] due to ongoing productive cough. Ms Willis was recently discharged from [facility] just 9 days prior to this, when she was admitted here 11/23/19 - 12/10/19 and treated for Influenza A, pneumonia, new DVT, and acute tubular necrosis and underwent placement of tunneled catheter 12/04/19 and initiation of hemodialysis. She has continued to decline since that time. During this admission, her weight is 77 pounds and she refuses to eat much of anything. She will take one or two bites of food at each meal, declines dietary supplements. She is adamant in the fact that she does not desire any type of feeding tube or alternate route of nutrition. CT chest this admission again shows multifocal pneumonia and severe emphysema. She was afebrile and her cough improved slightly. She was treated with a 7-day course of Zosyn and Vancomycin and evaluated by Pulmonology, Dr Beltran. She was treated with bronchodilator therapy, pulmozyme, and mucinex. She declined using incentive spirometry when encouraged. She declined getting out of bed, ambulating, or working with PT/OT. Her hemodialysis was continued T/T/S here. Detailed discussions about the patient's condition were held with the patient and her daughter (JOEL), Emily. Ms. Willis was interested in speaking with hospice. [facility] met with Ms. Willis in the room with Emily called on speakerphone, as no visitors are allowed at the hospital at this time. Ms. Willis was discharged to live at home with her daughter, Emily, under the care of [facility]. Her prognosis is guarded. (2) Malnutrition due to starvation: Code(s): E46 - Unspecified protein-calorie malnutrition Status: Chronic Assessment and Plan: Patient is very underweight, frail. Down to 77lb. She mostly only eats a few bites at each meal. Decreased appetite, decreased motivation. Nepro ordered, started on a low dose of Remeron. She makes it very clear that she is not interested in a feeding tube of any type. Discussed hospice. Detailed discussion held with daughter (JOEL), Emily, over the phone regarding her mother's condition and her wishes to meet with hospice. [facility] nurse met with patient and phone conferenced in Emily. Discharge home with family with [facility]. (3) Anemia: Qualifiers: Anemia type: unspecified type Qualified Code(s): D64.9 - Anemia, unspecified Code(s): D64.9 - Anemia, unspecified Status: Chronic Assessment and Plan: H&H low but stable. Suspect secondary to YOKASTA, CKD, and infection. No evidence of acute blood loss. (4) COPD (chronic obstructive pulmonary disease): Qualifiers: COPD type: unspecified COPD Qualified Code(s): J44.9 - Chronic obstructive pulmonary disease, unspecified Code(s): J44.9 - Chronic obstructive pulmonary disease, unspecified Status: Chronic Assessment and Plan: Severe emphysema. Bronchodilators and respiratory regimen outlined above. 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
[2019-12-29] MEDS: APIXABAN 5 MG TABLET PO (14:41)
[2019-12-29] MEDS: CALCIUM ACETATE 667 MG TABLET PO (14:41)
[2019-12-29] MEDS: PANTOPRAZOLE 40 MG TABLET PO (14:42)
[2019-12-29] MEDS: METOPROLOL SUCCINATE EXT REL 25 MG TABCR PO (14:42)
== END 2019-12-29 15:21 | disposition hospice, home (50) | DRG 193 ==
LOC: ANHED 19:34 → ANH2MED 20:07
PROVIDERS: Family Medicine; Internal Medicine Nephrology; Physician Assistant; Admitting Provider Internal Medicine; Emergency Provider General Practice; PCP Internal Medicine; Visit Provider Internal Medicine
DX: J13 Pneumonia due to Streptococcus pneumoniae (principal); N17.0 Acute kidney failure with tubular necrosis; N18.6 End stage renal disease; I12.0 Hypertensive chronic kidney disease with stage 5 chronic kidney disease or end stage renal disease; E46 Unspecified protein-calorie malnutrition; Z68.1 Body mass index [BMI] 19.9 or less, adult; I82.511 Chronic embolism and thrombosis of right femoral vein; D63.1 Anemia in chronic kidney disease; J43.9 Emphysema, unspecified; K21.9 Gastro-esophageal reflux disease without esophagitis; E78.5 Hyperlipidemia, unspecified; M19.90 Unspecified osteoarthritis, unspecified site; M81.0 Age-related osteoporosis without current pathological fracture; E55.9 Vitamin D deficiency, unspecified; F17.210 Nicotine dependence, cigarettes, uncomplicated; Z96.641 Presence of right artificial hip joint; Z90.710 Acquired absence of both cervix and uterus; Z99.2 Dependence on renal dialysis; Z79.01 Long term (current) use of anticoagulants
CPT/HCPCS: 36415; 36600; 51701; 71046; 71250; 72100; 73521; 80048; 80053; 80069; 80202; 81001; 81050; 82375; 82570; 82805; 83050; 83605; 83690; 83735; 83880; 84100; 84134; 84145; 84484; 85014; 85018; 85025; 85027; 85610; 85730; 86140; 86706; 87040; 87081; 87340; 87804; 93005; 93306; 94640; 96365; 96366; 96367; 96375; 97110; 97161; 97165; 97530; 97535; 99285; A9270; G0257; G0378; J0131; J1644; J2405; J2543; J3370; J7030; Q4081